=== PATIENT | female | born 1975 | race Caucasian/White ===

== ENCOUNTER 2020-06-25 14:44 | Inpatient (IN) | payer MEDICARE, OTHER, MEDICAID, SELFPAY ==
[2020-06-25] VITALS (11 sets, daily range): BP systolic 99–143; BP diastolic 69–106; PULSE 120–124; RESP 18–27; TEMP 36.1–36.6; O2SAT 92–100; BMI 49.5
--- NOTE | ~2020-06-25 | US_ITS ---
EXAMINATION: US venous doppler [facility] DATE: 06/26/2020 09:16 INDICATION: Shortness of breath TECHNIQUE: [place]ova scale images without and with compression and Doppler images of the bilateral lower e xtremity veins were obtained. COMPARISON: 05/26/2017 FINDINGS: The right common femoral vein, profunda femoral vein, femoral vein, popliteal vein, peroneal trunk, p osterior tibial veins, and greater saphenous vein are patent. The left common femoral vein, profunda femoral vein, femoral vein, popliteal vein, peroneal trunk, po sterior tibial veins, and greater saphenous vein are patent. IMPRESSION: 1. Patent bilateral lower extremity veins. No evidence of deep venous thrombosis. Reviewed, dictated and finalized at location A. IMPRESSION: 1. Patent bilateral lower extremity veins. No evidence of deep venous thrombosi s.
--- NOTE | ~2020-06-25 | CT_ITS ---
EXAMINATION: CT brain wo con DATE: 06/27/2020 12:04 INDICATION: Cardiac arrest. Dilated pupils. TECHNIQUE: Computed tomography (CT) of the head was performed without intravenous contrast. The mA wa s adjusted according to patient size. Iterative reconstruction technique was employed. The dose-lengt h product was 605.33 mGy-cm. COMPARISON: Head CT 06/01/2013 FINDINGS: There is no intracranial hemorrhage, acute infarction, or abnormal intracranial mass lesion . The ventricles are normal in size. The paranasal sinuses are clear. The orbits are normal. The mast oid air cells are normal. IMPRESSION: 1. Normal brain. Reviewed, dictated and finalized at location A. IMPRESSION: 1. Normal brain.
--- NOTE | ~2020-06-25 | XR_ITS ---
EXAMINATION: XR abdomen NG/feed tube insert INDICATION: Nasogastric tube placement TECHNIQUE: Portable AP KUB-NG at 1035 hours COMPARISON: None available FINDINGS: The nasogastric tube is in the stomach. Cardiomegaly is noted. There are interstitial and a irspace opacities of the visualized lung bases. Small pleural effusions are present. IMPRESSION: 1. Nasogastric tube in the stomach. Reviewed, dictated and finalized at location A.
--- NOTE | ~2020-06-25 | CT_ITS ---
EXAMINATION: CTA chest PE protocol EXAM DATE: 06/25/2020 18:07 INDICATION: Dyspnea, elevated d-dimer. Dizziness. TECHNIQUE: Spiral CTA of the chest (pulmonary arteries) was performed with 100 cc Omnipaque 350 intr avenous contrast injection. Images were acquired during the pulmonary arterial phase. Coronal maxi mum intensity projection 3D-reconstructions were created by the technologist on dedicated workstation . Axial, coronal and sagittal reformatted images were reviewed. The dose-length product (DLP) for t his examination was 951.61 mGy-cm. The exposure was tailored according to patient size (auto mA exp osure control), and iterative reconstruction (ASIR) was used as additional dose reduction technique. Comparison is made to prior examination from 12/03/2014. FINDINGS: There are no pulmonary emboli in the 1st through 3rd order (central and interlobar) pulmon [place] arteries. There is loss of attenuation in the segmental pulmonary arteries due to respiratory mot ion. No thoracic aortic dissection. There is scattered mosaic attenuation with differential diagnosis including air trapping (asthma, bro nchiolitis obliterans), vasculitis, or groundglass opacity. Groundglass opacity can be caused acutel y by edema, infection (including COVID-19) or hemorrhage. The trachea and mainstem bronchi do appear relatively collapsed. There is left lower lobe segmental atelectasis. No confluent consolidation. Small right pleural effus ion. No pericardial effusion. Tracheobronchial tree is patent. There is no mediastinal, hilar or a xillary lymphadenopathy. There is no pneumothorax. Severe cardiomegaly. The main, central pulmona ry arteries are dilated which can indicate elevated pulmonary arterial pressure, pulmonary arterial h ypertension. No evidence of coronary arterial calcification. There are some liver surface undulatio ns. There is thoracic spondylosis without osteoblastic or osteolytic lesions identified. IMPRESSION: 1. No central pulmonary emboli. Basilar segmental vessels poorly evaluated. 2. Mosaic attenuation, could be air trapping given the collapsed appearing airway. Groundglass opaci ties from edema or infection not excludable. 3. Left lower lobe segmental atelectasis. 4. Small right pleural effusion. 5. Severe cardiomegaly. 6. Pulmonary arterial hypertension. 7. Possible cirrhosis. Reviewed, dictated and finalized at location A. IMPRESSION: 1. No central pulmonary emboli. Basilar segmental vessels poorly evaluated. 2. Mosaic attenuation, could be air trapping given the collapsed appearing air way. Groundglass opacities from edema or infection not excludable. 3. Left lower lobe segmental atelectasis. 4. Small right pleural effusion. 5. Severe cardiomegaly. 6. Pulmonary arterial hypertension. 7. Possible cirrhosis.
--- NOTE | ~2020-06-25 | XR_ITS ---
EXAMINATION: XR chest ET placement INDICATION: Endotracheal tube insertion TECHNIQUE: Portable AP chest at 1032 hours COMPARISON: 0914 hours FINDINGS: The endotracheal tube ends approximately 5.8 cm of above the sherry. A right internal jugul ar catheter ends at this tip in the proximal superior vena cava. A right internal jugular Port-A-Cath ends with its tip in the distal superior vena cava. The nasogastric tube is followed as far as the s tomach. Its tip is beyond the inferior margin of the radiograph. There is stable cardiomegaly. Small pleural effusions are unchanged. Diffuse interstitial and airspace opacities persist without signific ant change. IMPRESSION: 1. Endotracheal tube approximately 5.8 cm above the sherry. 2. Right internal jugular catheter insertion, no pneumothorax. 3. Stable cardiomegaly. 4. Stable diffuse lung disease, likely pulmonary edema. 5. Small pleural effusions. Reviewed, dictated and finalized at location A.
--- NOTE | ~2020-06-25 | XR_ITS ---
EXAMINATION: XR chest ET placement DATE: 06/27/2020 09:18 INDICATION: Intubation. TECHNIQUE: A single frontal view of the chest was obtained. COMPARISON: Chest 2 views 06/25/2020, chest CT 06/25/2020 FINDINGS: There are airspace opacities in the perihilar regions and at left lung base. Briseida B lines are noted. There are small pleural effusions. No pneumothorax. Cardiomegaly is noted. The endotrache al tube tip is 5.6 cm above the sherry. There is a right internal jugular port with tip at superior c avoatrial junction. IMPRESSION: 1. Diffuse lung disease, likely moderate pulmonary edema. 2. Small pleural effusions. 3. Cardiomegaly. Reviewed, dictated and finalized at location A.
--- NOTE | ~2020-06-25 | XR_ITS ---
EXAMINATION: XR chest 2V DATE: 06/25/2020 16:16 INDICATION: Shortness of breath, cough, hypoxia and dizziness TECHNIQUE: frontal and lateral views of the chest were obtained. COMPARISON: Chest radiograph dated 04/05/2018 FINDINGS: Right internal jugular central venous port catheter with distal tip at the caudal superior vena cava. Sensitivity decreased by patient body habitus. Small right pleural effusion resulting in mild increa sed opacification the right lower lung zone with blunting at the right costophrenic angle. No pneumot horax or definitive left pleural effusion. The cardiomediastinal silhouette is within normal limits f or AP technique. Moderate thoracic spondylosis. IMPRESSION: 1. Small right pleural effusion. Reviewed, dictated and finalized at location B.
--- NOTE | 2020-06-25 14:49 | ECG_ITS ---
Measurements Intervals [place] Rate: 122 P: [place]: 0 QRS: 198 QRSD: 111 T: 57 QT: 334 QTc: 476 Interpretive Statements ATRIAL FLUTTER/TACHYCARDIA WITH RAPID VENTRICULAR RESPONSE RIGHT AXIS DEVIATION INCOMPLETE RIGHT BUNDLE BRANCH BLOCK LOW QRS VOLTAGE IN PRECORDIAL LEADS BORDERLINE T WAVE ABNORMALITY- ANTEROLATERAL LEADS BASELINE ARTIFACT- I, II, III, AVR, AVL, AVF, V1-V2 ABNORMAL ECG Electronically Signed On 06-25-2020 15:02:46 CDT by Juan Luis Cervantes D.O.
[2020-06-25 15:35] LABS: Basophils Absolute Auto 0.1 K/mm3 (0.0-0.1); Basophils Percent Auto 0.6 % (0.2-1.2); Eosinophils Absolute Auto 0.1 K/mm3 (0-0.3); Eosinophils Percent Auto 1.2 % (0-4.4); Hematocrit 39.6 % (37.0-47.0); Hemoglobin 11.7 g/dL (12.0-15.0); Immature Granulocyte Absolute 0.04 K/mm3 (0.00-0.031); Immature Granulocyte Percent A 0.4 % (0-0.5); Lymphocytes Percent Auto 16.7 % (18.3-44.2); Mean Corpuscular HGB Conc 29.5 g/dl (32-36); Mean Corpuscular Hemoglobin 27.1 pg (26-34); Mean Corpuscular Volume 91.9 fl (80-100); Mean Platelet Volume 9.8 fl (7.4-10.4); Monocytes Absolute Auto 0.6 K/mm3 (0.1-0.6); Monocytes Percent Auto 6.7 % (2.6-8.5); Neutrophils Absolute Auto 7.1 K/mm3 (1.3-6.7); Neutrophils Percent Auto 74.4 % (45.5-73.1); Platelet Count Result 369 k/mm3 (150-375); Red Blood Count 4.31 M/mm3 (4.2-5.4); Red Cell Distribution Width 16.6 % (11.5-14.5); White Blood Count 9.6 K/mm3 (4.5-10.0)
[2020-06-25 15:46] LABS: Anion Gap 8 mmol/L (8-16); Blood Urea Nitrogen 18 mg/dL (7-17); Calcium 9.4 mg/dL (8.4-10.2); Carbon Dioxide 32 mmol/L (22-30); Chloride 98 mmol/L (98-107); Estimated Glomerular Filt Rate > 60; Glucose 107 mg/dL (65-105); Potassium 4.7 mmol/L (3.4-5.0); Sodium 138 mmol/L (137-145)
[2020-06-25 16:05] LABS: Platelet Estimate Adequate (Adequate)
[2020-06-25 16:06] LABS: Anisocytosis 2+ (NORMAL); Hypochromasia 1+ (NORMAL)
--- NOTE | 2020-06-25 16:09 | ED.SOB ---
HPI - SOB/Dyspnea General Chief Complaint: Shortness of Breath/Dyspnea Stated Complaint: sob Time Seen by Provider: 06/25/20 16:02 Source: patient Mode of arrival: ambulatory Limitations: no limitations History of Present Illness HPI Narrative: Patient is a 45-year-old female with a history of rheumatoid arthritis that presents for evaluation of shortness of breath. Patient reports shortness of breath at rest and with exertion. She reports worsening shortness of breath over the past week as well as productive cough. She denies any hemoptysis, no fever, rhinorrhea or congestion. No sore throat. No recent sick contacts. She is denying any chest pain. Patient states she becomes short of breath whenever she is walking around. She cannot PE her activities of daily living due to the extreme shortness of breath. Patient denies any smoking history. No history of COPD. She denies any leg swelling or calf pain. Related Data Home Medications Medication Instructions Recorded Confirmed abatacept 125 mg/mL subcutaneous 1,000 mg SUBCUT .COMPLEX ml 08/30/19 09/04/19 syringe albuterol sulfate 90 mcg/actuation 2 inhalation INHALATION Q4-6H PRN 08/30/19 09/04/19 breath activated powder inhaler amitriptyline 150 mg tablet 150 mg PO ONCE 08/30/19 09/04/19 folic acid 1 mg tablet 1 mg PO DAILY 08/30/19 09/04/19 leflunomide 10 mg tablet 10 mg PO DAILY 08/30/19 09/04/19 medroxyprogesterone 10 mg tablet 10 mg PO DAILY 08/30/19 09/04/19 mometasone-formoterol HFA 100 2 puff INHALATION Q12H 08/30/19 09/04/19 mcg-5 mcg/actuation aerosol inhaler multivitamin 1 tablet PO DAILY 08/30/19 09/04/19 meloxicam 15 mg tablet 15 mg PO DAILY 09/04/19 09/04/19 allopurinol 100 mg tablet 200 mg PO DAILY tablet 03/18/20 Allergies Allergy/AdvReac Type Severity Reaction Status Date / Time No Known Allergies Allergy Verified 06/25/20 14:49 Review of Systems Review of Systems: Narrative: CONSTITUTIONAL: Denies fever, chills, or sweats. ENT: Denies rhinorrhea, congestion, sore throat, or otalgia. CARDIOVASCULAR: Denies chest pain, palpitations, or edema. RESPIRATORY: Reports cough, reports shortness of breath GASTROINTESTINAL: Denies abdominal pain, nausea, vomiting, or diarrhea. GENITOURINARY: Denies dysuria or hematuria. SKIN: Denies rash or itching. MUSCULOSKELETAL: Denies back pain, joint pain, or myalgia. NEUROLOGIC: Denies headache, numbness, or weakness. [facility] Past Medical History Medical History Candidal skin infection Hyperglycemia Hypothyroidism Obesity hypoventilation syndrome Rheumatoid arthritis Surgical History Surgical History (Updated 05/02/20 @ 12:52 by Lissa Serra MA) History of carpal tunnel repair History of dilation and curettage Family History Family History Mother Patient's mother is in good health Hypertension Father Patient's father is in good health Sibling Patient's sister is in good health Grandparent Diabetes mellitus Family history of hypercholesterolemia Social History Social History Smoking status: Never smoker Second hand tobacco smoke exposure: No Alcohol intake: never Substance use: never Exam Narrative: Exam Narrative: GENERAL: Awake, alert, conversant, obese HEAD: Normocephalic, atraumatic. EYES: PERRLA and EOMI. ENT: Nares clear, no rhinorrhea or epistaxis. Mucous membranes moist. NECK: Supple. CHEST: Coarse breath sounds bilaterally, crackles bilaterally, oxygen saturations 90% when speaking HEART: Tachycardic rate, atrial flutter ABDOMEN:Non distended, non tender EXTREMITIES: Normal range of motion. No edema of the lower extremities SKIN: Cyanosis present, pale dry, no rash. NEURO:No focal deficits. Alert and oriented x3 Course Vital Signs Vital signs: Vital Signs Temperature 36.1 C L
[2020-06-25] MEDS: SODIUM CHLORIDE 0.9% IV 1,000 ML 999 ML IV CONT (16:27)
[2020-06-25 16:31] LABS: INR 1.3; Partial Thromboplastin Time 28.7 SECONDS (22.3-36.8); Prothrombin Time 15.5 Seconds (11.1-14.7)
[2020-06-25 16:40] LABS: NT Pro B Type Natriuretic Pept 12700 PG/ML (5-100); Troponin I < 0.012 ng/mL (0.000-0.034)
[2020-06-25 16:59] LABS: Alveolar/Arterial O2 Gradient 33.2 mmHg; Base Excess ABG -0.4 mEq/l (+/-2.0); Carboxyhemoglobin 0.5 % THb (0-2.0); Fractional Inspired Oxygen 21 %; HCO3 ABG 24.7 mEq/l (22.0-26.0); Methemoglobin ABG 0.1 %THb (0-1.5); Oxygen Content ABG 15.2 %vol (16.0-22.0); Oxygen Saturation ABG 92.8 % (95.0-100.0); Oxyhemoglobin 89.2 % THb (90.0-100.0); PCO2 ABG 42.2 mmHg (35.0-45.0); PO2 FiO2 Ratio Arterial Blood 3.14 %; Reduced Hemoglobin 10.2 %THb (0-5.0); Total Hemoglobin 12.1 g/dL (12.0-18.0); pH ABG 7.385 (7.350-7.450)
[2020-06-25 17:00] LABS: Device ROOM AIR; Site Drawn RIGHT BRACHIAL
[2020-06-25 17:32] LABS: D Dimer > 20.00 ug/mL (<0.48)
[2020-06-25] MEDS: DEXAMETHASONE SOD PHOS INJ 4 MG/ML VIAL 10 MG IV PUSH (18:41)
[2020-06-25] MEDS: NITROGLYCERIN OINTMENT 1 INCH DOSE TRANSDERM (18:42)
[2020-06-25] MEDS: FUROSEMIDE INJ 40 MG/4 ML VIAL 20 MG IV PUSH (19:37)
--- NOTE | 2020-06-25 19:52 | ECG_ITS ---
Measurements Intervals [place] Rate: 122 P: CT: 0 QRS: 186 QRSD: 110 T: 42 QT: 337 QTc: 482 Interpretive Statements ATRIAL FLUTTER/TACHYCARDIA WITH RAPID VENTRICULAR RESPONSE RIGHT AXIS DEVIATION INCOMPLETE RIGHT BUNDLE BRANCH BLOCK BORDERLINE T WAVE ABNORMALITY- ANTEROLATERAL LEADS ABNORMAL ECG Electronically Signed On 06-26-2020 6:13:19 CDT by Juan Luis Cervantes D.O.
[2020-06-25] MEDS: dilTIAZem HCl INJ 25 MG/5 ML VIAL 10 MG IV PUSH (20:22)
[2020-06-25 20:25] LABS: Lactic Acid Reflex 2.3 mmol/L (0.7-2.1)
--- NOTE | 2020-06-25 20:45 | PC.NURSE ---
Pt sister phone number is [phone].
--- NOTE | 2020-06-25 21:00 | ADMGEN ---
This patient, Najma Ford, was admitted to Intensive Care Unit-2. Patient/family oriented to hospital policies and general routines including ID bracelet, bed and alarms, visiting hours, pain management, procedures, bathroom and other care routines, personal items, smoking policy, room service/diet, and visiting hours. Valuables list has been completed. Information on how to activate the Rapid Response Team has been discussed. Patient/Family are encouraged to report perceived risks to care and to ask questions if they do not understand what they are told or what they should do.
--- NOTE | 2020-06-25 21:54 | PM.IMHP ---
H&P: HPI History of Present Illness Date/Time: 06/25/20 21:54 Chief complaint: CHF exacerbation, Dyspnea Narrative: Najma Ford is a 45 year old female who has a history of rheumatoid arthritis. The patient has been coughing for about 1 week. She has been short of breath with rest and exertion. She has a productive cough. The patient denies being tested for COVID-19. She said she is not have any fever or chills. She stated that the other people in the house that she lives with this not COVID has not been checked for and does not have a fever or cough. She said that nobody else in the house is sick. Patient is short of breath with walking around. She has no history of COPD but was diagnosed with asthma in the past. She had an inhaler but has not been able to use because she has been out. She does see Ankur Whitt. Patient was found to be in atrial flutter in the emergency room with rapid ventricular response. Her heart rates in the 120s. At this time and just appears to be sinus tach. Patient was placed on a Cardizem drip. Which is not working for the patient so I ordered her some Lopressor. Her D-dimer was elevated to greater than 20. A CT scan of the the chest was obtained. The patient does have some expiratory wheezes. She has severe cardiomegaly. Pulmonary arterial hypertension. Possible cirrhosis. The patient was given IV fluids, Lasix, nitro, Decadron, and the Cardizem. Her pulse has been in the 120s and has remained in the 120s regardless of the Cardizem drip. Upon my review the patient looks like she is in sinus tach. Arterial blood gases pH 7.38. She was placed on O2 at 2 L per nasal cannula. Date of service 06/25/2020 Review of Systems Review of Systems: All systems reviewed & are unremarkable except as noted in HPI and below Constitutional: Constitutional: Reports as per HPI and Reports no additional constitutional complaints Eyes: Eyes: Reports as per HPI and Reports no additional eye complaints ENT: Reports system reviewed and no additional complaints, except as documented and Reports Normal hearing present Cardiovascular: Cardiovascular: Reports no additional cardiovascular complaints Respiratory: Respiratory: Reports no additional respiratory complaints and Reports no additional respiratory complaints Gastrointestinal: Gastrointestinal: Reports as per HPI and Reports no additional gastrointestinal complaints Musculoskeletal: Musculoskeletal: Reports no additional musculoskeletal complaints Integumentary/Breasts: Skin/Breast: Reports system reviewed and no additional complaints, except as docu and Reports as per HPI Neurologic: Reports system reviewed and no additional complaints, except as documented, Reports as per HPI and Reports Normal hearing present Psychiatric: Psychiatric: Reports no additional psychiatric complaints and Reports as per HPI Endocrine: Endocrine: Reports no additional endocrine complaints Hematologic/Lymphatic: Hematologic/Lymphatic: Reports no additional hematologic/lymphatic complaints Allergic/Immunologic: Allergic/Immunologic: Reports no additional allergic/immunologic complaints [facility] Past Medical History Medical History (Updated 06/25/20 @ 22:19 by Jillian Friedman NP) Candidal skin infection Hyperglycemia Hypothyroidism Obesity hypoventilation syndrome Rheumatoid aortitis Rheumatoid arthritis S/P ORIF (open reduction internal fixation) fracture right ankle and left wrist. Surgical History Surgical History (Updated 06/25/20 @ 22:18 by Jillian Friedmna NP) History of carpal tunnel repair History of dilation and curettage bilateral arms History of surgical removal of ganglion cyst S/P cubital tunnel release Family History Family History Mother Patient's mother is in good health Hypertension Father Patient's father is in good health Sibling Patient's sister is in good health Grandparent
[2020-06-25] MEDS: METOPROLOL TARTRATE INJ 5 MG/5 ML VIAL IV PUSH (22:11)
[2020-06-25 23:12] LABS: Reflex Lactic Acid Yes or No Add Lactic
[2020-06-26] VITALS (22 sets, daily range): BP systolic 108–141; BP diastolic 78–110; PULSE 112–126; RESP 16–28; TEMP 36.4–37; O2SAT 92–100
--- NOTE | 2020-06-26 | ECHO_ITS ---
Patient Info Name: Najma Ford Age: 45 years : 1975 Gender: Female Ht: 68 in Wt: 326 lbs BSA: 2.75 m2 HR: 125 bpm BP: 133 / 94 mmHg Heart Rhythm: Atrial Flutter Technical Quality: Fair Exam Date: 06/26/2020 3:26 PM Exam Location: [facility] Patient Status: Inpatient Admit Date: 06/26/2020 Staff Ordering Physician: Mukesh Gerardo MD Senior Housekeeper: Jose Shrestha RDCS Attending Provider: Gregorio Akers MD Referring Physician: Akin TORIBIO; Exam Type: CA echo dop color flow w con Study Info Indications 427.32 - Atrial flutter R06.00 - Dyspnea, unspecified Complete two-dimensional, color flow and Doppler transthoracic echocardiogram is performed with contrast to opacify the left ventricle and to improve the deliniation of the left ventricle endocardial borders. Contrast/Agitated Saline Contrast/Ag. Saline: Definity Amount: 2.00 ml Administered By: Rimma Sue RN Existing IV Access: Yes History/Risk Factors Aflutter; CHF exacerbation, dyspnea, SOB, HTN, tachycardia. Summary 1. Left ventricular chamber dimension is severely enlarged. 2. Left ventricular systolic function is severely reduced, estimated at <15%. 3. There is mildly increased left ventricular wall thickness. 4. The left ventricular diastolic function is abnormal. 5. Right ventricular systolic function is reduced. 6. Right ventricular chamber dimension is moderately enlarged. 7. Left atrial chamber dimension is mildly enlarged. 8. Right atrial chamber dimension is mildly enlarged. 9. There is mild to moderate mitral valve regurgitation. 10. Small mitral valve vegetation visualized. 11. There is mild tricuspid valve regurgitation. 12. Moderate pulmonary hypertension, estimated pulmonary arterial systolic pressure is 54 mmHg. 13. There is moderate pulmonic regurgitation. Left Ventricle Left ventricular chamber dimension is severely enlarged. Left ventricular systolic function is severely reduced, estimated at <15%. There is mildly increased left ventricular wall thickness. The left ventricular diastolic function is abnormal. Right Ventricle Right ventricular chamber dimension is moderately enlarged. Right ventricular systolic function is reduced. Left Atria Left atrial chamber dimension is mildly enlarged. Right Atria Right atrial chamber dimension is mildly enlarged. Atrial Septum Intact interatrial septum visualized by color flow imaging. Aortic Valve The aortic valve is trileaflet. There is mild aortic valve sclerosis. There is no aortic valve stenosis. There is trace aortic valve regurgitation. Pulmonic Valve The pulmonic valve is normal. There is no pulmonic valve stenosis. There is moderate pulmonic regurgitation. Mitral Valve The mitral valve has thickened leaflets. There is no mitral valve stenosis. There is mild to moderate mitral valve regurgitation. Small mitral valve vegetation visualized. Tricuspid Valve The tricuspid valve leaflets are normal. There is no significant tricuspid valve stenosis. There is mild tricuspid valve regurgitation. Moderate pulmonary hypertension, estimated pulmonary arterial systolic pressure is 54 mmHg. Pericardium/Pleural The pericardium appears normal. There is no pericardial effusion. Inferior Vena Cava Dilated inferior vena cava with <50% collapse upon inspiration consistent with elevated right atrial pressur
[2020-06-26 01:06] LABS: Lactic Acid 1.5 mmol/L (0.7-2.1)
[2020-06-26] MEDS: LEVALBUTEROL HFA (*SP) 15 GM INHALER 2 PUFF INHALATION (01:10)
[2020-06-26 05:10] LABS: Basophils Absolute Auto 0.1 K/mm3 (0.0-0.1); Basophils Percent Auto 0.4 % (0.2-1.2); Hematocrit 40.7 % (37.0-47.0); Hemoglobin 12.1 g/dL (12.0-15.0); Immature Granulocyte Absolute 0.05 K/mm3 (0.00-0.031); Immature Granulocyte Percent A 0.4 % (0-0.5); Lymphocytes Absolute Auto 1.29 K/mm3 (0.9-3.2); Lymphocytes Percent Auto 10.8 % (18.3-44.2); Mean Corpuscular HGB Conc 29.7 g/dl (32-36); Mean Corpuscular Hemoglobin 27.1 pg (26-34); Mean Corpuscular Volume 91.3 fl (80-100); Mean Platelet Volume 9.9 fl (7.4-10.4); Monocytes Absolute Auto 0.7 K/mm3 (0.1-0.6); Monocytes Percent Auto 5.5 % (2.6-8.5); Neutrophils Absolute Auto 9.9 K/mm3 (1.3-6.7); Neutrophils Percent Auto 82.9 % (45.5-73.1); Platelet Count Result 370 k/mm3 (150-375); Red Blood Count 4.46 M/mm3 (4.2-5.4); Red Cell Distribution Width 16.7 % (11.5-14.5); White Blood Count 11.9 K/mm3 (4.5-10.0)
[2020-06-26 05:18] LABS: Hemoglobin A1C 5.5 % (<5.7)
[2020-06-26 05:23] LABS: Lactic Acid Reflex 1.8 mmol/L (0.7-2.1)
[2020-06-26 05:23] LABS: Alanine Aminotransferase 26 U/L (4-35); Albumin Level 3.6 g/dL (3.5-5.1); Alkaline Phosphatase 168 U/L (38-126); Anion Gap 9 mmol/L (8-16); Aspartate Amino Transferase 29 U/L (14-36); Bilirubin,Total 0.8 mg/dL (0.2-1.3); Blood Urea Nitrogen 18 mg/dL (7-17); Calcium 9.1 mg/dL (8.4-10.2); Carbon Dioxide 30 mmol/L (22-30); Chloride 98 mmol/L (98-107); Estimated CRCL calculation 107 ml/min; Estimated Glomerular Filt Rate > 60; Glucose 127 mg/dL (65-105); Lactate Dehydrogenase 520 U/L (313-618); Sodium 137 mmol/L (137-145)
[2020-06-26] MEDS: guaiFENesin/DEXTROMETHORPHAN 10 ML UDC PO ×3 (06:09→22:56)
[2020-06-26] MEDS: ENOXAPARIN 40 MG/0.4 ML SYRINGE SUB-Q (08:18)
[2020-06-26] MEDS: FUROSEMIDE INJ 40 MG/4 ML VIAL 20 MG IV PUSH (08:19)
[2020-06-26] MEDS: DEXAMETHASONE SOD PHOS INJ 4 MG/ML VIAL 6 MG IV PUSH (08:19)
--- NOTE | 2020-06-26 11:09 | PM.IMPN ---
Progress Note: A&P Assessment and Plan (1) Morbid obesity: Code(s): E66.01 - Morbid (severe) obesity due to excess calories Status: Acute Assessment and Plan: 1800 calorie restricted diet Life style and diet modifications (2) Essential hypertension: Code(s): I10 - Essential (primary) hypertension Status: Acute Assessment and Plan: Continue home meds Continue to monitor (3) Suspected COVID-19 virus infection: Code(s): Z20.828 - Contact with and (suspected) exposure to other viral communicable diseases Status: Acute Assessment and Plan: Ruled out with negative PCR. (4) Congestive heart failure: Qualifiers: Heart failure chronicity: acute Heart failure type: unspecified Qualified Code(s): I50.9 - Heart failure, unspecified Code(s): I50.9 - Heart failure, unspecified Status: Acute Assessment and Plan: Stable Continue to monitor Strict I/O's (5) Ground glass opacity present on imaging of lung: Code(s): R91.8 - Other nonspecific abnormal finding of lung field Status: Acute Assessment and Plan: Clinically does not appear to be infection However will consider empirical antibiotics (6) Obesity hypoventilation syndrome: Code(s): E66.2 - Morbid (severe) obesity with alveolar hypoventilation Status: Acute Assessment and Plan: Continue supplemental oxygen as needed. Subjective Date/time seen: 06/26/20 11:09 Patient states that she has been having a cough now for over 2 weeks, had one episode in which she her lips and fingers turned blue after a cough spell. Had chills as well. Review of Systems Constitutional: Comments: chills. Eyes: Comments: no visual changes. ENT: Comments: no ear ache, no throat pain, neck pain when coughing. Cardiovascular: Comments: no chest pain, no leg swelling. Respiratory: Comments: Hacking dry cough which has worsened, non productive of sputm. Gastrointestinal: Comments: no n/v/abdominal pain. Musculoskeletal: Comments: Morbid obese Integumentary/Breasts: Comments: varicoce veins. Neurologic: Comments: no sensorymotor deficit Hematologic/Lymphatic: Comments: No LAP Exam Narrative: Exam Narrative: Morbidly obese, chronically ill looking, generalized pallor. Const: General: other (Mild respiratory distress.) Nutritional Appearance: obese Orientation/consciousness: patient oriented x3 HENMT: Head: normocephalic Ears: hearing grossly normal bilaterally General nose exam: Normal external nose present Face and sinus: normal facial exam Mouth: Yes Normal oral and palatal mucosa present Eyes: General: appearance normal, both eyes and all related structures Pupils: Equal, round and reactive pupils present EOM: EOMs intact bilaterally Neck: Neck: full ROM, no lymphadenopathy and no JVD Lymphatic: no lymphadenopathy noted Resp: Effort & Inspection: Actively coughing and respiratory distress (mild, able to speak 3 to 4 words sentences.) Auscultation: wheezes Cardio: Jugular venous distension: no JVD Rate: regular rate Rhythm: regular rhythm Heart sounds: S1 normal heart sound present and S2 normal heart sound present GI: Inspection: Pannus present GI Palp: Yes No hepatosplenomegaly present Auscultation: normal bowel sounds Skin: General skin exam: no rashes or lesions noted Rashes: no rashes Trauma: no lacerations or abrasions Wounds: no wounds Neuro: General: patient oriented x3 and CN's II-XI intact bilaterally Cranial nerves: Yes Equal, round and reactive pupils present Motor exam (neuro): 5/5 motor strength present throughout Extrem: General: other (Morbid obesity) Objective Data Vital Signs Vital Signs: Vital Signs - 24 hr 06/25/20 14:45 06/25/20 16:28 06/25/20 18:14 Temperature 97.0 F L Pulse Rate 121 H 122 H Respiratory Rate 22 H 27 H Blood Pressure 129/103 H 143/69 H Pulse Oximetry 94 98 98 06/25/20 18:49 06/25/20 18
[2020-06-26 13:02] LABS: SARS-CoV-2 RNA PCR Negative
--- NOTE | 2020-06-26 14:49 | PM.CNCAR ---
Assessment and Plan Assessment and plan (1) Atrial flutter with rapid ventricular response: Code(s): I48.92 - Unspecified atrial flutter Status: Acute Assessment and Plan: She remains on a diltiazem drip which is unlikely to benefit her significantly. Will keep her NPO after midnight for a TESSA guided cardioversion. It is uncertain how long she has been in atrial flutter and so TESSA is needed. Will start her on Xarelto 20 mg daily. Discontinue DVT dose enoxaparin at this point. 2D echocardiogram Doppler is ordered now. she has a chads Vasc score of 3 given her high blood pressure, diabetes and gender. 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 . Will check a TSH as well as a T4 level (2) Congestive heart failure: Qualifiers: Heart failure chronicity: acute Heart failure type: unspecified Qualified Code(s): I50.9 - Heart failure, unspecified Code(s): I50.9 - Heart failure, unspecified Status: Acute Assessment and Plan: likely systolic in tachycardic induced. Echo is ordered. Will start her on furosemide 40 mg IV q.12 hours. Check a basic metabolic panel and magnesium level in a.m. (3) Obesity hypoventilation syndrome: Code(s): E66.2 - Morbid (severe) obesity with alveolar hypoventilation Status: Acute Assessment and Plan: CPAP at night (4) Essential hypertension: Code(s): I10 - Essential (primary) hypertension Status: Acute Assessment and Plan: above goal (5) Morbid obesity: Code(s): E66.01 - Morbid (severe) obesity due to excess calories Status: Acute (6) Borderline diabetes: Code(s): R73.03 - Prediabetes Status: Acute History of Present Illness History of Present Illness Consult date/time: 06/26/20 14:49 Requesting physician: Daily Curtis MD Consult reason: congestive heart failure Reason For Visit: CHF exacerbation, Dyspnea Narrative: date of service 06/26/2020 Reason for consultation congestive heart failure History: Patient is a 45-year-old female who came to the hospital because of tachycardia worsening shortness of breath. Patient states that she had had worsening shortness of breath x1 week as well as a significant cough. The cough was productive of a tannish sputum. Her shortness of breath was to the point that she really could not do much of anything without becoming dyspneic. When climbing up steps she usually had to stop at least once of not more times were to go to the top of the steps. Patient does describe some paroxysmal nocturnal dyspnea as well as orthopnea. She also has had some significant dizziness as of late. No fevers. No chest pain. No syncope, edema or palpitations. She has ruled out for COVID at this point at least. She does carry a diagnosis of morbid obesity, obesity hypoventilation syndrome, hypertension, diabetes, sleep apnea. She did see Dr. Frausto remotely in 2012. She has received a little bit of diuresis but is feeling a little bit better but not significantly improved at this point. She was started on a Cardizem drip but her atrial flutter still remains at a rate of 125 beats per minute. Review of Systems Review of Systems: Narrative: In mild distress All systems reviewed & are unremarkable except as noted in HPI and below Constitutional: Constitutional: Reports fatigue Eyes: Eyes: Denies blurry vision ENT: Reports Normal hearing present Cardiovascular: Cardiovascular: Denies chest pain and Denies palpitations Respiratory: Respiratory: Reports cough and Reports dyspnea Gastrointestinal: Gastrointestinal: Denies abdominal pain Genitourinary: Genitourinary: Denies hematuria and Denies flank pain Musculoskeletal: Musculoskeletal: Denies back pain and Denies neck pain Integumentary/Breasts: Skin/Breast: Denies dry skin and Denies unusual bruising Neurologic: Denies headache(s) Psychiatric: Psychiatric: Denies anxiety and Denies con
[2020-06-26] MEDS: FUROSEMIDE INJ 40 MG/4 ML VIAL IV PUSH (16:19)
[2020-06-26] MEDS: RIVAROXABAN 20 MG TABLET PO (16:30)
[2020-06-26] MEDS: AMIODARONE 360 MG/D5W 200 ML 360 MG/200 ML BAG 33.3 MG IV CONT (17:24)
[2020-06-26] MEDS: TOLNAFTATE 1% POWDER 45 GM BTL 1 APPLIC TOPICAL (20:13)
[2020-06-26] MEDS: AMIODARONE 360 MG/D5W 200 ML 360 MG/200 ML BAG 16.7 MG IV CONT (22:58)
[2020-06-27] VITALS (29 sets, daily range): BP systolic 90–139; BP diastolic 54–116; PULSE 108–127; RESP 18–100; TEMP 36.4–36.9; O2SAT 20–100; BMI 49.1
[2020-06-27 04:50] LABS: Alanine Aminotransferase 25 U/L (4-35); Anion Gap 9 mmol/L (8-16); Blood Urea Nitrogen 28 mg/dL (7-17); Calcium 8.6 mg/dL (8.4-10.2); Carbon Dioxide 29 mmol/L (22-30); Chloride 97 mmol/L (98-107); Estimated CRCL calculation 96 ml/min; Estimated Glomerular Filt Rate 60; Glucose 124 mg/dL (65-105); Magnesium 2.1 mg/dL (1.6-2.3); Potassium 4.4 mmol/L (3.4-5.0); Sodium 135 mmol/L (137-145)
[2020-06-27] MEDS: LEVALBUTEROL HFA (*SP) 15 GM INHALER 2 PUFF INHALATION (07:25)
--- NOTE | 2020-06-27 08:19 | PC.NURSE ---
Patient to PACU via bed for TESSA/cardioversion. Report given to SURESH Morton.
--- NOTE | 2020-06-27 08:32 | WPDANESEPPF ---
Anes - Initial Pre Proc Eval Procedure: Operation Date: 06/27/20 08:30 Proposed Procedures p Trans Esophageal Echo - Mukesh Gerardo MD s Electrical Cardioversion - Mukesh Gerardo MD Date/Time: 06/27/20 08:32 Surgeon: Gregorio Akers MD Pre Op Diagnosis: CHF exacerbation, Dyspnea Patient Data Age: 45 Gender: F Height: 5 ft 8 in Weight: 146.7 kg Last Vital Signs Temp 36.8 C 06/27/20 07:45 Pulse 119 H 06/27/20 07:45 Resp 18 06/27/20 07:45 BP 112/89 06/27/20 08:05 Pulse Ox 98 06/27/20 07:45 Allergies Allergy/AdvReac Type Severity Reaction Status Date / Time No Known Allergies Allergy Verified 06/25/20 14:49 Home Medications Medication Instructions Recorded Confirmed Type abatacept 125 mg/mL subcutaneous 1,000 mg SUBCUT WEEKLY ml 08/30/19 06/26/20 History syringe albuterol sulfate 90 mcg/actuation 2 inhalation INHALATION Q4-6H PRN 08/30/19 06/26/20 History breath activated powder inhaler amitriptyline 150 mg tablet 150 mg PO ONCE 08/30/19 06/26/20 History folic acid 1 mg tablet 1 mg PO DAILY 08/30/19 06/26/20 History leflunomide 10 mg tablet 20 mg PO DAILY 08/30/19 06/26/20 History mometasone-formoterol HFA 100 2 puff INHALATION Q12H 08/30/19 06/26/20 History mcg-5 mcg/actuation aerosol inhaler multivitamin 1 tablet PO DAILY 08/30/19 06/26/20 History meloxicam 15 mg tablet 15 mg PO DAILY 09/04/19 06/26/20 History nystatin 100,000 unit/gram topical 1 applic TOPICAL BID #30 gm 11/28/19 06/26/20 Rx powder allopurinol 100 mg tablet 200 mg PO DAILY tablet 03/18/20 06/26/20 History levothyroxine 200 mcg tablet 200 mcg PO DAILY #90 tablet 03/18/20 06/26/20 Rx levothyroxine 75 mcg tablet 75 mcg PO DAILY #90 tablet 03/18/20 06/26/20 Rx progesterone micronized 200 mg 200 mg PO ONCE #36 cap 05/02/20 06/26/20 Rx capsule furosemide 20 mg tablet 20 mg PO QAM #30 tablet 06/03/20 06/26/20 Rx lisinopril 10 mg tablet 10 mg PO DAILY #90 tablet 06/22/20 06/26/20 Rx hydroxychloroquine 200 mg PO BID 06/26/20 06/26/20 History meclizine 25 mg PO TID PRN 06/26/20 06/26/20 History sulfasalazine 1,000 mg PO BID 06/26/20 06/26/20 History Laboratory Tests 06/25/20 06/26/20 06/27/20 18:51 15:40 04:23 Sodium 135 mmol/L L mmol/L (137-145) Potassium 4.4 mmol/L mmol/L (3.4-5.0) Chloride 97 mmol/L L mmol/L (98-107) Carbon Dioxide 29 mmol/L mmol/L (22-30) Anion Gap 9 mmol/L mmol/L (8-16) BUN 28 mg/dL H D mg/dL (7-17) Creatinine 1.00 mg/dL mg/dL (0.7-1.0) Estim Creat Clear Calc 96 ml/min ml/min Estimated GFR 60 (59 - ) Glucose 124 mg/dL H mg/dL (65-105) Calcium 8.6 mg/dL mg/dL (8.4-10.2) Magnesium 2.1 mg/dL mg/dL (1.6-2.3) ALT 25 U/L U/L (4-35) TSH 1.430 uIU/mL uIU/mL (0.465-4.680) Thyroxine (T4) 10.70 ug/dL ug/dL (5.53-11.0) SARS-CoV-2 RNA (RT-PCR) Negative Patient hx anesthesia problems: none Family hx anesthesia problems: none PMFSH Past Medical History Medical History Borderline diabetes Candidal skin infection Hyperglycemia Hypothyroidism Morbid obesity Obesity hypoventilation syndrome Rheumatoid aortitis Rheumatoid arthritis S/P ORIF (open reduction internal fixation) fracture right ankle and left wrist. Surgical History Surgical History History of carpal tunnel repair History of dilation and curettage bilateral arms History of surgical removal of ganglion cyst S/P cubital tunnel release Family History Family History Mother Patient's mother is in good health Hypertension Kidney failure Dementia Alzheimer disease Father Patient's father is in good health Chronic obstructive pulmonary disease Emphysema of lung S
--- NOTE | 2020-06-27 08:39 | WPDMODSED ---
Moderate Sedation Note-Pt Data Patient Data Diagnosis: Atrial flutter, heart failure, mitral valve mass Present Complaint: Atrial flutter, heart failure Procedure to be performed/Plan: Multiplanar transesophageal echocardiography with color flow and pulse wave Doppler Agitated saline study Electrical cardioversion Allergies Allergy/AdvReac Type Severity Reaction Status Date / Time No Known Allergies Allergy Verified 06/25/20 14:49 Home Medications Medication Instructions Recorded Confirmed Type abatacept 125 mg/mL subcutaneous 1,000 mg SUBCUT WEEKLY ml 08/30/19 06/26/20 History syringe albuterol sulfate 90 mcg/actuation 2 inhalation INHALATION Q4-6H PRN 08/30/19 06/26/20 History breath activated powder inhaler amitriptyline 150 mg tablet 150 mg PO ONCE 08/30/19 06/26/20 History folic acid 1 mg tablet 1 mg PO DAILY 08/30/19 06/26/20 History leflunomide 10 mg tablet 20 mg PO DAILY 08/30/19 06/26/20 History mometasone-formoterol HFA 100 2 puff INHALATION Q12H 08/30/19 06/26/20 History mcg-5 mcg/actuation aerosol inhaler multivitamin 1 tablet PO DAILY 08/30/19 06/26/20 History meloxicam 15 mg tablet 15 mg PO DAILY 09/04/19 06/26/20 History nystatin 100,000 unit/gram topical 1 applic TOPICAL BID #30 gm 11/28/19 06/26/20 Rx powder allopurinol 100 mg tablet 200 mg PO DAILY tablet 03/18/20 06/26/20 History levothyroxine 200 mcg tablet 200 mcg PO DAILY #90 tablet 03/18/20 06/26/20 Rx levothyroxine 75 mcg tablet 75 mcg PO DAILY #90 tablet 03/18/20 06/26/20 Rx progesterone micronized 200 mg 200 mg PO ONCE #36 cap 05/02/20 06/26/20 Rx capsule furosemide 20 mg tablet 20 mg PO QAM #30 tablet 06/03/20 06/26/20 Rx lisinopril 10 mg tablet 10 mg PO DAILY #90 tablet 06/22/20 06/26/20 Rx hydroxychloroquine 200 mg PO BID 06/26/20 06/26/20 History meclizine 25 mg PO TID PRN 06/26/20 06/26/20 History sulfasalazine 1,000 mg PO BID 06/26/20 06/26/20 History Current Medications: Active Medications Acetaminophen (Acetaminophen 325 Mg Tablet) 650 mg PO Q4H PRN PRN Reason: Mild Pain (1-3) or Fever Dexamethasone Sodium Phosphate (Dexamethasone Sod Phos Inj 4 Mg/Ml Vial) 6 mg IV PUSH DAILY [facility] Stop: 07/05/20 09:01 Last Admin: 06/26/20 08:19 Dose: 6 mg Documented by: Furosemide (Furosemide Inj 40 Mg/4 Ml Vial) 40 mg IV PUSH BID [facility] Last Admin: 06/26/20 16:19 Dose: 40 mg Documented by: Guaifenesin/Dextromethorphan (Guaifenesin/Dextromethorphan 10 Ml Udc) 10 ml PO Q4H PRN PRN Reason: Cough Last Admin: 06/26/20 22:56 Dose: 10 ml Documented by: Amiodarone HCl/Dextrose (Nexterone 360 Mg/D5w 200 Ml) 360 mg in 200 mls @ 16.667 mls/hr IV CONT .Q12H [facility] Last Infusion: 06/27/20 05:05 Dose: 0.5 mg/min, 16.7 mls/hr Documented by: Levalbuterol HCl (Levalbuterol Hfa (*Sp) 15 Gm Inhaler) 2 puff INHALATION Q6HRT PRN PRN Reason: Shortness Of Breath Last Admin: 06/27/20 07:25 Dose: 2 puff Documented by: Rivaroxaban (Rivaroxaban 20 Mg Tablet) 20 mg PO DAILY@1700 [facility] Last Admin: 06/26/20 16:30 Dose: 20 mg Documented by: Tolnaftate (Tolnaftate 1% Powder 45 Gm Btl) 1 applic TOPICAL Q12HR [facility] Last Admin: 06/26/20 20:13 Dose: 1 applic Documented by: Sedation/Anesthesia: No previous sedation/anesthesia problems (including family history). [facility] Past Medical History Medical History Borderline diabetes Candidal skin infection Hyperglycemia Hypothyroidism Morbid obesity Obesity hypoventilation syndrome Rheumatoid aortitis Rheumatoid arthritis S/P ORIF (open reduction internal fixation) fracture right ankle and left wrist. Surgical History Surgical History History of carpal tunnel repair History of dilation and curettage bilateral arms History of surgical removal of ganglion cyst S/P cubital tunnel release Family History Family History Mother
--- NOTE | 2020-06-27 09:00 | ECG_ITS ---
Measurements Intervals [place] Rate: 116 P: NV: 0 QRS: 181 QRSD: 125 T: 17 QT: 387 QTc: 538 Interpretive Statements ATRIAL FLUTTER/TACHYCARDIA WITH RAPID VENTRICULAR RESPONSE RIGHT BUNDLE BRANCH BLOCK LEFT POSTERIOR FASCICULAR BLOCK BASELINE ARTIFACT- V2 ABNORMAL ECG Electronically Signed On 06-27-2020 10:59:47 CDT by Juan Luis Cervantes D.O.
--- NOTE | 2020-06-27 09:20 | PC.NURSE ---
Patient returned to room from PACU post cardiac arrest. Patient intubated upon arrival to room. Dr. Alicia and Dr. Gerardo at bedside.
[2020-06-27] MEDS: MIDAZOLAM HCL (*CRX) 2 MG/2 ML VIAL IV PUSH ×2 (09:40→11:00)
[2020-06-27] MEDS: fentaNYL CITRATE INJ (*CRX) 100 MCG/2 ML VIAL IV PUSH (09:42)
--- NOTE | 2020-06-27 10:03 | P.PNAN_ITS ---
Anes - Prog Note Post-Op Date/Time: 06/27/20 0848 Pt coughing and clearing her throat prior to start of preoxygenation. O2 NC 4L. Coughing resolved and pt verbalized she was OK to proceed. Amiodarone gtt on hold per Dr Gerardo. 0849 HOB elevated 40 degrees. Pt preoxygenated per AMBU bag 100% O2. SpO2 100%. 60 mg Lidocaine IVP , 100mg Propofol IVP per LAC 22 ga IV. TESSA procedure started. Pt coughing, Dr Gerardo requests deeper sedation. Additional 50mg Propofol IV, coughing resolved and adequate respirations at 28 with O2 NC at 4L and blow by O2 100% per Ambu bag. Jaw thrust and mouth guard in place. SpO2 97% at 0854. 0855 TESSA in progress and pt noted to change from A flutter Rate 120 to SB 60 and dropping within seconds 40s.Witnessed by Dr Gerardo, Dr Rios and Chirag Reyez CRNA. Spontaneous respirations with jaw thrust and O2 NC plus blow by O2 100% per Ambu Bag, pulse oximeter reading lost, Atropine 0.4mg IVP given. EKG per monitor with HR 30's with no palpable pulse present. TESSA aborted. BMV immediately initiated with easy mask ventilation and adequate oxygenation. Additional 1mg Atropine given at 0856, CPR initiated. Code team called. [address] Rios under Direct vision x1 attempt, Grade 1 view, atraumatic, 7.0 ETT placed at 21 cm @ right lip, BBS equal, negative gastric sounds, + ETCO2. Ventilation continued with Ambu Bag 100%. No pulse palpable. CPR resumed, Atropine 1mg IVP at 0859. Epinephrine 1mg IVP at 0859. Code team present. Dr. Alicia present. See code sheet for additional documentation of drugs. 0900 Return of spontaneous circulation. ETT secured and connected to ventilator per RT. Chest Xray done to confirm ETT placement. 0905 HR 107, BP 134/70, ETCO 49. SpO2 reading between 89-95 %. Care turned over to ICU/Code team. Plan to transfer to ICU for further manag ement. Cardiovascular status: other Respiratory status: other (intubated) Airway patency: other (Ventilator) Mental status: other (sedated) Post-Op hydration status: normal Vital Signs: Last Vital Signs Temp 36.8 C 06/27/20 07:45 Pulse 120 H 06/27/20 09:26 Resp 18 06/27/20 07:45 BP 112/89 06/27/20 08:05 Pulse Ox 100 06/27/20 09:26 Pain Score (VAS): 0 I/O: Intake & Output 06/26/20 06/27/20 06/27/20 23:59 07:59 15:59 Intake Total 310 481 Output Total 1600 200 Balance -1290 281 Laboratory Tests 06/26/20 05:00 06/27/20 04:23 06/25/20 06/26/20 06/27/20 18:51 15:40 04:23 Sodium 135 L Potassium 4.4 Chloride 97 L Carbon Dioxide 29 Anion Gap 9 BUN 28 H D Creatinine 1.00 Estim Creat Clear Calc 96 Estimated GFR 60 Glucose 124 H Calcium 8.6 Magnesium 2.1 ALT 25 TSH 1.430 Thyroxine (T4) 10.70 SARS-CoV-2 RNA (RT-PCR) Negative Microbiology 06/25/20 19:57 Blood Blood Culture - Preliminary 06/25/20 19:40 Blood Blood Culture - Preliminary Patient Feedback: Transferred to ICU Other Findings: Post op Management per ICU team
--- NOTE | 2020-06-27 10:06 | P.PCNTEECA_ITS ---
TESSA with Cardioversion Date of procedure: 06/27/20 Procedure Type: Multiplanar transesophageal echocardiography with color flow Doppler Diagnosis: Atrial flutter, mitral valve mass, CHF Indications: Atrial flutter, mitral valve mass, CHF Description of Procedure: Discussion was had with patient regarding risks, benefits and alternatives of the procedure. Risks included esophageal rupture perforation, skin irritation or burn from the shock, stroke, adverse reaction to anesthesia, . Because of the patient's learning disability, verbal consent was also obtained by talking to the patient's sister over the phone. Because the patient has history of sleep apnea, it was decided to proceed with TESSA guided cardioversion in the PACU with the assistance of anesthesia. The defibrillator pads were placed in anterior and posterior positions. After establishing continuous environmental monitoring technician, pulse oxygenation and serial blood pressure assessments, time-out was taken and the procedure was initiated. See anesthesia report for medications given for sedation. After patient was adequately sedated, the echo scope was advanced into place without difficulty. Multiplanar imaging was initiated. During the procedure however it was noted that there was a rhythm change and her cardiac output appeared to diminish. Spontaneous contrast was noted and she became significantly bradycardic. At this point, further echocardiographic evaluation was aborted. The echo scope was removed and the patient started to be bagged by Anesthesia. The patient became hypotensive also. Atropine and epinephrine were given. (see code sheet for details). Because of her marked bradycardia and hypotension, a code was called and CPR was initiated. Vasopressin and dopamine was started temporarily. Heart rate did increase and blood pressure stabilized. She was intubated prior to this without difficulty. The rhythm was atrial flutter with rapid ventricular response at the end of the event. She was transferred to the ICU for further management. Sedation: See anesthesia report for details Findings: Severe LV enlargement and LV dysfunction with ejection fraction of 10- 15%. The mitral valve did not show any evidence of mitral mass or endocarditis. There was mild to moderate mitral regurgitation. There is mild aortic insufficiency noted in aortic root was normal. Left atrial enlargement was in the [id number] category. Right ventricle is also hypokinetic and enla rged. There is mild tricuspid regurgitation. At this point the patient became unstable and thorough evaluation of the left atrial appendage could not be performed. Obviously cardioversion was not performed Conclusion: Severe LV enlargement and dysfunction Normal appearing mitral valve with out obvious mass. Mild to moderate mitral regurgitation Mild aortic and tricuspid insufficiency
--- NOTE | 2020-06-27 11:01 | WPDCNINT ---
Assessment and Plan Assessment and plan (1) Acute respiratory failure: Qualifiers: Respiratory failure complication: unspecified whether with hypoxia or hypercapnia Qualified Code(s): J96.00 - Acute respiratory failure, unspecified whether with hypoxia or hypercapnia Code(s): J96.00 - Acute respiratory failure, unspecified whether with hypoxia or hypercapnia Status: Acute Assessment and Plan: acute respiratory failure secondary to cardiac arrest - currently on CMV mode of ventilation, peep of 10, FiO2 was decreased to 60% of obtaining ABGs. - Chest x-ray reviewed - will place patient on bronchodilators (2) Cardiac arrest: Code(s): I46.9 - Cardiac arrest, cause unspecified Status: Acute Assessment and Plan: cardiac arrest during TESSA under anesthesia care. Likely respiratory event hypoxia leading to bradycardia following a cardiac arrest. ROSC within 5 to 6 minutes - post arrest patient has been moving all extremities spontaneously but difficult to discern if she was following commands (3) Cardiomyopathy: Code(s): I42.9 - Cardiomyopathy, unspecified Status: Acute Assessment and Plan: cardiomyopathy with congestive heart failure - EF of 10-15% on echocardiogram, left ventricle diastolic function is abnormal, right ventricle systolic function is reduced mild to moderate mitral valve regurg, small mitral valve vegetation visualized, moderate pulmonary hypertension with RVSP of 54 mmHg, moderate pulmonic regurg. - Patient being followed by Cardiology - patient had nuclear medicine scan in 2018 which showed a normal EF - according to discussions with Cardiology her cardiomyopathy is likely related to tachycardia (4) Atrial flutter with rapid ventricular response: Code(s): I48.92 - Unspecified atrial flutter Status: Acute Assessment and Plan: patient with atrial flutter, RVR on admission. - Evaluated by Cardiology, TESSA was being performed today to evaluate for mitral valve vegetation after which patient would have pain cardioverted but unfortunately had a cardiac arrest. And cardioversion was not performed - patient on full-dose Xarelto (5) Congestive heart failure: Qualifiers: Heart failure chronicity: acute Heart failure type: unspecified Qualified Code(s): I50.9 - Heart failure, unspecified Code(s): I50.9 - Heart failure, unspecified Status: Acute Assessment and Plan: congestive heart failure secondary to severe cardiomyopathy secondary tachycardia - systolic and diastolic dysfunction - will diurese patient (6) DVT prophylaxis: Code(s): Z29.9 - Encounter for prophylactic measures, unspecified Status: Acute Assessment and Plan: DVT prophylaxis: Xarelto stress ulcer prophylaxis: Protonix Additional Plan discussed with patient's sister Cristina and updated her with patient's condition and plan of care. Both Dr. Gerardo and myself have discussed at length and think that patient would be better off transferred to a tertiary care center for advanced cardiac support code status: Full code critical care time spent: 54 minutes Due to a high probability of clinically significant, life threatening deterioration, the patient required my highest level of preparedness to intervene emergently and I personally spent this critical care time directly and personally managing the patient. This critical care time included obtaining a history; examining the patient; pulse oximetry; ordering and review of studies; arranging urgent treatment with development of a management plan; evaluation of patient's response to treatment; frequent reassessment; and discussions with other providers. It was exclusive of separately billable procedures and treating other patients and teaching time. Please see Assessment and Plan section and the rest of the note for further information on patient assessment and tr
[2020-06-27 11:10] LABS: Basophils Absolute Auto 0.1 K/mm3 (0.0-0.1); Basophils Percent Auto 0.5 % (0.2-1.2); Eosinophils Percent Auto 0.1 % (0-4.4); Hematocrit 39.3 % (37.0-47.0); Hemoglobin 11.7 g/dL (12.0-15.0); Immature Granulocyte Percent A 1.3 % (0-0.5); Lymphocytes Absolute Auto 3.74 K/mm3 (0.9-3.2); Lymphocytes Percent Auto 16.7 % (18.3-44.2); Mean Corpuscular HGB Conc 29.8 g/dl (32-36); Mean Corpuscular Hemoglobin 27.5 pg (26-34); Mean Corpuscular Volume 92.3 fl (80-100); Mean Platelet Volume 9.8 fl (7.4-10.4); Monocytes Absolute Auto 1.7 K/mm3 (0.1-0.6); Monocytes Percent Auto 7.3 % (2.6-8.5); Neutrophils Absolute Auto 16.6 K/mm3 (1.3-6.7); Neutrophils Percent Auto 74.1 % (45.5-73.1); Platelet Count Result 381 k/mm3 (150-375); Red Blood Count 4.26 M/mm3 (4.2-5.4); Red Cell Distribution Width 17.1 % (11.5-14.5); White Blood Count 22.5 K/mm3 (4.5-10.0)
--- NOTE | 2020-06-27 11:15 | PM.IMPN ---
Subjective Date/time seen: 06/27/20 11:15 Objective Data Vital Signs Vital Signs: Vital Signs - 24 hr 06/26/20 12:00 06/26/20 13:53 06/26/20 16:00 Temperature 98.3 F 98.4 F Pulse Rate 126 H 126 H 125 H Respiratory Rate 28 H 26 H Blood Pressure 131/105 H 130/98 H Pulse Oximetry 95 95 06/26/20 16:23 06/26/20 17:24 06/26/20 17:58 Temperature Pulse Rate 125 H 126 H 124 H Respiratory Rate Blood Pressure 130/98 H Pulse Oximetry 06/26/20 19:33 06/26/20 20:00 06/26/20 21:03 Temperature 97.5 F L Pulse Rate 123 H 122 H 112 H Respiratory Rate 25 H 23 H Blood Pressure 108/78 108/78 Pulse Oximetry 92 96 06/26/20 22:00 06/26/20 22:58 06/26/20 23:54 Temperature Pulse Rate 117 H 118 H Respiratory Rate 20 Blood Pressure Pulse Oximetry 97 06/27/20 00:00 06/27/20 02:00 06/27/20 02:46 Temperature 97.6 F Pulse Rate 121 H 119 H 118 H Respiratory Rate 22 H 20 Blood Pressure 139/96 H Pulse Oximetry 96 97 06/27/20 04:00 06/27/20 05:05 06/27/20 06:00 Temperature 97.5 F L Pulse Rate 119 H 119 H 119 H Respiratory Rate 19 Blood Pressure 120/54 L Pulse Oximetry 100 06/27/20 07:26 06/27/20 07:29 06/27/20 07:45 Temperature 98.3 F Pulse Rate 118 H 118 H 119 H Respiratory Rate 19 19 18 Blood Pressure 127/104 H Pulse Oximetry 97 97 98 06/27/20 08:00 06/27/20 08:05 06/27/20 09:26 Temperature Pulse Rate 116 H 120 H Respiratory Rate Blood Pressure 112/89 Pulse Oximetry 100 Intake/Output Intake/Output: Intake & Output 06/24/20 06/25/20 06/26/20 06/27/20 23:59 23:59 23:59 23:59 Intake Total 1850 1178 481 Output Total 670 2700 200 Balance 1180 -1522 281 Meds/Results Medications: Active Medications Generic Name Dose Route Start Last Admin Trade Name Freq PRN Reason Stop Dose Admin Acetaminophen 650 mg 06/25/20 18:34 Acetaminophen 325 Mg Tablet PO Q4H PRN Mild Pain (1-3) or Fever Dexamethasone Sodium Phosphate 6 mg 06/26/20 09:00 06/26/20 08:19 Dexamethasone Sod Phos Inj 4 Mg/Ml Vial IV PUSH 07/05/20 09:01 6 mg DAILY MENA Administration Furosemide 40 mg 06/26/20 17:00 06/26/20 16:19 Furosemide Inj 40 Mg/4 Ml Vial IV PUSH 40 mg BID MENA Administration Guaifenesin/Dextromethorphan 10 ml 06/26/20 05:34 06/26/20 22:56 Guaifenesin/Dextromethorphan 10 Ml Udc PO 10 ml Q4H PRN Administration Cough Amiodarone HCl/Dextrose 360 mg in 200 mls @ 16.667 mls/hr 06/26/20 23:45 06/27/20 05:05 Nexterone 360 Mg/D5w 200 Ml IV CONT 0.5 mg/min .Q12H MENA 16.7 mls/hr Infusion 0.5 MG/MIN Midazolam HCl 50 mg in 100 mls @ 2 mls/hr 06/27/20 09:55 Versed 50 Mg/D5w 100 Ml IV CONT .Q50H MENA Protocol 1 MG/HR Fentanyl Citrate 2,500 mcg in 250 mls @ 2.5 mls/hr 06/27/20 09:55 Fentanyl 2,500 Mcg/Ns 250 Ml IV CONT .Q72H MENA Protocol 25 MCG/HR Levalbuterol HCl 2 puff 06/25/20 21:55 06/27/20 07:25 Levalbuterol Hfa (*Sp) 15 Gm Inhaler INHALATION 2 puff Q6HRT PRN Administration Shortness Of Breath Multi-Ingred Cream/Lotion/Oil/Oint 1 applic 06/27/20 21:00 Mineral Oil/Petrolatum,White 1 Applic EACH EYE Q12HR MENA Rivaroxaban 20 mg 06/26/20 17:00 06/26/20 16:30 Rivaroxaban 20 Mg Tablet PO 20 mg DAILY@1700 MENA Administration Tolnaftate 1 applic 06/26/20 21:00 06/26/20 20:13 Tolnaftate 1% Powder 45 Gm Btl TOPICAL 1 applic Q12HR MENA Administration Radiology Results: ITS Impressions Chest CTA 06/25/20 18:15 IMPRESSION: 1. No central pulmonary emboli. Basilar segmental vessels poorly evaluated. 2. Mosaic attenuation, could be air trapping given the collapsed appearing airway. Groundglass opacities from edema or infection not excludable. 3. Left lower lobe segmental atelectasis. 4. Small right pleural effusion. 5. Severe cardiomegaly. 6. Pulmonary arterial hypertension. 7. Possible cirrhosis.
[2020-06-27 11:22] LABS: Magnesium 2.1 mg/dL (1.6-2.3); Phosphorus 4.3 mg/dL (2.5-4.5); Platelet Estimate Adequate (Adequate)
[2020-06-27 11:23] LABS: Alveolar/Arterial O2 Gradient 368.8 mmHg; Base Excess ABG -0.4 mEq/l (+/-2.0); Carboxyhemoglobin 0.3 % THb (0-2.0); Fractional Inspired Oxygen 100 %; HCO3 ABG 23.3 mEq/l (22.0-26.0); Methemoglobin ABG 0.2 %THb (0-1.5); Oxygen Content ABG 17.8 %vol (16.0-22.0); Oxygen Saturation ABG 99.7 % (95.0-100.0); Oxyhemoglobin 98.5 % THb (90.0-100.0); PCO2 ABG 34.9 mmHg (35.0-45.0); PO2 ABG 309.3 mmHg (80.0-100.0); PO2 FiO2 Ratio Arterial Blood 3.09 %; Total Hemoglobin 12.3 g/dL (12.0-18.0); pH ABG 7.442 (7.350-7.450)
[2020-06-27 11:23] LABS: Hypochromasia 1+ (NORMAL); Ovalocytes 1+ (NORMAL); Poikilocytosis 1+ (NORMAL); Polychromasia 1+ (NORMAL)
[2020-06-27 11:24] LABS: Alanine Aminotransferase 31 U/L (4-35); Albumin Level 3.4 g/dL (3.5-5.1); Alkaline Phosphatase 154 U/L (38-126); Anion Gap 12 mmol/L (8-16); Aspartate Amino Transferase 42 U/L (14-36); Bilirubin,Total 0.7 mg/dL (0.2-1.3); Blood Urea Nitrogen 28 mg/dL (7-17); CRP 3.9 mg/dL (<1.0); Calcium 8.7 mg/dL (8.4-10.2); Carbon Dioxide 30 mmol/L (22-30); Chloride 94 mmol/L (98-107); Estimated CRCL calculation 81 ml/min; Estimated Glomerular Filt Rate 49; Glucose 131 mg/dL (65-105); INR 2.8; Partial Thromboplastin Time 30.3 SECONDS (22.3-36.8); Potassium 4.7 mmol/L (3.4-5.0); Sodium 136 mmol/L (137-145)
[2020-06-27 11:24] LABS: Device VENTILATOR; Site Drawn RIGHT BRACHIAL
[2020-06-27 11:25] LABS: Arterial Blood Gas PEEP 10 cmH2O; Arterial Blood Gas Tidal Volume 450 ml; Arterial Blood Gas Vent Mode CMV; Arterial Blood Gas Ventilator rate 20 /MIN
[2020-06-27 11:27] LABS: Lactic Acid Reflex 5.4 mmol/L (0.7-2.1)
[2020-06-27] MEDS: FENTANYL 2,500MCG/NS250ML(*CRX 2,500 MCG/250 ML BAG IV CONT (11:34)
[2020-06-27 11:35] LABS: Troponin I 0.065 ng/mL (0.000-0.034)
[2020-06-27 11:41] LABS: D Dimer 0.27 ug/mL (<0.48)
--- NOTE | 2020-06-27 12:13 | P.PCNBED_ITS ---
Procedures Central Line Placement Right IJ: Central Line Date: 06/27/20 Central Line Time: 09:37 Discussed w/ the patient/family/POA,the placement of a central venous catheter, including its clinical necessity/indication & associated potential risks, benifits and alternatives.: Yes The patient/family/POA understand(s) and acknowledge(s) the need to proceed with central venous catheter insertion as an important element of the patient's clinical management.: Yes Time Out Performed: Yes Patient Position: supine Patient placed on monitor/pulse ox: Yes Provider Prep: mask, sterile gown, sterile gloves, Max. sterile barrier precautions, cap and hand hygiene with conventional soap/water or alcohol based hand rub Central line prep: 2% Chlorhexidine scrub and sterile full body sheet applied Local anesthesia used: lidocaine 1% Amount of anesthesia used (ml): 3 Sterile US Technique with sterile gel/sterile probe covers: Yes Central line lumen inserted: triple Hungarian: 16 Length (cm): 16 Depth of Insertion (cm): 16 Post procedure: sutured in place, good blood return, all ports aspirated, flushed, capped, tegaderm, hemostatic disc, antimicrobial disc and aseptic technique maintained throughout procedure Post procedure x-ray: tip of catheter in good position and no pneumothorax seen Patient tolerated procedure: well Complications: none
[2020-06-27] MEDS: SODIUM CHLORIDE 0.9% IV 500 ML IV CONT (12:26)
[2020-06-27] MEDS: TOLNAFTATE 1% POWDER 45 GM BTL 1 APPLIC TOPICAL (12:28)
--- NOTE | 2020-06-27 13:46 | PM.DS ---
DS: Admitting Diagnosis Admitting Diagnosis Admitting Diagnosis: CHF exacerbation Dyspnea Morbid obesity DS: Discharge Diagnosis Discharge Diagnosis (1) Morbid obesity: Code(s): E66.01 - Morbid (severe) obesity due to excess calories Status: Acute Assessment and Plan: Lifestyle and diet modifications. (2) Essential hypertension: Code(s): I10 - Essential (primary) hypertension Status: Acute Assessment and Plan: Continue home meds Continue to monitor (3) Suspected COVID-19 virus infection: Code(s): Z20.828 - Contact with and (suspected) exposure to other viral communicable diseases Status: Acute Assessment and Plan: Ruled out with negative PCR. 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 (7) Atrial flutter with rapid ventricular response: Code(s): I48.92 - Unspecified atrial flutter Status: Acute Assessment and Plan: Patient coded while undergoing TESSA ROSC achieved Patient now on ventilator support. (8) Obesity hypoventilation syndrome: Code(s): E66.2 - Morbid (severe) obesity with alveolar hypoventilation Status: Acute Assessment and Plan: On ventilator support at the present time. (9) Hypothyroidism: Code(s): E03.9 - Hypothyroidism, unspecified Status: Acute Assessment and Plan: Stable. (10) Systolic heart failure, ACC/AHA stage D: Code(s): I50.20 - Unspecified systolic (congestive) heart failure Status: Acute Assessment and Plan: Currently on ventilator support. Transferred to Tertiary center DS: Summary Time Spent with Patient Time attestation: Total time spent providing and/or coordinating discharge services: Patient was initially admitted due to worsening sob over the last 2 to 3 weeks or so as well as dry cough non productive. Patient was placed on isolation for airborne, droplet and contact precautions, for a Covid rule out. Patient's Covid test results came back negative. Preliminary studies had shown cardiomegaly. 2DECHO was obtained and it revealed a low EF at 10-15% as well as valvulopathy A consultation with Cardiology was obtained as patient was on A. flutter and the need for TESSA guided cardioversion. During the procedure the patient became bradycardic and hypotensive requiring ACLS was given Epinephrine, Vasopressin and Dopamine and placed on ventilator support. Patient was sent to ICU and it was felt that due to her significant Heart failure it was in her best interest standard to refer to tertiary center Patient was transferred out later in the [facility]. Exam Narrative: Exam Narrative: On ventilator support. Const: General: other (Sedated.CGS 3) Nutritional Appearance: overweight Other: Under sedation. HENMT: Head: normocephalic Face and sinus: normal facial exam Other: ETT in place. Eyes: General: appearance normal, both eyes and all related structures Pupils: Equal, round and reactive pupils present EOM: EOMs intact bilaterally Neck: Neck: no lymphadenopathy and no JVD Lymphatic: no lymphadenopathy noted Resp: Auscultation: clear to auscultation bilaterally Cardio: Jugular venous distension: no JVD Rate: regular rate GI: Inspection: Pannus present and obesity GI Palp: Yes No hepatosplenomegaly present Auscultation: normal bowel sounds Skin
[2020-06-27 14:06] LABS: Reflex Lactic Acid Yes or No Add Lactic
[2020-06-27] MEDS: IPRATROPIUM BR 0.02% INH SOLN 0.5 MG/2.5 ML VIAL INHALATION (14:08)
[2020-06-27] MEDS: LEVALBUTEROL NEB 1.25 MG/3 ML 0.63 MG INHALATION (14:08)
[2020-06-27] MEDS: CENTRAL LINE FLUSH 10 ML IV PUSH (14:28)
[2020-06-27 14:57] LABS: Lactic Acid 1.6 mmol/L (0.7-2.1)
--- NOTE | 2020-06-27 17:15 | PC.NURSE ---
Patient desaturating to 80%. Respiratory therapy called. Patient's FiO2 increased to 100%. Patient rescue cathed per respiratory. Saturations increased to 94%.
--- NOTE | 2020-06-27 17:37 | PC.NURSE ---
Patient being transferred to [facility]. [facility] at bedside and transferred patient to their equipment and stretcher. Report given to SURESH Sotomayor at [facility] at [phone]. Update given to Eddie at [facility] at [phone]. Patient's sister at bedside and aware of transfer and took patient's belongings.
--- NOTE | 2020-07-31 12:00 | PM.TDS ---
Transfer Discharge Sum: Prov Provider Date of admission: 06/26/20 10:37 Primary care physician: Antony Dowd DO Admitting clinician: Gregorio Akers MD Consults: 06/25/20 18:36 Consult to Physician Routine Comment: Consulting Provider: Ivone Khan Reason for consultation: CHF exacerbation Has provider been notified: Yes DS: Admitting Diagnosis Admitting Diagnosis Admitting Diagnosis: CHF exacerbation, Dyspnea Transfer Discharge Sum: Med Medications Active and Home Medications: Home Medications abatacept 125 mg/mL subcutaneous syringe 1,000 mg SUBCUT WEEKLY ml 08/30/19 [History Confirmed 07/26/20] albuterol sulfate 90 mcg/actuation breath activated powder inhaler 2 inhalation INHALATION Q4-6H PRN 08/30/19 [History Confirmed 07/26/20] amitriptyline 150 mg tablet 150 mg PO ONCE 08/30/19 [History Confirmed 07/26/20] folic acid 1 mg tablet 1 mg PO DAILY 08/30/19 [History Confirmed 07/26/20] leflunomide 10 mg tablet 20 mg PO DAILY 08/30/19 [History Confirmed 07/26/20] mometasone-formoterol HFA 100 mcg-5 mcg/actuation aerosol inhaler 2 puff INHALATION Q12H 08/30/19 [History Confirmed 07/26/20] multivitamin 1 tablet PO DAILY 08/30/19 [History Confirmed 07/26/20] meloxicam 15 mg tablet 15 mg PO DAILY 09/04/19 [History Confirmed 06/26/20] allopurinol 100 mg tablet 200 mg PO DAILY tablet 03/18/20 [History Confirmed 06/26/20] levothyroxine 200 mcg tablet 200 mcg PO DAILY #90 tablet 03/18/20 [Rx Confirmed 07/26/20] levothyroxine 75 mcg tablet 75 mcg PO DAILY #90 tablet 03/18/20 [Rx Confirmed 07/26/20] progesterone micronized 200 mg capsule 200 mg PO ONCE #36 cap 05/02/20 [Rx Confirmed 07/26/20] hydroxychloroquine 200 mg PO BID 06/26/20 [History Confirmed 07/26/20] meclizine 25 mg PO TID PRN 06/26/20 [History Confirmed 07/26/20] sulfasalazine 1,000 mg PO BID 06/26/20 [History Confirmed 07/26/20] lisinopril 10 mg tablet 5 mg PO DAILY #90 tablet 07/23/20 [Rx] metoprolol succinate 50 mg tablet,extended release 24 hr 50 mg PO DAILY #60 tablet 07/23/20 [Rx] nystatin 100,000 unit/gram topical powder 1 applic TOPICAL BID #60 g 07/23/20 [Rx] rivaroxaban 20 mg tablet 20 mg PO DAILY #30 tablet 07/23/20 [Rx] furosemide 40 mg tablet 40 mg PO QAM #30 tablet 07/26/20 [Rx Confirmed 07/26/20] Transfer Discharge Sum: Hosp Hospital Course Hospital course: Najma Wright Logan is a 45 year old female Time Spent with Patient Time attestation: Total time spent providing and/or coordinating transfer services:
--- NOTE | 2020-07-31 12:01 | TS_ITS ---
This report was recreated on August 01, 2020. Original report was signed by Dr. Mala Suero on July 31, 2020 at 1201. DS: Admitting Diagnosis Admitting Diagnosis Admitting Diagnosis: CHF exacerbation Dyspnea Morbid obesity DS: Discharge Diagnosis Discharge Diagnosis (1) Morbid obesity: Code(s): E66.01 - Morbid (severe) obesity due to excess calories Status: Acute Assessment and Plan: Lifestyle and diet modifications. (2) Essential hypertension: Code(s): I10 - Essential (primary) hypertension Status: Acute Assessment and Plan: Continue home meds Continue to monitor (3) Suspected COVID-19 virus infection: Code(s): Z20.828 - Contact with and (suspected) exposure to other viral communicable diseases Status: Acute Assessment and Plan: Ruled out with negative PCR. 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 (7) Atrial flutter with rapid ventricular response: Code(s): I48.92 - Unspecified atrial flutter Status: Acute Assessment and Plan: Patient coded while undergoing TESSA ROSC achieved Patient now on ventilator support. (8) Obesity hypoventilation syndrome: Code(s): E66.2 - Morbid (severe) obesity with alveolar hypoventilation Status: Acute Assessment and Plan: On ventilator support at the present time. (9) Hypothyroidism: Code(s): E03.9 - Hypothyroidism, unspecified Status: Acute Assessment and Plan: Stable. (10) Systolic heart failure, ACC/AHA stage D: Code(s): I50.20 - Unspecified systolic (congestive) heart failure Status: Acute Assessment and Plan: Currently on ventilator support. Transferred to Tertiary center DS: Summary Time Spent with Patient Time attestation: Total time spent providing and/or coordinating discharge services: Patient was initially admitted due to worsening sob over the last 2 to 3 weeks or so as well as dry cough non productive. Patient was placed on isolation for airborne, droplet and contact precautions, for a Covid rule out. Patient's Covid test results came back negative. Preliminary studies had shown cardiomegaly. 2DECHO was obtained and it revealed a low EF at 10-15% as well as valvulopathy A consultation with Cardiology was obtained as patient was on A. flutter and the need for TESSA guided cardioversion. During the procedure the patient became bradycardic and hypotensive requiring ACLS was given Epinephrine, Vasopressin and Dopamine and placed on ventilator support. Patient was sent to ICU and it was felt that due to her significant Heart failure it was in her best interest standard to refer to tertiary center Patient was transferred out later in the [facility]. Exam Narrative: Exam Narrative: On ventilator support. Const: General: other (Sedated.CGS 3) Nutritional Appearance: overweight Other: Under sedation. HENMT: Head: normocephalic Face and sinus: normal facial exam Other: ETT in place. Eyes: General: appearance normal, both eyes and all related structures Pupils: Equal, round and reactive pupils pre
== END 2020-06-27 17:37 | disposition short-term general hospital (02) | DRG 291 ==
LOC: ANHED 18:53 → ANHICU 19:37
PROVIDERS: Emergency Medicine; Internal Medicine; Internal Medicine Cardiovascular Disease; Nurse Practitioner; Admitting Provider Family Medicine; Emergency Provider Emergency Medicine; PCP Internal Medicine; Visit Provider Internal Medicine
PROC: 5A2204Z Restoration of Cardiac Rhythm, Single (ICD-10-PCS; CPT 93312; principal; 2020-06-27 08:30)
DX: I11.0 Hypertensive heart disease with heart failure (principal); I50.21 Acute systolic (congestive) heart failure; J95.821 Acute postprocedural respiratory failure; I97.710 Intraoperative cardiac arrest during cardiac surgery; I97.190 Other postprocedural cardiac functional disturbances following cardiac surgery; I48.92 Unspecified atrial flutter; Z68.42 Body mass index [BMI] 45.0-49.9, adult; E66.2 Morbid (severe) obesity with alveolar hypoventilation; R00.1 Bradycardia, unspecified; I95.81 Postprocedural hypotension; Z20.828 Contact with and (suspected) exposure to other viral communicable diseases; R91.8 Other nonspecific abnormal finding of lung field; E66.01 Morbid (severe) obesity due to excess calories; E03.9 Hypothyroidism, unspecified; M06.9 Rheumatoid arthritis, unspecified; R73.9 Hyperglycemia, unspecified; I42.9 Cardiomyopathy, unspecified
CPT/HCPCS: 36415; 36600; 70450; 71046; 71275; 80048; 80053; 82375; 82728; 82805; 83036; 83050; 83605; 83615; 83735; 83880; 84100; 84436; 84443; 84460; 84484; 85025; 85380; 85610; 85730; 86140; 87040; 87086; 87635; 92950; 93005; 93312; 93320; 93325; 93970; 94002; 94640; 94660; 96361; 96365; 96366; 96372; 96375; 96376; 99285; A9270; C1751; C8929; C9803; G0378; J0282; J1100; J1265; J1650; J1940; J2250; J3010; J7030; J7040; Q9957; Q9967; U0003

== ENCOUNTER 2020-12-26 09:08 | Outpatient (CLI) | payer MEDICARE, OTHER, MEDICAID, SELFPAY | END 2020-12-26 09:09 | disposition home or self-care (01) | LOC: ANHCOVIDVC 09:08 | PROVIDERS: PCP Internal Medicine | DX: Z23 Encounter for immunization (principal) | CPT/HCPCS: 0001A; 91300 ==

== ENCOUNTER 2021-01-16 09:01 | Outpatient (CLI) | payer MEDICARE, OTHER, MEDICAID, SELFPAY | END 2021-01-16 09:02 | disposition home or self-care (01) | LOC: ANHCOVIDVC 09:01 | PROVIDERS: PCP Internal Medicine | DX: Z23 Encounter for immunization (principal) | CPT/HCPCS: 0002A; 91300 ==

== ENCOUNTER 2021-02-28 09:06 | Outpatient (CLI) | payer MEDICARE, OTHER, MEDICAID, SELFPAY ==
--- NOTE | ~2021-02-28 | MM_ITS ---
EXAMINATION: MM screening [facility] BI w caleb HISTORY: Screening mammogram TECHNIQUE: Craniocaudal and mediolateral oblique 3-D tomosynthesis images were obtained and synthetic 2-D images were generated. CAD analysis was submitted and interpreted. COMPARISON: 08/03/2017, 07/30/2016 BREAST PARENCHYMAL COMPOSITION: There are scattered areas of fibroglandular density. FINDINGS: There is no evidence of suspicious mass, calcification, or architectural distortion to sugg est malignancy in either breast. There has been no suspicious interval change. IMPRESSION: 1. No mammographic evidence of malignancy. 2. Recommend routine screening mammography in one year. BI-RADS Category 1: Negative Reviewed, dictated and finalized at location A.
== END 2021-02-28 09:07 | disposition home or self-care (01) ==
LOC: ANHIMG 09:09
PROVIDERS: PCP Internal Medicine; Visit Provider Student in an Organized Health Care Education/Training Program
DX: Z12.31 Encounter for screening mammogram for malignant neoplasm of breast (principal)
CPT/HCPCS: 77063; 77067

== ENCOUNTER 2022-02-11 08:07 | Outpatient (CLI) | payer MEDICARE, OTHER, MEDICAID, SELFPAY ==
--- NOTE | 2022-02-02 15:33 | PC.NURSE ---
Pre Radiology instructions Report to the Outpatient Waiting Room, entrance under the green pavilion located off [facility], at time _0800 on date _02/06/22 . Procedure Time: __1000 . One visitor will be allowed to accompany the patient into the hospital. The visitor will be instructed to remain with patient at all times or leave the building. We will allow the visitor to come back to the postoperative area when patient is ready. You and your visitor will be asked a series of questions to screen for COVID 19 for your protection. A mask is required within the hospital. Patients are to have no food or drink 6 hours prior to procedure time Driving will be restricted after the procedure, you must have a person to drive you home. Labs will be drawn in preop area and once reviewed, you will be taken to radiology area for procedure. When the procedure is completed, you will be taken to outpatient where you will be monitored for several hours. You may have one visitor in this area. Other than holding anti-coagulants, patient may take other medication(s) as scheduled. Prior to your appointment date patients are instructed to hold anti-coagulants after discussing with ordering provider to stop. If unable to discontinue anti-coagulants please notify radiologist. No aspirin or warfarin (Coumadin) for 7 days prior to the procedure. No clopidogrel (Plavix), ticagrelor (Brilinta), prasugrel (Effient) or dabigatran (Pradaxa) for 5 days prior to the procedure. No rivaroxaban (Xarelto), apixaban (Eliquis), dipyridamole (Aggrenox or Persantine) or cilostazol (Pletal) for 2 days prior to the procedure. Medications to discontinue per physician: __XARELTO Date to take last dose: __02/03/22 Please leave all valuables, including medications, at home the day of procedure. The hospital will not accept responsibility for valuables. Wear comfortable, loose fitting clothing. Follow any additional instructions given to you from ordering provider. Telephone instructions given to ___PATIENT and asked if any additional questions and then verbalized understanding. Patient advised to call scheduling provider office or registration scheduling [phone] if any additional questions.
[2022-02-02 15:37] VITALS: BMI 45.6
--- NOTE | 2022-02-05 08:17 | PC.NURSE ---
Pre Radiology instructions Report to the Outpatient Waiting Room, entrance under the green pavilion located off [facility], at time _0800 on date __02/11/22 . Procedure Time: ___1000 . One visitor will be allowed to accompany the patient into the hospital. The visitor will be instructed to remain with patient at all times or leave the building. We will allow the visitor to come back to the postoperative area when patient is ready. You and your visitor will be asked a series of questions to screen for COVID 19 for your protection. A mask is required within the hospital. Patients are to have no food or drink 6 hours prior to procedure time Driving will be restricted after the procedure, you must have a person to drive you home. Labs will be drawn in preop area and once reviewed, you will be taken to radiology area for procedure. When the procedure is completed, you will be taken to outpatient where you will be monitored for several hours. You may have one visitor in this area. Other than holding anti-coagulants, patient may take other medication(s) as scheduled. Prior to your appointment date patients are instructed to hold anti-coagulants after discussing with ordering provider to stop. If unable to discontinue anti-coagulants please notify radiologist. No aspirin or warfarin (Coumadin) for 7 days prior to the procedure. No clopidogrel (Plavix), ticagrelor (Brilinta), prasugrel (Effient) or dabigatran (Pradaxa) for 5 days prior to the procedure. No rivaroxaban (Xarelto), apixaban (Eliquis), dipyridamole (Aggrenox or Persantine) or cilostazol (Pletal) for 2 days prior to the procedure. Medications to discontinue per physician: XARELTO Date to take last dose: ___02/08/22 Please leave all valuables, including medications, at home the day of procedure. The hospital will not accept responsibility for valuables. Wear comfortable, loose fitting clothing. Follow any additional instructions given to you from ordering provider. Telephone instructions given to ___PATIENT and asked if any additional questions and then verbalized understanding. Patient advised to call scheduling provider office or registration scheduling [phone] if any additional questions.
--- NOTE | ~2022-02-11 | XR_ITS ---
EXAMINATION: XR lumbar puncture diagnostic DATE: 02/11/2022 10:28 INDICATION: Migraine, unspecified, not intractable, without status migrainosus. TECHNIQUE: The procedure including the risks, benefits, and alternatives was discussed with the patie nt. Risks discussed included spinal headache, bleeding, and infection. The patient understood the ris ks and agreed to proceed. A timeout was performed to verify the patient's name, date of , and procedure to be performed. The skin overlying the L2-L3 and L3-L4 level was prepped and draped in u sual sterile fashion. Subcutaneous 1% lidocaine was used for local anesthesia. A 20 gauge spinal ne edle was advanced under fluoroscopic guidance. The needle was removed and the entry site was cleaned and dressed. There were no immediate complications. Fluoroscopy exposure time was 0.1 minutes. The t otal number of images was 1. FINDINGS: Real-time fluoroscopy demonstrates the needle at the L2-L3 level. The opening pressure was 17 cm water (Normal range is variably defined as 6-20 cm water and up to 25 cm water in obese patient s. Pressure >25 cm water is one of the modified Dandy criteria for idiopathic intracranial hypertensi on). 12 mL of pink fluid was collected in 4 tubes. IMPRESSION: 1. Successful fluoro-guided lumbar puncture. Note that this was a traumatic tap. Reviewed, dictated and finalized at location A. IMPRESSION: 1. Successful fluoro-guided lumbar puncture. Note that this was a traumatic tap .
[2022-02-11 08:26] VITALS: BP 131/50; PULSE 69; RESP 16; TEMP 35.7; O2SAT 100
[2022-02-11 08:59] LABS: Mean Platelet Volume 10.3 fl (7.4-10.4); Platelet Count Result 213 k/mm3 (150-375)
[2022-02-11 09:12] LABS: INR 1.1; Prothrombin Time 13.9 Seconds (11.1-14.7)
[2022-02-11 10:20] VITALS: BP 148/68; PULSE 66; RESP 20; O2SAT 97
[2022-02-11 10:35] VITALS: BP 134/76; PULSE 65; RESP 20; O2SAT 100
--- NOTE | 2022-02-11 10:55 | SUR.PHASEII ---
1045 - Pt lying flat on stretcher. Family member in room.
[2022-02-11 11:00] VITALS: BP 132/74; PULSE 62; RESP 18
[2022-02-11 11:05] LABS: Glucose CSF 59 mg/dL (40-70); Total Protein CSF 47 mg/dL (12-60)
[2022-02-11 11:30] VITALS: BP 129/64; PULSE 64; RESP 18
[2022-02-11 12:04] VITALS: BP 131/75; PULSE 64; RESP 18
[2022-02-11 12:29] LABS: Appearance CSF Clear (Clear); CSF source CSF; Color CSF Colorless (Colorless)
[2022-02-11 12:31] LABS: Lymphocytes CSF 38 % (40-80); Monocytes CSF 6 % (15-45); Neutrophils CSF 53 % (0-6); Nucleated Cell CSF 0 /uL (0-5); Red Blood Cell CSF 2374 (0-2)
== END 2022-02-11 12:31 | disposition home or self-care (01) ==
PROVIDERS: PCP Internal Medicine; Referring Provider Psychiatry & Neurology Neurology; Visit Provider Radiology Diagnostic Radiology
PROC: 009U3ZZ Drainage of Spinal Canal, Percutaneous Approach (ICD-10-PCS; CPT 62328; principal; 2022-02-11 10:00)
DX: G43.909 Migraine, unspecified, not intractable, without status migrainosus (principal)
CPT/HCPCS: 36415; 62328; 82945; 84157; 85049; 85610; 87205; 89051

== ENCOUNTER 2022-04-21 08:56 | Outpatient (CLI) | payer MEDICARE, OTHER, MEDICAID, SELFPAY ==
--- NOTE | ~2022-04-21 | US_ITS ---
US abdomen limited INDICATION: Elevated liver enzymes PROCEDURE: Realtime right upper abdominal ultrasound. COMPARISON: No prior studies for comparison. FINDINGS: The pancreas is normal without focal mass or pancreatic ductal dilation. Liver echotexture is increased, consistent with fatty infiltration. There is normal directional flow in the portal ve in. The gallbladder is normal without stones, gallbladder wall thickening or pericholecystic fluid. Comm on bile duct measures 3 mm. No sonographic Ryan's sign. IMPRESSION: 1: Hepatic steatosis. Reviewed, dictated and finalized at location A. IMPRESSION: 1: Hepatic steatosis.
[2022-04-21 09:29] LABS: Basophils Absolute Auto 0.1 K/mm3 (0.0-0.1); Basophils Percent Auto 0.6 % (0.2-1.2); Eosinophils Absolute Auto 0.7 K/mm3 (0-0.3); Eosinophils Percent Auto 9.3 % (0-4.4); Hematocrit 37.1 % (37.0-47.0); Immature Granulocyte Absolute 0.03 K/mm3 (0.00-0.031); Immature Granulocyte Percent A 0.4 % (0-0.5); Lymphocytes Absolute Auto 1.54 K/mm3 (0.9-3.2); Lymphocytes Percent Auto 19.9 % (18.3-44.2); Mean Corpuscular HGB Conc 29.6 g/dl (32-36); Mean Corpuscular Hemoglobin 29.4 pg (26-34); Mean Corpuscular Volume 99.2 fl (80-100); Mean Platelet Volume 10.2 fl (7.4-10.4); Monocytes Absolute Auto 0.4 K/mm3 (0.1-0.6); Neutrophils Percent Auto 64.8 % (45.5-73.1); Platelet Count Result 255 k/mm3 (150-375); Red Blood Count 3.74 M/mm3 (4.2-5.4); Red Cell Distribution Width 15.8 % (11.5-14.5); White Blood Count 7.8 K/mm3 (4.5-10.0)
[2022-04-21 09:54] LABS: Alanine Aminotransferase 71 U/L (6-35); Albumin Level 4.3 g/dL (3.5-5.1); Alkaline Phosphatase 167 U/L (38-126); Anion Gap 8 mmol/L (8-16); Aspartate Amino Transferase 56 U/L (14-36); Bilirubin,Total 0.4 mg/dL (0.2-1.3); Blood Urea Nitrogen 68 mg/dL (7-17); Calcium 9.1 mg/dL (8.4-10.2); Carbon Dioxide 24 mmol/L (22-30); Chloride 106 mmol/L (98-107); Cholesterol 152 mg/dL (0-200); Estimated Glomerular Filt Rate 44; Glucose 101 mg/dL (65-110); HDL Direct 38 mg/dL; Potassium 6.3 mmol/L (3.4-5.0); Sodium 138 mmol/L (137-145); Triglycerides 112 mg/dL (<150)
[2022-04-21 09:55] LABS: LDL Cholesterol Direct 64 mg/dL
[2022-04-21 10:26] LABS: Free T4 Free Thyroxine 1.45 ng/mL (0.78-2.19)
[2022-04-21 10:55] LABS: Folic Acid > 20.0 ng/mL (2.76->20)
== END 2022-04-21 08:57 | disposition home or self-care (01) ==
PROVIDERS: PCP Internal Medicine; Referring Provider Internal Medicine
DX: R74.01 Elevation of levels of liver transaminase levels (principal); R53.83 Other fatigue; E03.9 Hypothyroidism, unspecified; E78.49 Other hyperlipidemia; R74.8 Abnormal levels of other serum enzymes; I11.0 Hypertensive heart disease with heart failure; K76.0 Fatty (change of) liver, not elsewhere classified
CPT/HCPCS: 36415; 76705; 80053; 80061; 82607; 82746; 84439; 85025

== ENCOUNTER 2022-05-05 08:50 | Outpatient (CLI) | payer MEDICARE, OTHER, MEDICAID, SELFPAY ==
--- NOTE | ~2022-05-05 | XR_ITS ---
EXAMINATION: XR foot RT min 3V DATE: 05/05/2022 15:22 INDICATION: Seropositive rheumatoid arthritis of multiple sites. TECHNIQUE: 3 views of the right foot weightbearing were obtained. COMPARISON: None. FINDINGS: Bone alignment is normal. There is an old healed fracture of neck of fifth metatarsal. Ther e is a comminuted fracture of base of fourth proximal phalanx with callus formation. The main distal fracture fragment demonstrates impaction. There is a comminuted fractures of base of fifth proximal p halanx with callus formation. The main distal fracture fragment demonstrates impaction. There is patel osteal reaction of diaphysis of third proximal phalanx that may be a healing occult fracture. There i s mild osteoarthritis of first metatarsophalangeal joint and some of the interphalangeal joints and m idfoot joints. There is moderate osteoarthritis of medial naviculocuneiform joint. There are enthesop hytes at the posterior and plantar aspects of calcaneal tuberosity. IMPRESSION: 1. Polyarticular osteoarthritis. No specific evidence of inflammatory arthropathy. 2. Healing fractures of third-fifth proximal phalanges. Reviewed, dictated and finalized at location A. IMPRESSION: 1. Polyarticular osteoarthritis. No specific evidence of inflammatory arthropat hy. 2. Healing fractures of third-fifth proximal phalanges.
--- NOTE | ~2022-05-05 | XR_ITS ---
EXAMINATION: XR foot LT min 3V DATE: 05/05/2022 15:22 INDICATION: Seropositive rheumatoid arthritis of multiple sites. TECHNIQUE: 3 views of left foot with weightbearing were obtained. COMPARISON: None. FINDINGS: Bone alignment is normal. There is a transverse fracture of diaphysis of fifth proximal pha lanx in near-anatomic alignment with callus formation. There is mild osteoarthritis of first metatars ophalangeal joint and some of the interphalangeal joints and midfoot joints. There is moderate osteoa rthritis of medial and intermediate the naviculocuneiform joints. There are enthesophytes at the post erior and plantar aspects of calcaneal tuberosity. IMPRESSION: 1. Polyarticular osteoarthritis. No specific evidence of inflammatory arthropathy. 2. Healing transverse fracture of diaphysis of fifth proximal phalanx. Reviewed, dictated and finalized at location A. IMPRESSION: 1. Polyarticular osteoarthritis. No specific evidence of inflammatory arthropat hy. 2. Healing transverse fracture of diaphysis of fifth proximal phalanx.
--- NOTE | ~2022-05-05 | MM_ITS ---
EXAMINATION: MM screening davy BI w caleb HISTORY: Screening TECHNIQUE: Craniocaudal and mediolateral oblique 3-D tomosynthesis images were obtained and synthetic 2-D images were generated. CAD analysis was submitted and interpreted. COMPARISON: Comparison to multiple prior studies sequentially, with oldest reviewed study dated 07/14. BREAST PARENCHYMAL COMPOSITION: Breast composed of scattered areas of fibroglandular density FINDINGS: There is a developing mass in the upper outer quadrant of the right breast anteriorly. The left breast is stable without evidence for malignancy. IMPRESSION: 1. Developing right breast mass, upper outer quadrant anteriorly. 2. Additional mammographic views and possible breast ultrasound are recommended. BI-RADS Category 0: Incomplete: Needs additional imaging evaluation. Reviewed, dictated and finalized at location A. IMPRESSION: 1. Developing right breast mass, upper outer quadrant anteriorly. 2. Additional mammographic views and possible breast ultrasound are recommended . BI-RADS Category 0: Incomplete: Needs additional imaging evaluation.
--- NOTE | ~2022-05-05 | XR_ITS ---
EXAMINATION: XR hand BI arthritis min 3V DATE: 05/05/2022 15:22 INDICATION: Seropositive rheumatoid arthritis of multiple sites. TECHNIQUE: 4 views of right hand and 4 views of left hand on a total of 7 radiographs were obtained. COMPARISON: Right hand radiograph 02/28/2014 FINDINGS: RIGHT HAND: There is hyperextension of third and fifth proximal interphalangeal joints. No fracture. There is mild osteoarthritis of first carpometacarpal joint, first-third metacarpophalangeal joints, and most of the interphalangeal joints. There are marginal erosions at first interphalangeal joint, s econd proximal interphalangeal joint, and third distal interphalangeal joint. There are cortical eros ions of the distal diaphyses of second-fifth proximal phalanges. There is soft tissue swelling at thi rd distal interphalangeal joint and distal fourth digit. LEFT HAND: There is hyperextension of fourth proximal interphalangeal joint. There is a nondisplaced fracture of tuft of first distal phalanx. There is osteopenia of distal radius. There is mild osteoar thritis of first carpometacarpal joint, first-third metacarpophalangeal joints, and some of the inter phalangeal joints. There is acro osteolysis involving fifth distal phalanx. There are marginal erosio ns at fourth and fifth metacarpophalangeal joints and proximal interphalangeal joints and second prox imal interphalangeal joint. There are cortical erosions of the distal diaphyses of second-fifth proxi mal phalanges. There is soft tissue swelling of the distal second digit. IMPRESSION: 1. Polyarticular marginal erosions with preserved joint spaces and cortical erosions of the diaphyses of the proximal phalanges. These findings are most characteristic of hyperparathyroidism. Gout may h ave similar findings. 2. Age-indeterminate nondisplaced fracture of tuft of left first distal phalanx. Reviewed, dictated and finalized at location A. IMPRESSION: 1. Polyarticular marginal erosions with preserved joint spaces and cortical ero sions of the diaphyses of the proximal phalanges. These findings are most oliva cteristic of hyperparathyroidism. Gout may have similar findings. 2. Age-indeterminate nondisplaced fracture of tuft of left first distal phalanx .
== END 2022-05-05 08:51 | disposition home or self-care (01) ==
PROVIDERS: PCP Internal Medicine; Visit Provider Student in an Organized Health Care Education/Training Program
DX: Z12.31 Encounter for screening mammogram for malignant neoplasm of breast (principal); M05.9 Rheumatoid arthritis with rheumatoid factor, unspecified; R92.8 Other abnormal and inconclusive findings on diagnostic imaging of breast; S62.525A Nondisplaced fracture of distal phalanx of left thumb, initial encounter for closed fracture; X58.XXXA Exposure to other specified factors, initial encounter; M19.041 Primary osteoarthritis, right hand; M19.071 Primary osteoarthritis, right ankle and foot; S92.511A Displaced fracture of proximal phalanx of right lesser toe(s), initial encounter for closed fracture; M19.072 Primary osteoarthritis, left ankle and foot
CPT/HCPCS: 73130; 73630; 77063; 77067

== ENCOUNTER 2022-05-26 11:57 | Outpatient (CLI) | payer MEDICARE, OTHER, MEDICAID, SELFPAY ==
--- NOTE | ~2022-05-26 | MM_ITS ---
EXAMINATION: MM diagnostic davy RT w caleb HISTORY: Developing right upper outer quadrant anterior breast mass suggested on 05/05/2022 screening mammogram TECHNIQUE: Additional full field ML and spot ML, MLO and CC 3-D tomosynthesis images of the right marky ast were performed and synthetic 2-D images were generated. CAD analysis was submitted and interprete d. COMPARISON: 05/05/2022ilateral screening mammogram FINDINGS: No reproducible mass is detected at the area in question in the anterior upper outer right breast on these supplemental views. IMPRESSION: 1. No mammographic evidence of malignancy 2. Routine mammographic screening is recommended BI-RADS Category 1: Negative Reviewed, dictated and finalized at location A.
== END 2022-05-26 11:58 | disposition home or self-care (01) ==
PROVIDERS: PCP Internal Medicine; Visit Provider Student in an Organized Health Care Education/Training Program
DX: R92.8 Other abnormal and inconclusive findings on diagnostic imaging of breast (principal)
CPT/HCPCS: 77061; 77065; G0279

== ENCOUNTER 2022-06-15 01:35 | Day surgery (SDC) | payer MEDICARE, OTHER, MEDICAID, SELFPAY ==
[2022-05-27 12:28] VITALS: BMI 45.7
[2022-06-15 07:33] VITALS: BP 153/85; PULSE 73; RESP 16; TEMP 36.1; O2SAT 100; BMI 48.3
[2022-06-15] MEDS: LACTATED RINGERS 1,000 ML 150 ML IV CONT (07:46)
--- NOTE | 2022-06-15 08:15 | WPDANESEPPF ---
Anes - Initial Pre Proc Eval Procedure: Operation Date: 06/15/22 08:45 Proposed Procedures p Screening Colonoscopy - Raz Singleton MD Date/Time: 06/15/22 08:15 Surgeon: Raz Singleton MD Pre Op Diagnosis: neoplasm screening Patient Data Age: 47 Gender: F Height: 1.73 m Weight: 144.1 kg Last Vital Signs Temp 97 F L 06/15/22 07:33 Pulse 73 06/15/22 07:33 Resp 16 06/15/22 07:33 BP 153/85 H 06/15/22 07:33 Pulse Ox 100 06/15/22 07:33 O2 Del Method Room Air 06/15/22 07:33 Allergies Allergy/AdvReac Type Severity Reaction Status Date / Time No Known Allergies Allergy Verified 06/15/22 07:32 Home Medications Medication Instructions Recorded Confirmed Type folic acid 1 mg tablet 1 mg PO DAILY 08/30/19 05/27/22 History multivitamin (Multiple Vitamins 1 tablet PO DAILY 08/30/19 05/27/22 History tablet) allopurinol 100 mg tablet 200 mg PO DAILY 03/18/20 05/27/22 History furosemide 40 mg tablet 40 mg PO QAM #30 tabs 07/26/20 05/27/22 Rx hydroxychloroquine 200 mg tablet 600 mg PO BID 10/08/20 05/27/22 History meclizine 25 mg tablet 25 mg PO TID PRN dizziness #30 tabs 10/14/21 05/27/22 Rx nystatin 100,000 unit/gram topical See Rx Instructions .Route 12/23/21 05/27/22 Rx powder (Nystop) .COMPLEX #60 grams melatonin 3 mg tablet 10 mg PO HS 02/02/22 05/27/22 History methotrexate sodium 2.5 mg tablet 10 mg PO WEEKLY 02/02/22 05/27/22 History rivaroxaban 20 mg tablet (Xarelto) 20 mg PO DAILY 02/02/22 05/27/22 History sertraline 100 mg tablet 100 mg PO DAILY 02/02/22 05/27/22 History acetaminophen 500 mg tablet 500 mg PO BID PRN ache 04/29/22 05/27/22 History (Tylenol Extra Strength) bismuth subsalicylate 525 mg/15 mL 525 mg PO QID 05/05/22 05/27/22 History oral suspension (Pepto-Bismol Max St) venlafaxine 75 mg capsule,extended 75 mg PO DAILY #90 caps 05/05/22 05/27/22 Rx release 24 hr levothyroxine 200 mcg tablet See Rx Instructions .Route 05/15/22 05/27/22 Rx .COMPLEX #90 tabs Patient hx anesthesia problems: none Family hx anesthesia problems: none Results Review: All pre-operative results and documents have been reviewed as part of the pre-operative evaluation. [facility] Past Medical History Medical History Borderline diabetes Candidal skin infection Hyperglycemia Hypothyroidism Morbid obesity Obesity hypoventilation syndrome Rheumatoid aortitis Rheumatoid arthritis Surgical History Surgical History History of carpal tunnel repair History of dilation and curettage bilateral arms History of surgical removal of ganglion cyst S/P cubital tunnel release S/P ORIF (open reduction internal fixation) fracture right ankle and left wrist. Family History Family History Mother Patient's mother is in good health Hypertension Kidney failure Dementia Alzheimer disease Father Patient's father is in good health Chronic obstructive pulmonary disease Emphysema of lung Sibling Patient's sister is in good health Grandparent Diabetes mellitus Family history of hypercholesterolemia Social History Social History Social History: the patient lives with her parents and her sister and [id number] and there are 2 little children. The patient stated that her dad is a durable power perinatal coordinator for healthcare. The patient is a full code. She is single never been . Never had any children. 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 She isn't use any marijuana or illicit drugs no alcohol. Smoking status: Never smoker Second hand tobacco smoke exposure: No Alcohol intake: never Substance use: never Substance use type:
--- NOTE | 2022-06-15 08:23 | PM.HPGS ---
History of Present Illness History of Present Illness Consent: Risks, benefits, and alternatives have been discussed and questions answered. Patient agrees to proceed with procedure. Chief complaint: neoplasm screening Narrative: Najma Ford is a 47 year old female here for first screening colonoscopy Review of Systems Constitutional: Constitutional: Denies headache(s) and Denies weakness Eyes: Eyes: Denies blurry vision ENT: Reports Normal hearing present, Denies headache(s) and Denies neck pain Cardiovascular: Cardiovascular: Denies chest pain and Denies dyspnea Respiratory: Respiratory: Denies dyspnea Gastrointestinal: Gastrointestinal: Reports no additional gastrointestinal complaints Genitourinary: Genitourinary: Denies dysuria Musculoskeletal: Musculoskeletal: Denies neck pain Integumentary/Breasts: Skin/Breast: Denies dry skin Neurologic: Reports Normal hearing present, Denies headache(s) and Denies weakness Psychiatric: Psychiatric: Denies anxiety Endocrine: Endocrine: Denies change in body appearance Hematologic/Lymphatic: Hematologic/Lymphatic: Denies easy bleeding Allergic/Immunologic: Allergic/Immunologic: Denies urticaria [facility] Past Medical History Medical History (Updated 06/15/22 @ 08:24 by Raz Singleton MD) Borderline diabetes Candidal skin infection Colon cancer screening Hyperglycemia Hypothyroidism Morbid obesity Obesity hypoventilation syndrome Rheumatoid aortitis Rheumatoid arthritis Surgical History Surgical History History of carpal tunnel repair History of dilation and curettage bilateral arms History of surgical removal of ganglion cyst S/P cubital tunnel release S/P ORIF (open reduction internal fixation) fracture right ankle and left wrist. Family History Family History Mother Patient's mother is in good health Hypertension Kidney failure Dementia Alzheimer disease Father Patient's father is in good health Chronic obstructive pulmonary disease Emphysema of lung Sibling Patient's sister is in good health Grandparent Diabetes mellitus Family history of hypercholesterolemia Social History Social History Social History: the patient lives with her parents and her sister and [id number] and there are 2 little children. The patient stated that her dad is a durable power attorney recruiter for healthcare. The patient is a full code. She is single never been . Never had any children. 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 She isn't use any marijuana or illicit drugs no alcohol. Smoking status: Never smoker Second hand tobacco smoke exposure: No Alcohol intake: never Substance use: never Substance use type: does not use Living arrangements: with family Gender identity (if verbalized by the patient): Female Spiritual care concerns: No Meds Home Medications and Allergies Home Medications Medication Instructions Recorded Confirmed Type folic acid 1 mg tablet 1 mg PO DAILY 08/30/19 05/27/22 History multivitamin (Multiple Vitamins 1 tablet PO DAILY 08/30/19 05/27/22 History tablet) allopurinol 100 mg tablet 200 mg PO DAILY 03/18/20 05/27/22 History furosemide 40 mg tablet 40 mg PO QAM #30 tabs 07/26/20 05/27/22 Rx hydroxychloroquine 200 mg tablet 600 mg PO BID 10/08/20 05/27/22 History meclizine 25 mg tablet 25 mg PO TID PRN dizziness #30 tabs 10/14/21 05/27/22 Rx nystatin 100,000 unit/gram topical See Rx Instructions .Route 12/23/21 05/27/22 Rx powder (Nystop) .COMPLEX #60 grams melatonin 3 mg tablet 10 mg PO HS 02/02/22 05/27/22 History methotrexate sodium 2.5 mg tablet 10 mg PO WEEKLY 02/02/22 05/27/22 History rivaroxaban 20 mg tablet (Xarelto) 20 m
[2022-06-15 08:45] VITALS: BP 128/71; PULSE 58; RESP 23; O2SAT 100
[2022-06-15 08:56] VITALS: BP 106/60; PULSE 59; RESP 16; O2SAT 100
[2022-06-15 09:06] VITALS: BP 118/63; PULSE 60; RESP 18; O2SAT 100
== END 2022-06-15 09:19 | disposition home or self-care (01) ==
PROVIDERS: PCP Internal Medicine; Visit Provider Internal Medicine Gastroenterology
PROC: 0DJD8ZZ Inspection of Lower Intestinal Tract, Via Natural or Artificial Opening Endoscopic (ICD-10-PCS; CPT 45378; principal; 2022-06-15 08:45)
DX: Z12.11 Encounter for screening for malignant neoplasm of colon (principal); K64.8 Other hemorrhoids; E11.65 Type 2 diabetes mellitus with hyperglycemia; E03.9 Hypothyroidism, unspecified; R06.89 Other abnormalities of breathing; M06.9 Rheumatoid arthritis, unspecified; Z79.01 Long term (current) use of anticoagulants; E66.01 Morbid (severe) obesity due to excess calories; Z68.42 Body mass index [BMI] 45.0-49.9, adult
CPT/HCPCS: G0121; J2704; J7120

== ENCOUNTER 2023-03-29 11:31 | Observation (INO) | payer MEDICARE, OTHER, MEDICAID, SELFPAY ==
[2023-03-29] VITALS (39 sets, daily range): BP systolic 97–143; BP diastolic 51–98; PULSE 60–71; RESP 16–20; TEMP 36.6–36.7; O2SAT 90–100; BMI 53.4; BMI 53.1
--- NOTE | ~2023-03-29 | XR_ITS ---
EXAM: XR knee LT 3V DATE: 03/29/2023 16:11 HISTORY: glf, pain . COMPARISON: 12/02/2022. FINDINGS: Decreased mineralization. No fracture or dislocation. No lytic or blastic lesion. Moderate tricompartmental osteoarthritis. No erosion or periosteal change. Anterior soft tissue swelling. IMPRESSION: No acute osseous finding in the left knee. Reviewed, dictated and finalized at location K.
--- NOTE | ~2023-03-29 | XR_ITS ---
EXAM: XR ankle RT min 3V DATE: 03/29/2023 16:11 HISTORY: glf, pain . COMPARISON: X-ray tib-fib 06/17/2009. FINDINGS: Normal mineralization. Nondisplaced oblique fracture of the medial malleolus. No lytic or blastic lesion. Moderate degenerative changes at the tibiotalar joint and multiple midfoot joints. Mo derate Achilles and plantar enthesopathy. No erosion or periosteal change. Vascular calcifications. A nkle soft tissue swelling. IMPRESSION: Nondisplaced oblique fracture of the medial malleolus. Reviewed, dictated and finalized at location K.
--- NOTE | ~2023-03-29 | XR_ITS ---
EXAM: XR foot LT min 3V DATE: 03/29/2023 19:32 HISTORY: glf, pain to arch/mid foot . COMPARISON: 05/05/2022. FINDINGS: Normal mineralization. Oblique corner fracture at the medial and proximal aspect of the le ft first phalanx, with mild distraction. No lytic or blastic lesion. Scattered degenerative change, m ild at the tibiotalar joint, moderate in multiple midfoot joints. Prominent os trigonum. Very large o s navicularis which can be a source of chronic medial ankle pain in some patients. No erosion or patel osteal change. Soft tissues within normal limits. IMPRESSION: Avulsion fracture of the medial and proximal aspect of the left first phalanx. Reviewed, dictated and finalized at location K. IMPRESSION: Avulsion fracture of the medial and proximal aspect of the left fir st phalanx.
--- NOTE | ~2023-03-29 | XR_ITS ---
EXAM: XR hip LT 2V w AP pelvis DATE: 03/29/2023 19:32 HISTORY: glf, diff bearing weight to LLE . COMPARISON: None available. FINDINGS: Exam severely limited by body habitus and portable technique. Normal mineralization. No fra cture or dislocation. No lytic or blastic lesion. Lumbar degenerative disc disease. Degenerative morton ge in the bilateral SI joints and hips. No erosion or periosteal change. Soft tissues within normal l imits. IMPRESSION: No obvious fracture or malalignment, noting that subtle/nondisplaced injuries could be mi ssed due to limitations of the study. Reviewed, dictated and finalized at location K. IMPRESSION: No obvious fracture or malalignment, noting that subtle/nondisplace d injuries could be missed due to limitations of the study.
--- NOTE | ~2023-03-29 | XR_ITS ---
EXAM: XR hand LT min 3V DATE: 03/29/2023 16:47 HISTORY: pain to palm, glf . COMPARISON: 03/05/2022. FINDINGS: Normal mineralization. No fracture or dislocation. No lytic or blastic lesion. Scattered a rthritic and possible metabolic changes. No erosion or periosteal change. Soft tissues within normal limits. IMPRESSION: No acute osseous finding in the left hand. Reviewed, dictated and finalized at location K.
--- NOTE | 2023-03-29 16:41 | ED.FALL ---
HPI - Fall General Chief Complaint: Fall <DRE Ivan Last Filed: 03/30/23 09:00> Stated Complaint: fall <DRE Ivan Last Filed: 03/30/23 09:00> Time Seen by Provider: 03/29/23 15:01 <DRE Ivan Last Filed: 03/30/23 09:00> Source: patient and EMS <DRE Ivan Last Filed: 03/30/23 09:00> Mode of arrival: EMS <DRE Ivan Last Filed: 03/30/23 09:00> Limitations: no limitations <DRE Ivan Last Filed: 03/30/23 09:00> History of Present Illness HPI Narrative: Patient is a 48 y/o female who presents to the ED via EMS with c/o a fall. Patient reports she was walking out from the [facility] after obtaining outpatient blood work today and did not realize the sidewalk had a drop off. She lost her balance and fell. She states her left knee took the majority of the fall, however she twisted her right ankle in the process. She complains of severe pain to her left knee and right ankle. She was unable to get up off the ground by herself or bear weight on either leg, so EMS was called. EMS did administer morphine 4 mg IV in route. Patient denies any numbness or tingling. Denied any head injury or LOC. She is not on any blood thinners. <DRE Ivan Last Filed: 03/30/23 09:00> Related Data Home Medications: Home Medications Medication Instructions Recorded Confirmed multivitamin (Multiple Vitamins 1 tablet PO DAILY 08/30/19 03/29/23 tablet) hydroxychloroquine 200 mg tablet 200 mg PO BID 10/08/20 03/29/23 melatonin 3 mg tablet 20 mg PO HS 02/02/22 03/29/23 sertraline 100 mg tablet 100 mg PO DAILY 02/02/22 03/29/23 acetaminophen 500 mg tablet 500 mg PO BID PRN Pain (Scale 04/29/22 03/29/23 (Tylenol Extra Strength) Score 1-3) bismuth subsalicylate 525 mg/15 mL 525 mg PO QID PRN Gastric Reflux 05/05/22 03/29/23 oral suspension (Pepto-Bismol Max St) buspirone 5 mg tablet 5 mg PO BID 12/02/22 03/29/23 divalproex 250 mg tablet,delayed 250 mg PO Q12H 12/02/22 03/29/23 release fgpnpppa-[id number]-[id number] 3.5 1 applic EACH EYE TID 12/02/22 03/29/23 mg-400 unit-10,000 unit/gram eye oint valacyclovir 1 gram tablet 1,000 mg PO DAILY 12/02/22 03/29/23 duloxetine 30 mg capsule,delayed 30 mg PO DAILY 03/29/23 03/29/23 release levothyroxine 200 mcg tablet 200 mcg PO DAILY 03/29/23 03/29/23 rivaroxaban 20 mg tablet (Xarelto) 20 mg PO DAILY 03/29/23 03/29/23 vibegron 75 mg tablet (Gemtesa) 75 mg PO DAILY 03/29/23 03/29/23 <Ирина Martines PA-C - Last Filed: 03/30/23 09:00> Allergies/Adverse Reactions: Allergies Allergy/AdvReac Type Severity Reaction Status Date / Time No Known Allergies Allergy Verified 02/12/23 14:49 <Ирина Martines PA-C - Last Filed: 03/30/23 09:00> Review of Systems Review of Systems: CONSTITUTIONAL: Denies fever, chills, or sweats. CARDIOVASCULAR: Denies chest pain. RESPIRATORY: Denies dyspnea. GASTROINTESTINAL: Denies abdominal pain, nausea, vomiting. MUSCULOSKELETAL: See HPI. NEUROLOGIC: See HPI. <DRE Ivan Last Filed: 03/30/23 09:00> All systems reviewed & are unremarkable except as noted in HPI and below <DRE Ivan Last Filed: 03/30/23 09:00> PMFSH Past Medical History Medical History: Medical History Borderline diabetes Candidal skin infection Colon cancer screening Cubital tunnel syndrome on left Cubital tunnel syndrome on right Hyperglycemia Hypothyroidism Morbid obesity Obesity hypoventilation syndrome Primary osteoarthritis of knees, bilateral Rheumatoid aortitis Rheumatoid arthritis SOB (shortness of breath) on exertion Synovial cyst <Ирина Martines PA-C - Last Filed: 03/30/23 09:00> Surgical History Surgical History: Surgical History (Reviewed 03/30/23 @ 12:10 by
[2023-03-29] MEDS: MORPHINE SULFATE (*CRX) 4 MG/ML INJ IV PUSH (16:47)
--- NOTE | 2023-03-29 19:19 | PC.NURSE ---
Assumed care of pt at this time. Report from Liat PRINCE
--- NOTE | 2023-03-29 19:46 | PM.IMHP ---
H&P: HPI History of Present Illness Date/Time: 03/29/23 19:46 Chief Complaint: Fall Malleolar fracture Narrative: Najma Ford is a 48 year old lady with a past medical history including but not limited to hypothyroidism, morbid obesity, atrial flutter, CHF, chronic headache , rheumatoid arthritis who presents after a fall.? ?The patient was walking out from the [facility] after obtaining outpatient blood work today and did not realize the sidewalk had a drop off.? She lost her balance and fell.? She states her left knee took the majority of the fall, however she twisted her right ankle in the process.? She complains of severe pain to her left knee and right ankle and was medicated with morphine.? She was unable to get up off the ground by herself or bear weight on either leg, so EMS was called.? EMS did administer morphine 4 mg IV en route.? Patient denies any numbness or tingling.? Denied any head injury or LOC.? She is not on any blood thinners. The patient is single, lives at home with her parents, and her sister and [id number]. The right ankle Xray reveals a nondisplaced oblique fracture of the medial malleolus. The patient will be admitted for observation and hospital medicine service. Ortho was in consulted in the will see the patient in the morning. Patient has previously seen Dr. Joyce and his PA for steroid injections in her knees.? Discussed case with Dr. Morocho, on-call for [facility], advised Dr. Joyce [place] of the [place] 3 [place]. Recommend to speak to on-call Orthopedics. Discussed case with Dr. Collier, orthopedics, will consult. Recommend stirrup splint. Advised to obtain L hip XR. Review of Systems Review of Systems: CONSTITUTIONAL: Negative for any fevers, chills, night sweats, tiredness, fatigue, malaise, anorexia or weight loss. CARDIOVASCULAR: Negative for chest pain, palpitations, dizziness, orthopnea or lower extremity edema. RESPIRATORY: Negative for shortness of breath, cough, wheezing, sputum. GASTROINTESTINAL: Negative for nausea, vomiting, diarrhea or abdominal pain. GENITOURINARY: Negative for frequency, nocturia, dysuria, hematuria. GYNECOLOGIC: Negative for abnormal bleeding. HEMATOLOGIC: Negative for any abnormal bleeding or bruising. MUSCULOSKELETAL: Positive for right ankle pain. negative for joint swelling, stiffness or pain. SKIN: Negative for rashes, eruptions, lesions or dryness. NEUROLOGIC: Negative for any focal neurologic complaints. PSYCHIATRIC: Negative for anxiety, panic, depression. [facility] Past Medical History Medical History Borderline diabetes Candidal skin infection Colon cancer screening Cubital tunnel syndrome on left Cubital tunnel syndrome on right Hyperglycemia Hypothyroidism Morbid obesity Obesity hypoventilation syndrome Primary osteoarthritis of knees, bilateral Rheumatoid aortitis Rheumatoid arthritis SOB (shortness of breath) on exertion Synovial cyst Surgical History Surgical History History of carpal tunnel repair History of dilation and curettage bilateral arms History of surgical removal of ganglion cyst S/P cubital tunnel release S/P ORIF (open reduction internal fixation) fracture right ankle and left wrist. Family History Family History Mother Patient's mother is in good health Hypertension Kidney failure Dementia Alzheimer disease Father Patient's father is in good health Chronic obstructive pulmonary disease Emphysema of lung Sibling Patient's sister is in good health Grandparent Diabetes mellitus Family history of hypercholesterolemia Social History Social History Social History: the patient lives with her parents and her sister and [id number] and there are 2 little children. Th
[2023-03-29 19:52] LABS: Basophils Absolute Auto 0.1 K/mm3 (0.0-0.1); Basophils Percent Auto 0.5 % (0.2-1.2); Eosinophils Absolute Auto 0.3 K/mm3 (0-0.3); Eosinophils Percent Auto 2.9 % (0-4.4); Hematocrit 36.5 % (37.0-47.0); Immature Granulocyte Absolute 0.05 K/mm3 (0.00-0.031); Immature Granulocyte Percent A 0.5 % (0-0.5); Lymphocytes Absolute Auto 1.75 K/mm3 (0.9-3.2); Lymphocytes Percent Auto 17.9 % (18.3-44.2); Mean Corpuscular HGB Conc 30.1 g/dl (32-36); Mean Corpuscular Hemoglobin 28.9 pg (26-34); Mean Corpuscular Volume 95.8 fl (80-100); Mean Platelet Volume 9.7 fl (7.4-10.4); Monocytes Absolute Auto 0.7 K/mm3 (0.1-0.6); Monocytes Percent Auto 6.6 % (2.6-8.5); Neutrophils Percent Auto 71.6 % (45.5-73.1); Platelet Count Result 197 k/mm3 (150-375); Red Blood Count 3.81 M/mm3 (4.2-5.4); Red Cell Distribution Width 13.3 % (11.5-14.5); White Blood Count 9.8 K/mm3 (4.5-10.0)
[2023-03-29 20:03] LABS: Alanine Aminotransferase 31 U/L (6-35); Albumin Level 3.6 g/dL (3.5-5.1); Alkaline Phosphatase 109 U/L (38-126); Anion Gap 3 mmol/L (8-16); Aspartate Amino Transferase 31 U/L (14-36); Bilirubin,Total 0.6 mg/dL (0.2-1.3); Blood Urea Nitrogen 18 mg/dL (7-17); Calcium 8.3 mg/dL (8.4-10.2); Carbon Dioxide 33 mmol/L (22-30); Chloride 102 mmol/L (98-107); Estimated CRCL calculation 170 ml/min; Estimated Glomerular Filt Rate > 60; Glucose 93 mg/dL (65-110); Potassium 4.3 mmol/L (3.4-5.0); Sodium 138 mmol/L (137-145)
--- NOTE | 2023-03-29 21:39 | PC.NURSE ---
Dr. Handley informed of pt report of increased pain. New orders placed.
--- NOTE | 2023-03-29 22:18 | ADMGEN ---
This patient, Najma Ford, was admitted to Medical Room 345-. Patient/family oriented to hospital policies and general routines including ID bracelet, bed and alarms, visiting hours, pain management, procedures, bathroom and other care routines, personal items, smoking policy, room service/diet, and visiting hours. Information on how to activate the Rapid Response Team has been discussed. Patient/Family are encouraged to report perceived risks to care and to ask questions if they do not understand what they are told or what they should do.
[2023-03-30] MEDS: DIVALPROEX SODIUM DR 250 MG TABEC PO ×3 (00:09→21:08)
[2023-03-30] MEDS: HYDROcodone/acetaminophen (*CRX) 7.5-325 MG TABLET 1 TAB PO ×3 (00:09→15:58)
[2023-03-30] MEDS: MELATONIN 5 MG TABLET 20 MG PO ×2 (00:09→21:08)
[2023-03-30] MEDS: busPIRone HCL 5 MG TABLET PO ×3 (00:09→17:45)
[2023-03-30] MEDS: HYDROXYCHLOROQUINE SULFATE 200 MG TABLET PO ×3 (00:09→17:45)
[2023-03-30] MEDS: RIVAROXABAN 20 MG TABLET PO ×2 (00:09→17:45)
[2023-03-30] MEDS: LEVOTHYROXINE SODIUM 75 MCG TABLET PO (05:35)
[2023-03-30] MEDS: LEVOTHYROXINE SODIUM 100 MCG TABLET 200 MCG PO (05:35)
[2023-03-30 06:00] VITALS: BP 108/70; PULSE 55; RESP 16; TEMP 36.7; O2SAT 97
--- NOTE | 2023-03-30 08:08 | PCPTNOTE ---
Ortho consult pending. Will see pt after ortho recommendations are made. Will follow.
[2023-03-30 09:32] LABS: Vitamin D 25 Hydroxy 26.4 ng/mL
[2023-03-30 10:15] VITALS: BP 114/56; PULSE 61
[2023-03-30 10:16] VITALS: PULSE 61
[2023-03-30] MEDS: MULTIVITAMINS THERAPEUTIC TAB (*BKC) 1 TABLET PO (10:16)
[2023-03-30] MEDS: METOPROLOL SUCCINATE EXT REL 50 MG TABCR PO (10:16)
[2023-03-30] MEDS: SERTRALINE HCL 50 MG TABLET 100 MG PO (10:16)
[2023-03-30] MEDS: DULoxetine HCL 30 MG CAPSULE.DR PO (10:16)
[2023-03-30] MEDS: valACYclovir HCL 500 MG TABLET 1000 MG PO (10:16)
[2023-03-30] MEDS: MICONAZOLE NITRATE 2% CREAM 30 GM TUBE 1 APPLIC TOPICAL ×2 (10:19→17:45)
--- NOTE | 2023-03-30 10:25 | PM.IMPN ---
Progress Note: A&P Assessment and Plan (1) Fracture of medial malleolus of right tibia: Qualifiers: Encounter type: initial encounter Fracture alignment: nondisplaced Fracture type: closed Qualified Code(s): S82.54XA - Nondisplaced fracture of medial malleolus of right tibia, initial encounter for closed fracture Code(s): S82.51XA - Displaced fracture of medial malleolus of right tibia, initial encounter for closed fracture Status: Acute Assessment and Plan: Ortho was consulted. Continue pain management Right ankle splint Fall precautions. (2) Contusion of left knee: Qualifiers: Encounter type: initial encounter Qualified Code(s): S80.02XA - Contusion of left knee, initial encounter Code(s): S80.02XA - Contusion of left knee, initial encounter Status: Acute Assessment and Plan: Continue pain management Morphine Tylenol (3) Morbid obesity: Code(s): E66.01 - Morbid (severe) obesity due to excess calories Status: Acute (4) Primary osteoarthritis of knees, bilateral: Code(s): M17.0 - Bilateral primary osteoarthritis of knee Status: Acute Assessment and Plan: Weight loss (5) Cardiomyopathy: Code(s): I42.9 - Cardiomyopathy, unspecified Status: Acute Assessment and Plan: No acute exacerbation Continue home meds (6) Borderline diabetes: Code(s): R73.03 - Prediabetes Status: Acute Assessment and Plan: Monitor daily blood sugar Diabetic diet. (7) Essential hypertension: Code(s): I10 - Essential (primary) hypertension Status: Acute Assessment and Plan: Lisinopril 40 mg PO daily Toprol 50 mg PO daily (8) Atrial flutter with rapid ventricular response: Code(s): I48.92 - Unspecified atrial flutter Status: Acute (9) Hypothyroidism: Code(s): E03.9 - Hypothyroidism, unspecified Status: Acute Assessment and Plan: Continue levothyroxine Subjective Date/time seen: 03/30/23 10:25 Interval history: Still has pain in her right ankle Review of Systems Review of Systems: CONSTITUTIONAL: Negative for any fevers, chills, night sweats, tiredness, fatigue, malaise, anorexia or weight loss. CARDIOVASCULAR: Negative for chest pain, palpitations, dizziness, orthopnea or lower extremity edema. RESPIRATORY: Negative for shortness of breath, cough, wheezing, sputum. GASTROINTESTINAL: Negative for nausea, vomiting, diarrhea or abdominal pain. GENITOURINARY: Negative for frequency, nocturia, dysuria, hematuria. GYNECOLOGIC: Negative for abnormal bleeding. HEMATOLOGIC: Negative for any abnormal bleeding or bruising. MUSCULOSKELETAL: Positive for right ankle pain. negative for joint swelling, stiffness or pain. SKIN: Negative for rashes, eruptions, lesions or dryness. NEUROLOGIC: Negative for any focal neurologic complaints. PSYCHIATRIC: Negative for anxiety, panic, depression. Exam Narrative: GENERAL: The patient is obese, alert and oriented, in no apparent distress. She is pleasant and conversant in full sentences. HEENT: Pupils are equally round and reactive to light. Extra occular muscles are intact. Oral mucous membranes are moist without lesions. NECK: The patient has no noted JVD. No cervical palpable lymphadenopathy. CHEST/LUNGS: Lungs are clear bilaterally without rhonchi, rales, or wheezes. HEART: The patient has a regular rate and rhythm. No murmurs, rubs, or gallops are appreciated. ABDOMEN: The patient?s abdomen is obese, soft, nontender, and nondistended. Bowel sounds are positive. EXTREMITIES: The patient has no peripheral edema. There is no focal long bone tenderness or deformity. SKIN: The patient?s skin is warm and dry, without rashes or lesions. PSYCHIATRIC: The patient has normal mental status and has an appropriate affect. NEUROLOGIC: Sensation is intact throughout. Gait was not tested. EXTREMITIES: Limited range of mot
--- NOTE | 2023-03-30 12:09 | PM.CNOR ---
Assessment and Plan Assessment and plan (1) Fracture of medial malleolus of right tibia: Qualifiers: Encounter type: initial encounter Fracture alignment: nondisplaced Fracture type: closed Qualified Code(s): S82.54XA - Nondisplaced fracture of medial malleolus of right tibia, initial encounter for closed fracture Code(s): S82.51XA - Displaced fracture of medial malleolus of right tibia, initial encounter for closed fracture Status: Acute Assessment and Plan: Change to Aircast stirrup splint which will be more comfortable. Can be protected weight-bearing for balance right lower extremity. (2) Contusion of left knee: Qualifiers: Encounter type: initial encounter Qualified Code(s): S80.02XA - Contusion of left knee, initial encounter Code(s): S80.02XA - Contusion of left knee, initial encounter Status: Acute Assessment and Plan: Ice. Therapy to work on range of motion. (3) Fracture of toe of left foot: Qualifiers: Encounter type: initial encounter Fracture alignment: nondisplaced Fracture type: closed Phalanx: proximal Toe: great toe Qualified Code(s): S92.415A - Nondisplaced fracture of proximal phalanx of left great toe, initial encounter for closed fracture Code(s): S92.912A - Unspecified fracture of left toe(s), initial encounter for closed fracture Status: Acute Assessment and Plan: Postop shoe. Weightbearing as tolerated. Plan See above. Patient is going to likely need rehab before returning home. Will follow while she is in the hospital. Follow-up with me as an outpatient will be arranged. History of Present Illness HPI Consult date: 03/30/23 Chief complaint: R ankle fracture, L toe fracture, unable to ambula Review of Systems Review of Systems: CONSTITUTIONAL: Negative for any fevers, chills, night sweats, tiredness, fatigue, malaise, anorexia or weight loss. CARDIOVASCULAR: Negative for chest pain, palpitations, dizziness, orthopnea or lower extremity edema. RESPIRATORY: Negative for shortness of breath, cough, wheezing, sputum. GASTROINTESTINAL: Negative for nausea, vomiting, diarrhea or abdominal pain. GENITOURINARY: Negative for frequency, nocturia, dysuria, hematuria. GYNECOLOGIC: Negative for abnormal bleeding. HEMATOLOGIC: Negative for any abnormal bleeding or bruising. MUSCULOSKELETAL: Positive for right ankle pain. negative for joint swelling, stiffness or pain. SKIN: Negative for rashes, eruptions, lesions or dryness. NEUROLOGIC: Negative for any focal neurologic complaints. PSYCHIATRIC: Negative for anxiety, panic, depression. Constitutional: Constitutional: Denies chills, Denies fever(s) and Denies night sweats Eyes: Eyes: Denies change in vision ENT: Reports Normal hearing present Cardiovascular: Cardiovascular: Denies chest pain and Denies dyspnea on exertion Respiratory: Respiratory: Denies dyspnea on exertion Gastrointestinal: Gastrointestinal: Denies abdominal pain Genitourinary: Genitourinary: Denies dysuria Musculoskeletal: Musculoskeletal: Reports as per HPI Integumentary/Breasts: Skin/Breast: Denies new lesions Neurologic: Reports Normal hearing present and Denies confusion Psychiatric: Psychiatric: Denies confusion Hematologic/Lymphatic: Hematologic/Lymphatic: Denies easy bleeding PMFSH Past Medical History Medical History Borderline diabetes Candidal skin infection Colon cancer screening Cubital tunnel syndrome on left Cubital tunnel syndrome on right Hyperglycemia Hypothyroidism Morbid obesity Obesity hypoventilation syndrome Primary osteoarthritis of knees, bilateral Rheumatoid aortitis Rheumatoid arthritis SOB (shortness of breath) on exertion Synovial cyst Surgical History Surgical History History of carpal tunnel repair History of dil
--- NOTE | 2023-03-30 12:17 | PC.NURSE ---
Neomycin put on hold. Patient does not use this scheduled, she uses it PRN. Pharmacist said this medication is not used PRN and to put the medication on hold for now.
--- NOTE | 2023-03-30 13:56 | PC.NURSE ---
[employer] faxed orders for aircast to [facility], but report back said no response. Toy Packer called [facility] explaining the fax did not go through and left voicemail to call back.
[2023-03-30 14:00] VITALS: BP 122/53; PULSE 57; RESP 16; TEMP 36.2; O2SAT 96
--- NOTE | 2023-03-30 14:49 | PCOTNOTE ---
Ortho consult now in and pt should be in an air cast for RLE and TTWB, surgical shoe LLE. Currently waiting for air cast to arrive prior to seeing pt for therapy.
--- NOTE | 2023-03-30 15:07 | PCPTNOTE ---
waiting for air cast to arrive prior to seeing pt for therapy.
--- NOTE | 2023-03-30 15:20 | PC.NURSE ---
Gis Programmer called [facility] again and medical receptionist assistant answered. Took patients information, but stated they could not bring over aircast until tomorrow. Gis Programmer is going to refax orders to [facility].
[2023-03-30 20:29] VITALS: BP 123/72; PULSE 63; RESP 18; TEMP 36.2; O2SAT 98
[2023-03-31] MEDS: LEVOTHYROXINE SODIUM 75 MCG TABLET PO (05:30)
[2023-03-31] MEDS: LEVOTHYROXINE SODIUM 100 MCG TABLET 200 MCG PO (05:30)
[2023-03-31 05:31] VITALS: BP 131/53; PULSE 66; RESP 16; TEMP 36.3; O2SAT 94
[2023-03-31] MEDS: HYDROcodone/acetaminophen (*CRX) 7.5-325 MG TABLET 1 TAB PO ×3 (06:23→21:21)
[2023-03-31] MEDS: DULoxetine HCL 30 MG CAPSULE.DR PO (09:34)
[2023-03-31] MEDS: DIVALPROEX SODIUM DR 250 MG TABEC PO ×2 (09:34→21:20)
[2023-03-31] MEDS: MULTIVITAMINS THERAPEUTIC TAB (*BKC) 1 TABLET PO (09:34)
[2023-03-31] MEDS: valACYclovir HCL 500 MG TABLET 1000 MG PO (09:34)
[2023-03-31 09:35] VITALS: PULSE 68
[2023-03-31] MEDS: METOPROLOL SUCCINATE EXT REL 50 MG TABCR PO (09:35)
[2023-03-31] MEDS: HYDROXYCHLOROQUINE SULFATE 200 MG TABLET PO ×2 (09:36→18:03)
[2023-03-31] MEDS: SERTRALINE HCL 50 MG TABLET 100 MG PO (09:36)
[2023-03-31] MEDS: busPIRone HCL 5 MG TABLET PO ×2 (09:36→18:02)
[2023-03-31] MEDS: MICONAZOLE NITRATE 2% CREAM 30 GM TUBE 1 APPLIC TOPICAL ×2 (09:37→18:03)
[2023-03-31 09:40] VITALS: PULSE 68; RESP 16; O2SAT 94
--- NOTE | 2023-03-31 10:36 | PM.IMPN ---
Progress Note: A&P Assessment and Plan (1) Fracture of medial malleolus of right tibia: Qualifiers: Encounter type: initial encounter Fracture alignment: nondisplaced Fracture type: closed Qualified Code(s): S82.54XA - Nondisplaced fracture of medial malleolus of right tibia, initial encounter for closed fracture Code(s): S82.51XA - Displaced fracture of medial malleolus of right tibia, initial encounter for closed fracture Status: Acute Assessment and Plan: Ortho consulted. Continue pain management Right ankle splint PT and OT (2) Contusion of left knee: Qualifiers: Encounter type: initial encounter Qualified Code(s): S80.02XA - Contusion of left knee, initial encounter Code(s): S80.02XA - Contusion of left knee, initial encounter Status: Acute Assessment and Plan: Continue pain management- Morphine, Tylenol Ice (3) Morbid obesity: Code(s): E66.01 - Morbid (severe) obesity due to excess calories Status: Acute (4) Primary osteoarthritis of knees, bilateral: Code(s): M17.0 - Bilateral primary osteoarthritis of knee Status: Acute Assessment and Plan: Weight loss (5) Cardiomyopathy: Code(s): I42.9 - Cardiomyopathy, unspecified Status: Acute Assessment and Plan: No acute exacerbation Continue home meds (6) Borderline diabetes: Code(s): R73.03 - Prediabetes Status: Acute Assessment and Plan: Monitor daily blood sugar Diabetic diet. (7) Essential hypertension: Code(s): I10 - Essential (primary) hypertension Status: Acute Assessment and Plan: Lisinopril 40 mg PO daily Toprol 50 mg PO daily (8) Atrial flutter with rapid ventricular response: Code(s): I48.92 - Unspecified atrial flutter Status: Acute (9) Hypothyroidism: Code(s): E03.9 - Hypothyroidism, unspecified Status: Acute Assessment and Plan: Continue levothyroxine Subjective Date/time seen: 03/31/23 10:36 Interval history: Pain in left leg Review of Systems Review of Systems: CONSTITUTIONAL: Negative for any fevers, chills, night sweats, tiredness, fatigue, malaise, anorexia or weight loss. CARDIOVASCULAR: Negative for chest pain, palpitations, dizziness, orthopnea or lower extremity edema. RESPIRATORY: Negative for shortness of breath, cough, wheezing, sputum. GASTROINTESTINAL: Negative for nausea, vomiting, diarrhea or abdominal pain. GENITOURINARY: Negative for frequency, nocturia, dysuria, hematuria. GYNECOLOGIC: Negative for abnormal bleeding. HEMATOLOGIC: Negative for any abnormal bleeding or bruising. MUSCULOSKELETAL: Positive for right ankle pain. negative for joint swelling, stiffness or pain. SKIN: Negative for rashes, eruptions, lesions or dryness. NEUROLOGIC: Negative for any focal neurologic complaints. PSYCHIATRIC: Negative for anxiety, panic, depression. Exam Narrative: GENERAL: The patient is obese, alert and oriented, in no apparent distress. She is pleasant and conversant in full sentences. HEENT: Pupils are equally round and reactive to light. Extra occular muscles are intact. Oral mucous membranes are moist without lesions. NECK: The patient has no noted JVD. No cervical palpable lymphadenopathy. CHEST/LUNGS: Lungs are clear bilaterally without rhonchi, rales, or wheezes. HEART: The patient has a regular rate and rhythm. No murmurs, rubs, or gallops are appreciated. ABDOMEN: The patient?s abdomen is obese, soft, nontender, and nondistended. Bowel sounds are positive. EXTREMITIES: The patient has no peripheral edema. There is no focal long bone tenderness or deformity. SKIN: The patient?s skin is warm and dry, without rashes or lesions. PSYCHIATRIC: The patient has normal mental status and has an appropriate affect. NEUROLOGIC: Sensation is intact throughout. Gait was not tested. EXTREMITIES: Limited range of motion of lower extremities
[2023-03-31 14:00] VITALS: BP 114/59; PULSE 66; RESP 16; TEMP 36.6; O2SAT 94
[2023-03-31] MEDS: RIVAROXABAN 20 MG TABLET PO (18:02)
[2023-03-31] MEDS: BISMUTH SUBSALICYLATE 262 MG CHEWABLE TABLET 524 MG PO (21:19)
[2023-03-31] MEDS: MELATONIN 5 MG TABLET 20 MG PO (21:20)
[2023-03-31 21:27] VITALS: BP 126/54; PULSE 92; RESP 18; TEMP 36.6; O2SAT 94
[2023-04-01] MEDS: LEVOTHYROXINE SODIUM 75 MCG TABLET PO (05:26)
[2023-04-01] MEDS: LEVOTHYROXINE SODIUM 100 MCG TABLET 200 MCG PO (05:26)
[2023-04-01 06:00] VITALS: BP 121/62; PULSE 66; RESP 16; TEMP 36.6; O2SAT 93
--- NOTE | 2023-04-01 08:42 | PCOTNOTE ---
The patient treatment was not able to be completed on 04/01 @8:40 due to Patient was asleep with blanket over her head. will attempt at a later time. Will plan to continue treatment per plan of care.
[2023-04-01] MEDS: valACYclovir HCL 500 MG TABLET 1000 MG PO (08:49)
[2023-04-01] MEDS: DULoxetine HCL 30 MG CAPSULE.DR PO (08:49)
[2023-04-01] MEDS: DIVALPROEX SODIUM DR 250 MG TABEC PO (08:49)
[2023-04-01] MEDS: SERTRALINE HCL 50 MG TABLET 100 MG PO (08:50)
[2023-04-01] MEDS: MULTIVITAMINS THERAPEUTIC TAB (*BKC) 1 TABLET PO (08:50)
[2023-04-01] MEDS: busPIRone HCL 5 MG TABLET PO ×2 (08:50→16:54)
[2023-04-01] MEDS: HYDROXYCHLOROQUINE SULFATE 200 MG TABLET PO ×2 (08:50→16:54)
[2023-04-01] MEDS: MICONAZOLE NITRATE 2% CREAM 30 GM TUBE 1 APPLIC TOPICAL ×2 (08:50→16:54)
[2023-04-01 08:52] VITALS: PULSE 67
[2023-04-01] MEDS: METOPROLOL SUCCINATE EXT REL 50 MG TABCR PO (08:52)
--- NOTE | 2023-04-01 11:20 | PM.IMPN ---
Progress Note: A&P Assessment and Plan (1) Fracture of medial malleolus of right tibia: Qualifiers: Encounter type: initial encounter Fracture alignment: nondisplaced Fracture type: closed Qualified Code(s): S82.54XA - Nondisplaced fracture of medial malleolus of right tibia, initial encounter for closed fracture Code(s): S82.51XA - Displaced fracture of medial malleolus of right tibia, initial encounter for closed fracture Status: Acute Assessment and Plan: Ortho consulted. Continue pain management Right ankle splint PT and OT (2) Contusion of left knee: Qualifiers: Encounter type: initial encounter Qualified Code(s): S80.02XA - Contusion of left knee, initial encounter Code(s): S80.02XA - Contusion of left knee, initial encounter Status: Acute Assessment and Plan: Continue pain management- Morphine, Tylenol Ice (3) Morbid obesity: Code(s): E66.01 - Morbid (severe) obesity due to excess calories Status: Acute (4) Primary osteoarthritis of knees, bilateral: Code(s): M17.0 - Bilateral primary osteoarthritis of knee Status: Acute Assessment and Plan: Weight loss (5) Cardiomyopathy: Code(s): I42.9 - Cardiomyopathy, unspecified Status: Acute Assessment and Plan: No acute exacerbation Continue home meds (6) Borderline diabetes: Code(s): R73.03 - Prediabetes Status: Acute Assessment and Plan: Monitor daily blood sugar Diabetic diet. (7) Essential hypertension: Code(s): I10 - Essential (primary) hypertension Status: Acute Assessment and Plan: Lisinopril 40 mg PO daily Toprol 50 mg PO daily (8) Atrial flutter with rapid ventricular response: Code(s): I48.92 - Unspecified atrial flutter Status: Acute (9) Hypothyroidism: Code(s): E03.9 - Hypothyroidism, unspecified Status: Acute Assessment and Plan: Continue levothyroxine Subjective Date/time seen: 04/01/23 11:20 Interval history: Pain in left leg is tolerable at rest, patient still has difficulty more also had a vascular cause of the pain Patient denies chest pain, shortness of breath, abdomen pain, nausea vomiting diarrhea. Patient afebrile, hemodynamically stable. Exam Narrative: GENERAL: The patient is obese, alert and oriented, in no apparent distress. She is pleasant and conversant in full sentences. HEENT: Pupils are equally round and reactive to light. Extra occular muscles are intact. Oral mucous membranes are moist without lesions. NECK: The patient has no noted JVD. No cervical palpable lymphadenopathy. CHEST/LUNGS: Lungs are clear bilaterally without rhonchi, rales, or wheezes. HEART: The patient has a regular rate and rhythm. No murmurs, rubs, or gallops are appreciated. ABDOMEN: The patient?s abdomen is obese, soft, nontender, and nondistended. Bowel sounds are positive. EXTREMITIES: The patient has no peripheral edema. There is no focal long bone tenderness or deformity. SKIN: The patient?s skin is warm and dry, without rashes or lesions. PSYCHIATRIC: The patient has normal mental status and has an appropriate affect. NEUROLOGIC: Sensation is intact throughout. Gait was not tested. EXTREMITIES: Limited range of motion of lower extremities due to pain.?right ankle in splint. SKIN: Warm, dry, normal color. No rashes. Objective Data Vital Signs Vital Signs: Vital Signs - 24 hr 03/31/23 14:00 03/31/23 21:27 04/01/23 06:00 Temperature 97.8 F 97.8 F 97.9 F Pulse Rate 66 92 66 Respiratory Rate 16 18 16 Blood Pressure 114/59 L 126/54 L 121/62 Pulse Oximetry 94 94 93 Oxygen Delivery 04/01/23 08:52 04/01/23 08:00 Temperature Pulse Rate 67 Respiratory Rate Blood Pressure Pulse Oximetry Oxygen Delivery Room Air Intake/Output Intake/Output: Intake & Output 03/29/23 03/30/23 03/31/23 04/01/23 23:59 23:59 23:59 23:59 Intake T
--- NOTE | 2023-04-01 12:48 | PM.DS ---
DS: Admitting Diagnosis Discharge Date today Admitting Diagnosis (1) Fracture of medial malleolus of right tibia: ?Qualifiers: ?Encounter type:?initial encounter??Fracture alignment:?nondisplaced??Fracture type:?closed? Qualified Code(s):?S82.54XA - Nondisplaced fracture of medial malleolus of right tibia, initial encounter for closed fracture (2) Contusion of left knee: DS: Discharge Diagnosis Discharge Diagnosis (1) Fracture of medial malleolus of right tibia: Qualifiers: Encounter type: initial encounter Fracture alignment: nondisplaced Fracture type: closed Qualified Code(s): S82.54XA - Nondisplaced fracture of medial malleolus of right tibia, initial encounter for closed fracture Code(s): S82.51XA - Displaced fracture of medial malleolus of right tibia, initial encounter for closed fracture Status: Acute Assessment and Plan: Ortho consulted. Continue pain management Right ankle splint PT and OT Or DVTs recommend to discharge patient to rehab (2) Contusion of left knee: Qualifiers: Encounter type: initial encounter Qualified Code(s): S80.02XA - Contusion of left knee, initial encounter Code(s): S80.02XA - Contusion of left knee, initial encounter Status: Acute Assessment and Plan: Continue pain management with physical therapist and the necrotic medication Pain is better controlled (3) Morbid obesity: Code(s): E66.01 - Morbid (severe) obesity due to excess calories Status: Acute (4) Primary osteoarthritis of knees, bilateral: Code(s): M17.0 - Bilateral primary osteoarthritis of knee Status: Acute Assessment and Plan: Weight loss (5) Cardiomyopathy: Code(s): I42.9 - Cardiomyopathy, unspecified Status: Acute Assessment and Plan: No acute exacerbation Continue home meds (6) Borderline diabetes: Code(s): R73.03 - Prediabetes Status: Acute Assessment and Plan: Monitor daily blood sugar Diabetic diet. (7) Essential hypertension: Code(s): I10 - Essential (primary) hypertension Status: Acute Assessment and Plan: Lisinopril 40 mg PO daily Toprol 50 mg PO daily (8) Atrial flutter with rapid ventricular response: Code(s): I48.92 - Unspecified atrial flutter Status: Acute (9) Hypothyroidism: Code(s): E03.9 - Hypothyroidism, unspecified Status: Acute Assessment and Plan: Continue levothyroxine DS: Summary Hospital Course Reason for hospitalization: Fall Hospital Course: Per H&P, Najma Ford is a 48 year old lady with a past medical history including but not limited to hypothyroidism, morbid obesity, atrial flutter, CHF, chronic headache , rheumatoid arthritis who presents after a fall.? ?The patient was walking out from the [facility] after obtaining outpatient blood work today and did not realize the sidewalk had a drop off.? She lost her balance and fell.? She states her left knee took the majority of the fall, however she twisted her right ankle in the process.? She complains of severe pain to her left knee and right ankle and was medicated with morphine.? She was unable to get up off the ground by herself or bear weight on either leg, so EMS was called.? EMS did administer morphine 4 mg IV en route.? Patient denies any numbness or tingling.? Denied any head injury or LOC.? She is not on any blood thinners. The patient is single, lives at home with her parents, and her sister and [id number]. The right ankle Xray reveals a?nondisplaced oblique fracture of the medial malleolus.? The patient will be admitted for observation and hospital medicine service.? Ortho was in consulted saw the patient and orthopedic surgeon recommend to stirrup splint and pain management. Not pain is better managed, OT PT also saw the patient recommended to discharge pressure rehab. Hospital course is uneventful, patient will b
[2023-04-01] MEDS: HYDROcodone/acetaminophen (*CRX) 7.5-325 MG TABLET 1 TAB PO (13:23)
[2023-04-01 14:00] VITALS: BP 120/72; PULSE 63; RESP 16; TEMP 36.2; O2SAT 99
[2023-04-01] MEDS: RIVAROXABAN 20 MG TABLET PO (16:54)
== END 2023-04-01 17:49 ==
LOC: ANHED 19:48 → ANH3MED 03-30 07:16
PROVIDERS: Admitting Provider Internal Medicine; Emergency Provider Physician Assistant; PCP Internal Medicine; Visit Provider Hospitalist
DX: S82.54XA Nondisplaced fracture of medial malleolus of right tibia, initial encounter for closed fracture (principal); S80.02XA Contusion of left knee, initial encounter; S92.415A Nondisplaced fracture of proximal phalanx of left great toe, initial encounter for closed fracture; W10.1XXA Fall (on)(from) sidewalk curb, initial encounter; Y92.89 Other specified places as the place of occurrence of the external cause; K21.9 Gastro-esophageal reflux disease without esophagitis; R73.03 Prediabetes; R51.9 Headache, unspecified; M17.0 Bilateral primary osteoarthritis of knee; I42.9 Cardiomyopathy, unspecified; I10 Essential (primary) hypertension; E78.49 Other hyperlipidemia; I48.92 Unspecified atrial flutter; E03.9 Hypothyroidism, unspecified; M06.9 Rheumatoid arthritis, unspecified; E66.01 Morbid (severe) obesity due to excess calories; Z68.43 Body mass index [BMI] 50.0-59.9, adult; Z79.1 Long term (current) use of non-steroidal anti-inflammatories (NSAID); Z79.01 Long term (current) use of anticoagulants; Z79.899 Other long term (current) drug therapy
CPT/HCPCS: 29515; 36415; 73130; 73502; 73562; 73610; 73630; 80053; 82306; 85025; 96374; 97161; 97166; 97530; 97535; 99285; A9270; G0378; J2270

== ENCOUNTER 2023-07-31 09:49 | Outpatient (CLI) | payer MEDICARE, OTHER, MEDICAID, SELFPAY ==
[2023-07-31 10:44] LABS: Basophils Percent Auto 0.7 % (0.2-1.2); Eosinophils Absolute Auto 0.3 K/mm3 (0-0.3); Eosinophils Percent Auto 5.3 % (0-4.4); Hematocrit 41.9 % (37.0-47.0); Hemoglobin 12.4 g/dL (12.0-15.0); Immature Granulocyte Absolute 0.01 K/mm3 (0.00-0.031); Immature Granulocyte Percent A 0.2 % (0-0.5); Lymphocytes Absolute Auto 1.73 K/mm3 (0.9-3.2); Lymphocytes Percent Auto 28.8 % (18.3-44.2); Mean Corpuscular HGB Conc 29.6 g/dl (32-36); Mean Corpuscular Hemoglobin 28.2 pg (26-34); Mean Corpuscular Volume 95.2 fl (80-100); Mean Platelet Volume 10.2 fl (7.4-10.4); Monocytes Absolute Auto 0.5 K/mm3 (0.1-0.6); Neutrophils Absolute Auto 3.4 K/mm3 (1.3-6.7); Platelet Count Result 204 k/mm3 (150-375); Red Cell Distribution Width 14.5 % (11.5-14.5)
[2023-07-31 11:18] LABS: Platelet Estimate Adequate (Adequate); Schistocytes None Seen (NORMAL); Stomatocytes 1+ (NORMAL)
[2023-07-31 11:31] LABS: Iron 70 ug/dL (37-170)
[2023-07-31 11:40] LABS: Percent Iron Saturation 23 % (20-50)
== END 2023-07-31 09:50 | disposition home or self-care (01) ==
PROVIDERS: PCP Internal Medicine; Visit Provider Physician Assistant
DX: D64.9 Anemia, unspecified (principal)
CPT/HCPCS: 36415; 82728; 83540; 83550; 85025

== ENCOUNTER 2023-11-01 12:28 | Inpatient (IN) | payer MEDICARE, OTHER, MEDICAID, SELFPAY ==
[2023-11-01] VITALS (10 sets, daily range): BP systolic 155–189; BP diastolic 84–109; PULSE 68–87; RESP 17–32; TEMP 36.3–36.8; O2SAT 91–100; BMI 46.1
--- NOTE | ~2023-11-01 | CT_ITS ---
EXAMINATION: CTA chest PE protocol DATE: 11/01/2023 19:06 INDICATION: pe TECHNIQUE: Computed tomography angiography (CTA) of the chest was performed with 100 mL Omnipaque-350 intravenous contrast timed to evaluate the pulmonary arteries. Coronal maximum intensity projection 3D-reconstructions were created by the technologist. The dose-length product (DLP) was 959.70 mGy-cm. Automated exposure control and iterative reconstruction technique were employed. COMPARISON: 06/25/2020; x-ray chest 11/01/2023. FINDINGS: Lung parenchyma and airways: Mild motion artifact. Dependent scar/atelectasis. Tracheal and proximal bronchial narrowing. Pleura: Unremarkable. Thoracic inlet, axillae and chest wall: Right chest port. Thoracic aorta: Normal. Mediastinum: Dilated central pulmonary arteries as can be seen with pulmonary arterial hypertension s mall hiatal hernia. Enlarged mediastinal lymph nodes. Heart and pericardium: Cardiomegaly. Coronary artery calcifications: Absent. Upper abdomen: No significant finding. Bones: No acute osseous finding. Pulmonary arteries: Study quality: There is respiratory motion artifact, the study is overall diagnos tic. No pulmonary emboli detected. IMPRESSION: No CT evidence of acute pulmonary embolus. Tracheomalacia. Mediastinal lymphadenopathy. Cardiomegaly. Dilated central pulmonary arteries as can be seen with pulmonary arterial hypertension. Reviewed, dictated and finalized at location [facility] IMPRESSION: No CT evidence of acute pulmonary embolus. Tracheomalacia. Mediastinal lymphadenopathy. Cardiomegaly. Dilated central pulmonary arteries as can be seen with pulmonary arterial hyper tension.
--- NOTE | ~2023-11-01 | XR_ITS ---
Clinical Indication: Cough PA and lateral views of the chest: Comparison: 06/27/2020 Findings: [address] The lungs are clear, without evidence of focal consolidation or pleura l effusion. Cardiomediastinal silhouette is stable. Bones and soft tissues are unremarkable. Impression: Clear lungs. Right-sided Mediport. Reviewed, dictated and finalized at location . [facility] Impression: Clear lungs. Right-sided Mediport.
--- NOTE | 2023-11-01 12:48 | ECG_ITS ---
Measurements Intervals [place] Rate: 70 P: 51 SC: 205 QRS: 203 QRSD: 111 T: 69 QT: 405 QTc: 439 Interpretive Statements SINUS RHYTHM INDETERMINATE AXIS LOW QRS VOLTAGE IN PRECORDIAL LEADS INCOMPLETE RIGHT BUNDLE BRANCH BLOCK POSSIBLE ANTERIOR MYOCARDIAL INFARCTION , PROBABLY OLD [30 ms Q WAVE IN V3/V4, OR R < 0.2 mV IN V4] ABNORMAL ECG COMPARED TO ECG 06/27/2020 09:12:21 SINUS RHYTHM NOW PRESENT INCOMPLETE RIGHT BUNDLE-BRANCH BLOCK NOW PRESENT Electronically Signed On 11-01-2023 18:32:26 REVENUE SETTLEMENTS ADMINISTRATOR by Guille Frausto M.D.
--- NOTE | 2023-11-01 14:40 | ED.GENADULT ---
HPI - General Adult General Chief complaint: Shortness of Breath/Dyspnea <Kristin Duque January, [employer] - Last Filed: 11/01/23 19:36> Stated complaint: shortness of breath <Kristin Duque January, [employer] - Last Filed: 11/01/23 19:36> Time Seen by Provider: 11/01/23 14:40 <Kristin Duque January, [employer] - Last Filed: 11/01/23 19:36> Focused HPI: [id number] Najma Ford is 48 y/o female who presents with reports of cough for over 2 weeks and reports feeling worse, states she can't lay flat and feels SOB with ambulating. She also reports of sore throat. GENERAL: Well-appearing, well-nourished, and in no acute distress. HEAD: Normocephalic, atraumatic. CHEST: ?No respiratory distress. lung sounds course + wheezing throughout. HEART: Regular rate and rhythm.? NEURO: ?Alert and oriented x3. Patient screened in triage and initial orders placed.? ?Additional care and disposition to be based upon?diagnostic testing and treatment. <Stephanie Spain MD - Last Filed: 11/01/23 21:59> History of Present Illness HPI narrative: Focused HPI: Pascual Ford is 48 y/o female who presents with reports of cough for over 2 weeks and reports feeling worse, states she can't lay flat and feels SOB with ambulating. She also reports of sore throat. GENERAL: Well-appearing, well-nourished, and in no acute distress. HEAD: Normocephalic, atraumatic. CHEST: ?No respiratory distress. lung sounds course + wheezing throughout. HEART: Regular rate and rhythm.? NEURO: ?Alert and oriented x3. Patient screened in triage and initial orders placed.? ?Additional care and disposition to be based upon?diagnostic testing and treatment. <Kristin Duque January, [employer] - Last Filed: 11/01/23 19:36> Patient is a 48-year-old female with history of cardiac arrhythmia, arthritis for which she gets monthly infusions, nonsmoker here with shortness of breath. Patient describes a chest cold has been present for about 2 weeks. She notes a cough which is nonproductive in nature. The shortness of breath associated with some midsternal chest pain and wheezing. She does note that she previously was prescribed inhaler, no known history of COPD or asthma, has not needed to use this for quite some time. She additionally was prescribed diuretics in the past, advised to discontinue these by her physician. She denies any known history of CHF or CAD. She denies any sick contacts. Has not had any fever or chills. She does believe that the nebulizer she has been using since arrival to the emergency department has been helping her breathing. <Stephanie Spain MD - Last Filed: 11/01/23 21:59> Related Data Home medications: Home Medications Medication Instructions Recorded Confirmed multivitamin (Multiple Vitamins 1 tablet PO DAILY 08/30/19 11/01/23 tablet) hydroxychloroquine 200 mg tablet 200 mg PO BID 10/08/20 11/01/23 acetaminophen 500 mg tablet 1,000 mg PO BID PRN Pain (Scale 04/29/22 11/01/23 (Tylenol Extra Strength) Score 1-3) divalproex 250 mg tablet,delayed 500 mg PO DAILY 12/02/22 11/01/23 release rivaroxaban 20 mg tablet (Xarelto) 20 mg PO DAILY 03/29/23 11/01/23 vibegron 75 mg tablet (Gemtesa) 75 mg PO DAILY 06/01/23 11/01/23 buspirone 5 mg tablet 5 mg PO TID 06/17/23 11/01/23 melatonin 3 mg tablet 10 mg PO HS 06/17/23 11/01/23 sertraline 100 mg tablet 200 mg PO DAILY 06/17/23 11/01/23 ferrous sulfate 325 mg (65 mg 325 mg PO DAILY 07/12/23 11/01/23 iron) tablet,delayed release aripiprazole 10 mg tablet 10 mg PO HS 11/01/23 11/01/23 betamethasone, augmented 0.05 % 1 applic topical BID 11/01/23 11/01/23 topical cream duloxetine 30 mg capsule,delayed 30 mg PO DAILY 11/01/23 11/01/23 release fluticasone propionate 50 2 spray intranasal DAILY 11/01/23 11/01/23 mcg/actuation nasal spray,suspension leflunomide 20 mg tablet 20 mg PO DAILY 11/01/23 11/01/23 nystatin 100,000 unit/gram topical 1 applic topical BID PRN Rash 11/01/23 11/01/23 cream tramadol 50 mg tablet 50 mg PO Q8H PRN Pain
[2023-11-01 15:19] LABS: Basophils Absolute Auto 0.1 K/mm3 (0.0-0.1); Basophils Percent Auto 0.6 % (0.2-1.2); Eosinophils Absolute Auto 0.3 K/mm3 (0-0.3); Eosinophils Percent Auto 3.7 % (0-4.4); Hematocrit 40.9 % (37.0-47.0); Hemoglobin 11.6 g/dL (12.0-15.0); Immature Granulocyte Absolute 0.02 K/mm3 (0.00-0.031); Immature Granulocyte Percent A 0.2 % (0-0.5); Lymphocytes Absolute Auto 1.72 K/mm3 (0.9-3.2); Lymphocytes Percent Auto 19.5 % (18.3-44.2); Mean Corpuscular HGB Conc 28.4 g/dl (32-36); Mean Corpuscular Hemoglobin 27.1 pg (26-34); Mean Corpuscular Volume 95.6 fl (80-100); Mean Platelet Volume 10.7 fl (7.4-10.4); Monocytes Absolute Auto 0.6 K/mm3 (0.1-0.6); Monocytes Percent Auto 7.3 % (2.6-8.5); Neutrophils Absolute Auto 6.1 K/mm3 (1.3-6.7); Neutrophils Percent Auto 68.7 % (45.5-73.1); Platelet Count Result 234 k/mm3 (150-375); Red Blood Count 4.28 M/mm3 (4.2-5.4); Red Cell Distribution Width 13.9 % (11.5-14.5); White Blood Count 8.8 K/mm3 (4.5-10.0)
[2023-11-01 15:29] LABS: Alanine Aminotransferase 19 U/L (6-35); Alkaline Phosphatase 145 U/L (38-126); Anion Gap 2 mmol/L (8-16); Aspartate Amino Transferase 28 U/L (14-36); Bilirubin,Total 0.5 mg/dL (0.2-1.3); Blood Urea Nitrogen 11 mg/dL (7-17); Calcium 8.8 mg/dL (8.4-10.2); Carbon Dioxide 35 mmol/L (22-30); Chloride 104 mmol/L (98-107); Estimated CRCL calculation 149 ml/min; Estimated Glomerular Filt Rate > 60; Glucose 96 mg/dL (65-110); Potassium 3.2 mmol/L (3.4-5.0); Sodium 141 mmol/L (137-145)
[2023-11-01 15:41] LABS: NT Pro B Type Natriuretic Pept 3220 pg/mL (19.9-100); Troponin I < 0.012 ng/mL (0.000-0.034)
[2023-11-01 15:43] LABS: Hypochromasia 1+ (NORMAL); Platelet Estimate Adequate (Adequate); Schistocytes None Seen (NORMAL)
[2023-11-01] MEDS: IPRATROPIUM 0.5 MG/ALBUTEROL SULFATE 2.5 MG AMPUL.NEB 3 ML INHALATION (15:55)
[2023-11-01 16:03] LABS: Influenza A QL RT-PCR Negative (Negative); Influenza B QL RT-PCR Negative (Negative); RSV RNA, RT-PCR Negative (Negative); SARS-CoV-2 RNA PCR Negative (Negative)
[2023-11-01] MEDS: ALBUTEROL SULFATE NEB 2.5 MG/3 ML INH 15 MG (16:14)
[2023-11-01] MEDS: IPRATROPIUM BR 0.02% INH SOLN 0.5 MG/2.5 ML VIAL (16:15)
[2023-11-01] MEDS: methylPREDNISolone SOD SUCC 125 MG VIAL IV PUSH (17:06)
[2023-11-01] MEDS: FUROSEMIDE INJ 40 MG/4 ML VIAL IV PUSH (17:30)
[2023-11-01 19:59] LABS: Troponin I < 0.012 ng/mL (0.000-0.034)
--- NOTE | 2023-11-01 21:13 | ADMGEN ---
This patient, Najma Ford, was admitted to 2 Medical Room 240-. Patient/family oriented to hospital policies and general routines including ID bracelet, bed and alarms, visiting hours, pain management, procedures, bathroom and other care routines, personal items, smoking policy, room service/diet, and visiting hours. Information on how to activate the Rapid Response Team has been discussed. Patient/Family are encouraged to report perceived risks to care and to ask questions if they do not understand what they are told or what they should do.
--- NOTE | 2023-11-01 21:15 | PM.IMHP ---
H&P: HPI History of Present Illness Date/Time: 11/01/23 21:15 Chief Complaint: shortness of breath Narrative: this is a 48-year-old female with past medical history significant for morbid obesity, RA, obesity hypoventilation syndrome, hypothyroidism. patient presents to the emergency room due to worsening shortness of breath which was initially with minimal activity now is present at rest and at nighttime patient has had upper respiratory infection symptoms with runny nose, denies any cough ,denies sputum production, denies fevers, rigors or chills, preliminary workup was significant for patient was ruled out for PE with a negative CT angiogram. Patient tested negative for influenza type A influenza type B COVID and RSV a brain atretic peptide was above 3220. Clinical Indication: Cough ?PA and lateral views of the chest: Comparison: 06/27/2020 Findings: [address] The lungs are clear, without evidence of focal consolidation or pleural effusion.? Cardiomediastinal silhouette is stable. Bones and soft tissues are unremarkable. ? Impression: ? Clear lungs. Right-sided Mediport. EXAMINATION: CTA chest PE protocol DATE: 11/01/2023 19:06 INDICATION: pe TECHNIQUE: Computed tomography angiography (CTA) of the chest was performed with 100 mL Omnipaque-350 intravenous contrast timed to evaluate the pulmonary arteries. Coronal maximum intensity projection 3D-reconstructions were created by the technologist. The dose-length product (DLP) was 959.70 mGy-cm. Automated exposure control and iterative reconstruction technique were employed. COMPARISON: 06/25/2020; x-ray chest 11/01/2023. ? FINDINGS:? Lung parenchyma and airways: Mild motion artifact. Dependent scar/atelectasis. Tracheal and proximal bronchial narrowing. Pleura: Unremarkable. Thoracic inlet, axillae and chest wall: Right chest port. Thoracic aorta: Normal. Mediastinum: Dilated central pulmonary arteries as can be seen with pulmonary arterial hypertension small hiatal hernia. Enlarged mediastinal lymph nodes. Heart and pericardium: Cardiomegaly. Coronary artery calcifications: Absent. Upper abdomen: No significant finding. Bones: No acute osseous finding. Pulmonary arteries: Study quality: There is respiratory motion artifact, the study is overall diagnostic. No pulmonary emboli detected. IMPRESSION: No CT evidence of acute pulmonary embolus. Tracheomalacia. Mediastinal lymphadenopathy. Cardiomegaly. Dilated central pulmonary arteries as can be seen with pulmonary arterial hypertension. Review of Systems Review of Systems: shortness of breath, runny nose Constitutional: Constitutional: Denies chills, Denies fatigue, Denies fever(s), Denies malaise, Denies night sweats and Denies weakness Eyes: Eyes: Denies change in vision ENT: Denies dysphagia and Denies odynophagia Cardiovascular: Cardiovascular: Denies chest pain, Denies radiating jaw, neck or arm pain and Denies palpitations Respiratory: Respiratory: Reports chest congestion, Reports cough, Denies excessive phlegm production, Reports dyspnea and Reports wheezing Gastrointestinal: Gastrointestinal: Denies abdominal pain, Denies dyspepsia, Denies heartburn, Denies nausea and Denies vomiting Genitourinary: Genitourinary: Denies dysuria Musculoskeletal: Musculoskeletal: Reports arthralgias Integumentary/Breasts: Skin/Breast: Denies rash Neurologic: Denies focal weakness and Denies Sensory deficit (Neuro) Psychiatric: Psychiatric: Reports no additional psychiatric complaints and Reports as per HPI Endocrine: Endocrine: Denies cold intolerance, Denies fatigue, Denies flushing, Denies heat intolerance, Denies polyphagia, Denies polydipsia, Denies polyuria and Denies palpitations Hematologic/Lymphatic: Hematologic/Lymphatic: Reports no additional hematologic/lymphatic complaints and Reports as per HPI Allergic/Immunologic: Allergic/Immunologic: Reports no ad
[2023-11-02] VITALS (15 sets, daily range): BP systolic 148–165; BP diastolic 81–94; PULSE 68–87; RESP 18–20; TEMP 36.7–36.8; O2SAT 90–91
--- NOTE | 2023-11-02 06:00 | ECHO_ITS ---
Patient Info Name: Najma Ford Age: 48 years : 1975 Gender: Female Ht: 67 in Wt: 330 lbs BSA: 2.75 m2 HR: 86 bpm BP: 165 / 81 mmHg Heart Rhythm: Sinus Rhythm Technical Quality: Good Exam Date: 11/02/2023 10:53 AM Exam Location: Echo Lab Patient Status: Inpatient Admit Date: 11/01/2023 Staff Ordering Physician: Stephanie Spain MD Clinical Education Assistant: Gaurang Sanchez RDCS Attending Provider: Javi Gipson MD Exam Type: CA echo dop color flow w con Study Info Indications - heart failure Complete two-dimensional, color flow and Doppler transthoracic echocardiogram is performed with contrast to opacify the left ventricle and to improve the deliniation of the left ventricle endocardial borders. Contrast/Agitated Saline Contrast/Ag. Saline: Definity Amount: 3.00 ml Summary 1. Technically suboptimal study due to poor sonographic images. 2. Definity contrast administered improved wall motion interpretation. 3. Left ventricular chamber dimension is moderately enlarged. 4. Left ventricular systolic function is normal, estimated at 60-65%. 5. The left ventricular diastolic function is abnormal. 6. E/e' 11 is mildly elevated. 7. Left atrial chamber dimension is mildly enlarged. 8. Right atrial chamber dimension is mildly enlarged. 9. No pulmonary hypertension, estimated pulmonary arterial systolic pressure is 12 mmHg. 10. There is trace pulmonic regurgitation. Left Ventricle E/e' 11 is mildly elevated. Definity contrast administered improved wall motion interpretation. Technically suboptimal study due to poor sonographic images. Left ventricular chamber dimension is moderately enlarged. Left ventricular systolic function is normal, estimated at 60-65%. The left ventricular diastolic function is abnormal. Right Ventricle Right ventricular systolic function is normal based on normal TAPSE 3.6 cm. Right ventricular chamber dimension is not well visualized. Left Atria Left atrial chamber dimension is mildly enlarged. Right Atria Right atrial chamber dimension is mildly enlarged. Aortic Valve The aortic valve is trileaflet. There is no aortic valve stenosis. There is no aortic valve regurgitation. Pulmonic Valve There is trace pulmonic regurgitation. Mitral Valve There is no mitral valve stenosis. There is no mitral valve regurgitation. Tricuspid Valve There is no tricuspid valve regurgitation. No pulmonary hypertension, estimated pulmonary arterial systolic pressure is 12 mmHg. Pericardium/Pleural There is no pericardial effusion. Inferior Vena Cava Normal inferior vena cava with >50% collapse upon inspiration consistent with normal right atrial pressure, 5 mmHg. Aorta The aortic root size at the sinus of Valsalva is normal. Left Ventricular Outflow Tract Name Value Normal LVOT 2D LVOT Diameter 2.78 cm LVOT Doppler LVOT Peak Gradient 4 mmHg LVOT Mean Gradient 2 mmHg LVOT VTI 25.46 cm LVOT VTI/AV VTI Ratio 1.00 LVOT Stroke Volume 154.36 ml LVOT CO 11.89 l/min L
[2023-11-02] MEDS: LEVOTHYROXINE SODIUM 75 MCG TABLET PO (06:46)
[2023-11-02] MEDS: LEVOTHYROXINE SODIUM 100 MCG TABLET 200 MCG PO (06:46)
[2023-11-02] MEDS: ACETAMINOPHEN 500 MG TABLET 1000 MG PO ×2 (06:49→16:09)
[2023-11-02 07:58] LABS: Glucose Point of Care 127 mg/dl (65-105)
[2023-11-02 08:00] LABS: Hemoglobin 10.6 g/dL (12.0-15.0); Mean Corpuscular HGB Conc 29.4 g/dl (32-36); Mean Corpuscular Hemoglobin 27.2 pg (26-34); Mean Corpuscular Volume 92.3 fl (80-100); Mean Platelet Volume 10.8 fl (7.4-10.4); Platelet Count Result 212 k/mm3 (150-375); Red Cell Distribution Width 13.7 % (11.5-14.5); White Blood Count 6.3 K/mm3 (4.5-10.0)
[2023-11-02 08:14] LABS: Anion Gap 3 mmol/L (8-16); Blood Urea Nitrogen 13 mg/dL (7-17); Calcium 8.5 mg/dL (8.4-10.2); Carbon Dioxide 34 mmol/L (22-30); Chloride 102 mmol/L (98-107); Estimated CRCL calculation 139 ml/min; Estimated Glomerular Filt Rate > 60; Glucose 128 mg/dL (65-110); Potassium 3.8 mmol/L (3.4-5.0); Sodium 139 mmol/L (137-145)
[2023-11-02 08:16] LABS: Hemoglobin A1C 5.2 % (<5.7)
[2023-11-02] MEDS: busPIRone HCL 5 MG TABLET PO ×3 (08:19→16:49)
[2023-11-02] MEDS: SERTRALINE HCL 50 MG TABLET 200 MG PO (08:19)
[2023-11-02] MEDS: FERROUS SULFATE 325 MG TABLET DR PO (08:19)
[2023-11-02] MEDS: MULTIVITAMINS THERAPEUTIC TAB (*BKC) 1 TABLET PO (08:19)
[2023-11-02] MEDS: DIVALPROEX SODIUM DR 250 MG TABEC 500 MG PO (08:19)
[2023-11-02] MEDS: HYDROXYCHLOROQUINE SULFATE 200 MG TABLET PO ×2 (08:19→16:49)
[2023-11-02] MEDS: FLUTICASONE PROPIONATE 0.05% NA SPR 16 GM BTL (*BKC) 2 SPRAY NASAL (08:20)
[2023-11-02] MEDS: DULoxetine HCL 30 MG CAPSULE.DR PO (08:20)
[2023-11-02] MEDS: METOPROLOL SUCCINATE EXT REL 50 MG TABCR PO (08:20)
[2023-11-02] MEDS: LEFLUNOMIDE 20 MG TABLET PO (08:24)
[2023-11-02] MEDS: TRIAMCINOLONE ACET 0.1% CREAM 15 GM TUBE 1 APPLIC TOPICAL ×2 (08:25→16:49)
[2023-11-02] MEDS: PERFLUTREN LIPID MICROSPHERES 1.5 ML VIAL DILUTED TO 10 ML TOTAL VOLUME IV PUSH (10:30)
[2023-11-02 11:51] LABS: Glucose Point of Care 103 mg/dl (65-105)
--- NOTE | 2023-11-02 12:05 | IVDEFINITY ---
Prior to administration of IV Definity the patient was educated on the risks and benefits of the imaging enhancing agent including potential adverse side effects. The patient verbalized understanding. Allergies were verified. No exclusion criteria were identified and at least one of the following inclusion criteria were met: 1) physician request, 2) patient technically difficult to image (per the [place] [employer] guidelines of two or more segments not discernable within the apical view), or 3) questionable left ventricular function. ?
--- NOTE | 2023-11-02 13:25 | PM.IMPN ---
Progress Note: A&P Assessment and Plan (1) Shortness of breath: Code(s): R06.02 - Shortness of breath Status: Acute Assessment and Plan: Patient recently supposed to a sick child and family PE and has been experiencing shortness of breath and cough for approximately 2 weeks. She has a known cardiac history. Has life time exposure to secondhand smoke. Ruled out for PE with CTA of the chest Tracheomalacia found on CT of the chest Nebulizer treatments scheduled. Requiring increased oxygen demands. Echocardiogram is unremarkable (2) Acute exacerbation of CHF (congestive heart failure): Qualifiers: Heart failure type: unspecified Qualified Code(s): I50.9 - Heart failure, unspecified Code(s): I50.9 - Heart failure, unspecified Status: Acute Assessment and Plan: Elevated brain natriuretic peptide however patient appears euvolemic on physical exam difficult to tell due to patient's body habitus Echocardiogram unremarkable. Daily weights, intake and output, BMP monitoring Heart healthy diet (3) Acute bronchiolitis with bronchospasm: Code(s): J21.9 - Acute bronchiolitis, unspecified Status: Acute Assessment and Plan: Patient with recent respiratory infection. IV Solu-Medrol 60 mg q.8 hours Schedule nebulizer treatments. 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 She was recently exposed to a family member with a sore throat and she states that this is how her illnesses started. She states that she sits in a chair most of the day and at night when she gets up to walk around she has noticed she has had increasingly worsened short of breath. She also has associated cough. Patient does have lifetime history of secondhand smoke exposure. Will treat patient for bronchiectasis and bronchospasm with nebulizer treatments and steroids. Exam Narrative: GENERAL: Comfortable, no acute distress, morbid obesity HENMT: moist mucous membranes EYES: EOM intact b/l NECK: no lymphadenopathy RESPIRATORY: Scattered expiratory wheezes CARDIO: RRR, distant due to body habitus GI: soft, nontender, bowel sounds present SKIN: no rashes EXTREMITIES: no edema, redness or tenderness Objective Data Vital Signs Vital Signs: Vital Signs - 24 hr 11/01/23 14:59 11/01/23 15:56 11/01/23 16:07 Temperature Pulse Rate 71 79 74 Respiratory Rate 17 24 H Blood Pressure 179/101 H Pulse Oximetry 98 Oxygen Delivery 11/01/23 16:07 11/01/23 16:18 11/01/23 16:24 Temperature Pulse Rate 78 68 Respiratory Rate 24 H 32 H Blood Pressure 156/99 H Pulse Ox
[2023-11-02] MEDS: methylPREDNISolone SOD SUCC 125 MG VIAL 60 MG IV PUSH ×2 (14:17→22:02)
[2023-11-02] MEDS: guaiFENesin/DEXTROMETHORPHAN 10 ML UDC PO (14:17)
[2023-11-02] MEDS: ALBUTEROL SULFATE NEB 2.5 MG/3 ML INH INHALATION ×2 (14:25→20:57)
[2023-11-02] MEDS: IPRATROPIUM BR 0.02% INH SOLN 0.5 MG/2.5 ML VIAL INHALATION ×2 (14:25→20:57)
[2023-11-02 16:41] LABS: Glucose Point of Care 119 mg/dl (65-105)
[2023-11-02] MEDS: RIVAROXABAN 20 MG TABLET PO (16:49)
[2023-11-02] MEDS: ARIPiprazole 10 MG TABLET PO (20:22)
[2023-11-02] MEDS: MELATONIN 5 MG TABLET 10 MG PO (22:02)
[2023-11-03] VITALS (22 sets, daily range): BP systolic 154–187; BP diastolic 82–93; PULSE 64–80; RESP 13–37; TEMP 36.3–37; O2SAT 89–95
[2023-11-03] MEDS: IPRATROPIUM BR 0.02% INH SOLN 0.5 MG/2.5 ML VIAL INHALATION (02:32)
[2023-11-03] MEDS: ALBUTEROL SULFATE NEB 2.5 MG/3 ML INH INHALATION (02:32)
[2023-11-03] MEDS: methylPREDNISolone SOD SUCC 125 MG VIAL 60 MG IV PUSH ×3 (06:21→20:39)
[2023-11-03] MEDS: LEVOTHYROXINE SODIUM 75 MCG TABLET PO (06:22)
[2023-11-03] MEDS: LEVOTHYROXINE SODIUM 100 MCG TABLET 200 MCG PO (06:22)
[2023-11-03] MEDS: ACETAMINOPHEN 500 MG TABLET 1000 MG PO ×3 (06:24→20:39)
[2023-11-03] MEDS: IPRATROPIUM 0.5 MG/ALBUTEROL SULFATE 2.5 MG AMPUL.NEB 3 ML INHALATION ×3 (07:20→20:22)
[2023-11-03 07:56] LABS: Hematocrit 42.7 % (37.0-47.0); Hemoglobin 12.6 g/dL (12.0-15.0); Mean Corpuscular HGB Conc 29.5 g/dl (32-36); Mean Corpuscular Hemoglobin 27.2 pg (26-34); Mean Corpuscular Volume 92.2 fl (80-100); Mean Platelet Volume 10.7 fl (7.4-10.4); Platelet Count Result 265 k/mm3 (150-375); Red Blood Count 4.63 M/mm3 (4.2-5.4); Red Cell Distribution Width 13.7 % (11.5-14.5); White Blood Count 7.8 K/mm3 (4.5-10.0)
[2023-11-03 08:25] LABS: Alanine Aminotransferase 18 U/L (6-35); Albumin Level 3.9 g/dL (3.5-5.1); Alkaline Phosphatase 132 U/L (38-126); Anion Gap 3 mmol/L (8-16); Aspartate Amino Transferase 28 U/L (14-36); Bilirubin,Total 0.6 mg/dL (0.2-1.3); Blood Urea Nitrogen 16 mg/dL (7-17); Carbon Dioxide 33 mmol/L (22-30); Chloride 101 mmol/L (98-107); Estimated CRCL calculation 164 ml/min; Estimated Glomerular Filt Rate > 60; Glucose 119 mg/dL (65-110); Potassium 4.2 mmol/L (3.4-5.0); Sodium 137 mmol/L (137-145)
[2023-11-03] MEDS: FLUTICASONE PROPIONATE 0.05% NA SPR 16 GM BTL (*BKC) 2 SPRAY NASAL (08:29)
[2023-11-03] MEDS: DULoxetine HCL 30 MG CAPSULE.DR PO (08:30)
[2023-11-03] MEDS: busPIRone HCL 5 MG TABLET PO ×3 (08:30→16:56)
[2023-11-03] MEDS: DIVALPROEX SODIUM DR 250 MG TABEC 500 MG PO (08:30)
[2023-11-03] MEDS: MULTIVITAMINS THERAPEUTIC TAB (*BKC) 1 TABLET PO (08:30)
[2023-11-03] MEDS: FERROUS SULFATE 325 MG TABLET DR PO (08:30)
[2023-11-03] MEDS: SERTRALINE HCL 50 MG TABLET 200 MG PO (08:30)
[2023-11-03] MEDS: LEFLUNOMIDE 20 MG TABLET PO (08:30)
[2023-11-03] MEDS: HYDROXYCHLOROQUINE SULFATE 200 MG TABLET PO ×2 (08:31→16:56)
[2023-11-03] MEDS: TRIAMCINOLONE ACET 0.1% CREAM 15 GM TUBE 1 APPLIC TOPICAL ×2 (08:31→16:56)
[2023-11-03] MEDS: METOPROLOL SUCCINATE EXT REL 50 MG TABCR PO (08:31)
--- NOTE | 2023-11-03 10:36 | P.PNIM_ITS ---
Progress Note: A&P Assessment and Plan (1) Shortness of breath: Code(s): R06.02 - Shortness of breath Status: Acute Assessment and Plan: Patient recently supposed to a sick child and family PE and has been exp eriencing shortness of breath and cough for approximately 2 weeks. She has a known cardiac history. Has life time exposure to secondhand smoke. * Ruled out for PE with CTA of the chest * Tracheomalacia found on CT of the chest * Nebulizer treatments scheduled. * IV steroids * Wean Oxygen as tolerated * Guaifenesin b.i.d. * Incentive spirometer * Echocardiogram is unremarkable (2) Acute exacerbation of CHF (congestive heart failure): Qualifiers: Heart failure type: diastolic Qualified Code(s): I50.33 - Acute on chronic diastolic (congestive) heart failure Code(s): I50.9 - Heart failure, unspecified Status: Acute Assessment and Plan: Acute on chronic diastolic heart failure * Echocardiogram unremarkable. * BNP mildly elevated * CXR cardiomegaly * Daily weights, intake and output, BMP monitoring * Heart healthy diet * Does not appear in exacerbation * 2+ pitting edema encourage elevate legs * Low sodium diet * Encourage activity (3) Acute bronchiolitis with bronchospasm: Code(s): J21.9 - Acute bronchiolitis, unspecified Status: Acute Assessment and Plan: * Patient with recent respiratory infection. * IV Solu-Medrol 60 mg q.8 hours * Schedule nebulizer treatments. * Incentive spirometer while awake * Cough medicine b.i.d. * Wean supplemental oxygen to maintain oxygen saturation 92% * Supportive care (4) Obstructive sleep apnea: Code(s): G47.33 - Obstructive sleep apnea (adult) (pediatric) Status: Acute Assessment and Plan: CPAP at nighttime (5) Morbid obesity with BMI of 50.0-59.9, adult: Code(s): E66.01 - Morbid (severe) obesity due to excess calories; Z68.43 - Body mass index [BMI] 50.0-59.9, adult Status: Acute Assessment and Plan: Obesity -encourage increased on physical activity and lifestyle modifications -Stress monitoring and eating disorder evaluation. -encourage outpatient weight loss clinic -BMI . -Diet exercise counseling done. 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 Status: Ruled-out Assessment and Plan: stable on immunomodulators (7) Obesity hypoventilation syndrome: Code(s): E66.2 - Morbid (severe) obesity with alveolar hypoventilation Status: Acute Assessment and Plan: -CPAP at night -wean supplemental oxygen during the day -may need Home O2 walk studies -Encourage weight loss (8) Rheumatoid arthritis: Code(s): M06.9 - Rheumatoid arthritis, unspecified Status: Chronic Assessment and Plan: stable on immunomodulators Plan Code status: Full code per patient DVT prophylaxis: Xarelto Stress ulcer prophylaxis: Protonix 40 daily PT/OT notes: PT/OT pending Disposition: Patient continues admission to the medical-surgical unit continue to wean supplemental oxygen will continue with IV steroids and DuoNebs. PT/OT pending may also need home O2 evaluation for oxygen if unable to wean supplemental oxygen. Patient does live with her parents will likely return at disch
--- NOTE | 2023-11-03 10:36 | PM.IMPN ---
Progress Note: A&P Assessment and Plan (1) Shortness of breath: Code(s): R06.02 - Shortness of breath Status: Acute Assessment and Plan: Patient recently supposed to a sick child and family PE and has been experiencing shortness of breath and cough for approximately 2 weeks. She has a known cardiac history. Has life time exposure to secondhand smoke. Ruled out for PE with CTA of the chest Tracheomalacia found on CT of the chest Nebulizer treatments scheduled. IV steroids Wean Oxygen as tolerated Guaifenesin b.i.d. Incentive spirometer Echocardiogram is unremarkable (2) Acute exacerbation of CHF (congestive heart failure): Qualifiers: Heart failure type: diastolic Qualified Code(s): I50.33 - Acute on chronic diastolic (congestive) heart failure Code(s): I50.9 - Heart failure, unspecified Status: Acute Assessment and Plan: Acute on chronic diastolic heart failure Echocardiogram unremarkable. BNP mildly elevated CXR cardiomegaly Daily weights, intake and output, BMP monitoring Heart healthy diet Does not appear in exacerbation 2+ pitting edema encourage elevate legs Low sodium diet Encourage activity (3) Acute bronchiolitis with bronchospasm: Code(s): J21.9 - Acute bronchiolitis, unspecified Status: Acute Assessment and Plan: Patient with recent respiratory infection. IV Solu-Medrol 60 mg q.8 hours Schedule nebulizer treatments. Incentive spirometer while awake Cough medicine b.i.d. Wean supplemental oxygen to maintain oxygen saturation 92% Supportive care (4) Obstructive sleep apnea: Code(s): G47.33 - Obstructive sleep apnea (adult) (pediatric) Status: Acute Assessment and Plan: CPAP at nighttime (5) Morbid obesity with BMI of 50.0-59.9, adult: Code(s): E66.01 - Morbid (severe) obesity due to excess calories; Z68.43 - Body mass index [BMI] 50.0-59.9, adult Status: Acute Assessment and Plan: Obesity -encourage increased on physical activity and lifestyle modifications -Stress monitoring and eating disorder evaluation. -encourage outpatient weight loss clinic -BMI . -Diet exercise counseling done. 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 Status: Ruled-out Assessment and Plan: stable on immunomodulators (7) Obesity hypoventilation syndrome: Code(s): E66.2 - Morbid (severe) obesity with alveolar hypoventilation Status: Acute Assessment and Plan: -CPAP at night -wean supplemental oxygen during the day -may need Home O2 walk studies -Encourage weight loss (8) Rheumatoid arthritis: Code(s): M06.9 - Rheumatoid arthritis, unspecified Status: Chronic Assessment and Plan: stable on immunomodulators Plan Code status: Full code per patient DVT prophylaxis: Xarelto Stress ulcer prophylaxis: Protonix 40 daily PT/OT notes: PT/OT pending Disposition: Patient continues admission to the medical-surgical unit continue to wean supplemental oxygen will continue with IV steroids and DuoNebs. PT/OT pending may also need home O2 evaluation for oxygen if unable to wean supplemental oxygen. Patient does live with her parents will likely return at discharge. Time Spent With Patient Time with patient: 25 - 35 minutes Subjective Date/time seen: 11/03/23 10:36 Interval history: H&P (medical record) 48-year-old female with past medical history significant for morbid obesity, RA, obesity hypoventilation syndrome, hypothyroidism. patient presents to the emergency room due to worsening shortness of breath which was initially with minimal activity now is present at rest and at nighttime patient has had upper respiratory infection symptoms with runny nose, denies any cough ,denies sputum production
--- NOTE | 2023-11-03 10:57 | PCPTNOTE ---
Attempted PT evaluation, pt refused due to getting ready to bathe at this time. Will follow.
[2023-11-03] MEDS: PANTOPRAZOLE 40 MG TABLET PO (11:57)
[2023-11-03] MEDS: RIVAROXABAN 20 MG TABLET PO (16:56)
[2023-11-03] MEDS: ARIPiprazole 10 MG TABLET PO (20:39)
[2023-11-03] MEDS: MELATONIN 5 MG TABLET 10 MG PO (20:40)
[2023-11-04] VITALS (19 sets, daily range): BP systolic 154–169; BP diastolic 82–96; PULSE 61–78; RESP 16–20; TEMP 36.7–37.1; O2SAT 92–93
[2023-11-04] MEDS: IPRATROPIUM 0.5 MG/ALBUTEROL SULFATE 2.5 MG AMPUL.NEB 3 ML INHALATION ×4 (02:32→21:01)
[2023-11-04] MEDS: methylPREDNISolone SOD SUCC 125 MG VIAL 60 MG IV PUSH ×3 (05:41→20:20)
[2023-11-04] MEDS: LEVOTHYROXINE SODIUM 75 MCG TABLET PO (05:41)
[2023-11-04] MEDS: ACETAMINOPHEN 500 MG TABLET 1000 MG PO ×3 (05:42→20:21)
[2023-11-04] MEDS: LEVOTHYROXINE SODIUM 100 MCG TABLET 200 MCG PO (05:42)
[2023-11-04] MEDS: FLUTICASONE PROPIONATE 0.05% NA SPR 16 GM BTL (*BKC) 2 SPRAY NASAL (08:41)
[2023-11-04] MEDS: HYDROXYCHLOROQUINE SULFATE 200 MG TABLET PO ×2 (08:41→17:54)
[2023-11-04] MEDS: SERTRALINE HCL 50 MG TABLET 200 MG PO (08:41)
[2023-11-04] MEDS: TRIAMCINOLONE ACET 0.1% CREAM 15 GM TUBE 1 APPLIC TOPICAL ×2 (08:41→17:54)
[2023-11-04] MEDS: DIVALPROEX SODIUM DR 250 MG TABEC 500 MG PO (08:42)
[2023-11-04] MEDS: busPIRone HCL 5 MG TABLET PO ×3 (08:42→17:54)
[2023-11-04] MEDS: LEFLUNOMIDE 20 MG TABLET PO (08:42)
[2023-11-04] MEDS: METOPROLOL SUCCINATE EXT REL 50 MG TABCR PO (08:42)
[2023-11-04] MEDS: PANTOPRAZOLE 40 MG TABLET PO (08:42)
[2023-11-04] MEDS: MULTIVITAMINS THERAPEUTIC TAB (*BKC) 1 TABLET PO (08:42)
[2023-11-04] MEDS: DULoxetine HCL 30 MG CAPSULE.DR PO (08:42)
[2023-11-04] MEDS: FERROUS SULFATE 325 MG TABLET DR PO (08:42)
--- NOTE | 2023-11-04 08:47 | P.PNIM_ITS ---
Progress Note: A&P Assessment and Plan (1) Shortness of breath: Code(s): R06.02 - Shortness of breath Status: Acute Assessment and Plan: * Around Sick contacts at home * COVID/Influenza/RSV negative * Ruled out for PE with CTA of the chest * Tracheomalacia found on CT of the chest * Nebulizer treatments scheduled. * IV steroids * Wean Oxygen as tolerated * Guaifenesin b.i.d. * Incentive spirometer * Echocardiogram is unremarkable * Pulmonary O/P follow-up recommended (2) Acute exacerbation of CHF (congestive heart failure): Qualifiers: Heart failure type: diastolic Qualified Code(s): I50.33 - Acute on chronic diastolic (congestive) heart failure Code(s): I50.9 - Heart failure, unspecified Status: Acute Assessment and Plan: Acute on chronic diastolic heart failure * Echocardiogram unremarkable. * BNP mildly elevated * CXR cardiomegaly * Daily weights, intake and output, BMP monitoring * Heart healthy diet * Does not appear in exacerbation * 2+ pitting edema encourage elevate legs * Low sodium diet * Encourage activity (3) Acute bronchiolitis with bronchospasm: Code(s): J21.9 - Acute bronchiolitis, unspecified Status: Acute Assessment and Plan: * Patient with recent respiratory infection. * IV Solu-Medrol 60 mg q.8 hours * Schedule nebulizer treatments. * Incentive spirometer while awake * Guaifenesin b.i.d.. * Wean supplemental oxygen to maintain oxygen saturation 92% * Supportive care (4) Obstructive sleep apnea: Code(s): G47.33 - Obstructive sleep apnea (adult) (pediatric) Status: Acute Assessment and Plan: CPAP at nighttime (5) Morbid obesity with BMI of 50.0-59.9, adult: Code(s): E66.01 - Morbid (severe) obesity due to excess calories; Z68.43 - Body mass index [BMI] 50.0-59.9, adult Status: Acute Assessment and Plan: Obesity -encourage increased on physical activity and lifestyle modifications -Stress monitoring and eating disorder evaluation. -encourage outpatient weight loss clinic -BMI . -Diet exercise counseling done. 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 Status: Ruled-out Assessment and Plan: stable on immunomodulators (7) Obesity hypoventilation syndrome: Code(s): E66.2 - Morbid (severe) obesity with alveolar hypoventilation Status: Acute Assessment and Plan: -CPAP at night -wean supplemental oxygen during the day -may need Home O2 walk studies -Encourage weight loss (8) Rheumatoid arthritis: Code(s): M06.9 - Rheumatoid arthritis, unspecified Status: Chronic Assessment and Plan: stable on immunomodulators Plan Code status: Full code per patient DVT prophylaxis: Xarelto Stress ulcer prophylaxis: Protonix 40 daily PT/OT notes: PT/OT pending Disposition: Patient continues admission to the medical-surgical unit continue to wean supplemental oxygen will continue with IV steroids and DuoNebs. PT/OT pending. Patient does live with her parents will likely return at discharge when medically stable. Time Spent With Patient Time with patient: 15 - 25 minutes Subjective Date/time seen: 11/04/23 08:47 Interval history:
--- NOTE | 2023-11-04 08:47 | PM.IMPN ---
Progress Note: A&P Assessment and Plan (1) Shortness of breath: Code(s): R06.02 - Shortness of breath Status: Acute Assessment and Plan: Around Sick contacts at home COVID/Influenza/RSV negative Ruled out for PE with CTA of the chest Tracheomalacia found on CT of the chest Nebulizer treatments scheduled. IV steroids Wean Oxygen as tolerated Guaifenesin b.i.d. Incentive spirometer Echocardiogram is unremarkable Pulmonary O/P follow-up recommended (2) Acute exacerbation of CHF (congestive heart failure): Qualifiers: Heart failure type: diastolic Qualified Code(s): I50.33 - Acute on chronic diastolic (congestive) heart failure Code(s): I50.9 - Heart failure, unspecified Status: Acute Assessment and Plan: Acute on chronic diastolic heart failure Echocardiogram unremarkable. BNP mildly elevated CXR cardiomegaly Daily weights, intake and output, BMP monitoring Heart healthy diet Does not appear in exacerbation 2+ pitting edema encourage elevate legs Low sodium diet Encourage activity (3) Acute bronchiolitis with bronchospasm: Code(s): J21.9 - Acute bronchiolitis, unspecified Status: Acute Assessment and Plan: Patient with recent respiratory infection. IV Solu-Medrol 60 mg q.8 hours Schedule nebulizer treatments. Incentive spirometer while awake Guaifenesin b.i.d.. Wean supplemental oxygen to maintain oxygen saturation 92% Supportive care (4) Obstructive sleep apnea: Code(s): G47.33 - Obstructive sleep apnea (adult) (pediatric) Status: Acute Assessment and Plan: CPAP at nighttime (5) Morbid obesity with BMI of 50.0-59.9, adult: Code(s): E66.01 - Morbid (severe) obesity due to excess calories; Z68.43 - Body mass index [BMI] 50.0-59.9, adult Status: Acute Assessment and Plan: Obesity -encourage increased on physical activity and lifestyle modifications -Stress monitoring and eating disorder evaluation. -encourage outpatient weight loss clinic -BMI . -Diet exercise counseling done. 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 Status: Ruled-out Assessment and Plan: stable on immunomodulators (7) Obesity hypoventilation syndrome: Code(s): E66.2 - Morbid (severe) obesity with alveolar hypoventilation Status: Acute Assessment and Plan: -CPAP at night -wean supplemental oxygen during the day -may need Home O2 walk studies -Encourage weight loss (8) Rheumatoid arthritis: Code(s): M06.9 - Rheumatoid arthritis, unspecified Status: Chronic Assessment and Plan: stable on immunomodulators Plan Code status: Full code per patient DVT prophylaxis: Xarelto Stress ulcer prophylaxis: Protonix 40 daily PT/OT notes: PT/OT pending Disposition: Patient continues admission to the medical-surgical unit continue to wean supplemental oxygen will continue with IV steroids and DuoNebs. PT/OT pending. Patient does live with her parents will likely return at discharge when medically stable. Time Spent With Patient Time with patient: 15 - 25 minutes Subjective Date/time seen: 11/04/23 08:47 Interval history: H&P (medical record) 48-year-old female with past medical history significant for morbid obesity, RA, obesity hypoventilation syndrome, hypothyroidism. patient presents to the emergency room due to worsening shortness of breath which was initially with minimal activity now is present at rest and at nighttime patient has had upper respiratory infection symptoms with runny nose, denies any cough ,denies sputum production, denies fevers, rigors or chills, preliminary workup was significant for patient was ruled out for PE with a negative CT angiogram.? Patient tested negative for influenza type A
[2023-11-04] MEDS: hydrALAZINE HCL 25 MG TABLET PO ×2 (09:33→17:54)
[2023-11-04] MEDS: guaiFENesin 12 HR 600 MG TABCR 1200 MG PO ×2 (09:33→20:21)
[2023-11-04 09:47] LABS: Hematocrit 43.2 % (37.0-47.0); Hemoglobin 12.7 g/dL (12.0-15.0); Mean Corpuscular HGB Conc 29.4 g/dl (32-36); Mean Corpuscular Hemoglobin 27.1 pg (26-34); Mean Corpuscular Volume 92.3 fl (80-100); Mean Platelet Volume 10.8 fl (7.4-10.4); Platelet Count Result 254 k/mm3 (150-375); Red Blood Count 4.68 M/mm3 (4.2-5.4); Red Cell Distribution Width 13.9 % (11.5-14.5); White Blood Count 9.5 K/mm3 (4.5-10.0)
[2023-11-04 09:58] LABS: Alanine Aminotransferase 23 U/L (6-35); Albumin Level 3.9 g/dL (3.5-5.1); Alkaline Phosphatase 122 U/L (38-126); Anion Gap 10 mmol/L (8-16); Aspartate Amino Transferase 33 U/L (14-36); Bilirubin,Total 0.6 mg/dL (0.2-1.3); Blood Urea Nitrogen 17 mg/dL (7-17); Calcium 8.9 mg/dL (8.4-10.2); Carbon Dioxide 29 mmol/L (22-30); Chloride 103 mmol/L (98-107); Estimated CRCL calculation 161 ml/min; Estimated Glomerular Filt Rate > 60; Glucose 167 mg/dL (65-110); Potassium 3.7 mmol/L (3.4-5.0); Sodium 142 mmol/L (137-145)
[2023-11-04] MEDS: RIVAROXABAN 20 MG TABLET PO (17:54)
[2023-11-04] MEDS: ARIPiprazole 10 MG TABLET PO (20:21)
[2023-11-04] MEDS: MELATONIN 5 MG TABLET 10 MG PO (20:21)
[2023-11-05] VITALS (16 sets, daily range): BP systolic 159; BP diastolic 93; PULSE 58–91; RESP 12–20; TEMP 36.6; O2SAT 90–98
[2023-11-05] MEDS: IPRATROPIUM 0.5 MG/ALBUTEROL SULFATE 2.5 MG AMPUL.NEB 3 ML INHALATION ×3 (02:31→13:10)
[2023-11-05 05:18] LABS: Hematocrit 40.3 % (37.0-47.0); Mean Corpuscular HGB Conc 29.8 g/dl (32-36); Mean Corpuscular Hemoglobin 27.6 pg (26-34); Mean Corpuscular Volume 92.9 fl (80-100); Mean Platelet Volume 10.8 fl (7.4-10.4); Platelet Count Result 242 k/mm3 (150-375); Red Blood Count 4.34 M/mm3 (4.2-5.4); White Blood Count 9.1 K/mm3 (4.5-10.0)
[2023-11-05 05:30] LABS: Alanine Aminotransferase 31 U/L (6-35); Albumin Level 3.4 g/dL (3.5-5.1); Alkaline Phosphatase 107 U/L (38-126); Anion Gap 4 mmol/L (8-16); Aspartate Amino Transferase 34 U/L (14-36); Bilirubin,Total 0.4 mg/dL (0.2-1.3); Blood Urea Nitrogen 19 mg/dL (7-17); Calcium 8.5 mg/dL (8.4-10.2); Carbon Dioxide 34 mmol/L (22-30); Chloride 101 mmol/L (98-107); Estimated CRCL calculation 160 ml/min; Estimated Glomerular Filt Rate > 60; Glucose 121 mg/dL (65-110); Potassium 3.7 mmol/L (3.4-5.0); Sodium 139 mmol/L (137-145)
[2023-11-05] MEDS: methylPREDNISolone SOD SUCC 125 MG VIAL 60 MG IV PUSH ×2 (05:34→13:06)
[2023-11-05] MEDS: LEVOTHYROXINE SODIUM 100 MCG TABLET 200 MCG PO (05:35)
[2023-11-05] MEDS: LEVOTHYROXINE SODIUM 75 MCG TABLET PO (05:35)
[2023-11-05] MEDS: HYDROXYCHLOROQUINE SULFATE 200 MG TABLET PO (08:29)
[2023-11-05] MEDS: DIVALPROEX SODIUM DR 250 MG TABEC 500 MG PO (08:29)
[2023-11-05] MEDS: DULoxetine HCL 30 MG CAPSULE.DR PO (08:30)
[2023-11-05] MEDS: FERROUS SULFATE 325 MG TABLET DR PO (08:30)
[2023-11-05] MEDS: busPIRone HCL 5 MG TABLET PO ×2 (08:30→13:06)
[2023-11-05] MEDS: FLUTICASONE PROPIONATE 0.05% NA SPR 16 GM BTL (*BKC) 2 SPRAY NASAL (08:30)
[2023-11-05] MEDS: guaiFENesin 12 HR 600 MG TABCR 1200 MG PO (08:30)
[2023-11-05] MEDS: LEFLUNOMIDE 20 MG TABLET PO (08:31)
[2023-11-05] MEDS: METOPROLOL SUCCINATE EXT REL 50 MG TABCR PO (08:31)
[2023-11-05] MEDS: hydrALAZINE HCL 25 MG TABLET PO (08:31)
[2023-11-05] MEDS: SERTRALINE HCL 50 MG TABLET 200 MG PO (08:32)
[2023-11-05] MEDS: PANTOPRAZOLE 40 MG TABLET PO (08:32)
[2023-11-05] MEDS: MULTIVITAMINS THERAPEUTIC TAB (*BKC) 1 TABLET PO (08:32)
[2023-11-05] MEDS: ACETAMINOPHEN 500 MG TABLET 1000 MG PO (08:33)
[2023-11-05] MEDS: TRIAMCINOLONE ACET 0.1% CREAM 15 GM TUBE 1 APPLIC TOPICAL (08:34)
--- NOTE | 2023-11-05 10:48 | P.DS_ITS ---
DS: Admitting Diagnosis Discharge Date 11/05/2023 Admitting Diagnosis ACUTE BRONCHIOLITIS DS: Discharge Diagnosis Discharge Diagnosis (1) Shortness of breath: Code(s): R06.02 - Shortness of breath Status: Acute Assessment and Plan: * Around Sick contacts at home * COVID/Influenza/RSV negative * Ruled out for PE with CTA of the chest * Tracheomalacia found on CT of the chest * Nebulizer treatments scheduled. * IV steroids * Wean Oxygen as tolerated * Guaifenesin b.i.d. * Incentive spirometer * Echocardiogram is unremarkable * Pulmonary O/P follow-up recommended (2) Acute exacerbation of CHF (congestive heart failure): Qualifiers: Heart failure type: diastolic Qualified Code(s): I50.33 - Acute on chronic diastolic (congestive) heart failure Code(s): I50.9 - Heart failure, unspecified Status: Acute Assessment and Plan: Acute on chronic diastolic heart failure * Echocardiogram unremarkable. * BNP mildly elevated * CXR cardiomegaly * Daily weights, intake and output, BMP monitoring * Heart healthy diet * Does not appear in exacerbation * 2+ pitting edema encourage elevate legs * Low sodium diet * Encourage activity (3) Acute bronchiolitis with bronchospasm: Code(s): J21.9 - Acute bronchiolitis, unspecified Status: Acute Assessment and Plan: * Patient with recent respiratory infection. * IV Solu-Medrol 60 mg q.8 hours * Schedule nebulizer treatments. * Incentive spirometer while awake * Guaifenesin b.i.d.. * Wean supplemental oxygen to maintain oxygen saturation 92% * Supportive care (4) Obstructive sleep apnea: Code(s): G47.33 - Obstructive sleep apnea (adult) (pediatric) Status: Acute Assessment and Plan: CPAP at nighttime (5) Morbid obesity with BMI of 50.0-59.9, adult: Code(s): E66.01 - Morbid (severe) obesity due to excess calories; Z68.43 - Body mass index [BMI] 50.0-59.9, adult Status: Acute Assessment and Plan: Obesity -encourage increased on physical activity and lifestyle modifications -Stress monitoring and eating disorder evaluation. -encourage outpatient weight loss clinic -BMI . -Diet exercise counseling done. 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 Status: Ruled-out Assessment and Plan: stable on immunomodulators (7) Obesity hypoventilation syndrome: Code(s): E66.2 - Morbid (severe) obesity with alveolar hypoventilation Status: Acute Assessment and Plan: -CPAP at night -wean supplemental oxygen during the day -may need Home O2 walk studies -Encourage weight loss (8) Rheumatoid arthritis: Code(s): M06.9 - Rheumatoid arthritis, unspecified Status: Chronic Assessment and Plan: stable on immunomodulators Plan Disposition: Patient denies SOB at time of discharge in no acute distress was discharged back to home with family encourage weight loss and increase activity. Recommended follow-up with PCP and agronomy specialist Follow-up with primary care physician in 2-4 weeks * Recommend following outpatient with a agronomy specialist * continue with CPAP at night * Incentive spirometer while awake * Guaifenesin b.i.d. * Complete prednisone taper Dosepak
--- NOTE | 2023-11-05 10:48 | PM.DS ---
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 IV steroids Wean Oxygen as tolerated Guaifenesin b.i.d. Incentive spirometer Echocardiogram is unremarkable Pulmonary O/P follow-up recommended (2) Acute exacerbation of CHF (congestive heart failure): Qualifiers: Heart failure type: diastolic Qualified Code(s): I50.33 - Acute on chronic diastolic (congestive) heart failure Code(s): I50.9 - Heart failure, unspecified Status: Acute Assessment and Plan: Acute on chronic diastolic heart failure Echocardiogram unremarkable. BNP mildly elevated CXR cardiomegaly Daily weights, intake and output, BMP monitoring Heart healthy diet Does not appear in exacerbation 2+ pitting edema encourage elevate legs Low sodium diet Encourage activity (3) Acute bronchiolitis with bronchospasm: Code(s): J21.9 - Acute bronchiolitis, unspecified Status: Acute Assessment and Plan: Patient with recent respiratory infection. IV Solu-Medrol 60 mg q.8 hours Schedule nebulizer treatments. Incentive spirometer while awake Guaifenesin b.i.d.. Wean supplemental oxygen to maintain oxygen saturation 92% Supportive care (4) Obstructive sleep apnea: Code(s): G47.33 - Obstructive sleep apnea (adult) (pediatric) Status: Acute Assessment and Plan: CPAP at nighttime (5) Morbid obesity with BMI of 50.0-59.9, adult: Code(s): E66.01 - Morbid (severe) obesity due to excess calories; Z68.43 - Body mass index [BMI] 50.0-59.9, adult Status: Acute Assessment and Plan: Obesity -encourage increased on physical activity and lifestyle modifications -Stress monitoring and eating disorder evaluation. -encourage outpatient weight loss clinic -BMI . -Diet exercise counseling done. 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 Status: Ruled-out Assessment and Plan: stable on immunomodulators (7) Obesity hypoventilation syndrome: Code(s): E66.2 - Morbid (severe) obesity with alveolar hypoventilation Status: Acute Assessment and Plan: -CPAP at night -wean supplemental oxygen during the day -may need Home O2 walk studies -Encourage weight loss (8) Rheumatoid arthritis: Code(s): M06.9 - Rheumatoid arthritis, unspecified Status: Chronic Assessment and Plan: stable on immunomodulators Plan Disposition: Patient denies SOB at time of discharge in no acute distress was discharged back to home with family encourage weight loss and increase activity. Recommended follow-up with PCP and chemist inorganic Follow-up with primary care physician in 2-4 weeks Recommend following outpatient with a chemist inorganic continue with CPAP at night Incentive spirometer while awake Guaifenesin b.i.d. Complete prednisone taper Dosepak Educated and encouraged lifestyle modifications to include diet and exercise DS: Summary Hospital Course Reason for hospitalization: ACUTE BRONCHIOLITIS Hospital Course: H&P (medical record) 48-year-old female with past medical history significant for morbid obesity, RA, obesity hypoventilation syndrome, hypothyroidism. patient presents to the emergency room due to worsening shortness of breath which was initially with minimal activity now is present at rest and at nighttime patient has had upper respiratory infection symptoms with runny nose, denies any cough ,denies sputum
--- NOTE | 2023-11-05 10:52 | HOMEO2EVAL ---
Evaluation was performed at [facility] Home Oxygen Evaluation RC: Home Oxygen (O2) Evaluation Start: 11/05/23 10:50 Freq: Status: Active Protocol: RPE Activity Type Activity Date Activity User E-sign Co-sign Detail Recorded Client Recorded Date Recorded By Document 11/05/23 10:30 DJO [email or web address] 11/05/23 10:52 DJO Document 11/05/23 10:35 [email or web address] [email or web address] 11/05/23 10:52 DJO Document 11/05/23 10:45 [email or web address] [email or web address] 11/05/23 10:52 DJO 11/05/23 11/05/23 11/05/23 10:30 10:35 10:45 Home O2 Evaluation [Oxygen] -Test Phase Resting Exercise Resting -Oxygen Delivery Room Air Room Air Room Air [Pulse Oximetry] -Pulse Oximetry (90-100 %) 92 90 92 [Pulse Rate] -Pulse Rate (60-100 beats/min) 71 85 74 [Evaluation] -Activity Tolerance Good [Charges] -Evaluation Charges O2 Evaluation by Pulmonary
--- NOTE | 2023-11-05 10:52 | PCRTNOTE ---
HOME O2 EVAL COMPLETE, NO REQUIREMENTS
== END 2023-11-05 14:20 | disposition home or self-care (01) | DRG 202 ==
LOC: ANHED 19:42 → ANH2MED 20:36
PROVIDERS: Emergency Medicine; Internal Medicine Critical Care Medicine; Nurse Practitioner Family; Admitting Provider Internal Medicine; Emergency Provider Student in an Organized Health Care Education/Training Program; PCP Internal Medicine; Visit Provider Nurse Practitioner Family
DX: J21.9 Acute bronchiolitis, unspecified (principal); I50.33 Acute on chronic diastolic (congestive) heart failure; E66.2 Morbid (severe) obesity with alveolar hypoventilation; Z68.41 Body mass index [BMI] 40.0-44.9, adult; J39.8 Other specified diseases of upper respiratory tract; E03.9 Hypothyroidism, unspecified; M06.9 Rheumatoid arthritis, unspecified; M17.0 Bilateral primary osteoarthritis of knee; Z20.822 Contact with and (suspected) exposure to COVID-19; Z79.01 Long term (current) use of anticoagulants
CPT/HCPCS: 36415; 71046; 71275; 80048; 80053; 82948; 83036; 83880; 84484; 85025; 85027; 87040; 87637; 93005; 94618; 94640; 96374; 96375; 96376; 97161; 97165; 99285; A9270; C8929; G0378; J1940; J2930; Q9957; Q9967

== ENCOUNTER 2024-04-19 12:06 | Outpatient (CLI) | payer MEDICARE, OTHER, SELFPAY ==
[2024-04-19 12:43] LABS: Basophils Absolute Auto 0.1 K/mm3 (0.0-0.1); Basophils Percent Auto 0.9 % (0.2-1.2); Eosinophils Absolute Auto 0.5 K/mm3 (0-0.3); Eosinophils Percent Auto 6.6 % (0-4.4); Hematocrit 43.3 % (37.0-47.0); Hemoglobin 13.2 g/dL (12.0-15.0); Immature Granulocyte Absolute 0.01 K/mm3 (0.00-0.031); Immature Granulocyte Percent A 0.1 % (0-0.5); Lymphocytes Absolute Auto 2.05 K/mm3 (0.9-3.2); Lymphocytes Percent Auto 27.1 % (18.3-44.2); Mean Corpuscular HGB Conc 30.5 g/dl (32-36); Mean Corpuscular Volume 95.2 fl (80-100); Mean Platelet Volume 11.2 fl (7.4-10.4); Monocytes Absolute Auto 0.6 K/mm3 (0.1-0.6); Monocytes Percent Auto 7.8 % (2.6-8.5); Neutrophils Absolute Auto 4.4 K/mm3 (1.3-6.7); Neutrophils Percent Auto 57.5 % (45.5-73.1); Platelet Count Result 208 k/mm3 (150-375); Red Blood Count 4.55 M/mm3 (4.2-5.4); Red Cell Distribution Width 13.2 % (11.5-14.5); White Blood Count 7.6 K/mm3 (4.5-10.0)
[2024-04-19 13:27] LABS: Alanine Aminotransferase 52 U/L (6-35); Albumin Level 4.2 g/dL (3.5-5.1); Alkaline Phosphatase 170 U/L (38-126); Anion Gap 10 mmol/L (4-12); Aspartate Amino Transferase 45 U/L (14-36); Bilirubin,Total 0.6 mg/dL (0.2-1.3); Blood Urea Nitrogen 23 mg/dL (7-17); Calcium 8.9 mg/dL (8.4-10.2); Carbon Dioxide 29 mmol/L (22-30); Chloride 103 mmol/L (98-107); Cholesterol 140 mg/dL (0-200); Estimated Glomerular Filt Rate > 60; Glucose 86 mg/dL (65-110); HDL Direct 37 mg/dL; Sodium 142 mmol/L (137-145); Triglycerides 159 mg/dL (<150)
[2024-04-19 13:32] LABS: Free T4 Free Thyroxine 2.17 ng/mL (0.78-2.19); Vitamin D 25 Hydroxy 35.6 ng/mL
[2024-04-19 13:42] LABS: LDL Cholesterol Direct 66 mg/dL
[2024-04-19 16:01] LABS: Folic Acid > 20.0 ng/mL (2.76->20)
[2024-04-19 17:21] LABS: Thyroid Stimulating Hormone < 0.015 uIU/mL (0.465-4.680)
== END 2024-04-19 12:07 | disposition home or self-care (01) ==
LOC: ANHLAB 12:09
PROVIDERS: PCP Nurse Practitioner; Visit Provider Physician Assistant
DX: E03.9 Hypothyroidism, unspecified (principal); E53.8 Deficiency of other specified B group vitamins; E55.9 Vitamin D deficiency, unspecified; I50.9 Heart failure, unspecified; E78.49 Other hyperlipidemia; E87.5 Hyperkalemia; Z09 Encounter for follow-up examination after completed treatment for conditions other than malignant neoplasm
CPT/HCPCS: 36415; 80053; 80061; 82306; 82607; 82746; 84439; 84443; 85025

== ENCOUNTER 2024-04-21 14:54 | Outpatient (CLI) | payer MEDICARE, MEDICAID, OTHER, SELFPAY ==
--- NOTE | ~2024-04-21 | CT_ITS ---
EXAMINATION:CT chest high resolution wo wv DATE: 04/21/2024 15:14 INDICATION: Chronic respiratory failure on home oxygen. Rheumatoid arthritis. TECHNIQUE: Computed tomography (CT) of the chest was performed without intravenous contrast. Automate d exposure control and iterative reconstruction technique were employed. The dose-length product (DLP ) was 556.47 mGy-cm. COMPARISON: Chest CT 11/01/2023 FINDINGS: There is mild atelectasis in left lower lobe. No bronchiectasis or honeycombing. No pleural effusion. Cardiomegaly is noted. No pericardial effusion. There is a right internal jugular port wit h tip in proximal right atrium. The central pulmonary arteries are enlarged, consistent with pulmonar y arterial hypertension. There are bridging endplate osteophytes at multiple levels in the spine, con sistent with diffuse idiopathic skeletal hyperostosis (DISH). There is moderate thoracic spondylosis. IMPRESSION: 1. Mild atelectasis in left lower lobe. No evidence of chronic interstitial lung disease. 2. Cardiomegaly. Reviewed, dictated and finalized at location A. IMPRESSION: 1. Mild atelectasis in left lower lobe. No evidence of chronic interstitial pool g disease. 2. Cardiomegaly.
== END 2024-04-21 14:55 ==
PROVIDERS: PCP Internal Medicine Rheumatology; Visit Provider Internal Medicine Rheumatology
DX: M05.79 Rheumatoid arthritis with rheumatoid factor of multiple sites without organ or systems involvement (principal); J96.11 Chronic respiratory failure with hypoxia; Z99.81 Dependence on supplemental oxygen; R91.8 Other nonspecific abnormal finding of lung field; I51.7 Cardiomegaly
CPT/HCPCS: 71250

== ENCOUNTER 2024-05-08 11:02 | Outpatient (CLI) | payer MEDICARE, MEDICAID, OTHER, SELFPAY ==
[2024-05-11 03:15] LABS: FSH 32.2 mIU/mL; LH 16.8 mIU/mL
== END 2024-05-08 11:03 | disposition home or self-care (01) ==
LOC: ANHLAB 11:08
PROVIDERS: PCP Internal Medicine Rheumatology; Visit Provider Nurse Practitioner Family
DX: Z78.0 Asymptomatic menopausal state (principal)
CPT/HCPCS: 36415; 83001; 83002

== ENCOUNTER 2024-06-06 09:13 | Outpatient (CLI) | payer MEDICARE, OTHER, MEDICAID, SELFPAY ==
--- NOTE | ~2024-06-06 | MM_ITS ---
EXAMINATION: MM screening davy BI w caleb HISTORY: Screening TECHNIQUE: Craniocaudal and mediolateral oblique 3-D tomosynthesis images were obtained and synthetic 2-D images were generated. CAD analysis was submitted and interpreted. COMPARISON: Comparison to multiple prior studies sequentially, with oldest reviewed study dated 07/14. BREAST PARENCHYMAL COMPOSITION: Not dense: There are scattered areas of fibroglandular density. FINDINGS: There is no evidence of suspicious mass, calcification, or architectural distortion to sugg est malignancy in either breast. There has been no suspicious interval change. IMPRESSION: 1. No mammographic evidence of malignancy. 2. Recommend routine screening mammography in one year. BI-RADS Category 1: Negative Reviewed, dictated and finalized at location B.
== END 2024-06-06 09:14 | disposition home or self-care (01) ==
LOC: ANHIMG 09:14
PROVIDERS: PCP Internal Medicine Rheumatology; Visit Provider Nurse Practitioner Family
DX: Z12.31 Encounter for screening mammogram for malignant neoplasm of breast (principal)
CPT/HCPCS: 77063; 77067

== ENCOUNTER 2024-09-01 08:48 | Outpatient (CLI) | payer MEDICARE, OTHER, MEDICAID, SELFPAY ==
--- NOTE | ~2024-09-01 | US_ITS ---
Limited Abdominal Sonogram: Real-time sonographic imaging of the right upper quadrant was performed. Clinical History: Fatty liver Findings: The liver appears mildly heterogeneous, with no evidence of mass lesion or bile duct dilat ation. Main portal vein demonstrates normal direction of flow. The gallbladder is well distended, and appears normal with no evidence of gallstone or wall thickening. The common bile duct measures 4 mm. The visualized pancreas, aorta, and IVC are unremarkable. Impression: Possible diffuse fatty infiltration of liver versus other chronic liver disease. Reviewed, dictated and finalized at location M. ERVATION ENGINEER Impression: Possible diffuse fatty infiltration of liver versus other chronic liver disease .
[2024-09-01 11:03] LABS: Free T4 Free Thyroxine 1.67 ng/dL (0.78-2.19)
[2024-09-01 11:06] LABS: Thyroid Stimulating Hormone 0.147 uIU/mL (0.465-4.680)
== END 2024-09-01 08:49 | disposition home or self-care (01) ==
PROVIDERS: Nurse Practitioner; PCP Internal Medicine Rheumatology; Visit Provider Nurse Practitioner
DX: K76.0 Fatty (change of) liver, not elsewhere classified (principal); E03.9 Hypothyroidism, unspecified
CPT/HCPCS: 36415; 76705; 84439; 84443

== ENCOUNTER 2024-12-18 10:28 | Outpatient (CLI) | payer MEDICARE, OTHER, MEDICAID, SELFPAY ==
[2024-12-18 11:56] LABS: Basophils Absolute Auto 0.1 K/mm3 (0.0-0.1); Basophils Percent Auto 0.6 % (0.2-1.2); Eosinophils Absolute Auto 0.4 K/mm3 (0-0.3); Eosinophils Percent Auto 4.6 % (0-4.4); Hematocrit 39.6 % (37.0-47.0); Hemoglobin 11.7 g/dL (12.0-15.0); Immature Granulocyte Absolute 0.02 K/mm3 (0.00-0.031); Immature Granulocyte Percent A 0.2 % (0-0.5); Lymphocytes Absolute Auto 1.37 K/mm3 (0.9-3.2); Lymphocytes Percent Auto 17.1 % (18.3-44.2); Mean Corpuscular HGB Conc 29.5 g/dl (32-36); Mean Corpuscular Hemoglobin 28.5 pg (26-34); Mean Corpuscular Volume 96.4 fl (80-100); Mean Platelet Volume 10.9 fl (7.4-10.4); Monocytes Absolute Auto 0.5 K/mm3 (0.1-0.6); Monocytes Percent Auto 6.5 % (2.6-8.5); Neutrophils Absolute Auto 5.7 K/mm3 (1.3-6.7); Platelet Count Result 208 k/mm3 (150-375); Red Blood Count 4.11 M/mm3 (4.2-5.4); Red Cell Distribution Width 13.7 % (11.5-14.5)
[2024-12-18 12:01] LABS: Alanine Aminotransferase 20 U/L (6-35); Albumin Level 3.7 g/dL (3.5-5.1); Alkaline Phosphatase 101 U/L (38-126); Anion Gap 6 mmol/L (4-12); Aspartate Amino Transferase 26 U/L (14-36); Bilirubin,Total 0.4 mg/dL (0.2-1.3); Blood Urea Nitrogen 18 mg/dL (7-17); Calcium 8.3 mg/dL (8.4-10.2); Carbon Dioxide 31 mmol/L (22-30); Chloride 104 mmol/L (98-107); Cholesterol 135 mg/dL (0-200); Estimated Glomerular Filt Rate > 60; Glucose 89 mg/dL (65-110); HDL Direct 40 mg/dL; Sodium 141 mmol/L (137-145); Triglycerides 127 mg/dL (<150)
--- OUTSIDE RECORDS SUMMARY | 2024-12-18 12:03 | XMS_ITS | Continuity of Care Document ---
Author Organization [facility] Address [address] [place] [address] [place] [address] Phone Care Team Providers Care Gunnery/Ordnance Officer Name Role Phone Preston Laura Unavailable Unavailable Procedures Procedure Date Office/outpatient Visit, [facility] Visual Field Examination-Professional No Visual Field Examination-Technical Office/outpatient Visit, [facility] No Script Advance Directives Directive Yes / No Effective Date File Name No Information Encounters Encounter Description Practice Location Reason(s) For Visit Diagnoses Date Provider Providers Copied on Encounter Office/outpat ient Visit, [facility], [address] [place] [address] [address], [place], [place], [id number], tel:[phone] [facility] No Information 0-201 0 Krishnasamy Preston. [facility] [address], [facility], [place]. tel:[phone] [facility], [id number] [place] [address] [address], [place], [place], [id number], [place] tel:[phone] [facility] No Information 0 5-200 9 Krishnasamy Preston. [address], [facility], [place]. tel:[phone] Referring Provider: Preston jameson, [address], [facility]. tel:[phone] [facility], [address] [place] [address] [address], [place], [place], [id number], tel:[phone] [facility] No Information 3 0-200 9 Valentín Ariasl. [facility] [address], [facility], . tel:[phone] Referring Provider: Preston jameson, [address] [place] [address], [facility]. tel:[phone] Office/outpat ient Visit, [facility], [address], [place], [place], [id number], tel:[phone] [facility] No Information 0 2-200 9 Valentín Owenshil. [facility] [address], [facility], . tel:[phone] Family History Family Member Type Diagnosis Age At Onset No Information Payers Payer name Insurance type Covered constitution party ID Authoriza tion(s) Medicare [facility] [id number] Medicaid PENDING SALE TO [facility] [id number] Social History Type Description Quantity Date Captured Comments Sex Female Smoking Status No Information Chief Complaint And Reason For Visit No Information Reason For Referral Reason For Referral No Information History Of Present Illness Encounter Date Complaint History Of Prese nt Illness No Information Functional Status Date Functional Assessmen t No Information Instructions Date Instruction Additional Infor mation No Information Assessments Type Assessment Date No Information Patient Care Teams Name Effective Dates (start - stop) Status Members No Information
--- OUTSIDE RECORDS SUMMARY | 2024-12-18 12:03 | XMS_ITS | Referral Summary ---
Author Organization [facility] [address] [facility] [address] Address [address] [place] [address] Care Team Providers Care Pickling Solution Maker Name Role Phone Antony Dowd MD Primary Care Provider [phone] Allergies No known active allergies Social History Tobacco Use Types Packs/Day Years Used Date Smoking Tobacco: Never Assessed Alcohol Use Standard Drinks/Week Comments No 0 (1 standard drink = 0.6 oz pur e alcohol) Comments Unknown Sex and Gender Information Value Date Recorded Sex Assigned at Not on file Legal Sex Female 8:28 PM PRODUCE CLERK Gender Identity Not on file Sexual Orientation Not on file Last Filed Vital Signs Vital Sign Reading Time Taken Comments Blood Pressure 142/72 11/09/2012 1:13 PM PRODUCE CLERK Pulse 78 11/09/2012 1:13 PM PRODUCE CLERK Temperature - - Respiratory Rate - - Oxygen Saturation - - Inhaled Oxygen Concentration - - Weight 166.7 kg (367 lb 6.4 oz) 11/09/2012 1:13 PM PRODUCE CLERK Height 175.3 cm (5' 9 ) 11/09/2012 1:13 PM PRODUCE CLERK Body Mass Index 54.26 11/09/2012 1:13 PM PRODUCE CLERK Plan of Treatment Not on file Insurance IDPA [facility] [place] [address] MEDICARE [facility] Care Teams Pickling Solution Maker Relationship Specialty Start Date End Date Antony Dowd MD [address] [place] [address] PCP - General 11/09/12
--- OUTSIDE RECORDS SUMMARY | 2024-12-18 12:03 | XMS_ITS | Clinical Summary ---
Author Organization [facility] Address [address] [place] [address] Care Team Providers Care Police Captain Senior Name Role Phone Durga Ford DO Primary Care Provider Zeenat castro Source Comments [facility],non-owned Affiliates and Associated Physician Practices is amultiple site organization consisting of ambulatory clinics and hospital sitesin [place], [place], [place] and [place]. This disclosure is being madepursuant to the Care Everywhere program and may not contain all information available regarding this patient. Last updated 18.[facility] Allergies No known active allergies Medications * Be aware that medications may not be up to date on this document. Alwaysverify current medications with the patient. Medication Sig Dispensed Refills Start Date End Date Status nystatin (NYSTOP) 902572 UNIT/GM powder 07/22/2016 Active melatonin 3 MG tablet Take 1 (one) tablet by mouth nightly as needed for Insomnia 01/16/2022 Active sertraline (ZOLOFT) 100 MG tablet Take 2 (two) tablets by mouth once daily 01/06/2022 Active rivaroxaban (Xarelto) 20 MG tablet Take 1 (one) tablet by mouth daily with food Active busPIRone (Buspar) 5 MG tablet Take 1 (one) tablet by mouth 3 times daily 07/02/2022 Active levothyroxine (Synthroid) 75 MCG tablet 07/18/2022 Active DULoxetine (Cymbalta) 30 MG capsule Take 1 (one) capsule by mouth once daily 10/16/2022 Active metoprolol succinate XL 24hr (Toprol XL) 50 MG tablet Take 1 (one) tablet by mouth once daily 08/23/2022 Active Gemtesa 75 MG TABS Take 1 (one) tablet by mouth once daily 12/15/2022 Active ferrous sulfate 325 (65 FE) MG tablet Take 1 (one) tablet by mouth once daily Active traMADol (Ultram) 50 MG tablet Take 1 (one) tablet by mouth every 8 hours as needed for Pain Active acetaminophen (Tylenol) 500 MG tablet Take 1 (one) tablet by mouth every 4 hours as needed for Fever or Pain Maximum allowable Acetaminophen amount = 4 Grams (4000 mg) / 24 hours. Active betamethasone dipropionate augmented (Diprolene Af) 0.05 % cream 08/18/2023 Active lisinopril (Prinivil; Zestril) 5 MG tablet 11/08/2023 Active meclizine (Antivert) 25 MG tablet Take 1 (one) tablet by mouth 3 times daily as needed for Dizziness Active dapagliflozin propanediol (Farxiga) 10 MG tablet Take 1 (one) tablet by mouth once daily 01/11/2024 Active ARIPiprazole (Abilify) 20 MG tablet Take 1 (one) tablet by mouth once daily Active divalproex DR (Depakote) 500 MG tablet Take 1 (one) tablet by mouth once daily Active furosemide (Lasix) 20 MG tablet Take 1 (one) tablet by mouth once daily Active levothyroxine (Synthroid) 200 MCG tablet Take 1 (one) tablet by mouth daily before breakfast 11/29/2023 Active abatacept (Orencia) IV injection Intravenous 11/29/2023 Active hydroxychloroquine (Plaquenil) 200 MG tablet Take 1 (one) tablet by mouth 2 times daily 180 tablet 3 09/26/2024 Active alendronate (Fosamax) 70 MG tabletIndications: Hypovitaminosis D,H/O healed fragility fracture Take 1 (one) tablet by mouth every 7 days before meal Take in morning with full glass of water on empty stomach and remain upright for 30 min 12 tablet 4 09/26/2024 Active leflunomide (Arava) 20 MG tabletIndications: Rheumatoid arthritis involving multiple sites with positive rheumatoid factor (HCC) Take 1 (one) tablet by mouth once daily 90 tablet 3 09/26/2024 Active Active Problems Problem Noted Date Diagnosed Date RA (rheumatoid arthritis) 12/10/2017 Rheumatoid arthritis with rheumatoid factor 05/2017 Rheumatoid nodule 01/18/2017 Rheumatoid arthritis 06/27/2015 Sjogren's syndrome 03/12/2014 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 Encounters Date Type Department Care Team Description 12/12/2024 9:59 AM CDT - 12/12/2024 11:59 PM CDT Hospital Encounter [facility] [address] [place] [address] Spenser Fry MD Discharge Disposition: Home or Self Care 11/17/2024 Refill [facility] - Rheumatology [address] [place] [phone] Spenser Fry MD Refill Request 11/14/2024 9:33 AM EQUITY DIRECTOR - 11/14/2024 11:59 PM EQUITY DIRECTOR Hospital Encounter [facility] [address] [place] [address] Spenser Fry MD Discharge Disposition: Home or Self Care 10/17/2024 10:00 AM EQUITY DIRECTOR - 10/17/2024 11:59 PM EQUITY DIRECTOR Hospital Encounter [facility] [address] [place] [phone] Spenser Fry MD Discharge Disposition: Home or Self Care 10/05/2024 Orders Only [facility] - GI [address] [place] [phone] Celeste Rowley, CONTACT MANAGER-PORTER HEAD Metabolic dysfunction-associated steatotic liver disease (MASLD) ; Morbid obesity 09/26/2024 8:40 AM EQUITY DIRECTOR Office Visit [facility] - Rheumatology [address] [place] [address] Spenser Fry MD Rheumatoid arthritis involving multiple sites with positive rheumatoid factor (Primary Dx); Screening-pulmonary TB; Hypovitaminosis D; H/O healed fragility fracture; Therapeutic drug monitoring; Fatty liver; Chronic respiratory failure with hypoxia; Immunosuppression due to drug therapy; Encounter for monitoring of hydroxychloroquine therapy 09/26/2024 Travel 09/20/2024 Telephone [facility] - [address] [place] [address] Razia Fitzgerald RN Results from Last 3 Months Immunizations Name Administration Dates Next Due INFLUENZA VACCINE, TRIV. (AF LURIA, FLUZONE TRIVALENT; 6MO+) (IIV3) 06/06/2016 INFLUENZA VACCINE 06/30/2021,07/23/2014 INFLUENZA VACCINE, QUADR. (F LUZONE; FLULAVAL; FLUARIX; AFLURIA QUADRIVALENT; 6MO+), 0.5 ML (IIV4) 05/23/2020,05/24/2019 Influenza Intradermal 07/23/2014 Family History Medical History Relation Name Comments Glaucoma Neg Hx Social History Tobacco Use Types Packs/Day Years Used Date Smoking Tobacco: Never Smokeless Tobacco: Never Tobacco Cessation:Counseling Given: Not Answered Alcohol Use Standard Drinks/Week Comments No 0 (1 standard drink = 0.6 oz pur e alcohol) PHQ-2 Answer Date Recorded Patient Health Questionnaire-2 Score 0 12/09/2023 Sex and Gender Information Value Date Recorded Sex Assigned at Not on file Gender Identity Not on file Sexual Orientation Not on file Last Filed Vital Signs Vital Sign Reading Time Taken Comments Blood Pressure 166/85 12/12/2024 10:07 AM CDT Pulse 61 12/12/2024 10:07 AM CDT Temperature 36.2 C (97.1 F) 12/12/2024 10:07 AM CDT Respiratory Rate 18 12/12/2024 10:07 AM CDT Oxygen Saturation 96% 12/12/2024 10:07 AM CDT Inhaled Oxygen Concentration - - Weight 134.3 kg (296 lb) 12/12/2024 10:07 AM CDT Height 170.2 cm (5' 7.01 ) 09/26/2024 8:34 AM CS T Body Mass Index 46.35 09/26/2024 8:34 AM EQUITY DIRECTOR Plan of Treatment Upcoming Encounters Date Type Department Care Team (Late st Contact Info) Description 01/09/2025 10:00 AM CDT Appointment [facility] [address] [place] [address] Spenser Fry MD [address] [place] [address] [address] [place] [phone] 02/12/2025 11:00 AM CDT Office Visit [facility] [address] [place] [address], [place] [phone] Celeste Rowley, CONTACT MANAGER-PORTER HEAD [address] [place] [address] [address] [place] [address] 03/28/2025 9:40 AM CDT Office Visit [facility] Rheumatology [address] [place] [address], [place] [phone] Spenser Fry MD [address] [place] [address] [address] [place] [phone] Health Maintenance Due Date Last Done Comments COLOGUARD (AGES 45-75) - COLON CA SCREENING 1975 COLON MONITORING 1975 COLONOSCOPY - COLON CA SCREENING 1975 CT COLONOGRAPHY - COLON CA SCREENING 1975 Colorectal Cancer Screening 1975 FIT - COLON CA SCREENING 1975 FLEX SIG - COLON CA SCREENING 1975 MEDICARE AWV 12 MONTHS 1975 DTAP/TDAP/TD VACCINES (1 - Tdap) 1994 HEPATITIS B VACCINE (1 of 3 - 19+ 3-dose series) 1994 ZOSTER VACCINE (1 of 2) 1994 PAP with HPV 2005 COVID-19 VACCINE ( season) 2024 10/06/2022, 12/02/2021, 01/16/2021, Additional history exists DEPRESSION SCREENING 09/13/2024 12/09/2023, 07/19/2023, 02/24/2022 INFLUENZA VACCINE (Season Ended) 2025 10/20/2022, 10/06/2022, 06/30/2021, Additional history exists SCREENING FOR DIABETES 06/29/2025 , 06/01/2022, 05/04/2022, Additional history exists MAMMOGRAM 06/06/2026 06/06/2024 LIPID TESTING 11/14/2028 11/15/2023, 03/0 11/2023, 08/29/2021, Additional history exists HIV SCREENING Completed 06/28/2020 HEPATITIS C SCREENING Completed 05/31/2023 , 05/04/2022, 06/28/2020 HIB VACCINE Aged Out No longer eligi ble based on patient's age to complete this topic HPV VACCINE Aged Out No longer eligi ble based on patient's age to complete this topic MENINGOCOCCAL (Group B) VACCINE SHARED DECISION-MAKING Aged Out No longer eligible based on patient's age to complete this topic MENINGOCOCCAL GROUPS A/C/Y/W VACCINE Aged Out No longer eligible based on patient's age to complete this topic Procedures Procedure Name Priority Date/Time Associated Diagnosis Comments HEPATIC FUNCTION PANEL Routine 12/12/2024 10:30 AM CDT Therapeutic drug monitoring CREATININE BLOOD Routine 12/12/2024 10:3 0 AM CDT Therapeutic drug monitoring CBC W AUTO DIFFERENTIAL Routine 12/12/2024 10:30 AM CDT Therapeutic drug monitoring MAMMOGRAM Routine 06/06/2024 7:06 AM CDT HEPATITIS C AB SCREEN RFLX NAAT QUANT STAT 05/31/2023 11:26 AM CDT COMPREHENSIVE METABOLIC PANEL Routine 06/29/2022 12:13 PM CDT Seropositive rheumatoid arthritis of multiple sites High risk medication use Long-term use of immunosuppressant medication Encounter for therapeutic drug level monitoring Arthralgia, unspecified joint Rheumatoid arthritis involving multiple sites with positive rheumatoid factor from Last 3 Months or Most Recently Relevant to Health Maintenance Results * (ABNORMAL) CBC WITH DIFFERENTIAL (12/12/2024 10:30 AM CDT) WBC 6.9 4.0 - 10.7 x10E9/L 12/12/2024 10:46 AM [facility] RBC Count 3.94 3.90 - 5.20 x10E12/L 12/12/2024 10:46 AM [facility] Hemoglobin 11.3(L) 11.9 - 15.8 g/dL 12/12/2024 10:46 AM [facility] Hematocrit 35.7 34.8 - 46.1 % 12/12/2024 10:46 AM [facility] MCV 90.6 80.0 - 98.0 fL 12/12/2024 10:46 AM [facility] MCH 28.7 26.7 - 33.6 pg 12/12/2024 10:46 AM [facility] MCHC 31.7 31.7 - 36.3 g/dL 12/12/2024 10:46 AM [facility] RDW-CV 13.4 11.3 - 14.8 % 12/12/2024 10:46 AM [facility] Platelet Count 188 150 - 420 x10E9/L 12/12/2024 10:46 AM [facility] MPV 10.4 7.8 - 11.4 fL 12/12/2024 10:46 AM [facility] Preliminary Absolute Neutrophil 4.83 1.60 - 7.50 x10E9/L 12/12/2024 10:46 AM [facility] Neutrophil % 69.9 41.0 - 74.0 % 12/12/2024 10:46 AM [facility] Lymphocyte % 17.7 17.0 - 47.0 % 12/12/2024 10:46 AM [facility] Monocyte % 6.4 3.0 - 11.0 % 12/12/2024 10:46 AM [facility] Eosinophil % 5.1 0.0 - 7.0 % 12/12/2024 10:46 AM [facility] Basophil % 0.6 0.0 - 1.6 % 12/12/2024 10:46 AM [facility] Immature Granulocytes % 0.3 0.0 - 1.0 % 12/12/2024 10:46 AM [facility] Neutrophil Absolute 4.83 1.60 - 7.50 x10E9/L 12/12/2024 10:46 AM [facility] Lymphocyte Absolute 1.22 1.00 - 4.40 x10E9/L 12/12/2024 10:46 AM [facility] Monocyte Absolute 0.44 0.15 - 1.00 x10E9/L 12/12/2024 10:46 AM [facility] Eosinophil Absolute 0.35 0.00 - 0.60 x10E9/L 12/12/2024 10:46 AM [facility] Basophil Absolute 0.04 0.00 - 0.13 x10E9/L 12/12/2024 10:46 AM [facility] Blood BLOOD SPECIMEN / Unknown Venipuncture / Unknown 12/12/2024 10:30 AM CDT 12/12/2024 10:40 AM T Spenser Fry MD LAB - HEMATOLOGY ORD ERABLES [facility] [address] [place] [phone] [phone] * (ABNORMAL) HEPATIC FUNCTION PANEL (12/12/2024 10:30 AM T) Protein Total 6.1 6.0 - 8.3 g/dL 025 11:14 AM [facility] Albumin 2.8(L) 3.4 - 5.0 g/dL 12/12/2024 11:14 AM [facility] Bilirubin Total 0.3 0.2 - 1.2 mg/dL 09/2024 11:14 AM [facility] Bilirubin Conjugated 0.2 0.1 - 0.5 mg/dL 12/12/2024 11:14 AM [facility] Bilirubin Unconjugated 0.1 Unconjugated Bilirubin is a calculated value: Reference ranges have not been established. mg/dL 12/12/2024 11:14 AM [facility] Alkaline Phosphatase 93 40 - 150 U/L 12/12/2024 11:14 AM [facility] ALT 13 5 - 55 U/L 12/12/2024 11:14 AM T [facility] AST 15 5 - 34 U/L 12/12/2024 11:14 AM T [facility] Albumin/Globulin Ratio 0.8(L) 1.1 - 2.3 12/12/2024 11:14 AM CDT [facility] Blood BLOOD SPECIMEN / Unknown Venipuncture / Unknown 12/12/2024 10:30 AM CDT 12/12/2024 10:43 AM CDT Spenser Fry MD LAB - CHEMISTRY NANO PARIKH Performing Organization Address City/[facility]/ZIP Co de Phone Number [address] [address], [facility] [phone] * CREATININE BLOOD (12/12/2024 10:30 AM CDT) Creatinine 0.64 0.56 - 0.96 mg/dL 12/12/2024 11:14 AM T [facility] eGFR by CKD-EPI >90 >=90 mL/min/1.7 3 m2 12/12/2024 11:14 AM T [facility] Blood BLOOD SPECIMEN / Unknown Venipuncture / Unknown 12/12/2024 10:30 AM CDT 12/12/2024 10:43 AM CDT Spenser Fry MD LAB - CHEMISTRY NANO PARIKH Performing Organization Address City/[facility]/ZIP Co de Phone Number [address] [address], [place] [phone] * MAMMOGRAM (06/06/2024 7:06 AM CDT) Anatomical Region Laterality Modality Other Historical Provider SCANNING ONLY * HEPATITIS C AB SCREEN RFLX NAAT QUANT (05/31/2023 11:26 AM CDT) Hepatitis C Antibody Non-react grupo Non-reac tive 05/31/2023 1:19 PM [facility] Comment:Hepatitis C Antibody screen indicates no serologic evidence of past or current infection with Hepatitis C Virus. Patients with unexplained liver disease who are immunocompromised or suspected of having acute Hepatitis C infection may benefit from Nucleic Acid Test (RINKU) for Hepatitis C Viral RNA to confirm Hepatitis C status. Blood BLOOD SPECIMEN / Unknown Venipuncture / Unknown 05/31/2023 11:26 AM CDT 05/31/2023 11:34 AM CDT Spenser Fry MD LAB - CHEMISTRY ORDE KATI [facility] Organization Address City/State/ZIP Co de Phone Number [facility] [address] [place] [address], [facility] [phone] * (ABNORMAL) COMPREHENSIVE METABOLIC PANEL (06/29/2022 12:13 PM T) BUN 32(H) 7 - 26 mg/dL 06/29/2022 1:25 PM [facility] Creatinine 0.79 0.56 - 0.96 mg/dL 06/29/2022 1:25 PM [facility] Sodium 141 136 - 145 mmol/L 06/29/2022 1:25 PM [facility] Potassium 4.3 3.5 - 4.5 mmol/L 06/29/2022 1:25 PM [facility] Chloride 104 98 - 107 mmol/L 06/29/2022 1:25 PM [facility] CO2 25 22 - 29 mmol/L 06/29/2022 1:25 PM [facility] Glucose 107 70 - 115 mg/dL 06/29/2022 1:25 PM [facility] Calcium 8.9 8.4 - 10.2 mg/dL 06/29/2022 1:25 PM [facility] Protein Total 7.0 6.0 - 8.3 g/dL 06/29/2022 1:25 PM [facility] Albumin 3.0(L) 3.4 - 5.0 g/dL 06/29/2022 1:25 PM [facility] Bilirubin Total 0.5 0.2 - 1.2 mg/dL 06/29/2022 1:[address] [facility] Alkaline Phosphatase 135 40 - 150 U/L 06/29/2022 1:25 PM [facility] ALT 25 5 - 55 U/L 06/29/2022 1:25 PM [facility] AST 23 5 - 34 U/L 06/29/2022 1:25 PM [facility] Anion Gap 16 8 - 18 06/29/2022 1:25 PM [facility] BUN/Creatinine Ratio 41(H) 7 - 23 06/29/2022 1:[address] [facility] Osmolality Calculated 299 270 - 300 mOsm/kg 06/29/2022 1:25 PM [facility] Albumin/Globulin Ratio 0.8(L) 1.1 - 2.3 06/29/2022 1:25 PM [facility] eGFR by CKD-EPI >90 >=90 mL/min/1.7 3 m2 06/29/2022 1:25 PM [facility] Blood BLOOD SPECIMEN / Unknown Venipuncture / Unknown 06/29/2022 12:13 PM CDT 06/29/2022 12:41 PM CDT Dodie Hidalgo MD LAB - CHEMISTRY ORDERABLES [facility] [address] [place] [address], [facility] [phone] from Last 3 Months or Most Recently Relevant to Health Maintenance Care Teams Police Captain Senior Relationship Specialty Start Date End Date Durga Ford DO PCP - General Obstetrics and Gynecology 11/14/24
--- OUTSIDE RECORDS SUMMARY | 2024-12-18 12:03 | XMS_ITS | Clinical Summary ---
Author Organization [facility] [address] Address [address] [place] [address] Care Team Providers Care Websphere Process Server Developer Name Role Phone Antony Dowd MD Primary Care Provider [phone]- [phone] Allergies No known active allergies Medical History Medical History Date Comments Hypertension Hypertension Hx Other Medical Obesity, Morbid Rheumatoid arthritis (HCC) Rheum atoid arthritis Hx Other Medical Sleep Apnea, CP AP Social History Tobacco Use Types Packs/Day Years Used Date Smoking Tobacco: Never Assessed Alcohol Use Standard Drinks/Week Comments No 0 (1 standard drink = 0.6 oz pur e alcohol) Comments Unknown Sex and Gender Information Value Date Recorded Sex Assigned at Not on file Legal Sex Female 8:28 PM COLOR CHECKER Gender Identity Not on file Sexual Orientation Not on file Obstetrics History Last Filed Vital Signs Vital Sign Reading Time Taken Comments Blood Pressure 142/72 11/09/2012 1:13 PM COLOR CHECKER Pulse 78 11/09/2012 1:13 PM COLOR CHECKER Temperature - - Respiratory Rate - - Oxygen Saturation - - Inhaled Oxygen Concentration - - Weight 166.7 kg (367 lb 6.4 oz) 11/09/2012 1:13 PM COLOR CHECKER Height 175.3 cm (5' 9 ) 11/09/2012 1:13 PM COLOR CHECKER Body Mass Index 54.26 11/09/2012 1:13 PM COLOR CHECKER Plan of Treatment Not on file Insurance IDPA [facility] [place] [address] MEDICARE [facility] Address: [address] [address] [place] [address] [facility] Care Teams Websphere Process Server Developer Relationship Specialty Start Date End Date Antony Dowd MD [address] [place] [address] PCP - General 11/09/12
--- OUTSIDE RECORDS SUMMARY | 2024-12-18 12:03 | XMS_ITS | Encounter Summary ---
Author Organization [facility] Address [address] [place] [address] Care Team Providers Care Tablet Technician Name Role Phone NileJosiasAntonyvon Jaramillo DO Primary Care Provider Donavon Todd PA-C Primary Care Provide r Durga Ford DO Primary Care Provider Zeenat castro Encounter Details Date Type Department Care Team (Late Contact Info) Description 04/29/2021 Telephone [facility] [address] [place] [address] Dodie Hidalgo MD [address] [place] [address] Social History Tobacco Use Types Packs/Day Years Used Date Smoking Tobacco: Never Smokeless Tobacco: Never Alcohol Use Standard Drinks/Week Comments No 0 (1 standard drink = 0.6 oz pur e alcohol) Sex and Gender Information Value Date Recorded Sex Assigned at Not on file Gender Identity Not on file Sexual Orientation Not on file documented as of this encounter Plan of Treatment Upcoming Encounters Date Type Department Care Team (Late Contact Info) Description 01/09/2025 10:00 AM CDT Appointment [facility] [address] [place] [address] Spenser Fry MD [address] [facility] 2L [place] [address] 02/12/2025 11:00 AM CDT Office Visit [facility] GI [address] [place] [address], [place] [id number] Celeste Rowley, CLAY MAKER-STUDENT SERVICES COUNSELOR [address] [place] [address] 3[address] [place] [address] 03/28/2025 9:40 AM CDT Office Visit [facility] - Rheumatology [address] [place] [address], [place] [address] Spenser Fry MD [address] [place] [address] 2L [place] [address] documented as of this encounter Visit Diagnoses Not on filedocumented in this encounter Care Teams Tablet Technician Relationship Specialty Start Date End Date Antony Dowd DO [address] [facility] [address] [place] [address] PCP - General 03/01/09 12/08/23 Donavon Todd PA-C [address] [facility] [address] [place] [address] PCP - General Physician Display Carver 12/09/23 11/13/24 Durga Ford DO PCP - General Obstetrics and Gynecology 11/14/24 documented as of this encounter
--- OUTSIDE RECORDS SUMMARY | 2024-12-18 12:03 | XMS_ITS | Clinical Summary ---
Author Organization [facility] Address [address] [place] [address] Phone Care Team Providers Care Salt Maker Name Role Phone Antony Dowd DO Primary Care Provider [phone] Allergies No known active allergies Medications folic acid (FOLVITE) 1 mg tablet Take 1 mg by mouth daily. Active hydrOXYchloroQUI NE (PLAQUENIL) 200 mg tablet Take 200 mg by mouth 2 times daily. Active levothyroxine 200 mcg tablet Take 200 mcg by mouth daily in the morning. Active levothyroxine 75 mcg tablet Take 75 mcg by mouth daily in the morning. Active abatacept (ORENCIA SUBCUT) Inject 1 Dose by intraveous injection every Wednesday. Active mv,calcium,min/i socorro/folic/vitK (ONE-A-DAY WOMEN'S COMPLETE ORAL) Take by mouth daily. Active multivitamin with minerals (HAIR,SKIN AND NAILS ORAL) Take by mouth daily. Active acetaminophen (TYLENOL EXTRA STRENGTH ORAL) Take by mouth. PRN Active bismuth subsalicylate (PEPTO-BISMOL ORAL) Take by mouth. PRN Active nystatin (NYSTOP) 100,000 unit/gram powder Apply to affected area 2 times daily. prn Active sertraline 100 mg tablet Take 200 mg by mouth daily. Active melatonin 5 mg tablet Take 3 mg by mouth nightly as needed. Active metoprolol succinate (TOPROL XL) 50 mg Extended Release 24 hour tablet Take 1 Tablet (50 mg) by mouth daily. 90 Tablet 3 022 Active busPIRone (BUSPAR) 5 mg tablet Take 5 mg by mouth 3 times daily. Active meclizine (ANTIVERT) 25 mg tablet Take 25 mg by mouth 1 time daily as needed for Dizziness. Active divalproex (DEPAKOTE) 500 mg delayed release tablet Take 500 mg by mouth daily. Active DULoxetine (CYMBALTA) 30 mg Capsule, Delayed Release(E.C.) Take 30 mg by mouth daily. Active ferrous sulfate 325 mg (65 mg iron) tablet Take 325 mg by mouth daily. Active vibegron (Gemtesa) 75 mg Tablet Take 1 Tablet by mouth daily. Active leflunomide (ARAVA) 20 mg Tablet Take 20 mg by mouth daily. Active ARIPiprazole (ABILIFY) 10 mg tablet Take 20 mg by mouth daily at bedtime. Active traMADoL (ULTRAM) 50 mg tablet Take 50 mg by mouth every 6 hours as needed for Pain. Active fluticasone propionate (FLONASE) 50 mcg/spray [place], Suspension nasal inhaler Administer 2 Sprays in each nostril daily. Active potassium chloride (K-TAB) 20 mEq Extended Release tablet Take 0.5 Tablets (10 mEq) by mouth daily with breakfast. 30 Tablet Active benzonatate (TESSALON) 100 mg capsule Take 1 Capsule (100 mg) by mouth every 4 hours as needed for Cough. Active Additional Information Patient not taking.Reported on 01/11/2024 dextromethorphan -guaiFENesin (ROBITUSSIN DM) 10-100 mg/5 mL solution Take 10 mL by mouth every 4 hours as needed for Cough or Congestion. 118 mL Active Additional Information Patient not taking.Reported on 07/12/2024 rivaroxaban (Xarelto) 20 mg Tablet TAKE 1 TABLET(20 MG) BY MOUTH DAILY WITH SUPPER 90 Tablet 3 Active furosemide (LASIX) 20 mg tablet TAKE 1 TABLET(20 MG) BY MOUTH DAILY 90 Tablet 2 Active lisinopriL (PRINIVIL) 5 mg tablet Take 1 Tablet (5 mg) by mouth daily. 100 Tablet 2 Active dapagliflozin propanediol (Farxiga) 10 mg Tablet TAKE 1 TABLET(10 MG) BY MOUTH DAILY 90 Tablet 2 025 Active lisinopriL (PRINIVIL) 5 mg tablet Take 1 Tablet (5 mg) by mouth daily. 100 Tablet 3 024 2024 Discontinued(R eorder) dapagliflozin propanediol (FARXIGA) 10 mg Tablet Take 1 Tablet (10 mg) by mouth daily. 90 Tablet 3 024 2024 Discontinued Active Problems Patient Care Coordination No te Formatting of this note migh t be different from the original. Mitch Arroyo MD--Mate Fishing Vessel ([facility] @ ) Problem Noted Date Diagnosed Date Immunocompromised patient 11/15/2023 Bilateral pneumonia 11/15/2023 Sepsis with acute renal fail ure and tubular necrosis without septic shock 11/15/2023 Rhinovirus infection 11/14/2023 Acute on chronic respiratory failure with hypoxi a 11/14/2023 Influenza A 11/06/2023 Orthostatic syncope 08/27/2021 Chronic combined systolic and diastolic CHF, [facility] A class 1 01/02/2021 Paroxysmal atrial fibrillation 01/02/2021 Obesity 10/03/2020 Cardiac arrest 06/27/2020 Anisocoria 06/27/2020 Benign hypertension 06/27/2020 JAMILA on CPAP 06/27/2020 Personal history of DVT (deep vein thrombosis) 1 RA (rheumatoid arthritis) 06/27/2020 Leukocytosis (leucocytosis) 06/27/2020 Hypothyroidism 06/27/2020 Obesity hypoventilation syndrome 06/27/2020 Atrial flutter 06/27/2020 Pulmonary hypertension 06/27/2020 HFrEF (heart failure with re duced ejection fraction) EF: 45-50% 06/27/2020 SAI (acute kidney injury) 06/27/2020 Acute metabolic encephalopathy Cardiomyopathy 2019 novel coronavirus disease (COVID-19) COVID-19 virus detected Syncope Encounters Date Type Department Care Team Description 12/15/2024 Refill [facility] At [address] [place] [address] Mitch Arroyo MD 11/20/2024 Refill [facility] At [address] [place] [address] Mitch Arroyo MD 11/17/2024 Refill [facility] At [address] [place] [address] Mitch Arroyo MD 11/07/2024 External Device Data STL ABSTRACTION Provider, Abstract 10/31/2024 External Device Data STL ABSTRACTION Provider, Abstract 10/05/2024 External Device Data STL ABSTRACTION Provider, Abstract 09/26/2024 External Device Data STL ABSTRACTION Provider, Abstract 09/19/2024 External Device Data STL ABSTRACTION Provider, Abstract from Last 3 Months Family History Medical History Relation Name Comments Diabetes Father Heart Disease Father Hypertension Father Diabetes Mother Hypertension Mother Relation Name Status Comments Father Mother Social History Tobacco Use Types Packs/Day Years Used Date Smoking Tobacco: Never Smokeless Tobacco: Never Alcohol Use Standard Drinks/Week Comments Never 0 (1 standard drink = 0.6 oz pur e alcohol) Feeling Safe Answer Date Recorded Are you in a relationship wi th someone who hurts you emotionally and/or physically? No 11/14/2023 Comments No Sex and Gender Information Value Date Recorded Sex Assigned at Not on file Legal Sex Female 11:03 AM CDT Gender Identity Not on file Sexual Orientation Not on file Last Filed Vital Signs Vital Sign Reading Time Taken Comments Blood Pressure 101/60 07/12/2024 10:24 AM CDT Pulse 57 07/12/2024 10:24 AM CDT Temperature 36.9 C (98.4 F) 11/17/2023 5:32 PM AUTOMATIC DRILLING MACHINE OPERATOR Respiratory Rate 20 11/17/2023 5:32 PM AUTOMATIC DRILLING MACHINE OPERATOR Oxygen Saturation 96% 07/12/2024 10: 24 AM CDT Inhaled Oxygen Concentration - - Weight 135.7 kg (299 lb 3.2 oz) 024 10:24 AM CDT Height 170.2 cm (5' 7 ) 07/12/2024 10:2 4 AM CDT Body Mass Index 46.86 07/12/2024 10:24 AM CDT Plan of Treatment Upcoming Encounters Date Type Department Care Team (Late st Contact Info) Description 07/18/2025 9:30 AM AUTOMATIC DRILLING MACHINE OPERATOR Office Visit [facility] At [address] [place] [address] Mitch Arroyo MD [address] [facility] [address] [place] [address] Health Maintenance Due Date Last Done Comments DTAP/TDAP/TD VACCINES (1 - Tdap) 1994 HEPATITIS B VACCINES (1 of 3 - 19+ 3-dose series) 1994 Traditional Medicare (ACO) A nnual Wellness Visit 1994 HPV/Cotest (21-29) 01/11/1996 HPV/Cotest (30-65) 2005 FIT-DNA Q 3 years 01/11/2020 FIT/FOBT Q 1 year 01/11/2020 Flex Sig/CT Colonography Q 5 years 01/11/2020 CERVICAL CANCER SCREENING 07/28/2020 PAP SMEAR 07/28/2020 07/28/2017 INFLUENZA VACCINE (#1) 2024 , 05/24/2019, 06/06/2016, Additional history exists BREAST CANCER SCREENING 06/06/2025 06/06/20 24, 06/06/2024, 05/26/2022, Additional history exists Pre-Diabetes and Diabetes Screening 11/06/2026 11/06/2023, 06/27/2020 COLORECTAL SCREENING 06/15/2032 06/15/2022 Colorectal Cancer Screening 06/15/2032 Procedures Procedure Name Priority Date/Time Associated Diagnosis Comments HEMOGLOBIN A1C Routine 11/06/2023 2:26 AM AUTOMATIC DRILLING MACHINE OPERATOR from Last 3 Months or Most Recently Relevant to Health Maintenance Results * HEMOGLOBIN A1C (11/06/2023 2:26 AM AUTOMATIC DRILLING MACHINE OPERATOR) HEMOGLOBIN A1C 5.4 <5.7 % 11/06/2023 10:37 AM [facility] PhoneAndPhone LABORATORY SERVICES [facility] EST. AVG GLUCOSE, A1C 108 mg/dL 11/06/2023 10:37 AM [facility] Blood Venipuncture / Unknown 11/06/2023 2:26 AM AUTOMATIC DRILLING MACHINE OPERATOR 11/06/2023 2:32 AM AUTOMATIC DRILLING MACHINE OPERATOR Narrative [facility] - 11/06/2023 10:37 AM AUTOMATIC DRILLING MACHINE OPERATOR HGB A1C INTERPRETATION NORMAL: <5.7% PRE-DIABETES: 5.7 - 6.4% DIABETES: 6.5% OR GREATER Shaan Sawyer MD CHEMISTRY ORDERABLES Fi nal Result [facility] SERVICES [facility] MARTINA# [id number] [address] [place] [address] from Last 3 Months or Most Recently Relevant to Health Maintenance Insurance MEDICARE PART A AND B [facility] RX GARCIA PLANS (INTERNAL) [facility] RX [employer] RX Member Subscriber Plan / Payer (Ef fective 2010-Present) Name:Najma Ford Relation to Subscriber:Self Name:Najma Ford Payer ID:Not on file Group ID:Not on file Type:RX Commercial Address: [address] RX OPTUM RX Member Subscriber Plan / Payer (Ef fective 2019-Present) Name:Najma Ford Relation to Subscriber:Self Name:Najam Ford Payer ID:Not on file Group ID:[id number] Type:RX Commercial Address: [address] Advance Directives For more information, please contact: [phone] * Full Code (Latest Code Status on File) Date Activated Date Inactivated Comments 11/14/2023 11:28 PM 11/17/2023 9:46 PM * Full Code Date Activated Date Inactivated Comments 11/06/2023 9:43 AM 11/09/2023 8:09 AM * Full Code Date Activated Date Inactivated Comments 08/27/2021 1:16 AM 08/29/2021 8:47 PM * Full Code Date Activated Date Inactivated Comments 07/10/2020 11:32 AM 07/12/2020 6:39 PM * Full Code Date Activated Date Inactivated Comments 07/02/2020 2:38 PM 07/10/2020 11:32 AM Care Teams Salt Maker Relationship Specialty Start Date End Date Antony Dowd DO [address] [facility] [address] [place] [address] PCP - General Internal Medicine 06/28/20
[2024-12-18 12:12] LABS: LDL Cholesterol Direct 58 mg/dL
[2024-12-18 12:29] LABS: Thyroid Stimulating Hormone 0.696 uIU/mL (0.465-4.680)
[2024-12-18 13:01] LABS: Vitamin D 25 Hydroxy 52.6 ng/mL
[2024-12-18 13:09] LABS: Folic Acid > 20.0 ng/mL (2.76->20)
[2024-12-18 14:15] LABS: Hemoglobin A1C 5.2 % (<5.7)
[2024-12-20 19:12] LABS: NIL 0.03 IU/mL; Quantiferon TB Plus, 1T NEGATIVE (NEGATIVE); TB1-NIL 0.01 IU/mL; TB2-NIL 0.01 IU/mL
== END 2024-12-18 10:29 | disposition home or self-care (01) ==
PROVIDERS: PCP Internal Medicine; Referring Provider Internal Medicine Rheumatology
DX: Z11.1 Encounter for screening for respiratory tuberculosis (principal); Z79.899 Other long term (current) drug therapy
CPT/HCPCS: 36415; 80053; 80061; 82306; 82607; 82746; 83036; 84443; 85025; 86480

== ENCOUNTER 2025-01-03 11:26 | Outpatient (CLI) | payer MEDICARE, OTHER, MEDICAID, SELFPAY ==
--- NOTE | ~2025-01-03 | XR_ITS ---
Clinical Indication: 11/01/2023 PA and lateral views of the chest: Comparison: Cough Findings: There is hazy bibasilar airspace disease. No pleural effusion. Right-sided Mediport. Cardi omediastinal silhouette is within normal limits. Bones and soft tissues are unremarkable. Impression: Hazy bibasilar airspace disease. Correlate for bibasilar pulmonary edema versus pneumonia. Right-sided Mediport. Reviewed, dictated and finalized at location . Impression: Hazy bibasilar airspace disease. Correlate for bibasilar pulmonary edema versus pneumonia. Right-sided Mediport.
--- OUTSIDE RECORDS SUMMARY | 2025-01-03 13:28 | XMS_ITS | Clinical Summary ---
Author Organization [facility] [address] Address [address] [place] [address] Care Team Providers Care Production Tester Name Role Phone Antony Dowd MD Primary Care Provider [phone] Allergies No known active allergies Medical History [...] on file Legal Sex Female 8:28 PM SALES AGENT FOOD VENDING SERVICE Gender Identity Not on file Sexual Orientation Not on file Obstetrics History Last Filed Vital Signs Vital Sign Reading Time Taken Comments Blood Pressure 142/72 11/09/2012 1:13 PM SALES AGENT FOOD VENDING SERVICE Pulse 78 11/09/2012 1:13 PM SALES AGENT FOOD VENDING SERVICE Temperature - - Respiratory Rate - - Oxygen Saturation - - Inhaled Oxygen Concentration - - Weight 166.7 kg (367 lb 6.4 oz) 11/09/2012 1:13 PM SALES AGENT FOOD VENDING SERVICE Height 175.3 cm (5' 9 ) 11/09/2012 1:13 PM SALES AGENT FOOD VENDING SERVICE Body Mass Index 54.26 11/09/2012 1:13 PM SALES AGENT FOOD VENDING SERVICE Plan of Treatment Not on file Insurance IDPA [facility] [place] [address] MEDICARE [facility] Care Teams Production Tester Relationship Specialty Start Date End Date Antony Dowd MD [address] [place] [address] PCP - General 11/09/12
--- OUTSIDE RECORDS SUMMARY | 2025-01-03 13:28 | XMS_ITS | Referral Summary ---
Author Organization [facility] [address] [facility] [address] Address [address] [place] [address] Care Team Providers Care Physicist Astrophysics Name Role Phone Antony Dowd MD Primary Care Provider [phone] Allergies No known active allergies Social History Tobacco Use Types Packs/Day Years Used Date Smoking Tobacco: Never Assessed Alcohol Use Standard Drinks/Week Comments No 0 (1 standard drink = 0.6 oz pur e alcohol) Comments Unknown Sex and Gender Information Value Date Recorded Sex Assigned at Not on file Legal Sex Female 8:28 PM SUPPLY OFFICER Gender Identity Not on file Sexual Orientation Not on file Last Filed Vital Signs Vital Sign Reading Time Taken Comments Blood Pressure 142/72 11/09/2012 1:13 PM SUPPLY OFFICER Pulse 78 11/09/2012 1:13 PM SUPPLY OFFICER Temperature - - Respiratory Rate - - Oxygen Saturation - - Inhaled Oxygen Concentration - - Weight 166.7 kg (367 lb 6.4 oz) 11/09/2012 1:13 PM SUPPLY OFFICER Height 175.3 cm (5' 9 ) 11/09/2012 1:13 PM SUPPLY OFFICER Body Mass Index 54.26 11/09/2012 1:13 PM SUPPLY OFFICER Plan of Treatment Not on file Insurance IDPA [facility] [place] [address] MEDICARE [facility] Address: [address] [address] [place] [address] [facility] Care Teams Physicist Astrophysics Relationship Specialty Start Date End Date Antony Dowd MD [address] [place] [address] PCP - General 11/09/12
--- OUTSIDE RECORDS SUMMARY | 2025-01-03 13:28 | XMS_ITS | Clinical Summary ---
Author Organization [facility] Address [address] [place] [address] Phone Care Team Providers Care Pan Helper Name Role Phone Antony Dowd DO Primary Care Provider [phone] Allergies No known active allergies Medications folic [...] mg) by mouth daily. 90 Tablet 3 01/28/20 22 Active busPIRone (BUSPAR) 5 mg tablet Take 5 mg by mouth 3 times daily. Active meclizine (ANTIVERT) 25 mg tablet Take 25 mg by mouth 1 time daily as needed for Dizziness. Active divalproex (DEPAKOTE) 500 mg delayed release tablet Take 500 mg by mouth daily. 01/02/20 23 Active DULoxetine (CYMBALTA) 30 mg Capsule, Delayed Release(E.C.) Take 30 mg by mouth daily. Active ferrous sulfate 325 mg (65 mg iron) tablet Take 325 mg by mouth daily. Active vibegron (Gemtesa) 75 mg Tablet Take 1 Tablet by mouth daily. 12/16/19 23 Active leflunomide (ARAVA) 20 mg Tablet Take 20 mg by mouth daily. Active ARIPiprazole (ABILIFY) 10 mg tablet Take 20 mg by mouth daily at bedtime. Active traMADoL (ULTRAM) 50 mg tablet Take 50 mg by mouth every 6 hours as needed for Pain. Active fluticasone propionate (FLONASE) 50 mcg/spray [place], Suspension nasal inhaler Administer 2 Sprays in each nostril daily. Active potassium chloride (K-TAB) 20 mEq Extended Release tablet Take 0.5 Tablets (10 mEq) by mouth daily with breakfast. 30 Tablet 11/08/19 24 Active benzonatate (TESSALON) 100 mg capsule Take 1 Capsule (100 mg) by mouth every 4 hours as needed for Cough. 11/17/19 24 Active Additional Information Patient not taking.Reported on 01/11/2024 dextromethorphan -guaiFENesin (ROBITUSSIN DM) 10-100 mg/5 mL solution Take 10 mL by mouth every 4 hours as needed for Cough or Congestion. 118 mL 11/17/19 24 Active Additional Information Patient not taking.Reported on 07/12/2024 furosemide (LASIX) 20 mg tablet TAKE 1 TABLET(20 MG) BY MOUTH DAILY 90 Tablet 2 11/18/19 25 Active lisinopriL (PRINIVIL) 5 mg tablet Take 1 Tablet (5 mg) by mouth daily. 100 Tablet 2 11/21/19 25 Active dapagliflozin propanediol (Farxiga) 10 mg Tablet TAKE 1 TABLET(10 MG) BY MOUTH DAILY 90 Tablet 2 12/16/19 25 Active rivaroxaban (Xarelto) 20 mg Tablet TAKE 1 TABLET(20 MG) BY MOUTH DAILY WITH SUPPER 90 Tablet 2 12/30/19 25 Active dapagliflozin propanediol (FARXIGA) 10 mg Tablet Take 1 Tablet (10 mg) by mouth daily. 90 Tablet 3 01/11/20 24 2024 Discontinued rivaroxaban (Xarelto) 20 mg Tablet TAKE 1 TABLET(20 MG) BY MOUTH DAILY WITH SUPPER 90 Tablet 3 03/27/20 24 2024 Discontinued Active Problems Patient Care Coordination No te Formatting of this note migh t be different from the original. Mitch Arroyo MD--Paint Mixer ([facility] Heart [facility] V[facility] @ ) Problem Noted Date Diagnosed Date Immunocompromised patient 11/15/2023 Bilateral pneumonia 11/15/2023 Sepsis with acute renal fail ure and tubular necrosis without septic shock 11/15/2023 Rhinovirus infection 11/14/2023 Acute on chronic respiratory failure with hypoxi a 11/14/2023 Influenza A 11/06/2023 Orthostatic syncope 08/27/2021 Chronic combined systolic and diastolic CHF, [facility] A class 1 01/02/2021 Paroxysmal atrial [...] Encounters Date Type Department Care Team Description 12/29/2024 Refill [facility] Heart [facility] V[facility] At [address] [place] [address] Mitch Arroyo MD 12/15/2024 Refill [facility] At [address] [place] [address] Mitch Arroyo MD 11/20/2024 Refill [facility] At [address] [place] [address] Mitch Arroyo MD 11/17/2024 Refill [facility] At [address] [place] [address] Mitch Arroyo MD 11/07/2024 External Device Data [...] 36.9 C (98.4 F) 11/17/2023 5:32 PM BARGE ENGINEER Respiratory Rate 20 11/17/2023 5:32 PM BARGE ENGINEER Oxygen Saturation 96% 07/12/2024 10: 24 AM CDT Inhaled Oxygen Concentration - - Weight 135.7 kg (299 lb 3.2 oz) 024 10:24 AM CDT Height 170.2 cm (5' 7 ) 07/12/2024 10:2 4 AM CDT Body Mass Index 46.86 07/12/2024 10:24 AM CDT Plan of Treatment Upcoming Encounters Date Type Department Care Team (Late st Contact Info) Description 07/18/2025 9:30 AM BARGE ENGINEER Office Visit [facility] At [facility] [address] [facility] [address] [place] [address] Mitch Arroyo MD [address] [facility] [address] [place] [address] Health Maintenance Due Date Last Done Comments DTAP/TDAP/TD VACCINES (1 - Tdap) 1994 HEPATITIS B VACCINES (1 of 3 - 19+ 3-dose series) 1994 HPV/Cotest (21-29) 01/11/1996 HPV/Cotest (30-65) 2005 [...] Comments HEMOGLOBIN A1C Routine 11/06/2023 2:26 AM BARGE ENGINEER from Last 3 Months or Most Recently Relevant to Health Maintenance Results * HEMOGLOBIN A1C (11/06/2023 2:26 AM BARGE ENGINEER) HEMOGLOBIN A1C 5.4 <5.7 % 11/06/2023 10:37 AM [facility] LABORATORY SERVICES [facility] EST. AVG GLUCOSE, A1C 108 mg/dL 11/06/2023 10:37 AM [facility] LABORAT[facility] Blood Venipuncture / Unknown 11/06/2023 2:26 AM BARGE ENGINEER 11/06/2023 2:32 AM BARGE ENGINEER Narrative [facility] - 11/06/2023 10:37 AM BARGE ENGINEER HGB A1C INTERPRETATION NORMAL: <5.7% PRE-DIABETES: 5.7 - 6.4% DIABETES: 6.5% OR GREATER Shaan Sawyer MD CHEMISTRY ORDERABLES Fi nal Result [facility] LABORATORY SERVICES [facility] MARTINA# [id number] [address] [place] [address] from Last 3 Months or Most Recently Relevant to Health Maintenance Insurance MEDICARE PART A AND B [facility] RX GARCIA PLANS (INTERNAL) [facility] RX [employer] RX Member Subscriber Plan / Payer (Ef fective 2010-Present) Name:Najma Ford Relation to Subscriber:Self Name:Najma Ford Payer ID:Not on file Group ID:Not on file Type:RX Commercial Address: [address] RX [employer] RX Member Subscriber Plan / Payer (Ef fective 2019-Present) Name:Najma Ford Relation to Subscriber:Self Name:Najma Ford Payer ID:Not on file Group ID:[id number] Type:RX Commercial Address: [address] Advance Directives For more information, please contact: [phone] * Full Code (Latest Code Status on [...] 2:38 PM 07/10/2020 11:32 AM Care Teams Pan Helper Relationship Specialty Start Date End Date Antony Dowd DO [address] [facility] [address] [place] [address] PCP - General Internal Medicine 06/28/20
--- OUTSIDE RECORDS SUMMARY | 2025-01-03 13:28 | XMS_ITS | Continuity of Care Document ---
Author Organization [facility] Address [address] [place] [address] [place] [address] Phone Care Team Providers Care Engineering Mgr Name Role Phone Preston Laura Unavailable Unavailable Procedures Procedure Date Office/outpatient Visit, [facility] Visual Field Examination-Professional No Visual Field Examination-Technical Office/outpatient Visit, [facility] No Script Advance Directives Directive Yes / No Effective Date File Name No Information Encounters Encounter Description Practice Location Reason(s) For Visit Diagnoses Date Provider Providers Copied on Encounter Office/outpat ient Visit, [facility], [address] [place] [address] [address], [place], [place], [id number], tel:[phone] [facility] No Information 0-201 0 Krishnasamy Preston. [facility] [address], [facility], [place]. tel:[phone] [facility], [id number] [place] [address] [address], [place], [place], [id number], [place] tel:[phone] [facility] No Information 0 5-200 9 Krishnasamy Preston. [address], [facility], [place]. tel:[phone] Referring Provider: Preston jameson, [address], [facility]. tel:[phone] [facility], [address] [place] [address] [address], [place], [place], [id number], tel:[phone] [facility] No Information 3 0-200 9 Valentín Ariasl. [facility] [address], [facility], . tel:[phone] Referring Provider: Preston jameson, [address] [place] [address], [facility]. tel:[phone] Office/outpat ient Visit, [facility], [address], [place], [place], [address], tel:[phone] [facility] No Information 0 2-200 9 Valentín Owenshil. [facility] [address], [facility], . tel:[phone] Family History Family Member Type Diagnosis Age At Onset No Information Payers Payer name Insurance type Covered constitution party ID Authoriza tion(s) Medicare [facility] [id number] Medicaid [facility] [id number] Social History Type Description Quantity Date Captured [...]
--- OUTSIDE RECORDS SUMMARY | 2025-01-03 13:28 | XMS_ITS | Encounter Summary ---
Author Organization [facility] Health Address [facility] [place] [address] Care Team Providers Care Small Machine Bindery Operator Name Role Phone NileJosiasAntonyvon Jaramillo DO Primary Care Provider [phone] Donavon Todd PA-C Primary Care Provide r Durga Ford DO Primary Care Provider Zeenat castro Encounter Details Date Type Department Care Team (Late Contact Info) Description 04/29/2021 Telephone [facility] [address] [place], [place] [id number] Dodie Hidalgo MD [facility] [address] [place] [address] Social History Tobacco Use Types Packs/Day Years Used Date Smoking Tobacco: Never Smokeless Tobacco: Never Alcohol Use Standard Drinks/Week Comments No 0 (1 standard drink = 0.6 oz pur e alcohol) Comments No Sex and Gender Information Value Date Recorded Sex Assigned at Not on file Legal Sex Female 5:12 PM AERONAUTICAL PROJECT ENGINEER Gender Identity Not on file Sexual Orientation Not on file documented as of this encounter Plan of Treatment Upcoming Encounters Date Type Department Care Team (Late Contact Info) Description 01/09/2025 10:00 AM CDT Hospital Encounter [facility] [address] [place] [address] Spenser Fry MD [address] [place] [address] [address] [place] [address] 02/12/2025 11:00 AM CDT Office Visit [facility] [address] [place] [address], [place] [address] Celeste Rowley, SUPERVISOR SAMPLE PREPARATION-CAFE SITE ATTENDANT [address] [place] [address] [address] [place] [address] 02/13/2025 10:00 AM CDT Appointment [facility] [address] [place] [address] Spenser Fry MD [address] [place] [address] [address] [place] [address] 03/28/2025 9:40 AM CDT Office Visit [facility] Rheumatology [address] [place] [address], [place] [id number] Spenser Fry MD [address] [place] [address] [address] [place] [address] documented as of this encounter Visit Diagnoses Not on filedocumented in this encounter Care Teams Small Machine Bindery Operator Relationship Specialty Start Date End Date Antony Dowd DO [address] [place] [address] [address] [place] [address] PCP - General 03/01/09 12/08/23 Donavon Todd PA-C [address] [facility] [address] [place] [address] PCP - General Physician Mail Processing Equipment Mechanic 12/09/23 11/13/24 Durga Ford DO PCP - General Obstetrics and Gynecology 11/14/24 documented as of this encounter
--- OUTSIDE RECORDS SUMMARY | 2025-01-03 13:28 | XMS_ITS | Patient Health Record ---
Author Organization [facility] [employer] [facility] Address [address] [place] [address] Care Team Providers Care Rn Discharge Name Role Phone Mylene Overton Unavailable [phone] Zeny Adames Unavailable [phone] Migration, Provider Unavailable Unavailable Allergies No Known Allergies Reason For Referral No Information Medications Medication SIG (Take, Route, Frequency, Duration) Notes Start Date End Date Status Sertraline HCl 100 MG 2 tablet every morning Orally Once a day for 90 days Active GEMTESA 75 MG TABLET *Reorder fr Medispan for eRx and Interaction Alerts* 11/29/2023 Unknown busPIRone HCl 5 MG 1 tablet Oral three times a day for 90 days Active Levothyroxine Sodium 200 MCG Oral 11/29/2023 Unknown Divalproex Sodium 500 MG 1 tablet Orally Once a day for 90 days Active hydrALAZINE HCl 25 MG Oral 11/29/2023 Unknown Abilify 30 MG 1 tablet Oral Once a day for 90 days Active Lisinopril 5 MG Oral 11/29/2023 Unk nown Xarelto 20 MG Oral 11/29/2023 Unkno wn ARIPiprazole 30 MG TAKE 1 TABLET BY MOUTH DAILY for 90 Active Metoprolol Succinate ER 50 MG Oral 11/29/2023 Unknown Fluconazole 150 MG Oral 11/29/2023 Unknown Meclizine HCl 25 MG Oral 11/29/2023 Unknown Diphenoxylate-Atropin e 2.5-0.025 MG Oral 11/29/2023 Unknown ARIPiprazole 20 MG TAKE 1 TABLET BY MOUTH DAILY for 90 Active Multivitamin Adults Oral 11/29/2023 Unknown Furosemide 40 MG Oral 11/29/2023 Un known Fluticasone Propionate Diskus 50 MCG/ACT Inhalation *Reorder from Dogecoin for eRx and Interaction Alerts* 11/29/2023 Unknown Immunizations Vaccine Route Administration Date Status Comme nts Influenza, unspecified formulation Unknown 10/20/2022 A dministered Moderna Covid-19 Vaccine 1st dose Unknown 12/02/2021 Ad ministered Pfizer Biontech Covid-19 Vac cine 2nd dose Unknown 12/26/2020 Administered Pfizer Biontech Covid-19 Vac cine 2nd dose Unknown 01/16/2021 Administered Social History Tobacco Use: Social History Observation Description Date Details (start date - stop date) Never Smoker NA - NA Sex Assigned At : Social History Observation Description Sex Assigned At Female Household Question Answer Notes Marital status: single Number of adults in household: 4 Tobacco Control (Standard) Question Answer Notes Tobacco use: Nonsmoker Problems Problem Type SNOMED Code ICD Code Onset Dates Problem Status W/U Status Risk Notes Problem Severe recurrent major depression without psychotic features (36773035) Major depressive disorder, recurrent severe without psychotic features (F33.2) Active confirmed Problem Generalized anxiety disorder (31482704) Generalized anxiety disorder (F41.1) Active confirmed Problem Insomnia 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 (20435675) Insomnia due to 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) Active confirmed Problem Intellectual disability (disorder) (178776167) Unspecified intellectual disabilities (F79) Active confirmed Vital Signs Heart Rate 63 /min 11/21/2024 Height-cm 172.72 cm 11/21/2024 Blood pressure diastolic 76 mm Hg 11/21/2024 Weight-kg 136.08 kg 11/21/2024 Height 68.00 in 11/21/2024 Blood pressure systolic 118 mm Hg 11/21/2024 Weight 300 lbs 11/21/2024 BMI 45.61 kg/m2 11/21/2024 Encounters Encounter Location Date Provider Diagnosis [facility] [address] [facility] [address] [place] [address] 02/23/2024 Mylene Brooklynn Major depressive disorder, recurrent severe without psychotic features F33.2 ; Unspecified intellectual disabilities F79 ; Generalized anxiety disorder F41.1 and Insomnia due to other mental disorder F51.05 [facility] [address] [facility] [address] [place] [address] 04/04/2024 Mylene Brooklynn Major depressive disorder, recurrent severe without psychotic features F33.2 ; Unspecified intellectual disabilities F79 ; Generalized anxiety disorder F41.1 and Insomnia due to other mental disorder F51.[address] [facility] [address] [place] [address] 05/16/2024 Mylene Brooklynn Major depressive disorder, recurrent severe without psychotic features F33.2 ; Unspecified intellectual disabilities F79 ; Generalized anxiety disorder F41.1 and Insomnia due to other mental disorder F51.05 [facility] [address] [facility] [address] [facility] [address] [place] [address] 08/15/2024 Mylene Brooklynn Major depressive disorder, recurrent severe without psychotic features F33.2 ; Unspecified intellectual disabilities F79 ; Generalized anxiety disorder F41.1 and Insomnia due to other mental disorder F51.[address] [facility] [address] [place] [address] 11/21/2024 Mylene Overton Unspecified intellectual disabilities F79 ; Other exterminator (current) drug therapy Z79.899 ; Generalized anxiety disorder F41.1 ; Major depressive disorder, recurrent severe without psychotic features F33.2 ; Insomnia due to other mental disorder F51.05 ; Encounter for screening for cardiovascular disorders Z13.6 ; Encounter for screening for depression Z13.31 and On senior living drug therapy Z79.[address] [address] 01/26/2024 Provider Migration [address] [address] 01/29/2024 Provider Migration [facility] [employer] [place] [address] [address] [facility] [address] [facility] [address] [place] [address] 01/30/2024 Provider Migration [facility] [employer] [address] 04/20/2024 Mylene Overton [place] [address] [address] [facility] [address] [address] 04/14/2024 Zeny Adames Assessments Encounter Date Diagnosis (ICD Code) Assessment Notes Treatment Notes Treatment Clinical Notes Section Notes 02/23/2024 Major depressive disorder, recurrent severe without psychotic features (ICD-10 - F33.2) Increase Abilify to 15mg daily for irritability. Consider increase in Depakote if not effective. Patient educated on all medications including potential benefits, side effects, risks. Educated on proper dosing schedule and importance of compliance. Second generation antipsychotics (SGAs) have metabolic syndrome issues with weight gain, increase in prolactin, increased waist circumference, increased lipids, and increased glucose. Thus routine monitoring of weight, metabolic labs, etc. is indicated. A general rank ordering of antipsychotics that have the greatest to the least risk of metabolic effects is olanzapine, quetiapine, risperidone, ziprasidone, and aripiprazole. However, weight gain can occur with all of these drugs and considerable variability exists among patients receiving the same drug regarding the risk of metabolic effects. Anti-psychotic agents not only increase the risk of metabolic disorder, they also increase the risk of CVA, akathisia, and movement disorders including EPS or tardive dyskinesia (more common with first generation antipsychotics) and more. 05/16/2024 Major depressive disorder, recurrent severe without psychotic features (ICD-10 - F33.2) Second generation antipsychotics (SGAs) have metabolic syndrome issues with weight gain, increase in prolactin, increased waist circumference, increased lipids, and increased glucose. Thus routine monitoring of weight, metabolic labs, etc. is indicated. A general rank ordering of antipsychotics that have the greatest to the least risk of metabolic effects is olanzapine, quetiapine, risperidone, ziprasidone, and aripiprazole. However, weight gain can occur with all of these drugs and considerable variability exists among patients receiving the same drug regarding the risk of metabolic effects. Anti-psychotic agents not only increase the risk of metabolic disorder, they also increase the risk of CVA, akathisia, and movement disorders including EPS or tardive dyskinesia (more common with first generation antipsychotics) and more. 02/23/2024 Unspecified intellectual disabilities (ICD-10 - F79) 04/04/2024 Major depressive disorder, recurrent severe without psychotic features (ICD-10 - F33.2) Increase Abilify to 20mg daily for irritability, depression. Patient educated on all medications including potential benefits, side effects, risks. Educated on proper dosing schedule and importance of compliance. Second generation antipsychotics (SGAs) have metabolic syndrome issues with weight gain, increase in prolactin, increased waist circumference, increased lipids, and increased glucose. Thus routine monitoring of weight, metabolic labs, etc. is indicated. A general rank ordering of antipsychotics that have the greatest to the least risk of metabolic effects is olanzapine, quetiapine, risperidone, ziprasidone, and aripiprazole. However, weight gain can occur with all of these drugs and considerable variability exists among patients receiving the same drug regarding the risk of metabolic effects. Anti-psychotic agents not only increase the risk of metabolic disorder, they also increase the risk of CVA, akathisia, and movement disorders including EPS or tardive dyskinesia (more common with first generation antipsychotics) and more. 08/15/2024 Major depressive disorder, recurrent severe without psychotic features (ICD-10 - F33.2) Second generation antipsychotics (SGAs) have metabolic syndrome issues with weight gain, increase in prolactin, increased waist circumference, increased lipids, and increased glucose. Thus routine monitoring of weight, metabolic labs, etc. is indicated. A general rank ordering of antipsychotics that have the greatest to the least risk of metabolic effects is olanzapine, quetiapine, risperidone, ziprasidone, and aripiprazole. However, weight gain can occur with all of these drugs and considerable variability exists among patients receiving the same drug regarding the risk of metabolic effects. Anti-psychotic agents not only increase the risk of metabolic disorder, they also increase the risk of CVA, akathisia, and movement disorders including EPS or tardive dyskinesia (more common with first generation antipsychotics) and more. 11/21/2024 Unspecified intellectual disabilities (ICD-10 - F79) 11/21/2024 Other senior living (current) drug therapy (ICD-10 - Z79.899) 04/04/2024 Unspecified intellectual disabilities (ICD-10 - F79) 05/16/2024 Unspecified intellectual disabilities (ICD-10 - F79) 08/15/2024 Unspecified intellectual disabilities (ICD-10 - F79) 11/21/2024 Generalized anxiety disorder (ICD-10 - F41.1) 02/23/2024 Generalized anxiety disorder (ICD-10 - F41.1) 02/23/2024 Insomnia due to other mental disorder (ICD-10 - F51.05) 05/16/2024 Generalized anxiety disorder (ICD-10 - F41.1) 04/04/2024 Generalized anxiety disorder (ICD-10 - F41.1) 11/21/2024 Insomnia due to other mental disorder (ICD-10 - F51.05) 11/21/2024 Major depressive disorder, recurrent severe without psychotic features (ICD-10 - F33.2) Second generation antipsychotics (SGAs) have metabolic syndrome issues with weight gain, increase in prolactin, increased waist circumference, increased lipids, and increased glucose. Thus routine monitoring of weight, metabolic labs, etc. is indicated. A general rank ordering of antipsychotics that have the greatest to the least risk of metabolic effects is olanzapine, quetiapine, risperidone, ziprasidone, and aripiprazole. However, weight gain can occur with all of these drugs and considerable variability exists among patients receiving the same drug regarding the risk of metabolic effects. Anti-psychotic agents not only increase the risk of metabolic disorder, they also increase the risk of CVA, akathisia, and movement disorders including EPS or tardive dyskinesia (more common with first generation antipsychotics) and more. 08/15/2024 Generalized anxiety disorder (ICD-10 - F41.1) 08/15/2024 Insomnia due to other mental disorder (ICD-10 - F51.05) 04/04/2024 Insomnia due to other mental disorder (ICD-10 - F51.05) 05/16/2024 Insomnia due to other mental disorder (ICD-10 - F51.05) 11/21/2024 Encounter for screening for cardiovascular disorders (ICD-10 - Z13.6) 11/21/2024 Encounter for screening for depression (ICD-10 - Z13.31) 11/21/2024 On exterminator drug therapy (ICD-10 - Z79.899) 05/16/2024 Other Stable, continue current medications. Refills sent in today. Patient educated on all medications including potential benefits, side effects, risks. Educated on proper dosing schedule and importance of compliance. 08/15/2024 Other Discontinue duloxetine due to polypharmacy Increase Abilify to 30mg daily for mood stabilization Patient educated on all medications including potential benefits, side effects, risks. Educated on proper dosing schedule and importance of compliance. LABS NEXT APT --could consider vraylar/caplyta if weight gain continues 11/21/2024 Other Stable, cont current medications. Refills sent in. Patient educated on all medications including potential benefits, side effects, risks. Educated on proper dosing schedule and importance of compliance. Labs ordered -Assessment and treatment plan reviewed with patient. -Compliance with treatment plan importance discussed. -Discussed the risks/benefits of this medication -Discussed medication side effects. -Contact office if symptoms worsen. -Discussed that it can take up to 6-8 weeks to see full therapeutic effects of psychotropic medications. -Crisis prevention hotline 988. Plan Of Treatment Pending Test Test Name Order Date LIPID PANEL, STANDARD (7600) 11/21/2024 THYROID PANEL WITH TSH (7444) 11/21/2024 COMPREHENSIVE METABOLIC PANEL (40967) CBC (INCLUDES DIFF/PLT) (6399) HEMOGLOBIN A1c (496) 11/21/2024 VITAMIN B12/FOLATE, SERUM PANEL (7065) 0 11/21/2024 VITAMIN D,25-OH,TOTAL,IA (47947) 025 Next Appt Details Provider Name:Mylene Gabriela Overton, 02/21/2025 09:45:00 AM, [address], [facility] [address], [place], [address], Insurance Providers Payer Name Payer Address Payer Phone Subscriber Number Group Number Insured Name Patient Relationship to Insured Coverage Start Date Coverage End Date Medicare-I l Medicare [address] [place] [address] [id number] SHAYY YOUNG Self - patient is the insured Medicaid-I l Medicaid [address] [address] [place] [address] [id number] SHAYY YOUNG Self - patient is the insured Medical (General) History Medical History History ICD Code Problems: Generalized anxiety disorder Insomnia disorder related to another men kelli disorder Intellectual disability Obesity Severe recurrent major depression Surgical History Surgery Date(Month/Year) Surgical manipulation of ankle joint (26 [id number]) Neurosurgery Other Carpal tunnel surgery (13387) Heart surgery Heart surgery 1975
--- OUTSIDE RECORDS SUMMARY | 2025-01-03 13:28 | XMS_ITS | Clinical Summary ---
Author Organization [facility] Address [address] [place] [address] Care Team Providers Care Teletype Adjuster Name Role Phone Durga Ford DO Primary Care Provider Zeenat castro Source Comments [facility],non-owned Affiliates and Associated Physician Practices is amultiple site organization consisting of ambulatory clinics and hospital sitesin [place], [place], [place]. This disclosure is being madepursuant to the Care Everywhere program and may not contain all informatio navailable regarding this patient. Last updated 18.[facility] Allergies No known active allergies Medications * Be aware that medications may not be up to date on this document. Alwaysverify current medications with the patient. nystatin (NYSTOP) 027667 UNIT/GM powder 07/22/20 16 Active melatonin 3 MG tablet Take 1 (one) tablet by mouth nightly as needed for Insomnia 01/17/20 22 Active sertraline (ZOLOFT) 100 MG tablet Take 2 (two) tablets by mouth once daily 01/07/20 22 Active rivaroxaban (Xarelto) 20 MG tablet Take 1 (one) tablet by mouth daily with food Active busPIRone (Buspar) 5 MG tablet Take 1 (one) tablet by mouth 3 times daily 07/02/20 22 Active levothyroxine (Synthroid) 75 MCG tablet 07/18/20 22 Active DULoxetine (Cymbalta) 30 MG capsule Take 1 (one) capsule by mouth once daily 10/16/19 23 Active metoprolol succinate XL 24hr (Toprol XL) 50 MG tablet Take 1 (one) tablet by mouth once daily 08/23/20 22 Active Gemtesa 75 MG TABS Take 1 (one) tablet by mouth once daily 12/16/19 23 Active ferrous sulfate 325 (65 FE) MG [...] dipropionate augmented (Diprolene Af) 0.05 % cream 08/18/20 23 Active lisinopril (Prinivil; Zestril) 5 MG tablet 11/08/19 24 Active meclizine (Antivert) 25 MG tablet Take 1 (one) tablet by mouth 3 times daily as needed for Dizziness Active dapagliflozin propanediol (Farxiga) 10 MG tablet Take 1 (one) tablet by mouth once daily 01/11/20 24 Active ARIPiprazole (Abilify) 20 MG tablet Take 1 (one) tablet by mouth once daily Active divalproex DR (Depakote) 500 MG tablet Take 1 (one) tablet by mouth once daily Active furosemide (Lasix) 20 MG tablet Take 1 (one) tablet by mouth once daily Active levothyroxine (Synthroid) 200 MCG tablet Take 1 (one) tablet by mouth daily before breakfast 11/29/19 24 Active abatacept (Orencia) IV injection Intravenous 11/29/19 24 Active hydroxychloroqui ne (Plaquenil) 200 MG tablet Take 1 (one) tablet by mouth 2 times daily 180 tablet 3 09/26/19 25 Active alendronate (Fosamax) 70 MG tabletIndication s:Hypovitaminosi s D,H/O healed fragility fracture Take 1 (one) tablet by mouth every 7 days before meal Take in morning with full glass of water on empty stomach and remain upright for 30 min 12 tablet 4 09/26/19 25 Active leflunomide (Arava) 20 MG tabletIndication s:Rheumatoid arthritis involving multiple sites with positive rheumatoid factor (HCC) Take 1 (one) tablet by mouth once daily 90 tablet 3 09/26/19 25 Active Active Problems Problem Noted Date Diagnosed Date RA (rheumatoid arthritis) 12/10/2017 Rheumatoid arthritis with rheumatoid factor 05/2017 Rheumatoid nodule 01/18/2017 Rheumatoid arthritis 06/27/2015 Sjogren's syndrome 03/12/2014 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 Encounters Date Type Department Care Team Description 12/12/2024 9:59 AM CDT - 12/12/2024 11:59 PM CDT Hospital Encounter [facility] [address] [place] [address] Spenser Fry MD Discharge Disposition: Home or Self Care 11/17/2024 Refill [facility] - Rheumatology [address] [place] [phone] Spenser Fry MD Refill Request 11/14/2024 9:33 AM PLANNING DIVISION SUPERINTENDENT - 11/14/2024 11:59 PM PLANNING DIVISION SUPERINTENDENT Hospital Encounter [facility] [address] [place] [address] Spenser Fry MD Discharge Disposition: Home or Self Care 10/17/2024 10:00 AM PLANNING DIVISION SUPERINTENDENT - 10/17/2024 11:59 PM PLANNING DIVISION SUPERINTENDENT Hospital Encounter [facility] [address] [place] [address] Spenser Fry MD Discharge Disposition: Home or Self Care 10/05/2024 Orders Only [facility] - GI [address] [place] [phone] Celeste Rowley, SUPERVISOR [employer]EN[employer]ISH [employer]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 [...] Recorded Patient Health Questionnaire-2 Score 0 12/09/2023 Comments No Sex and Gender Information Value Date Recorded Sex Assigned at Not on file Legal Sex Female 5:12 PM PLANNING DIVISION SUPERINTENDENT Gender Identity Not on file Sexual Orientation [...] Body Mass Index 46.35 09/26/2024 8:34 AM PLANNING DIVISION SUPERINTENDENT Plan of Treatment Upcoming Encounters Date Type Department Care Team (Late st Contact Info) Description 01/09/2025 10:00 AM CDT Hospital Encounter [facility] [address] [place] [address] Spenser Fry MD [address] [place] [address] [address] [place] [address] 02/12/2025 11:00 AM CDT Office Visit [facility] - GI [address] [place] [address], [place] [phone] Celeste Rowley, SUPERVISOR [employer]EN[employer]ANGUAGE LEARNER TEACHER [address] [place] [address] [address] [place] [address] 02/13/2025 10:00 AM CDT Appointment [facility] [address] [place] [address] Spenser Fry MD [address] [place] [address] [address] [place] [phone] 03/28/2025 9:40 AM CDT Office Visit [facility] - Rheumatology [address] [place] [address], [place] [phone] Spenser Fry MD [address] [place] [address] [address] [facility] [phone] Health Maintenance Due Date Last Done Comments [...] CBC WITH DIFFERENTIAL (12/12/2024 10:30 AM CDT) [facility] WBC 6.9 4.0 - 10.7 x10E9/L 12/12/2024 10:46 AM CDT [facility] RBC Count 3.94 3.90 - 5.20 x10E12/L 12/12/2024 10:[address] [facility] Hemoglobin 11.3(L) 11.9 - 15.8 g/dL 12/12/2024 10:[address] [facility] Hematocrit 35.7 34.8 - 46.1 % 12/12/2024 10:[address] [facility] MCV 90.6 80.0 - 98.0 fL 12/12/2024 10:[address] [facility] MCH 28.7 26.7 - 33.6 pg 12/12/2024 10:[address] [facility] MCHC 31.7 31.7 - 36.3 g/dL 12/12/2024 10:[address] [facility] RDW-CV 13.4 11.3 - 14.8 % 12/12/2024 10:[address] [facility] Platelet Count 188 150 - 420 x10E9/L 12/12/2024 10:[address] [facility] MPV 10.4 7.8 - 11.4 fL 12/12/2024 10:[address] [facility] Preliminary Absolute Neutrophil 4.83 1.60 - 7.50 x10E9/L 12/12/2024 10:[address] [facility] Neutrophil % 69.9 41.0 - 74.0 % 12/12/2024 10:[address] [facility] Lymphocyte % 17.7 17.0 - 47.0 % 12/12/2024 10:[address] [facility] Monocyte % 6.4 3.0 - 11.0 % 12/12/2024 10:[address] [facility] Eosinophil % 5.1 0.0 - 7.0 % 12/12/2024 10:[address] [facility] Basophil % 0.6 0.0 - 1.6 % 12/12/2024 10:[address] [facility] Immature Granulocytes % 0.3 0.0 - 1.0 % 12/12/2024 10:[address] [facility] Neutrophil Absolute 4.83 1.60 - 7.50 x10E9/L 12/12/2024 10:[address] [facility] Lymphocyte Absolute 1.22 1.00 - 4.40 x10E9/L 12/12/2024 10:[address] [facility] Monocyte Absolute 0.44 0.15 - 1.00 x10E9/L 12/12/2024 10:[address] [facility] Eosinophil Absolute 0.35 0.00 - 0.60 x10E9/L 12/12/2024 10:[address] [facility] Basophil Absolute 0.04 0.00 - 0.13 x10E9/L 12/12/2024 10:[address] [facility] Blood BLOOD SPECIMEN / Unknown Venipuncture / Unknown 12/12/2024 10:30 AM CDT 12/12/2024 10:40 AM T Spenser Fry MD LAB - HEMATOLOGY ORDERABLES F inal Result [address] [address] [phone] * (ABNORMAL) HEPATIC FUNCTION PANEL (12/12/2024 10:30 AM T) Protein Total 6.1 6.0 - 8.3 g/dL 025 11:[address] [facility] Albumin 2.8(L) 3.4 - 5.0 g/dL 12/12/2024 11:[address] [facility] Bilirubin Total 0.3 0.2 - 1.2 mg/dL 09/2024 11:[address] [facility] Bilirubin Conjugated 0.2 0.1 - 0.5 mg/dL 12/12/2024 11:[address] [facility] Bilirubin Unconjugated 0.1 Unconjugated Bilirubin is a calculated value: Reference ranges have not been established. mg/dL 12/12/2024 11:[address] [facility] Alkaline Phosphatase 93 40 - 150 U/L 12/12/2024 11:[address] [facility] ALT 13 5 - 55 U/L 12/12/2024 11:[address] [facility] AST 15 5 - 34 U/L 12/12/2024 11:14 AM CDT [facility] Albumin/Globulin Ratio 0.8(L) 1.1 - 2.3 12/12/2024 11:14 AM CDT [facility] Blood BLOOD SPECIMEN / Unknown Venipuncture / Unknown 12/12/2024 10:30 AM CDT 12/12/2024 10:43 AM CDT Spenser Fry MD LAB - CHEMISTRY ORDERABLES Fi nal Result Performing Organization Address City/[facility]/ZIP Co de Phone Number [address] [address], [facility] [phone] * CREATININE BLOOD (12/12/2024 10:30 AM CDT) Creatinine 0.64 0.56 - 0.96 mg/dL 12/12/2024 11:14 AM CDT [facility] eGFR by CKD-EPI >90 >=90 mL/min/1.7 3 m2 12/12/2024 11:14 AM T [facility] Blood BLOOD SPECIMEN / Unknown Venipuncture / Unknown 12/12/2024 10:30 AM CDT 12/12/2024 10:43 AM CDT Spenser Fry MD LAB - CHEMISTRY ORDERABLES Fi nal Result Performing Organization Address [facility] Co de Phone Number [address] [address], [facility] [phone] * MAMMOGRAM (06/06/2024 7:06 AM CDT) Anatomical Region Laterality Modality Other Historical Provider MD SCANNING ONLY Final Res ult * HEPATITIS C AB SCREEN RFLX NAAT QUANT (05/31/2023 11:26 AM CDT) Hepatitis C Antibody Non-react grupo Non-reac tive 05/31/2023 1:19 PM CDT [facility] Comment:Hepatitis C Antibody screen indicates no [...] CDT Spenser Fry MD LAB - CHEMISTRY ORDERABLES Fi nal Result [facility] [address] [place] [address], [facility] [phone] * (ABNORMAL) COMPREHENSIVE METABOLIC PANEL (06/29/2022 12:13 PM T) BUN 32(H) 7 - 26 mg/dL 06/29/2022 1:[address] [facility] Creatinine 0.79 0.56 - 0.96 mg/dL 06/29/2022 1:[address] [facility] Sodium 141 136 - 145 mmol/L 06/29/2022 1:[address] [facility] Potassium 4.3 3.5 - 4.5 mmol/L 06/29/2022 1:[address] [facility] Chloride 104 98 - 107 mmol/L 06/29/2022 1:[address] [facility] CO2 25 22 - 29 mmol/L 06/29/2022 1:[address] [facility] Glucose 107 70 - 115 mg/dL 06/29/2022 1:[address] [facility] Calcium 8.9 8.4 - 10.2 mg/dL 06/29/2022 1:[address] [facility] Protein Total 7.0 6.0 - 8.3 g/dL 06/29/2022 1:[address] [facility] Albumin 3.0(L) 3.4 - 5.0 g/dL 06/29/2022 1:[address] [facility] Bilirubin Total 0.5 0.2 - 1.2 mg/dL 06/29/2022 1:[address] [facility] Alkaline Phosphatase 135 40 - 150 U/L 06/29/2022 1:25 PM CDT [facility] ALT 25 5 - 55 U/L 06/29/2022 1:[address] [facility] AST 23 5 - 34 U/L 06/29/2022 1:25 PM T [facility] Anion Gap 16 8 - 18 06/29/2022 1:[address] [facility] BUN/Creatinine Ratio 41(H) 7 - 23 06/29/2022 1:25 PM T [facility] Osmolality Calculated 299 270 - 300 mOsm/kg 06/29/2022 1:[address] [facility] Albumin/Globulin Ratio 0.8(L) 1.1 - 2.3 06/29/2022 1:[address] [facility] eGFR by CKD-EPI >90 >=90 mL/min/1.7 3 m2 06/29/2022 1:[address] [facility] Blood BLOOD SPECIMEN / Unknown Venipuncture / Unknown 06/29/2022 12:13 PM CDT 06/29/2022 12:41 PM T us Dodie Hidalgo MD LAB - CHEMISTRY ORDERAB LES Final Result [facility] [address] [place] [address], [facility] [phone] from Last 3 Months or Most Recently Relevant to Health Maintenance Insurance MEDICARE MEDICAID - [place] [facility] Care Teams Teletype Adjuster Relationship Specialty Start Date End Date Durga Ford DO PCP - General Obstetrics and Gynecology 11/14/24
== END 2025-01-03 11:27 | disposition home or self-care (01) ==
PROVIDERS: PCP Internal Medicine; Visit Provider Nurse Practitioner
DX: R05.8 Other specified cough (principal); J98.11 Atelectasis; Z95.828 Presence of other vascular implants and grafts
CPT/HCPCS: 71046

== ENCOUNTER 2025-02-22 11:54 | Outpatient (CLI) | payer MEDICARE, OTHER, MEDICAID, SELFPAY ==
[2025-02-22 12:25] LABS: Hematocrit 38.9 % (37.0-47.0); Hemoglobin 11.5 g/dL (12.0-15.0); Mean Corpuscular HGB Conc 29.6 g/dl (32-36); Mean Corpuscular Hemoglobin 27.6 pg (26-34); Mean Corpuscular Volume 93.3 fl (80-100); Mean Platelet Volume 10.6 fl (7.4-10.4); Platelet Count Result 217 k/mm3 (150-375); Red Blood Count 4.17 M/mm3 (4.2-5.4); Red Cell Distribution Width 15.1 % (11.5-14.5); White Blood Count 7.5 K/mm3 (4.5-10.0)
[2025-02-22 12:38] LABS: Alanine Aminotransferase 17 U/L (6-35); Albumin Level 3.8 g/dL (3.5-5.1); Alkaline Phosphatase 134 U/L (38-126); Amylase 45 U/L (30-110); Anion Gap 7 mmol/L (4-12); Aspartate Amino Transferase 26 U/L (14-36); Bilirubin,Total 0.6 mg/dL (0.2-1.3); Blood Urea Nitrogen 14 mg/dL (7-17); Calcium 8.8 mg/dL (8.4-10.2); Carbon Dioxide 30 mmol/L (22-30); Chloride 104 mmol/L (98-107); Estimated Glomerular Filt Rate > 60; Glucose 89 mg/dL (65-110); Lipase 51 U/L (23-300); Potassium 3.4 mmol/L (3.4-5.0); Sodium 141 mmol/L (137-145); Total Protein 7.3 g/dL (6.3-8.2)
--- OUTSIDE RECORDS SUMMARY | 2025-02-22 12:41 | XMS_ITS | Continuity of Care Document ---
Author Organization [facility] Address [address] [place] [address] [place] [address] Phone Care Team Providers Care Daycare Worker Name Role Phone Preston Laura Unavailable Unavailable Procedures Procedure Date Office/outpatient Visit, [facility] Visual Field Examination-Professional No Visual Field Examination-Technical Office/outpatient Visit, [facility] No Script Advance Directives Directive Yes / No Effective Date File Name No Information Encounters Encounter Description Practice Location Reason(s) For Visit Diagnoses Date Provider Providers Copied on Encounter Office/outpat ient Visit, [facility], [address] [place] [address] [address], [place], [place], [id number], tel:[phone] [facility] No Information 0-201 0 Krishnasamy Preston. Formerly [facility], [facility], [place]. tel:[phone] [facility], [address] [place] [address] [address], [place], [place], [id number], [place] tel:[phone] [facility] No Information 0 5-200 9 Krishnasamy Preston. [address], [facility], [place]. tel:[phone] Referring Provider: Preston jameson, [address], [facility]. tel:[phone] [facility], [address] [place] [address] [address], [place], [place], [id number], tel:[phone] [facility] No Information 3 0-200 9 Valentín Ariasl. [facility] [address], [facility], . tel:[phone] Referring Provider: Preston jameson, [address] [place] [address], [facility]. tel:[phone] Office/outpat ient Visit, [facility], [address], [place], [place], [id number], tel:[phone] [facility] No Information 0 2-200 9 Valentín Owenshil. [facility] [address], [facility], . tel:[phone] Family History Family Member Type Diagnosis Age At Onset No Information Payers Payer name Insurance type Covered libertarian ID Authoriza tion(s) Medicare [facility] [id number] Medicaid [facility] [id number] Social History Type Description Quantity Date Captured [...]
--- OUTSIDE RECORDS SUMMARY | 2025-02-22 12:41 | XMS_ITS | Encounter Summary ---
Author Organization [facility] Health Address [facility] [place] [address] Care Team Providers Care Legal Specialist Name Role Phone NileJosiasAntonyvon Jaramillo DO Primary Care Provider Donavon Todd PA-C Primary Care Provide r Durga Ford DO Primary Care Provider Zeenat castro Encounter Details Date Type Department Care Team (Late Contact Info) Description 04/29/2021 Telephone [facility] [address] [place] [address] Dodie Hidalgo MD [facility] [address] [place] [address] Social History Tobacco Use Types Packs/Day Years Used Date Smoking Tobacco: Never Smokeless Tobacco: Never Alcohol Use Standard Drinks/Week Comments No 0 (1 standard drink = 0.6 oz pur e alcohol) Comments No Sex and Gender Information Value Date Recorded Sex Assigned at Not on file Legal Sex Female 5:12 PM REGISTERED MIDWIFE Gender Identity Not on file Sexual Orientation Not on file documented as of this encounter Plan of Treatment Upcoming Encounters Date Type Department Care Team (Late Contact Info) Description 03/13/2025 10:00 AM CDT Appointment [facility] [address] [place] [address] Spenser Fry MD [address] [place] [address] [address] [place] [address] 03/28/2025 9:40 AM CDT Office Visit [facility] - Rheumatology [address] [place] [address], [place] [address] Spenser Fry MD [address] [place] [address] [address] [place] [address] documented as of this encounter Visit Diagnoses Not on filedocumented in this encounter Care Teams Legal Specialist Relationship Specialty Start Date End Date Antony Dowd DO [address] [facility] [address] [place] [address] PCP - General 03/01/09 12/08/23 Donavon Todd PA-C [address] [facility] [address] [place] [address] PCP - General Physician Supervisor [employer]er[employer] 12/09/23 11/13/24 Durga Ford DO PCP - General Obstetrics and Gynecology 11/14/24 documented as of this encounter
--- OUTSIDE RECORDS SUMMARY | 2025-02-22 12:42 | XMS_ITS | Patient Health Record ---
Author Organization [facility] [employer] [facility] Address [address] [place] [address] Care Team Providers Care Fast Food Cashier Name Role Phone Mylene Fang Unavailable [phone] VerónicaZeny jameson Unavailable [phone] Allergies No Known Allergies Reason For Referral No Information Medications Medication SIG (Take, Route, Frequency, Duration) Notes Start Date End Date Status Sertraline HCl 100 MG 2 tablet every morning Orally Once a day for 90 days Active GEMTESA 75 MG TABLET *Reorder fr om [employer] for eRx and Interaction Alerts* 11/29/2023 [...] Propionate Diskus 50 MCG/ACT Inhalation *Reorder from [employer] for eRx and Interaction Alerts* 11/29/2023 Unknown Immunizations Vaccine Route Administration Date Status Comme nts Pfizer Biontech Covid-19 Vac cine 2nd dose Unknown 12/26/2020 Administered Pfizer Biontech Covid-19 Vac cine 2nd dose Unknown 01/16/2021 Administered Moderna Covid-19 Vaccine 1st dose Unknown 12/02/2021 Ad ministered Influenza, unspecified formulation Unknown 10/20/2022 A dministered Social History Tobacco Use: Social History Observation [...] Severe recurrent major depression without psychotic features (16764883) Major depressive disorder, recurrent severe without psychotic features (F33.2) Active confirmed Problem Generalized anxiety disorder (85797232) Generalized anxiety disorder (F41.1) Active confirmed Problem Insomnia 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 (57094515) Insomnia due to 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) Active confirmed Problem Unspecified intellectual disabilities (F79) Active confirmed Vital Signs Heart Rate 63 /min 11/21/2024 Height-cm 172.72 cm 11/21/2024 Blood pressure diastolic 76 mm Hg 11/21/2024 Weight-kg 136.08 kg 11/21/2024 Height 68.00 in 11/21/2024 Blood pressure systolic 118 mm Hg 11/21/2024 Weight 300 lbs 11/21/2024 BMI 45.61 kg/m2 11/21/2024 Encounters Encounter Location Date Provider Diagnosis [facility] [address] [address] 02/23/2024 Mylene Fang Major depressive disorder, recurrent severe without psychotic features F33.2 ; Unspecified intellectual disabilities F79 ; Generalized anxiety disorder F41.1 and Insomnia due to other mental disorder F51.05 [facility] [address] [facility] [address] [place] [address] 04/04/2024 Mylene Fang Major depressive disorder, recurrent severe without psychotic features F33.2 ; Unspecified intellectual disabilities F79 ; Generalized anxiety disorder F41.1 and Insomnia due to other mental disorder F51.05 [facility] [place] [address] [facility] [address] [facility] [address] [place] [address] 05/16/2024 Mylene Fang Major depressive disorder, recurrent severe without psychotic features F33.2 ; Unspecified intellectual disabilities F79 ; Generalized anxiety disorder F41.1 and Insomnia due to other mental disorder F51.05 [facility] [address] [facility] [address] [place] [address] 08/15/2024 Mylene Fang Major depressive disorder, recurrent severe without psychotic features F33.2 ; Unspecified intellectual disabilities F79 ; Generalized anxiety disorder F41.1 and Insomnia due to other mental disorder F51.05 [facility] [address] [address] 11/21/2024 Mylene Fang Unspecified intellectual disabilities F79 ; Other [facility] (current) drug therapy Z79.899 ; Generalized anxiety disorder F41.1 ; Major depressive disorder, recurrent severe without psychotic features F33.2 ; Insomnia due to other mental disorder F51.05 ; Encounter for screening for cardiovascular disorders Z13.6 ; Encounter for screening for depression Z13.31 and On [facility] drug therapy Z79.899 [facility] [address] [address] 04/20/2024 [facility] [address] [address] 04/14/2024 Zeny Adames Assessments Encounter Date Diagnosis [...] with first generation antipsychotics) and more. 11/21/2024 Other long term care social worker (current) drug therapy (ICD-10 - Z79.899) 08/15/2024 Major depressive disorder, recurrent severe without [...] 11/21/2024 Unspecified intellectual disabilities (ICD-10 - F79) 04/04/2024 [...] 02/23/2024 Unspecified intellectual disabilities (ICD-10 - F79) 11/21/2024 Generalized anxiety disorder (ICD-10 - F41.1) 05/16/2024 Unspecified intellectual disabilities (ICD-10 - F79) 02/23/2024 Generalized anxiety disorder (ICD-10 - F41.1) 04/04/2024 Unspecified intellectual disabilities (ICD-10 - F79) 08/15/2024 Unspecified intellectual disabilities (ICD-10 - F79) 02/23/2024 Insomnia due to other mental disorder (ICD-10 - F51.05) 08/15/2024 Generalized anxiety disorder (ICD-10 - F41.1) 11/21/2024 Major depressive disorder, recurrent severe without [...] with first generation antipsychotics) and more. 05/16/2024 Generalized anxiety disorder (ICD-10 - F41.1) 11/21/2024 Insomnia due to other mental disorder (ICD-10 - F51.05) 04/04/2024 Generalized anxiety disorder (ICD-10 - F41.1) 04/04/2024 Insomnia due to other mental disorder (ICD-10 - F51.05) 11/21/2024 Encounter for screening for cardiovascular disorders (ICD-10 - Z13.6) 05/16/2024 Insomnia due to other mental disorder (ICD-10 - F51.05) 08/15/2024 Insomnia due to other mental disorder (ICD-10 - F51.05) 11/21/2024 Encounter for screening for depression (ICD-10 - Z13.31) 11/21/2024 On long term care social worker drug therapy (ICD-10 - Z79.899) 05/16/2024 Other [...] Test Name Order Date LIPID PANEL, STANDARD (5860) 11/21/2024 THYROID PANEL WITH TSH (7444) 11/21/2024 COMPREHENSIVE METABOLIC PANEL (34709) CBC (INCLUDES DIFF/PLT) (6399) HEMOGLOBIN A1c (496) 11/21/2024 VITAMIN B12/FOLATE, SERUM PANEL (7065) 0 11/21/2024 VITAMIN D,25-OH,TOTAL,IA (45834) 025 Next Appt Details Provider Name:Mylene russell, 03/08/2025 11:15:00 AM, [address], [facility] [address], [place], [address], Insurance Providers Payer Name Payer Address Payer Phone Subscriber Number Group Number Insured Name Patient Relationship to Insured Coverage Start Date Coverage End Date Medicare-I l Medicare [address] [place] [address] [id number] SHAYY YOUNG Self - patient is the insured Medicaid-I l Medicaid [address] [address] [place] [address] [id number] SHAYY YOUNG Self - patient is the insured Medical (General) History Medical History History ICD Code Problems: Generalized anxiety disorder Insomnia disorder related to another men kelli disorder Intellectual disability Obesity Severe recurrent major depression Surgical History Surgery Date(Month/Year) Surgical manipulation of ankle joint (26 [id number]) Neurosurgery Other Carpal tunnel surgery (51228) Heart surgery Heart surgery 1975
--- OUTSIDE RECORDS SUMMARY | 2025-02-22 12:42 | XMS_ITS | Clinical Summary ---
Author Organization [facility] Address [address] [facility] [place] [address] Care Team Providers Care Director Of Events Name Role Phone Durga Ford DO Primary Care Provider Zeenat castro Source Comments [facility],non-owned Affiliates and Associated Physician Practices is amultiple site organization consisting of ambulatory clinics and hospital sitesin [place], [place], [place] and [place]. This disclosure is being madepursuant to the Care Everywhere program and may not contain all informatio navailable regarding this patient. Last updated 18.[facility] Allergies No known active allergies Medications * Be aware that medications may not be up to date on this document. Alwaysverify current medications with the patient. nystatin (NYSTOP) 191476 UNIT/GM powder 07/22/20 16 Active melatonin 3 [...] Encounters Date Type Department Care Team Description 02/13/2025 9:42 AM CDT - 02/13/2025 11:59 PM CDT Hospital Encounter [facility] [address] [place] [address] Spenser Fry MD Discharge Disposition: Home or Self Care 01/16/2025 9:39 AM CDT - 01/16/2025 11:59 PM CDT Hospital Encounter [facility] [address] [place] [address] Spenser Fry MD Discharge Disposition: Home or Self Care 12/12/2024 9:59 AM CDT - 12/12/2024 11:59 PM CDT Hospital Encounter [facility] [address] [place] [address] Spenser Fry MD Discharge Disposition: Home or Self Care from Last 3 Months Immunizations Immunization Administration [...] on file Legal Sex Female 5:12 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 Gender Identity Not on file Sexual Orientation Not on file Last Filed Vital Signs Vital Sign Reading Time Taken Comments Blood Pressure 163/90 02/13/2025 9:49 AM CDT Pulse 64 02/13/2025 9:49 AM CDT Temperature 36.1 C (97 F) 02/13/2025 9:49 AM CDT Respiratory Rate 18 02/13/2025 9:49 AM CDT Oxygen Saturation 92% 02/13/2025 9:49 AM CDT Inhaled Oxygen Concentration - - Weight 130.5 kg (287 lb 12.8 oz) 02/13/2025 9:49 AM CDT Height 170.2 cm (5' 7.01) 09/26/2024 8:34 AM CS T Body Mass Index 45.07 09/26/2024 8:34 AM H[employer]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 Plan of Treatment Upcoming Encounters Date Type Department Care Team (Late st Contact Info) Description 03/13/2025 10:00 AM CDT Appointment [facility] [address] [place] [address] Spenser Fry MD [address] [place] [address] [address] [place] [address] 03/28/2025 9:40 AM CDT Office Visit [facility] - Rheumatology [address] [place] [address], [place] [address] Spenser Fry MD [address] [place] [address] [address] [place] [address] Health Maintenance Due Date Last Done Comments [...] of 3 - 19+ 3-dose series) 1994 PNEUMOCOCCAL VACCINE 50+ (1 of 2 - PCV) 1994 ZOSTER VACCINE (1 of 2) 1994 PAP with HPV 2005 COVID-19 VACCINE ( season) 2024 10/06/2022, 12/02/2021, 01/16/2021, Additional history exists DEPRESSION SCREENING 09/13/2024 12/09/2023, 07/19/2023, 02/24/2022 INFLUENZA VACCINE (Season Ended) 2025 10/20/2022, 10/06/2022, 06/30/2021, Additional history exists MAMMOGRAM 06/06/2026 06/06/2024 SCREENING FOR DIABETES 11/16/2026 , 11/17/2023, 11/16/2023, Additional history exists LIPID TESTING 11/14/2028 11/15/2023, 03/0 11/2023, 08/29/2021, [...] CBC WITH DIFFERENTIAL (12/12/2024 10:30 AM CDT) [facility] WBC 6.9 4.0 - 10.7 x10E9/L 12/12/2024 10:46 AM [facility] RBC Count 3.94 3.90 - 5.20 x10E12/L 12/12/2024 10:46 AM [facility] Hemoglobin 11.3(L) 11.9 - 15.8 g/dL 12/12/2024 10:46 AM [facility] Hematocrit 35.7 34.8 - 46.1 % 12/12/2024 10:46 AM [facility] MCV 90.6 80.0 - 98.0 fL 12/12/2024 10:46 AM [facility] MCH 28.7 26.7 - 33.6 pg 12/12/2024 10:46 AM [facility] MCHC 31.7 31.7 - 36.3 g/dL 12/12/2024 10:46 AM [facility] RDW-CV 13.4 11.3 - 14.8 % 12/12/2024 10:46 AM [facility] Platelet Count 188 150 - 420 x10E9/L 12/12/2024 10:46 AM [facility] MPV 10.4 7.8 - 11.4 fL 12/12/2024 10:46 AM [facility] Preliminary Absolute Neutrophil 4.83 1.60 - 7.50 x10E9/L 12/12/2024 10:46 AM [facility] Neutrophil % 69.9 41.0 - 74.0 % 12/12/2024 10:46 AM [facility] Lymphocyte % 17.7 17.0 - 47.0 % 12/12/2024 10:46 AM [facility] Monocyte % 6.4 3.0 - 11.0 % 12/12/2024 10:46 AM [facility] Eosinophil % 5.1 0.0 - 7.0 % 12/12/2024 10:46 AM [facility] Basophil % 0.6 0.0 - 1.6 % 12/12/2024 10:46 AM [facility] Immature Granulocytes % 0.3 0.0 - 1.0 % 12/12/2024 10:46 AM [facility] Neutrophil Absolute 4.83 1.60 - 7.50 x10E9/L 12/12/2024 10:46 AM [facility] Lymphocyte Absolute 1.22 1.00 - 4.40 x10E9/L 12/12/2024 10:46 AM [facility] Monocyte Absolute 0.44 0.15 - 1.00 x10E9/L 12/12/2024 10:46 AM [facility] Eosinophil Absolute 0.35 0.00 - 0.60 x10E9/L 12/12/2024 10:46 AM [facility] Basophil Absolute 0.04 0.00 - 0.13 x10E9/L 12/12/2024 10:46 AM [facility] Blood BLOOD SPECIMEN / Unknown Venipuncture / Unknown 12/12/2024 10:30 AM CDT 12/12/2024 10:40 AM CDT us Spenser Fry MD LAB - HEMATOLOGY ORDERABLES F inal Result [address] [address], [facility] [phone] * (ABNORMAL) HEPATIC FUNCTION PANEL (12/12/2024 10:30 AM CDT) Pathologist [facility] Protein Total 6.1 6.0 - 8.3 g/dL 025 11:14 AM [facility] Albumin 2.8(L) 3.4 - 5.0 g/dL 12/12/2024 11:14 AM [facility] Bilirubin Total 0.3 0.2 - 1.2 mg/dL 09/2024 11:14 AM [facility] Bilirubin Conjugated 0.2 0.1 - 0.5 mg/dL 12/12/2024 11:14 AM [facility] Bilirubin Unconjugated 0.1 Unconjugated Bilirubin is a calculated value: Reference ranges have not been established. mg/dL 12/12/2024 11:14 AM [facility] Alkaline Phosphatase 93 40 - 150 U/L 12/12/2024 11:14 AM [facility] ALT 13 5 - 55 U/L 12/12/2024 11:14 AM [facility] AST 15 5 - 34 U/L 12/12/2024 11:14 AM [facility] Albumin/Globulin Ratio 0.8(L) 1.1 - 2.3 12/12/2024 11:14 AM [facility] Blood BLOOD SPECIMEN / Unknown Venipuncture / Unknown 12/12/2024 10:30 AM CDT 12/12/2024 10:43 AM T Spenser Fry MD LAB - CHEMISTRY ORDERABLES Fi nal Result [address] [address], [facility] [phone] * CREATININE BLOOD (12/12/2024 10:30 AM CDT) Creatinine 0.64 0.56 - 0.96 mg/dL 12/12/2024 11:14 AM [facility] eGFR by CKD-EPI >90 >=90 mL/min/1.7 3 m2 12/12/2024 11:14 AM [facility] Blood BLOOD SPECIMEN / Unknown Venipuncture / Unknown 12/12/2024 10:30 AM CDT 12/12/2024 10:43 AM CDT Spenser Fry MD LAB - CHEMISTRY ORDERABLES Fi nal Result Performing Organization Address City/[facility]/ZIP Co de Phone Number [facility] [address] [place] [address], [place] [phone] * MAMMOGRAM (06/06/2024 7:06 AM CDT) Anatomical Region Laterality Modality Other Historical Provider MD SCANNING ONLY Final Res ult * HEPATITIS C AB SCREEN RFLX NAAT QUANT (05/31/2023 11:26 AM CDT) Pathologist [facility] Hepatitis C Antibody Non-react grupo Non-reac tive 05/31/2023 1:19 PM CDT [facility] Comment:Hepatitis C Antibody screen indicates no [...] ORDERABLES Fi nal Result Performing Organization Address City/[facility]/ZIP Co de Phone Number [facility] [address] [place] [address], [place] [phone] * (ABNORMAL) COMPREHENSIVE METABOLIC PANEL (06/29/2022 12:13 PM CDT) BUN 32(H) 7 - 26 mg/dL 06/29/2022 1:25 PM CDT [facility] Creatinine 0.79 0.56 - 0.96 mg/dL 06/29/2022 1:25 PM CDT [facility] Sodium 141 136 - 145 mmol/L 06/29/2022 1:25 PM CDT [facility] Potassium 4.3 3.5 - 4.5 mmol/L 06/29/2022 1:25 PM [facility] Chloride 104 98 - 107 mmol/L 06/29/2022 1:25 PM [facility] CO2 25 22 - 29 mmol/L 06/29/2022 1:25 PM [facility] Glucose 107 70 - 115 mg/dL 06/29/2022 1:25 PM [facility] Calcium 8.9 8.4 - 10.2 mg/dL 06/29/2022 1:25 PM [facility] Protein Total 7.0 6.0 - 8.3 g/dL 06/29/2022 1:25 PM [facility] Albumin 3.0(L) 3.4 - 5.0 g/dL 06/29/2022 1:25 PM [facility] Bilirubin Total 0.5 0.2 - 1.2 mg/dL 06/29/2022 1:25 PM [facility] Alkaline Phosphatase 135 40 - 150 U/L 06/29/2022 1:25 PM [facility] ALT 25 5 - 55 U/L 06/29/2022 1:25 PM [facility] AST 23 5 - 34 U/L 06/29/2022 1:25 PM [facility] Anion Gap 16 8 - 18 06/29/2022 1:25 PM [facility] BUN/Creatinine Ratio 41(H) 7 - 23 06/29/2022 1:25 PM [facility] Osmolality Calculated 299 270 - 300 mOsm/kg 06/29/2022 1:25 PM [facility] Albumin/Globulin Ratio 0.8(L) 1.1 - 2.3 06/29/2022 1:25 PM [facility] eGFR by CKD-EPI >90 >=90 mL/min/1.7 3 m2 06/29/2022 1:25 PM [facility] Blood BLOOD SPECIMEN / Unknown Venipuncture / Unknown 06/29/2022 12:13 PM CDT 06/29/2022 12:41 PM CDT us Dodie Hidalgo MD LAB - CHEMISTRY ORDERAB LES Final Result [facility] [address] [place] [address], [facility] [phone] from Last 3 Months or Most Recently Relevant to Health Maintenance Insurance MEDICARE MEDICAID - [facility] Care Teams Director Of Events Relationship Specialty Start Date End Date Durga Ford DO PCP - General Obstetrics and Gynecology 11/14/24
--- OUTSIDE RECORDS SUMMARY | 2025-02-22 12:42 | XMS_ITS | Clinical Summary ---
Author Organization [facility], [facility] Address [address] [place] [address] Phone Care Team Providers Care Inspector Hot Forgings Name Role Phone Antony Dowd DO Primary Care Provider [phone] Allergies No known active allergies Medications folic acid (FOLVITE) 1 mg tablet Take 1 mg by mouth daily. Active hydrOXYchloroQUIN E (PLAQUENIL) 200 mg tablet Take 200 mg by mouth 2 times daily. Active levothyroxine 200 mcg tablet Take 200 mcg by mouth daily in the morning. Active levothyroxine 75 mcg tablet Take 75 mcg by mouth daily in the morning. Active abatacept (ORENCIA SUBCUT) Inject 1 Dose by intraveous injection every Wednesday. Active mv,calcium,min/ir on/folic/vitK (ONE-A-DAY WOMEN'S COMPLETE ORAL) Take by mouth [...] mg) by mouth daily. 90 Tablet 3 2 Active busPIRone (BUSPAR) 5 mg tablet Take 5 mg by mouth 3 times daily. Active meclizine (ANTIVERT) 25 mg tablet Take 25 mg by mouth 1 time daily as needed for Dizziness. Active divalproex (DEPAKOTE) 500 mg delayed release tablet Take 500 mg by mouth daily. 3 Active DULoxetine (CYMBALTA) 30 mg Capsule, Delayed Release(E.C.) Take 30 mg by mouth daily. Active ferrous sulfate 325 mg (65 mg iron) tablet Take 325 mg by mouth daily. Active vibegron (Gemtesa) 75 mg Tablet Take 1 Tablet by mouth daily. 3 Active leflunomide (ARAVA) 20 mg Tablet Take 20 mg by mouth daily. Active ARIPiprazole (ABILIFY) 10 mg tablet Take 20 mg by mouth daily at bedtime. Active traMADoL (ULTRAM) 50 mg tablet Take 50 mg by mouth every 6 hours as needed for Pain. Active fluticasone propionate (FLONASE) 50 mcg/spray [place], Suspension nasal inhaler Administer 2 Sprays in each nostril daily. Active potassium chloride (K-TAB) 20 mEq Extended Release tablet Take 0.5 Tablets (10 mEq) by mouth daily with breakfast. 30 Tablet 4 Active benzonatate (TESSALON) 100 mg capsule Take 1 Capsule (100 mg) by mouth every 4 hours as needed for Cough. 4 Active Additional Information Patient not taking.Reported on 01/11/2024 dextromethorphan- guaiFENesin (ROBITUSSIN DM) 10-100 mg/5 mL solution Take 10 mL by mouth every 4 hours as needed for Cough or Congestion. 118 mL 4 Active Additional Information Patient not taking.Reported on 07/12/2024 furosemide (LASIX) 20 mg tablet TAKE 1 TABLET(20 MG) BY MOUTH DAILY 90 Tablet 2 5 Active lisinopriL (PRINIVIL) 5 mg tablet Take 1 Tablet (5 mg) by mouth daily. 100 Tablet 2 5 Active dapagliflozin propanediol (Farxiga) 10 mg Tablet TAKE 1 TABLET(10 MG) BY MOUTH DAILY 90 Tablet 2 5 Active rivaroxaban (Xarelto) 20 mg Tablet TAKE 1 TABLET(20 MG) BY MOUTH DAILY WITH SUPPER 90 Tablet 2 5 Active Active Problems Patient Care Coordination No te Formatting of this note migh t be different from the original. Mitch Arroyo MD--Smelter Liner ([facility] @ ) Problem Noted Date Diagnosed Date Immunocompromised patient 11/15/2023 Bilateral pneumonia 11/15/2023 Sepsis with acute renal fail ure and tubular necrosis without septic shock 11/15/2023 Rhinovirus infection 11/14/2023 Acute on chronic respiratory failure with hypoxi a 11/14/2023 Influenza A 11/06/2023 Orthostatic syncope 08/27/2021 Chronic combined systolic and diastolic CHF, [facility] A class 1 01/02/2021 Paroxysmal atrial fibrillation [...] Encounters Date Type Department Care Team Description 02/06/2025 External Device Data STL ABSTRACTION Provider, Abstract 12/29/2024 Refill [facility] [address] [place] [address] Mitch Arroyo MD 12/15/2024 Refill [facility] [address] [place] [address] Mitch Arroyo MD from Last 3 Months Family History Medical [...] 36.9 C (98.4 F) 11/17/2023 5:32 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 Respiratory Rate 20 11/17/2023 5:32 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 Oxygen Saturation 96% 07/12/2024 10: 24 AM CDT Inhaled Oxygen Concentration - - Weight 135.7 kg (299 lb 3.2 oz) 024 10:24 AM CDT Height 170.2 cm (5' 7) 07/12/2024 10:2 4 AM CDT Body Mass Index 46.86 07/12/2024 10:24 AM CDT Plan of Treatment Upcoming Encounters Date Type Department Care Team (Late st Contact Info) Description 07/18/2025 9:30 AM SYNCHRONOUS MOTOR ASSEMBLER Office Visit [facility] [address] [place] [phone] Mitch Arroyo MD [address] [place] [address] [address] [place] [address] Health Maintenance Due Date Last Done Comments DTAP/TDAP/TD VACCINES (1 - Tdap) 1994 HEPATITIS B VACCINES (1 of 3 - 19+ 3-dose series) 1994 ZOSTER VACCINE (1 of 2) 1994 HPV/Cotest (21-29) 01/11/1996 HPV/Cotest (30-65) 2005 FIT-DNA Q 3 years 01/11/2020 FIT/FOBT Q 1 year 01/11/2020 Flex Sig/CT Colonography Q 5 years 01/11/2020 CERVICAL CANCER SCREENING 07/28/2020 PAP SMEAR 07/28/2020 07/28/2017 INFLUENZA VACCINE (#1) 2024 0, 05/24/2019, 06/06/2016, Additional history exists BREAST CANCER SCREENING 06/06/2025 06/06/20 24, 06/06/2024, 05/26/2022, Additional history exists Pre-Diabetes and Diabetes Screening 11/06/2026 11/06/2023, 06/27/2020 COLORECTAL SCREENING 06/15/2032 06/15/2022 Colorectal Cancer Screening 06/15/2032 Procedures Procedure Name Priority Date/Time Associated Diagnosis Comments HEMOGLOBIN A1C Routine 11/06/2023 2:26 AM SYNCHRONOUS MOTOR ASSEMBLER from Last 3 Months or Most Recently Relevant to Health Maintenance Results * HEMOGLOBIN A1C (11/06/2023 2:26 AM SYNCHRONOUS MOTOR ASSEMBLER) HEMOGLOBIN A1C 5.4 <5.7 % 11/06/2023 10:37 AM [facility] EST. AVG GLUCOSE, A1C 108 mg/dL 11/06/2023 10:37 AM [facility] [employer] [facility] Blood Venipuncture / Unknown 11/06/2023 2:26 AM SYNCHRONOUS MOTOR ASSEMBLER 11/06/2023 2:32 AM SYNCHRONOUS MOTOR ASSEMBLER [facility] - 11/06/2023 10:37 AM SYNCHRONOUS MOTOR ASSEMBLER HGB A1C INTERPRETATION NORMAL: <5.7% PRE-DIABETES: 5.7 - 6.4% DIABETES: 6.5% OR GREATER Shaan Sawyer MD CHEMISTRY ORDERABLES Fi nal Result [facility] [employer] [facility] CLIA# [id number] [address] [place] [address] from Last 3 Months or Most Recently Relevant to Health Maintenance Insurance MEDICAID [place] MEDICARE PART A AND B [facility] RX GARCIA PLANS (INTERNAL) [facility] RX [employer] RX Member Subscriber Plan / Payer (Ef fective 2010-Present) Name:Jayleen Fordine Relation to Subscriber:Self Name:Najma Ford Payer ID:Not on file Group ID:Not on file Type:RX Commercial Address: [address] RX OPTUM RX Member Subscriber Plan / Payer (Ef fective 2019-Present) Name:Najma Ford Relation to Subscriber:Self Name:Najma Ford Payer ID:Not on file Group ID:[id number] Type:RX Commercial Address: [address] Advance Directives For more information, please contact: [phone] * Full Code (Latest Code Status on [...] 2:38 PM 07/10/2020 11:32 AM Care Teams Inspector Hot Forgings Relationship Specialty Start Date End Date Antony Dowd DO [address] [address] PCP - General Internal Medicine 06/28/20
--- OUTSIDE RECORDS SUMMARY | 2025-02-22 12:42 | XMS_ITS | Clinical Summary ---
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 Gender Identity Not on file Sexual Orientation Not on file Obstetrics History Last Filed Vital Signs Vital Sign Reading Time Taken Comments Blood Pressure 142/72 11/09/2012 1:13 PM LEAD CLINICAL RESEARCH COORDINATOR Pulse 78 11/09/2012 1:13 PM LEAD CLINICAL RESEARCH COORDINATOR Temperature - - Respiratory Rate - - Oxygen Saturation - - Inhaled Oxygen Concentration - - Weight 166.7 kg (367 lb 6.4 oz) 11/09/2012 1:13 PM LEAD CLINICAL RESEARCH COORDINATOR Height 175.3 cm (5' 9) 11/09/2012 1:13 PM LEAD CLINICAL RESEARCH COORDINATOR Body Mass Index 54.26 11/09/2012 1:13 PM LEAD CLINICAL RESEARCH COORDINATOR Plan of Treatment Not on file Insurance ID[place] [facility] [place] [address] MEDICARE [facility] Address: [address] [address] [place] [address] [facility] Care Teams Maintenance Plumber Relationship Specialty Start Date End Date Antony Dowd MD [address] [facility] [address] [place] [address] PCP - General 11/09/12
--- OUTSIDE RECORDS SUMMARY | 2025-02-22 12:42 | XMS_ITS | Referral Summary ---
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 Gender Identity Not on file Sexual Orientation Not on file Last Filed Vital Signs Vital Sign Reading Time Taken Comments Blood Pressure 142/72 11/09/2012 1:13 PM WEAVING INSTRUCTOR Pulse 78 11/09/2012 1:13 PM WEAVING INSTRUCTOR Temperature - - Respiratory Rate - - Oxygen Saturation - - Inhaled Oxygen Concentration - - Weight 166.7 kg (367 lb 6.4 oz) 11/09/2012 1:13 PM WEAVING INSTRUCTOR Height 175.3 cm (5' 9) 11/09/2012 1:13 PM WEAVING INSTRUCTOR Body Mass Index 54.26 11/09/2012 1:13 PM WEAVING INSTRUCTOR Plan of Treatment Not on file Insurance IDPA [facility] [place] [address] MEDICARE [facility] Care Teams Perl Programmer Relationship Specialty Start Date End Date Antony Dowd MD [address] [place] [address] PCP - General 11/09/12
[2025-02-22 13:02] LABS: Free T4 Free Thyroxine 1.61 ng/dL (0.78-2.19)
[2025-02-22 13:09] LABS: Thyroid Stimulating Hormone 0.945 uIU/mL (0.465-4.680)
== END 2025-02-22 11:55 | disposition home or self-care (01) ==
LOC: ANHLAB 11:56
PROVIDERS: PCP Internal Medicine; Visit Provider Nurse Practitioner
DX: E78.49 Other hyperlipidemia (principal); R10.9 Unspecified abdominal pain; E78.5 Hyperlipidemia, unspecified; E03.9 Hypothyroidism, unspecified; E66.01 Morbid (severe) obesity due to excess calories; R73.03 Prediabetes
CPT/HCPCS: 36415; 80053; 82150; 83036; 83690; 84439; 84443; 85027

== ENCOUNTER 2025-03-01 12:03 | Outpatient (CLI) | payer MEDICARE, OTHER, MEDICAID, SELFPAY ==
--- NOTE | ~2025-03-01 | XR_ITS ---
EXAMINATION: XR UGIAC w barium swallow DATE: 03/01/2025 12:54 INDICATION: Left-sided abdominal pain with meals TECHNIQUE: The patient drank thick barium, gas-producing crystals, and thin barium. A total of 1231 f luoroscopic images of the esophagus, stomach, and proximal small bowel were obtained. Fluoroscopy exp osure time was 2.5 minutes. Total DAP was 17.376 mGycm^2 COMPARISON: None. FINDINGS: The esophagus is normal without mass or stricture. Esophageal motility is normal. Small sli ding-type hiatal hernia with esophageal B ring 4 cm above level of the diaphragm. There was no gastro esophageal reflux with provocative maneuvers. The stomach and proximal small bowel are normal. Right internal jugular central venous port catheter with distal tip at the level of the caudal superior jim a cava. IMPRESSION: 1. Small sliding-type hiatal hernia without evident gastroesophageal reflux with provocative maneuver s. Reviewed, dictated and finalized at location B. IMPRESSION: 1. Small sliding-type hiatal hernia without evident gastroesophageal reflux wit h provocative maneuvers.
--- OUTSIDE RECORDS SUMMARY | 2025-03-01 12:37 | XMS_ITS | Continuity of Care Document ---
Author Organization [facility] Address [address] [place] [address] [place] [address] Phone Care Team Providers Care Ore Dryer Name Role Phone Preston Laura Unavailable Unavailable Procedures Procedure Date Office/outpatient Visit, [facility] Visual Field Examination-Professional No Visual Field Examination-Technical Office/outpatient Visit, [facility] No Script Advance Directives Directive Yes / No Effective Date File Name No Information Encounters Encounter Description Practice Location Reason(s) For Visit Diagnoses Date Provider Providers Copied on Encounter Office/outpat ient Visit, [facility], [address] [place] [address] [address], [place], [place], [id number], tel:[phone] [facility] No Information 0-201 0 Krishnasamy Preston. [facility] [address], [facility], [place]. tel:[phone] [facility], [address] [place] [address] [address], [place], [place], [id number], [place] tel:[phone] [facility] No Information 0 5-200 9 Krishnasamy Preston. [address], [facility], [place]. tel:[phone] Referring Provider: Preston jameson, [address], [facility]. tel:[phone] [facility], [address] [place] [address] [address], [place], [place], [id number], tel:[phone] [facility] No Information 3 0-200 9 Valentín Ariasl. [facility] [address], [facility], . tel:[phone] Referring Provider: Preston jameson, [address] [place] [address], [facility]. tel:[phone] Office/outpat ient Visit, [facility], [address], [place], [place], [id number], tel:[phone] [facility] No Information 0 2-200 9 Valentín Owenshil. [facility] [address], [facility], . tel:[phone] Family History Family Member Type Diagnosis Age At Onset No Information Payers Payer name Insurance type Covered republican ID Authoriza tion(s) Medicare [facility] [id number] Medicaid [facility] [id number] Social History Type Description Quantity Date Captured [...]
--- OUTSIDE RECORDS SUMMARY | 2025-03-01 12:37 | XMS_ITS | Clinical Summary ---
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 Gender Identity Not on file Sexual Orientation Not on file Obstetrics History Last Filed Vital Signs Vital Sign Reading Time Taken Comments Blood Pressure 142/72 11/09/2012 1:13 PM DELIVERY ENGINEER Pulse 78 11/09/2012 1:13 PM DELIVERY ENGINEER Temperature - - Respiratory Rate - - Oxygen Saturation - - Inhaled Oxygen Concentration - - Weight 166.7 kg (367 lb 6.4 oz) 11/09/2012 1:13 PM DELIVERY ENGINEER Height 175.3 cm (5' 9) 11/09/2012 1:13 PM DELIVERY ENGINEER Body Mass Index 54.26 11/09/2012 1:13 PM DELIVERY ENGINEER Plan of Treatment Not on file Insurance IDPA [facility] [place] [address] MEDICARE [facility] Care Teams Manager Er Relationship Specialty Start Date End Date Antony Dowd MD [address] [facility] [address] [place] [address] PCP - General 11/09/12
--- OUTSIDE RECORDS SUMMARY | 2025-03-01 12:37 | XMS_ITS | Clinical Summary ---
Author Organization [facility] Address [address] [facility] [place] [address] Care Team Providers Care Scientific Director Name Role Phone Durga Ford DO Primary Care Provider Zeenat castro Source Comments [facility],non-owned Affiliates and Associated Physician Practices is amultiple site organization consisting of ambulatory clinics and hospital sitesin [place], [place], [place] and [place]. This disclosure is being madepursuant to the Care Everywhere program and may not contain all informatio navailable regarding this patient. Last updated 18.[facility] Allergies No known active allergies Medications * Be aware that medications may not be up to date on this document. Alwaysverify current medications with the patient. nystatin (NYSTOP) [id number] UNIT/GM powder 07/22/20 16 Active melatonin 3 [...] - 02/13/2025 11:59 PM CDT Hospital Encounter [facility] [address] [place] [address] Spenser Fry MD Discharge Disposition: Home or Self Care 01/16/2025 9:39 AM CDT - 01/16/2025 11:59 PM CDT Hospital Encounter [facility] [address] [place] [address] Spenser Fry MD Discharge Disposition: Home or Self Care 12/12/2024 9:59 AM CDT - 12/12/2024 11:59 PM CDT Hospital Encounter [facility] [address] [place] [address] Spenser Fry MD Discharge Disposition: Home or [...] on file Legal Sex Female 5:12 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 Gender Identity Not on file Sexual Orientation [...] Body Mass Index 45.07 09/26/2024 8:34 AM IT SOFTWARE DEVELOPER Plan of Treatment Upcoming Encounters Date Type Department Care Team (Late st Contact Info) Description 03/20/2025 10:00 AM CDT Appointment [facility] [address] [place] [address] Spenser Fry MD [address] [place] [address] [address] [place] [id number] 03/28/2025 9:40 AM CDT Office Visit [facility] - Rheumatology [address] [place] [address], [place] [address] Spenser Fry MD [address] [place] [address] [address] [place] [address] Health Maintenance Due Date Last Done Comments [...] CBC WITH DIFFERENTIAL (12/12/2024 10:30 AM CDT) [facility] WBC 6.9 4.0 - 10.7 x10E9/L 12/12/2024 10:46 AM [facility] RBC Count 3.94 3.90 - 5.20 x10E12/L 12/12/2024 10:46 AM [facility] Hemoglobin 11.3(L) 11.9 - 15.8 g/dL 12/12/2024 10:46 AM [facility] Hematocrit 35.7 34.8 - 46.1 % 12/12/2024 10:46 AM [facility] MCV 90.6 80.0 - 98.0 fL 12/12/2024 10:46 AM [facility] MCH 28.7 26.7 - 33.6 pg 12/12/2024 10:46 AM [facility] MCHC 31.7 31.7 - 36.3 g/dL 12/12/2024 10:46 AM [facility] RDW-CV 13.4 11.3 - 14.8 % 12/12/2024 10:46 AM [facility] Platelet Count 188 150 - 420 x10E9/L 12/12/2024 10:46 AM [facility] MPV 10.4 7.8 - 11.4 fL 12/12/2024 10:46 AM [facility] Preliminary Absolute Neutrophil 4.83 1.60 - 7.50 x10E9/L 12/12/2024 10:46 AM [facility] Neutrophil % 69.9 41.0 - 74.0 % 12/12/2024 10:46 AM [facility] Lymphocyte % 17.7 17.0 - 47.0 % 12/12/2024 10:46 AM [facility] Monocyte % 6.4 3.0 - 11.0 % 12/12/2024 10:46 AM [facility] Eosinophil % 5.1 0.0 - 7.0 % 12/12/2024 10:46 AM [facility] Basophil % 0.6 0.0 - 1.6 % 12/12/2024 10:46 AM [facility] Immature Granulocytes % 0.3 0.0 - 1.0 % 12/12/2024 10:46 AM [facility] Neutrophil Absolute 4.83 1.60 - 7.50 x10E9/L 12/12/2024 10:46 AM [facility] Lymphocyte Absolute 1.22 1.00 - 4.40 x10E9/L 12/12/2024 10:46 AM [facility] Monocyte Absolute 0.44 0.15 - 1.00 x10E9/L 12/12/2024 10:46 AM [facility] Eosinophil Absolute 0.35 0.00 - 0.60 x10E9/L 12/12/2024 10:46 AM [facility] Basophil Absolute 0.04 0.00 - 0.13 x10E9/L 12/12/2024 10:46 AM [facility] Blood BLOOD SPECIMEN / Unknown Venipuncture / Unknown 12/12/2024 10:30 AM CDT 12/12/2024 10:40 AM CDT us Spenser Fry MD LAB - HEMATOLOGY ORDERABLES F inal Result [address] [address], [facility] [phone] * (ABNORMAL) HEPATIC FUNCTION PANEL (12/12/2024 10:30 AM CDT) Pathologist [facility] Protein Total 6.1 6.0 - 8.3 g/dL 025 11:14 AM [facility] Albumin 2.8(L) 3.4 - 5.0 g/dL 12/12/2024 11:14 AM [facility] Bilirubin Total 0.3 0.2 - 1.2 mg/dL 09/2024 11:14 AM [facility] Bilirubin Conjugated 0.2 0.1 - 0.5 mg/dL 12/12/2024 11:14 AM [facility] Bilirubin Unconjugated 0.1 Unconjugated Bilirubin is a calculated value: Reference ranges have not been established. mg/dL 12/12/2024 11:14 AM [facility] Alkaline Phosphatase 93 40 - 150 U/L 12/12/2024 11:14 AM [facility] ALT 13 5 - 55 U/L 12/12/2024 11:14 AM [facility] AST 15 5 - 34 U/L 12/12/2024 11:14 AM [facility] Albumin/Globulin Ratio 0.8(L) 1.1 - 2.3 12/12/2024 11:14 AM [facility] Blood BLOOD SPECIMEN / Unknown Venipuncture / Unknown 12/12/2024 10:30 AM CDT 12/12/2024 10:43 AM T Spenser Fry MD LAB - CHEMISTRY ORDERABLES Fi nal Result [address] [address], [facility] [phone] * CREATININE BLOOD (12/12/2024 10:30 AM CDT) Creatinine 0.64 0.56 - 0.96 mg/dL 12/12/2024 11:14 AM [facility] eGFR by CKD-EPI >90 >=90 mL/min/1.7 3 m2 12/12/2024 11:14 AM [facility] Blood BLOOD SPECIMEN / Unknown Venipuncture / Unknown 12/12/2024 10:30 AM CDT 12/12/2024 10:43 AM CDT Spenser Fry MD LAB - CHEMISTRY ORDERABLES Fi nal Result Performing Organization Address City/[facility]/ZIP Co de Phone Number [facility] [address] [place] [address], [place] [phone] * MAMMOGRAM (06/06/2024 7:06 AM CDT) Anatomical Region Laterality Modality Other Historical Provider MD SCANNING ONLY Final Res ult * HEPATITIS C AB SCREEN RFLX NAAT QUANT (05/31/2023 11:26 AM CDT) Pathologist [facility] Hepatitis C Antibody Non-react grupo Non-reac tive 05/31/2023 1:19 PM CDT [facility] Comment:Hepatitis C Antibody screen indicates no [...] ORDERABLES Fi nal Result Performing Organization Address City/[facility]/ZIP Co de Phone Number [facility] [address] [place] [address], [place] [phone] * (ABNORMAL) COMPREHENSIVE METABOLIC PANEL (06/29/2022 12:13 PM CDT) BUN 32(H) 7 - 26 mg/dL 06/29/2022 1:25 PM CDT [facility] Creatinine 0.79 0.56 - 0.96 mg/dL 06/29/2022 1:25 PM CDT [facility] Sodium 141 136 - 145 mmol/L 06/29/2022 1:25 PM CDT [facility] Potassium 4.3 3.5 - 4.5 mmol/L 06/29/2022 1:25 PM [facility] Chloride 104 98 - 107 mmol/L 06/29/2022 1:25 PM [facility] CO2 25 22 - 29 mmol/L 06/29/2022 1:25 PM [facility] Glucose 107 70 - 115 mg/dL 06/29/2022 1:25 PM [facility] Calcium 8.9 8.4 - 10.2 mg/dL 06/29/2022 1:25 PM [facility] Protein Total 7.0 6.0 - 8.3 g/dL 06/29/2022 1:25 PM [facility] Albumin 3.0(L) 3.4 - 5.0 g/dL 06/29/2022 1:25 PM [facility] Bilirubin Total 0.5 0.2 - 1.2 mg/dL 06/29/2022 1:25 PM [facility] Alkaline Phosphatase 135 40 - 150 U/L 06/29/2022 1:25 PM [facility] ALT 25 5 - 55 U/L 06/29/2022 1:25 PM [facility] AST 23 5 - 34 U/L 06/29/2022 1:25 PM [facility] Anion Gap 16 8 - 18 06/29/2022 1:25 PM [facility] BUN/Creatinine Ratio 41(H) 7 - 23 06/29/2022 1:25 PM [facility] Osmolality Calculated 299 270 - 300 mOsm/kg 06/29/2022 1:25 PM [facility] Albumin/Globulin Ratio 0.8(L) 1.1 - 2.3 06/29/2022 1:25 PM [facility] eGFR by CKD-EPI >90 >=90 mL/min/1.7 3 m2 06/29/2022 1:25 PM [facility] Blood BLOOD SPECIMEN / Unknown Venipuncture / Unknown 06/29/2022 12:13 PM CDT 06/29/2022 12:41 PM CDT us Dodie Hidalgo MD LAB - CHEMISTRY ORDERAB LES Final Result [facility] [address] [place] [address], [facility] [phone] from Last 3 Months or Most Recently Relevant to Health Maintenance Insurance MEDICARE MEDICAID - [place] [facility] Care Teams Scientific Director Relationship Specialty Start Date End Date Durga Ford DO PCP - General Obstetrics and Gynecology 11/14/24
--- OUTSIDE RECORDS SUMMARY | 2025-03-01 12:37 | XMS_ITS | Encounter Summary ---
Author Organization [facility] Health Address [facility] [place] [address] Care Team Providers Care Counter Manager Name Role Phone NileJosiasAntonyvon Jaramillo DO Primary Care Provider [phone] Donavon Todd PA-C Primary Care Provide r Durga Ford DO Primary Care Provider Zeenat castro Encounter Details Date Type Department Care Team (Late Contact Info) Description 04/29/2021 Telephone [facility] [address] [place] [address] Dodie Hidalgo MD [facility] [address] [place] [address] Social History Tobacco Use Types Packs/Day Years Used Date Smoking Tobacco: Never Smokeless Tobacco: Never Alcohol Use Standard Drinks/Week Comments No 0 (1 standard drink = 0.6 oz pur e alcohol) Comments No Sex and Gender Information Value Date Recorded Sex Assigned at Not on file 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 Gender Identity Not on file Sexual Orientation Not on file documented as of this encounter Plan of Treatment Upcoming Encounters Date Type Department Care Team (Late Contact Info) Description 03/20/2025 10:00 AM CDT Appointment [facility] [address] [place] [address] Spenser Fry MD [address] [place] [address] 2L [place] [address] 03/28/2025 9:40 AM CDT Office Visit [facility] - Rheumatology [address] [place] [address], [place] [address] Spenser Fry MD [address] [place] [address] [address] [place] [address] documented as of this encounter Visit Diagnoses Not on filedocumented in this encounter Care Teams Counter Manager Relationship Specialty Start Date End Date Antony Dowd DO [address] [facility] [address] [place] [address] PCP - General 03/01/09 12/08/23 Donavon Todd PA-C [address] [facility] [address] [place] [address] PCP - General Physician Laboratory Associate 12/09/23 11/13/24 Durga Ford DO PCP - General Obstetrics and Gynecology 11/14/24 documented as of this encounter
--- OUTSIDE RECORDS SUMMARY | 2025-03-01 12:37 | XMS_ITS | Referral Summary ---
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 Gender Identity Not on file Sexual Orientation Not on file Last Filed Vital Signs Vital Sign Reading Time Taken Comments Blood Pressure 142/72 11/09/2012 1:13 PM OPTICAL EFFECTS 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 Pulse 78 11/09/2012 1:13 PM OPTICAL EFFECTS 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 Temperature - - Respiratory Rate - - Oxygen Saturation - - Inhaled Oxygen Concentration - - Weight 166.7 kg (367 lb 6.4 oz) 11/09/2012 1:13 PM OPTICAL EFFECTS 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 Height 175.3 cm (5' 9) 11/09/2012 1:13 PM OPTICAL EFFECTS 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 Body Mass Index 54.26 11/09/2012 1:13 PM OPTICAL EFFECTS 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 Plan of Treatment Not on file Insurance ID[place] [address] MEDICARE [facility] Address: [address] [address] [place] [address] [facility] Care Teams Floor Person Relationship Specialty Start Date End Date Antony Dowd MD [address] [place] [address] PCP - General 11/09/12
--- OUTSIDE RECORDS SUMMARY | 2025-03-01 12:37 | XMS_ITS | Patient Health Record ---
Author Organization [facility] Address [address] [place] [address] Care Team Providers Care Brake Machine Operator Name Role Phone Mylene Fang Unavailable [phone] VerónicaZeny jameson Unavailable [phone] Allergies No Known Allergies Reason For Referral [...] Propionate Diskus 50 MCG/ACT Inhalation *Reorder from [employer] for eRx and Interaction Alerts* 11/29/2023 Unknown [...] Severe recurrent major depression without psychotic features (37920216) Major depressive disorder, recurrent severe without psychotic features (F33.2) Active confirmed Problem Generalized anxiety disorder (85563115) Generalized anxiety disorder (F41.1) Active confirmed Problem Insomnia 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 (26609200) Insomnia due to 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) Active confirmed Problem Intellectual disability (disorder) (030294190) Unspecified intellectual disabilities (F79) Active confirmed Vital Signs Heart Rate 63 /min 11/21/2024 Blood pressure diastolic 76 mm Hg 11/21/2024 Height-cm 172.72 cm 11/21/2024 Weight-kg 136.08 kg 11/21/2024 Height 68.00 in 11/21/2024 Blood pressure systolic 118 mm Hg 11/21/2024 Weight 300 lbs 11/21/2024 BMI 45.61 kg/m2 11/21/2024 Encounters Encounter Location Date Provider Diagnosis [facility] [address] [address] 04/04/2024 Mylene Annalisa Major depressive disorder, recurrent severe without psychotic features F33.2 ; Unspecified intellectual disabilities F79 ; Generalized anxiety disorder F41.1 and Insomnia due to other mental disorder F51.05 [facility] [address] [address] 05/16/2024 Mylene Fang Major depressive disorder, recurrent severe without psychotic features F33.2 ; Unspecified intellectual disabilities F79 ; Generalized anxiety disorder F41.1 and Insomnia due to other mental disorder F51.[address] [address] 08/15/2024 Mylene Fang Major depressive disorder, recurrent severe without psychotic features F33.2 ; Unspecified intellectual disabilities F79 ; Generalized anxiety disorder F41.1 and Insomnia due to other mental disorder F51.[address] [address] 11/21/2024 Mylene Fang Unspecified intellectual disabilities F79 ; Other intermediate designer (current) drug therapy Z79.899 ; Generalized anxiety disorder F41.1 ; Major depressive disorder, recurrent severe without psychotic features F33.2 ; Insomnia due to other mental disorder F51.05 ; Encounter for screening for cardiovascular disorders Z13.6 ; Encounter for screening for depression Z13.31 and On prison drug therapy Z79.899 [facility] [address] [address] 04/20/2024 Mylene Fang [address] [address] 04/14/2024 Zeny Adames Assessments Encounter Date Diagnosis (ICD Code) Assessment Notes Treatment Notes Treatment Clinical Notes Section Notes 05/16/2024 Major depressive disorder, recurrent severe without [...] common with first generation antipsychotics) and more. 04/04/2024 Major depressive disorder, recurrent severe without [...] intellectual disabilities (ICD-10 - F79) 11/21/2024 Other intermediate designer (current) drug therapy (ICD-10 - Z79.899) 04/04/2024 Unspecified intellectual disabilities (ICD-10 - F79) 05/16/2024 Unspecified intellectual disabilities (ICD-10 - F79) 08/15/2024 Unspecified intellectual disabilities (ICD-10 - F79) 11/21/2024 Generalized anxiety disorder (ICD-10 - F41.1) 05/16/2024 Generalized anxiety disorder (ICD-10 - F41.1) [...] for depression (ICD-10 - Z13.31) 11/21/2024 On intermediate designer drug therapy (ICD-10 - Z79.899) 05/16/2024 Other [...] effects of psychotropic medications. -Crisis prevention hotline 238. Plan Of Treatment Pending Test Test Name Order Date LIPID PANEL, STANDARD (0040) 11/21/2024 THYROID PANEL WITH TSH (7444) 11/21/2024 COMPREHENSIVE METABOLIC PANEL (28825) CBC (INCLUDES DIFF/PLT) (6399) HEMOGLOBIN A1c (496) 11/21/2024 VITAMIN B12/FOLATE, SERUM PANEL (7065) 0 11/21/2024 VITAMIN D,25-OH,TOTAL,IA (34808) 025 Next Appt Details Provider Name:Mylene Ochoa Obdulia russell, 03/08/2025 11:15:00 AM, [address], [facility], [place], [address], Insurance Providers Payer Name Payer Address Payer Phone Subscriber Number Group Number Insured Name Patient Relationship to Insured Coverage Start Date Coverage End Date Medicare-I l Medicare [address] [place] [address] [id number] SHAYY YOUNG Self - patient is the insured Medicaid-I l Medicaid [address] [address] [place] [address] [id number] SHAYY YOUNG Self - patient is the insured Medical (General) History Medical History History ICD Code Problems: Generalized anxiety disorder Insomnia disorder related to another men kelli disorder Intellectual disability Obesity Severe recurrent major depression Surgical History Surgery Date(Month/Year) Surgical manipulation of ankle joint ( 6119302) Neurosurgery Other Carpal tunnel surgery (97849) Heart surgery Heart surgery 1975
--- OUTSIDE RECORDS SUMMARY | 2025-03-01 12:37 | XMS_ITS | Clinical Summary ---
Author Organization [facility] Address [address] [place] [address] Phone Care Team Providers Care Pharmacy Account Director Name Role Phone Antony Dowd DO Primary Care Provider [phone] Allergies No known active allergies Medications folic [...] Pain. Active fluticasone propionate (FLONASE) 50 mcg/spray [place], Suspension nasal inhaler Administer 2 Sprays in [...] be different from the original. Mitch Arroyo MD--Program Scheduler ([facility] @ ) Problem Noted Date Diagnosed Date Immunocompromised patient 11/15/2023 Bilateral pneumonia 11/15/2023 Sepsis with acute renal fail ure and tubular necrosis without septic shock 11/15/2023 Rhinovirus infection 11/14/2023 Acute on chronic respiratory failure with hypoxi a 11/14/2023 Influenza A 11/06/2023 Orthostatic syncope 08/27/2021 Chronic combined systolic and diastolic CHF, [facility] A class 1 01/02/2021 Paroxysmal atrial fibrillation [...] Data STL ABSTRACTION Provider, Abstract 12/29/2024 Refill [facility] [address] [place] [address] Mitch Arroyo MD 12/15/2024 Refill [facility] [address] [place] [address] Mitch Arroyo MD from Last 3 Months [...] 36.9 C (98.4 F) 11/17/2023 5:32 PM CONVENTION WORKER Respiratory Rate 20 11/17/2023 5:32 PM CONVENTION WORKER Oxygen Saturation 96% 07/12/2024 10: 24 AM CDT Inhaled Oxygen Concentration - - Weight 135.7 kg (299 lb 3.2 oz) 024 10:24 AM CDT Height 170.2 cm (5' 7) 07/12/2024 10:2 4 AM CDT Body Mass Index 46.86 07/12/2024 10:24 AM CDT Plan of Treatment Upcoming Encounters Date Type Department Care Team (Late st Contact Info) Description 07/18/2025 9:30 AM CONVENTION WORKER Office Visit [facility] [address] [place] [address] Mitch Arroyo MD [address] [place] [address] [address] [place] [address] Health Maintenance Due Date Last [...] Comments HEMOGLOBIN A1C Routine 11/06/2023 2:26 AM CONVENTION WORKER from Last 3 Months or Most Recently Relevant to Health Maintenance Results * HEMOGLOBIN A1C (11/06/2023 2:26 AM CONVENTION WORKER) HEMOGLOBIN A1C 5.4 <5.7 % 11/06/2023 10:37 AM [facility] EST. AVG GLUCOSE, A1C 108 mg/dL 11/06/2023 10:37 AM [facility] [facility] Blood Venipuncture / Unknown 11/06/2023 2:26 AM CONVENTION WORKER 11/06/2023 2:32 AM CONVENTION WORKER On license of [facility] - 11/06/2023 10:37 AM CONVENTION WORKER HGB A1C INTERPRETATION NORMAL: <5.7% PRE-DIABETES: 5.7 - 6.4% DIABETES: 6.5% OR GREATER Shaan Sawyer MD CHEMISTRY ORDERABLES Fi nal Result [facility] [facility] CLIA# [id number] [address] [place] [address] from Last 3 Months or Most Recently Relevant to Health Maintenance Insurance MEDICAID [place] MEDICARE PART A AND B [facility] RX GARCIA PLANS (INTERNAL) [facility] [...] Advance Directives For more information, please contact: [phone] * Full Code (Latest Code Status on [...] 2:38 PM 07/10/2020 11:32 AM Care Teams Pharmacy Account Director Relationship Specialty Start Date End Date Antony Dowd DO [address] [address] PCP - General Internal Medicine 06/28/20
== END 2025-03-01 12:04 | disposition home or self-care (01) ==
PROVIDERS: PCP Internal Medicine; Visit Provider Nurse Practitioner
DX: K44.9 Diaphragmatic hernia without obstruction or gangrene (principal)
CPT/HCPCS: 74246

== ENCOUNTER 2025-03-21 10:01 | Outpatient (CLI) | payer MEDICARE, OTHER, MEDICAID, SELFPAY ==
--- NOTE | ~2025-03-21 | CT_ITS ---
CT of the Abdomen and Pelvis: Indication: Abdominal pain Technique: 2.5 mm axial scans were obtained through the abdomen and pelvis following intravenous adm inistration of 100 cc of Omnipaque 350. Dose reduction technique was used on this scan by utilizing a utomated exposure control and iterative reconstruction technique. The dose-length product (DLP) was 1 341.20 mGy-cm. Findings: Scans through the lung bases is a probable mild tree-in-bud opacities the right lung base. The liver, spleen, pancreas, gallbladder, adrenals and kidneys are within normal limits. No evidence of aortic aneurysm. No lymphadenopathy. There is wall thickening inflammatory change involving the sigmoid colon, compatible diverticulitis v ersus other infectious/inflammatory colitis. No definite abscess or free air. No bowel obstruction. Images through the pelvis were performed. Urinary bladder unremarkable. No adnexal mass evident. Smal l amount of pelvic ascites present. There is moderate to advanced degenerative spondylosis of the lumbar spine. Impression: Acute sigmoid diverticulitis versus other infectious/inflammatory colitis. Possible minimal tree-in-bud opacities right lung base. Correlate for small airways infectious proces s. Reviewed, dictated and finalized at location . Impression: Acute sigmoid diverticulitis versus other infectious/inflammatory colitis. Possible minimal tree-in-bud opacities right lung base. Correlate for small air ways infectious process.
--- OUTSIDE RECORDS SUMMARY | 2025-03-21 10:15 | XMS_ITS | Referral Summary ---
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 Gender Identity Not on file Sexual Orientation Not on file Last Filed Vital Signs Vital Sign Reading Time Taken Comments Blood Pressure 142/72 11/09/2012 1:13 PM DRYING TUMBLER OPERATOR Pulse 78 11/09/2012 1:13 PM DRYING TUMBLER OPERATOR Temperature - - Respiratory Rate - - Oxygen Saturation - - Inhaled Oxygen Concentration - - Weight 166.7 kg (367 lb 6.4 oz) 11/09/2012 1:13 PM DRYING TUMBLER OPERATOR Height 175.3 cm (5' 9) 11/09/2012 1:13 PM DRYING TUMBLER OPERATOR Body Mass Index 54.26 11/09/2012 1:13 PM DRYING TUMBLER OPERATOR Plan of Treatment Not on file Insurance IDPA [facility] [address] MEDICARE [facility] Care Teams Window Assembler Relationship Specialty Start Date End Date Antony Dowd MD [address] [place] [address] PCP - General 11/09/12
--- OUTSIDE RECORDS SUMMARY | 2025-03-21 10:15 | XMS_ITS | Patient Health Record ---
Author Organization [facility] [place] [facility]'s what's in store [facility] Address [address] [place] [address] Care Team Providers Care Hazardous Materials Analyst Name Role Phone Mylene Fang Unavailable [phone] VerónicaZeny jameson Unavailable [phone] Allergies No Known Allergies Reason For Referral No Information Medications Medication SIG (Take, Route, Frequency, Duration) Notes Start Date End Date Status Sertraline HCl 100 MG 2 tablet every morning Orally Once a day; Duration: 90 days Active GEMTESA 75 MG TABLET *Reorder fr om [employer] for eRx and Interaction Alerts* 11/29/2023 Unknown busPIRone HCl 5 MG 1 tablet Oral three times a day; Duration: 90 days Active Levothyroxine Sodium 200 MCG Oral 11/29/2023 Unknown Divalproex Sodium 500 MG 1 tablet Orally Once a day; Duration: 90 days Active hydrALAZINE HCl 25 MG Oral 11/29/2023 Unknown Abilify 30 MG 1 tablet Oral Once a day; Duration: 90 days Active Lisinopril 5 MG Oral 11/29/2023 Unk nown Xarelto 20 MG Oral 11/29/2023 Unkno wn ARIPiprazole 30 MG TAKE 1 TABLET BY MOUTH DAILY; Duration: 90 Active Metoprolol Succinate ER 50 MG Oral 11/29/2023 Unknown Fluconazole 150 MG Oral 11/29/2023 Unknown Meclizine HCl 25 MG Oral 11/29/2023 Unknown Diphenoxylate-Atropin e 2.5-0.025 MG Oral 11/29/2023 Unknown ARIPiprazole 20 MG TAKE 1 TABLET BY MOUTH DAILY; Duration: 90 Active Multivitamin Adults Oral 11/29/2023 Unknown Furosemide 40 MG Oral 11/29/2023 Un known Fluticasone Propionate Diskus 50 MCG/ACT Inhalation *Reorder from [employer] for eRx and Interaction Alerts* 11/29/2023 Unknown [...] Severe recurrent major depression without psychotic features (69622085) Major depressive disorder, recurrent severe without psychotic features (F33.2) Active confirmed Problem Generalized anxiety disorder (23101041) Generalized anxiety disorder (F41.1) Active confirmed Problem Insomnia 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 (60669686) Insomnia due to 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) Active confirmed Problem Intellectual disability (disorder) (275317626) Unspecified intellectual disabilities (F79) Active confirmed Vital Signs Heart Rate 63 /min 11/21/2024 Blood pressure diastolic 76 mm Hg 11/21/2024 Height-cm 172.72 cm 11/21/2024 Weight-kg 136.08 kg 11/21/2024 Height 68.00 in 11/21/2024 Blood pressure systolic 118 mm Hg 11/21/2024 Weight 300 lbs 11/21/2024 BMI 45.61 kg/m2 11/21/2024 Encounters Encounter Location Date Provider Diagnosis [email or web address] [address] [address] 04/04/2024 Mylene Fang Major depressive disorder, recurrent severe without psychotic features F33.2 ; Unspecified intellectual disabilities F79 ; Generalized anxiety disorder F41.1 and Insomnia due to other mental disorder F51.05 [email or web address] [address] [facility] [address] [place] [address] 05/16/2024 Mylene Fang Major depressive disorder, recurrent severe without psychotic features F33.2 ; Unspecified intellectual disabilities F79 ; Generalized anxiety disorder F41.1 and Insomnia due to other mental disorder F51.[address] [address] 08/15/2024 Mylene Fang Major depressive disorder, recurrent severe without psychotic features F33.2 ; Unspecified intellectual disabilities F79 ; Generalized anxiety disorder F41.1 and Insomnia due to other mental disorder F51.[address] [address] 11/21/2024 Mylene Fang Unspecified intellectual disabilities F79 ; 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 Z79.899 ; Generalized anxiety disorder F41.1 ; Major depressive disorder, recurrent severe without psychotic features F33.2 ; Insomnia due to other mental disorder F51.05 ; Encounter for screening for cardiovascular disorders Z13.6 ; Encounter for screening for depression Z13.31 and On nursing home drug therapy Z79.899 [facility] [employer] [address] [address] 04/20/2024 Mylene Fang [address] [address] 04/14/2024 Zeny Adames Assessments Encounter Date Diagnosis [...] intellectual disabilities (ICD-10 - F79) 11/21/2024 Other nursing home (current) drug therapy (ICD-10 - Z79.899) 04/04/2024 [...] for depression (ICD-10 - Z13.31) 11/21/2024 On nursing home drug therapy (ICD-10 - Z79.899) 05/16/2024 Other [...] WITH TSH (7444) 11/21/2024 COMPREHENSIVE METABOLIC PANEL (27780) CBC (INCLUDES DIFF/PLT) (6399) HEMOGLOBIN A1c (496) 11/21/2024 VITAMIN B12/FOLATE, SERUM PANEL (7065) 0 11/21/2024 VITAMIN D,25-OH,TOTAL,IA (59328) 025 Next Appt Details Provider Name:Mylene russell, 04/05/2025 11:15:00 AM, [address], [facility] [address], [place], [address], Insurance Providers Payer Name Payer Address Payer Phone Subscriber Number Group Number Insured Name Patient Relationship to Insured Coverage Start Date Coverage End Date Medicare-I l Medicare [address] [place] [phone] [id number] SHAYY YOUNG Self - patient is the insured Medicaid-I l Medicaid [address] [address] [place] [address] [id number] SHAYY YOUNG Self - patient is the insured Medical (General) History Medical History History ICD Code Problems: Generalized anxiety disorder Insomnia disorder related to another men kelli disorder Intellectual disability Obesity Severe recurrent major depression Surgical History Surgery Date(Month/Year) Surgical manipulation of ankle joint (26 2435262) Neurosurgery Other Carpal tunnel surgery (09259) Heart surgery Heart surgery 1975
--- OUTSIDE RECORDS SUMMARY | 2025-03-21 10:15 | XMS_ITS | Clinical Summary ---
Author Organization [facility] Address [address] [place] [address] Phone Care Team Providers Care Recruiter Coordinator Name Role Phone Antony Dowd DO Primary Care Provider [phone] Allergies No known active allergies Medications folic [...] Pain. Active fluticasone propionate (FLONASE) 50 mcg/spray [place], Suspension nasal inhaler Administer 2 Sprays in [...] MOUTH DAILY WITH SUPPER 90 Tablet 2 Active Active Problems Patient Care Coordination No te Formatting of this note migh t be different from the original. Mitch Arroyo MD--Senior Marketing Coordinator ([facility] @ ) Problem Noted Date Diagnosed Date Immunocompromised patient 11/15/2023 Bilateral pneumonia 11/15/2023 Sepsis with acute renal fail ure and tubular necrosis without septic shock 11/15/2023 Rhinovirus infection 11/14/2023 Acute on chronic respiratory failure with hypoxi a 11/14/2023 Influenza A 11/06/2023 Orthostatic syncope 08/27/2021 Chronic combined systolic and diastolic CHF, [facility] A class 1 01/02/2021 Paroxysmal atrial fibrillation [...] Provider, Abstract 12/29/2024 Refill [facility] [address] [place] [address] Mitch Arroyo MD from Last 3 Months [...] 36.9 C (98.4 F) 11/17/2023 5:32 PM SHUTTLE REPAIRER Respiratory Rate 20 11/17/2023 5:32 PM SHUTTLE REPAIRER Oxygen Saturation 96% 07/12/2024 10: 24 AM CDT Inhaled Oxygen Concentration - - Weight 135.7 kg (299 lb 3.2 oz) 024 10:24 AM CDT Height 170.2 cm (5' 7) 07/12/2024 10:2 4 AM CDT Body Mass Index 46.86 07/12/2024 10:24 AM CDT Plan of Treatment Upcoming Encounters Date Type Department Care Team (Late st Contact Info) Description 07/18/2025 9:30 AM SHUTTLE REPAIRER Office Visit [facility] [address] [place] [phone] Mitch Arroyo MD [address] [place] [address] [address] [place] [address] Health Maintenance Due Date Last [...] PAP SMEAR 07/28/2020 07/28/2017 INFLUENZA VACCINE (#1) 2025 , 05/24/2019, 06/06/2016, Additional history exists BREAST CANCER SCREENING 06/06/2025 06/06/20 24, 06/06/2024, 05/26/2022, Additional history exists Pre-Diabetes and Diabetes Screening 11/06/2026 11/06/2023, 06/27/2020 COLORECTAL SCREENING 06/15/2032 06/15/2022 Colorectal Cancer Screening 06/15/2032 Procedures Procedure Name Priority Date/Time Associated Diagnosis Comments HEMOGLOBIN A1C Routine 11/06/2023 2:26 AM SHUTTLE REPAIRER from Last 3 Months or Most Recently Relevant to Health Maintenance Results * HEMOGLOBIN A1C (11/06/2023 2:26 AM SHUTTLE REPAIRER) HEMOGLOBIN A1C 5.4 <5.7 % 11/06/2023 10:37 AM SHUTTLE REPAIRER [facility] EST. AVG GLUCOSE, A1C 108 mg/dL 11/06/2023 10:37 AM [facility] Blood Venipuncture / Unknown 11/06/2023 2:26 AM SHUTTLE REPAIRER 11/06/2023 2:32 AM SHUTTLE REPAIRER Narrative [facility] - 11/06/2023 10:37 AM SHUTTLE REPAIRER HGB A1C INTERPRETATION NORMAL: <5.7% PRE-DIABETES: 5.7 - 6.4% DIABETES: 6.5% OR GREATER Shaan Sawyer MD CHEMISTRY ORDERABLES Fi nal Result [facility] [id number] [address] [place] [address] from Last 3 Months or Most Recently Relevant to Health Maintenance Insurance MED[place]ID [place] MEDICARE PART A AND B [facility] RX GARCIA PLANS (INTERNAL) [facility] RX OPTUM RX Member Subscriber Plan / Payer (Ef fective 2010-Present) Name:Logan Najma Relation to Subscriber:Self Name:Logan Najma Payer ID:Not on file Group ID:Not on file Type:RX Commercial Address: [address] RX OPTUM RX Member Subscriber Plan / Payer (Ef fective 2019-Present) Name:Najma Ford Relation to Subscriber:Self Name:Najma Ford Payer ID:Not on file Group ID:[id number] Type:RX Commercial Address: [address] Advance Directives For more information, please contact: [phone] * Full Code (Latest Code Status on [...] 2:38 PM 07/10/2020 11:32 AM Care Teams Recruiter Coordinator Relationship Specialty Start Date End Date Antony Dowd DO [address] [facility] [address] [address] PCP - General Internal Medicine 06/28/20
--- OUTSIDE RECORDS SUMMARY | 2025-03-21 10:15 | XMS_ITS | Encounter Summary ---
Author Organization [facility] Address [address] [place] [address] [place] [address] Care Team Providers Care Dental Insurance Biller Name Role Phone NileJosiasAntonyvon Jaramillo DO Primary Care Provider Donavon Todd PA-C Primary Care Provide r Durga Ford DO Primary Care Provider Zeenat castro Encounter Details Date Type Department Care Team (Late Contact Info) Description 04/29/2021 Telephone [facility] [address] [place] [address] Dodie Hidalgo MD [address] [place] [address] [place] [address] Social History Tobacco Use Types Packs/Day Years Used Date Smoking Tobacco: Never Smokeless Tobacco: Never Alcohol Use Standard Drinks/Week Comments No 0 (1 standard drink = 0.6 oz pur e alcohol) Comments No Sex and Gender Information Value Date Recorded Sex Assigned at Not on file 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 [address] [place] [address] Spenser Fry MD [address] [facility] [address]L [place] [address] 04/27/2025 10:[address] [facility] [address] [place] [address] Spenser Fry MD [address] [facility] [address] [place] [phone] documented as of this encounter Visit Diagnoses Not on filedocumented in this encounter Care Teams Dental Insurance Biller Relationship Specialty Start Date End Date Antony Dowd DO [address] [facility] [address] [place] [address] PCP - General 03/01/09 12/08/23 Donavon Todd PA-C [address] [facility] [address] [place] [address] PCP - General Physician Rn Field Case Manager 12/09/23 11/13/24 Durga Ford DO PCP - General Obstetrics and Gynecology 11/14/24 documented as of this encounter
--- OUTSIDE RECORDS SUMMARY | 2025-03-21 10:15 | XMS_ITS | Clinical Summary ---
Author Organization [facility] Address [address] [facility] [place] [address] Care Team Providers Care Skiver Hand Name Role Phone Durga Ford DO Primary Care Provider Zeenat castro Source Comments [facility],non-owned Affiliates and Associated Physician Practices is amultiple site organization consisting of ambulatory clinics and hospital sitesin [place], [place], [place] and [place]. This disclosure is being madepursuant to the Care Everywhere program and may not contain all informatio navailable regarding this patient. Last updated 18.[facility] Allergies No known active allergies Medications * Be aware that medications may not be up to date on this document. Alwaysverify current medications with the patient. 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 Gender Identity Not on file Sexual Orientation [...] Body Mass Index 45.07 09/26/2024 8:34 AM TENNIS BALL COVER CEMENTER Plan of Treatment Upcoming Encounters Date Type Department Care Team (Late st Contact Info) Description 03/28/2025 9:40 AM CDT Office Visit [facility] - Rheumatology [address] [place] [address], [facility] [place] [address] Spenser Fry MD [address] [place] [address] [address] [place] [phone] 03/30/2025 10:00 AM CDT Appointment [facility] [address] [place] [address] Spenser Fry MD [address] [place] [address] [address] [place] [address] 04/27/2025 10:00 AM CDT Appointment [facility] [address] [place] [address] Spenser Fry MD [address] [place] [address] [address] [place] [address] Health Maintenance Due Date Last Done Comments [...] SCREENING 09/13/2024 12/09/2023, 07/19/2023, 02/24/2022 INFLUENZA VACCINE (#1) 2025 3, 10/06/2022, 06/30/2021, Additional history exists MAMMOGRAM 06/06/2026 [...] Procedure Name Priority Date/Time Associated Diagnosis Comments MAMMOGRAM Routine 06/06/2024 7:06 AM CDT HEPATITIS [...] Recently Relevant to Health Maintenance Results * MAMMOGRAM (06/06/2024 7:06 AM CDT) Anatomical Region Laterality Modality Other us Historical Provider MD SCANNING ONLY Final Res ult * HEPATITIS C AB SCREEN RFLX NAAT QUANT (05/31/2023 11:26 AM CDT) Pathologist [facility] Hepatitis C Antibody Non-react grupo Non-reac tive 05/31/2023 1:19 PM CDT [facility] Comment:Hepatitis C Antibody screen indicates no [...] Spenser Fry MD LAB - CHEMISTRY ORDERABLES [facility] Result [address] [address], [facility] [phone] * (ABNORMAL) COMPREHENSIVE METABOLIC PANEL (06/29/2022 12:13 PM CDT) Pathologist [facility] BUN 32(H) 7 - 26 mg/dL 06/29/2022 1:25 PM CDT [facility] Creatinine 0.79 0.56 - 0.96 mg/dL 06/29/2022 1:25 PM CDT [facility] Sodium 141 136 - 145 mmol/L 06/29/2022 1:25 PM CDT [facility] Potassium 4.3 3.5 - 4.5 mmol/L 06/29/2022 1:25 PM CDT [facility] Chloride 104 98 - 107 mmol/L 06/29/2022 1:25 PM [facility] CO2 25 22 - 29 mmol/L 06/29/2022 1:25 PM [facility] Glucose 107 70 - 115 mg/dL 06/29/2022 1:25 PM [facility] Calcium 8.9 8.4 - 10.2 mg/dL 06/29/2022 1:25 PM [facility] Protein Total 7.0 6.0 - 8.3 g/dL 06/29/2022 1:25 PM [facility] Albumin 3.0(L) 3.4 - 5.0 g/dL 06/29/2022 1:25 PM [facility] Bilirubin Total 0.5 0.2 - 1.2 mg/dL 06/29/2022 1:25 PM [facility] Alkaline Phosphatase 135 40 - 150 U/L 06/29/2022 1:25 PM [facility] ALT 25 5 - 55 U/L 06/29/2022 1:25 PM [facility] AST 23 5 - 34 U/L 06/29/2022 1:25 PM [facility] Anion Gap 16 8 - 18 06/29/2022 1:25 PM [facility] BUN/Creatinine Ratio 41(H) 7 - 23 06/29/2022 1:25 PM [facility] Osmolality Calculated 299 270 - 300 mOsm/kg 06/29/2022 1:25 PM [facility] Albumin/Globulin Ratio 0.8(L) 1.1 - 2.3 06/29/2022 1:25 PM [facility] eGFR by CKD-EPI >90 >=90 mL/min/1.7 3 m2 06/29/2022 1:25 PM [facility] Blood BLOOD SPECIMEN / Unknown Venipuncture / Unknown 06/29/2022 12:13 PM CDT 06/29/2022 12:41 PM [facility] us Dodie Hidalgo MD LAB - CHEMISTRY ORDERAB LES Final Result [facility] [address] [place] [address] [phone] from Last 3 Months or Most Recently Relevant to Health Maintenance Insurance MEDICARE MEDICAID - [place] Care Teams Skiver Hand Relationship Specialty Start Date End Date Durga Ford DO PCP - General Obstetrics and Gynecology 11/14/24
--- OUTSIDE RECORDS SUMMARY | 2025-03-21 10:15 | XMS_ITS | Continuity of Care Document ---
Author Organization [facility] Address [address] [place] [address] [place] [address] Phone Care Team Providers Care Meter Tester Polyphase Name Role Phone Preston Laura Unavailable Unavailable Procedures Procedure Date Office/outpatient Visit, [facility] Visual Field Examination-Professional No Visual Field Examination-Technical Office/outpatient Visit, [facility] No Script Advance Directives Directive Yes / No Effective Date File Name No Information Encounters Encounter Description Practice Location Reason(s) For Visit Diagnoses Date Provider Providers Copied on Encounter Office/outpat ient Visit, [facility], [address] [place] [address] [address], [place], [place], [id number], tel:[phone] [facility] No Information 0-201 0 Krishnasamy Preston. Formerly [facility] [address], [facility], [place]. tel:[phone] [facility], [address] [place] [address] [address], [place], [place], [id number], [place] tel:[phone] [facility] No Information 0 5-200 9 Krishnasamy Preston. [address], [facility], [place]. tel:[phone] Referring Provider: Preston jameson, [address], [facility]. tel:[phone] [facility], [address] [place] [address] [address], [place], [place], [id number], tel:[phone] [facility] No Information 3 0-200 9 Valentín Ariasl. [facility] [address], [facility], . tel:[phone] Referring Provider: Preston jameson, [address] [place] [address], [facility]. tel:[phone] Office/outpat ient Visit, [facility], [address], [place], [place], [id number], tel:[phone] [facility] No Information 0 2-200 9 Valentín Owenshil. [facility] [address], [facility], . tel:[phone] Family History Family Member Type Diagnosis Age At Onset No Information Payers Payer name Insurance type Covered republican ID Authoriza tion(s) Medicare [facility] [id number] Medicaid [facility] [id number] Social History Type Description Quantity Date Captured [...]
--- OUTSIDE RECORDS SUMMARY | 2025-03-21 10:15 | XMS_ITS | Clinical Summary ---
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 Gender Identity Not on file Sexual Orientation Not on file Obstetrics History Last Filed Vital Signs Vital Sign Reading Time Taken Comments Blood Pressure 142/72 11/09/2012 1:13 PM SOFT METALS ENGRAVER HAND Pulse 78 11/09/2012 1:13 PM SOFT METALS ENGRAVER HAND Temperature - - Respiratory Rate - - Oxygen Saturation - - Inhaled Oxygen Concentration - - Weight 166.7 kg (367 lb 6.4 oz) 11/09/2012 1:13 PM SOFT METALS ENGRAVER HAND Height 175.3 cm (5' 9) 11/09/2012 1:13 PM SOFT METALS ENGRAVER HAND Body Mass Index 54.26 11/09/2012 1:13 PM SOFT METALS ENGRAVER HAND Plan of Treatment Not on file Insurance IDPA [facility] [address] MEDICARE [facility] Care Teams Clam Bed Worker Relationship Specialty Start Date End Date Antony Dowd MD [address] [place] [address] PCP - General 11/09/12
== END 2025-03-21 10:02 | disposition home or self-care (01) ==
PROVIDERS: PCP Internal Medicine; Visit Provider Nurse Practitioner
DX: K57.92 Diverticulitis of intestine, part unspecified, without perforation or abscess without bleeding (principal); A08.8 Other specified intestinal infections
CPT/HCPCS: 74177; Q9967

== ENCOUNTER 2025-04-13 02:52 | Inpatient (IN) | payer MEDICARE, MEDICAID, OTHER, SELFPAY ==
[2025-04-13] VITALS (8 sets, daily range): BP systolic 128–164; BP diastolic 60–91; PULSE 63–68; RESP 13–23; TEMP 35.9–37.1; O2SAT 90–99; BMI 42.3
--- NOTE | ~2025-04-13 | CT_ITS ---
CLINICAL INDICATION: Lower abdominal pain COMPARISON: 03/21/2025 which demonstrated acute sigmoid diverticulitis. TECHNIQUE: Multiple contiguous axial images of the abdomen and pelvis were performed following the ad ministration of with 100 mL Omnipaque-350 intravenous contrast The dose-length product (DLP) was 1779.38 mGy-cm. Automated exposure control and iterative reconstruction technique were employed. FINDINGS/OBSERVATIONS: Visualized lower thorax: Left basilar pleural thickening with adjacent compressive atelectasis. The remainder of the lungs are clear. The heart is enlarged without pericardial effusion. Small hiatal hernia is present. Liver: The liver demonstrates homogeneous enhancement and is enlarged measuring 23 cm in longitudinal dimens ion. Gallbladder and biliary system: The gallbladder is only minimally distended, and otherwise unremarkable. Pancreas: The pancreas enhances homogeneously without ductal dilatation. Spleen: The spleen enhances homogeneously and is not enlarged. Kidneys: The bilateral kidneys enhance symmetrically without hydronephrosis or renal calculi. Adrenal glands: Unremarkable. Gastrointestinal tract: Colon is fluid-filled and distended with surrounding inflammatory change. Air-fluid levels are identified extending retrograde to the level of the distal ileum. A contained perforation is noted within the proximal sigmoid colon. No gross free air is appreciated. Significant phlegmonous change within the left hemipelvis. No drainable fluid collection is present for which repeat imaging pending clinical tolerance is recom mended. Appendix: The air-filled appendix is of normal caliber (axial series, images 123 through 148). Vasculature: Unremarkable. Lymph nodes: Scattered morphologically benign lymph nodes within the retroperitoneum, likely reactive. No pathologically enlarged or morphologically suspicious lymph nodes within the retroperitoneum or at the root of the mesentery. Pelvic structures: The bladder is decompressed limiting evaluation The uterus is surgically absent or markedly atrophic Body wall and musculoskeletal: Small fat-containing umbilical hernia. Age advanced degenerative disease within the lower thoracic or lumbosacral spine. IMPRESSION: Interval progression of acute diverticulitis with a contained perforation. No drainable fluid collect ion is identified at this point for which the imaging is recommended pending patient's clinical rommel ance Reviewed, dictated and finalized at location A. IMPRESSION: Interval progression of acute diverticulitis with a contained perforation. No d rainable fluid collection is identified at this point for which the imaging is recommended pending patient's clinical tolerance
--- NOTE | 2025-04-13 03:10 | ECG_ITS ---
Test Date: 2025-04-13 03:26:00 Measurements Intervals Duson Rate: 62 P: 19 ND: 192 QRS: 134 QRSD: 116 T: 88 QT: 451 QTc: 459 Interpretive Statements SINUS RHYTHM RIGHT AXIS DEVIATION POSSIBLE ANTERIOR MYOCARDIAL INFARCTION , OF INDETERMINATE AGE CONSIDER INFERIOR INFARCT, AGE INDETERMINATE BORDERLINE ST-T WAVE ABNORMALITY- HIGH LATERAL LEADS BASELINE ARTIFACT- I, II, AVR, AVL, AVF, V6 ABNORMAL ECG No previous ECG available for comparison Electronically Signed On 04-13-2025 06:17:35 CDT by Juan Luis Cervantes D.O.
[2025-04-13 03:19] LABS: Hematocrit 36.1 % (37.0-47.0); Hemoglobin 10.8 g/dL (12.0-15.0); Immature Granulocyte Percent A 0.3 % (0-0.5); Lymphocytes Absolute Auto 1.10 K/mm3 (0.9-3.2); Mean Corpuscular HGB Conc 29.9 g/dl (32-36); Mean Corpuscular Hemoglobin 27.5 pg (26-34); Mean Corpuscular Volume 91.9 fl (80-100); Nucleated Red Blood Cells Absolute Auto 0.000 K/mm3 (0.0-0.012); Nucleated Red Blood Cells Perc 0.0 % (0.0-0.2); Platelet Count Result 239 k/mm3 (150-375); Red Blood Count 3.93 M/mm3 (4.2-5.4); White Blood Count 11.0 K/mm3 (4.5-10.0)
[2025-04-13] MEDS: ONDANSETRON INJ 4 MG/2 ML VIAL IV PUSH (03:23)
[2025-04-13] MEDS: SODIUM CHLORIDE 0.9% IV 1,000 ML 999 ML IV CONT (03:23)
[2025-04-13] MEDS: HYDROmorphone HCL INJ (*CRX) 2 MG/ML VIAL 0.5 MG IV PUSH ×3 (03:23→16:14)
[2025-04-13 03:34] LABS: Alanine Aminotransferase 15 U/L (6-35); Albumin Level 3.4 g/dL (3.5-5.1); Alkaline Phosphatase 104 U/L (38-126); Anion Gap 3 mmol/L (4-12); Aspartate Amino Transferase 24 U/L (14-36); Bilirubin,Total 0.5 mg/dL (0.2-1.3); Blood Urea Nitrogen 17 mg/dL (7-17); Calcium 8.1 mg/dL (8.4-10.2); Carbon Dioxide 30 mmol/L (22-30); Chloride 102 mmol/L (98-107); Estimated CRCL calculation 110 ml/min; Estimated Glomerular Filt Rate > 60; Glucose 115 mg/dL (65-110); Lipase 42 U/L (23-300); Potassium 3.6 mmol/L (3.4-5.0); Sodium 135 mmol/L (137-145); Total Protein 6.8 g/dL (6.3-8.2)
[2025-04-13 03:36] LABS: Band Neutrophils Percent 0 % (0-6)
[2025-04-13 03:37] LABS: Hypochromasia 1+; Ovalocytes 1+; Schistocytes None Seen
--- NOTE | 2025-04-13 03:46 | ED.GENADULT ---
HPI - General Adult General Chief complaint: Abdominal Pain <Alan Coyle MD - Last Filed: 04/13/25 06:32> Stated complaint: RLQ pain <Alan Coyle MD - Last Filed: 04/13/25 06:32> History of Present Illness HPI narrative: This is a 50-year-old female presenting ED with right lower quadrant abdominal pain. She has been having sharp stabbing pain in the right lower quadrant. It comes and goes. It is 8 out 10 intensity with constant. This got worse over last several days. It is associated with nausea and vomiting. Last bowel movement was earlier today and was normal in character. Patient denies fevers chest pain difficulty breathing or urinary symptoms. No abdominal surgeries. <Alan Coyle MD - Last Filed: 04/13/25 06:32> Related Data Home medications: Home Medications ?Medication ?Instructions ?Recorded ?Confirmed ?Last Taken ?Type hydroxychloroquine 200 mg tablet 200 mg PO BID 10/08/20 04/13/25 04/12/25 History divalproex 250 mg tablet,delayed 500 mg PO DAILY 12/02/22 04/13/25 04/12/25 History release rivaroxaban 20 mg tablet (Xarelto) 20 mg PO DAILY 03/29/23 04/13/25 04/12/25 History vibegron 75 mg tablet (Gemtesa) 75 mg PO DAILY 06/01/23 04/13/25 04/12/25 History sertraline 100 mg tablet 200 mg PO DAILY 06/17/23 04/13/25 04/12/25 History Orencia See Rx Instructions .Route .COMPLEX 11/01/23 04/13/25 Unknown History leflunomide 20 mg tablet 20 mg PO DAILY 11/01/23 04/13/25 04/12/25 History melatonin 3 mg tablet 3 mg PO HS 12/08/23 04/13/25 04/12/25 History dapagliflozin propanediol 10 mg 10 mg PO DAILY 06/02/24 04/13/25 04/12/25 History tablet (Farxiga) ferrous sulfate 325 mg (65 mg 325 mg PO DAILY 06/02/24 04/13/25 04/12/25 History iron) tablet furosemide 20 mg tablet 20 mg PO BID 06/02/24 04/13/25 04/12/25 History Calcium 1,200 mg PO DAILY 12/05/24 04/13/25 04/12/25 History alendronate 70 mg tablet 70 mg PO WEEKLY 12/05/24 04/13/25 04/07/25 History levothyroxine 75 mcg capsule 75 mcg PO DAILY 12/05/24 04/13/25 04/12/25 History aripiprazole 30 mg tablet 30 mg PO HS 04/13/25 04/13/25 04/12/25 History buspirone 7.5 mg tablet 7.5 mg PO TID 04/13/25 04/13/25 04/12/25 History lisinopril 5 mg tablet 5 mg PO DAILY 04/13/25 04/13/25 04/12/25 History <Alan Coyle MD - Last Filed: 04/13/25 06:32> Allergies/adverse reactions: Allergies Allergy/AdvReac Type Severity Reaction Status Date / Time No Known Allergies Allergy Verified 12/05/24 09:48 <Alan Coyle MD - Last Filed: 04/13/25 06:32> Review of Systems Review of Systems: All systems reviewed & are unremarkable except as noted in HPI and below <Juan Manuel Richardson MD - Last Filed: 04/13/25 17:53> [facility] Past Medical History Medical History: Medical History Obstructive sleep apnea Primary osteoarthritis of knees, bilateral Synovial cyst SOB (shortness of breath) on exertion Cubital tunnel syndrome on right Cubital tunnel syndrome on left Colon cancer screening Borderline diabetes Morbid obesity Rheumatoid aortitis Hyperglycemia Hypothyroidism Obesity hypoventilation syndrome Rheumatoid arthritis <Alan Coyle MD - Last Filed: 04/13/25 06:32> Surgical History Surgical History: Surgical History History of surgical removal of ganglion cyst S/P ORIF (open reduction internal fixation) fracture right ankle and left wrist. S/P cubital tunnel release History of dilation and curettage bilateral arms History of carpal tunnel repair <Alan Coyle MD - Last Filed: 04/13/25 06:32> Family History Family History: Family History Mother Patient's mother is in good health Hypertension Kidney failure Dementia Alzheimer disease Father Patient's father is in good health Chronic obstructive pulmonary disease Emphysema of lung Sibling Patient's sister is in good health Grandparent Diabetes mellitus Family history of hypercholesterolemia <Alan Coyle MD - Last Filed: 04/13/25 06:32> Social History Social History: Social History Social History: the patient lives with her parents and her sister and [id number] and there are 2 little children. The patient stated that her dad is a durable power energy attorney for healthcare. The patient is a full code. She is single never been . Never had any children. 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 She isn't use any marijuana or illicit drugs no alcohol. Smoking status: Never smoker Second hand tobacco smoke exposure: No Alcohol intake: never Substance use: never Substance use type: does not use Do You Feel Safe in your Home?: Yes Lack of Transportation: No Lack of Food: Never True Current Housing: I Have Housing Concerned About Future Housing: No Difficulty Paying Gas/Electric Bills: No Difficulty Paying for Meds: No Currently Unemployed: No Education: High School Diploma/GED Difficulty w/ Childcare or Family Care: No Living arrangements: with family Occupation/Education: unemployed Gender identity (if verbalized by the patient): Female Spiritual care concerns: No <Alan Coyle MD - Last Filed: 04/13/25 06:32> Exam Narrative: APPEARANCE: No apparent distress. Head: atraumatic. EYES: EOMI, NOSE: Atraumatic NECK: Trachea midline RESPIRATORY: No increased rate of breathing CTAB CARDIOVASCULAR: RRR, lymphedema ABDOMINAL: Physical exam limited by obesity, tenderness in the right lower quadrant without guarding or rebound MUSCULOSKELETAl: No obvious deformities NEURO: Alert. Moving 4/4 extremities SKIN:: Warm, dry. Normal color PSYCHIATRIC: Normal affect <Alan Coyle MD - Last Filed: 04/13/25 06:32> Course Course Emergency Course: Patient care was signed out to me by the overnight physician with CT pending. Patient is afebrile but does have a leukocytosis of 14.5 and hemoglobin 11.0. No acute abnormalities on her CMP, UA was positive for infection. CT scan did show evidence of worsening diverticulitis with acute perforation. No abscess was noted. Case was discussed with surgery. Patient was started on IV Zosyn the emergency department. Case was also discussed with hospitalist patient was accepted for admission. Patient was updated the results of her workup and need for admission. All questions concerns were addressed patient was well-appearing at time of admission. <Juan Manuel Richardson MD - Last Filed: 04/13/25 17:53> Vital Signs Vital signs: Vital Signs Temperature 98.7 F 04/13/25 02:52 Pulse Rate 66 04/13/25 02:52 Respiratory Rate 18 04/13/25 02:52 Blood Pressure 157/78 H 04/13/25 02:52 Pulse Oximetry 93 04/13/25 02:52 Oxygen Delivery Room Air 04/13/25 02:52 Temperature 97.0 F L 04/13/25 14:28 Pulse Rate 68 04/13/25 15:33 Respiratory Rate 17 04/13/25 14:28 Blood Pressure 128/63 04/13/25 14:28 Pulse Oximetry 90 04/13/25 14:28 Oxygen Delivery Room Air 04/13/25 02:52 <Alan Coyle MD - Last Filed: 04/13/25 06:32> Vital Signs Temperature 98.7 F 04/13/25 02:52 Pulse Rate 66 04/13/25 02:52 Respiratory Rate 18 04/13/25 02:52 Blood Pressure 157/78 H 04/13/25 02:52 Pulse Oximetry 93 04/13/25 02:52 Oxygen Delivery Room Air 04/13/25 02:52 Temperature 97.0 F L 04/13/25 14:28 Pulse Rate 68 04/13/25 15:33 Respiratory Rate 17 04/13/25 14:28 Blood Pressure 128/63 04/13/25 14:28 Pulse Oximetry 90 04/13/25 14:28 Oxygen Delivery Room Air 04/13/25 02:52 <Juan Manuel Richardson MD - Last Filed: 04/13/25 17:53> Medical Decision Making [facility] Narrative Medical decision making narrative: -Course: 50-year-old female presenting with right lower quadrant pain x3 weeks. Physical exam is severely limited due to body habitus. Vital signs are stable and she does not appear to be in any distress. -DDX includes but is not limited to: Appendicitis, colitis, panniculitis, constipation, gastroenteritis <Alan Coyle MD - Last Filed: 04/13/25 06:32> Vital Signs Vital Signs: Vital Signs Temperature 98.7 F 04/13/25 02:52 Pulse Rate 66 04/13/25 02:52 Respiratory Rate 18 04/13/25 02:52 Blood Pressure 157/78 H 04/13/25 02:52 Pulse Oximetry 93 04/13/25 02:52 Oxygen Delivery Room Air 04/13/25 02:52 Temperature 97.0 F L 04/13/25 14:28 Pulse Rate 68 04/13/25 15:33 Respiratory Rate 17 04/13/25 14:28 Blood Pressure 128/63 04/13/25 14:28 Pulse Oximetry 90 04/13/25 14:28 Oxygen Delivery Room Air 04/13/25 02:52 <Alan Coyle MD - Last Filed: 04/13/25 06:32> Vital Signs Temperature 98.7 F 04/13/25 02:52 Pulse Rate 66 04/13/25 02:52 Respiratory Rate 18 04/13/25 02:52 Blood Pressure 157/78 H 04/13/25 02:52 Pulse Oximetry 93 04/13/25 02:52 Oxygen Delivery Room Air 04/13/25 02:52 Temperature 97.0 F L 04/13/25 14:28 Pulse Rate 68 04/13/25 15:33 Respiratory Rate 17 04/13/25 14:28 Blood Pressure 128/63 04/13/25 14:28 Pulse Oximetry 90 04/13/25 14:28 Oxygen Delivery Room Air 04/13/25 02:52 <Juan Manuel Richardson MD - Last Filed: 04/13/25 17:53> Lab Data Lab results reviewed: Yes I reviewed the patient's lab results. <Juan Manuel Richardson MD - Last Filed: 04/13/25 17:53> Result diagrams: 04/13/25 11:58 04/13/25 11:58 <Alan Coyle MD - Last Filed: 04/13/25 06:32> Labs: Lab Results 04/13/25 04/13/25 04/13/25 Range/Units 03:11 03:18 04:24 WBC 11.0 H (4.5-10.0) K/mm3 RBC 3.93 L (4.2-5.4) M/mm3 Hgb 10.8 L (12.0-15.0) g/dL Hct 36.1 L (37.0-47.0) % MCV 91.9 (80-100) fl MCH 27.5 (26-34) pg MCHC 29.9 L (32-36) g/dl RDW 14.6 H (11.5-14.5) % Plt Count 239 (150-375) k/mm3 MPV 10.1 (7.4-10.4) fl Immature Gran % (Auto) 0.3 (0-0.5) % Neut % (Auto) 82.9 H (45.5-73.1) % Lymph % (Auto) 10.0 L (18.3-44.2) % [place] % (Auto) 5.2 (2.6-8.5) % Eos % (Auto) 1.1 (0-4.4) % Baso % (Auto) 0.5 (0.2-1.2) % Lymph # (Auto) 1.10 (0.9-3.2) K/mm3 [place] # (Auto) 0.6 (0.1-0.6) K/mm3 Eos # (Auto) 0.1 (0-0.3) K/mm3 Baso # (Auto) 0.1 (0.0-0.1) K/mm3 Abs Immat Gran (auto) 0.03 (0.00-0.031) K/mm3 Absolute Neuts (auto) 9.1 H (1.3-6.7) K/mm3 Absolute Nucleated RBC 0.000 (0.0-0.012) K/mm3 Band Neutrophils % 0 (0-6) % Nucleated RBC % 0.0 (0.0-0.2) % Platelet Estimate Adequate (Adequate) Hypochromasia 1+ Ovalocytes 1+ Schistocytes None seen Sodium 135 L (137-145) mmol/L Potassium 3.6 (3.4-5.0) mmol/L Chloride 102 (98-107) mmol/L Carbon Dioxide 30 (22-30) mmol/L Anion Gap 3 L (4-12) mmol/L BUN 17 (7-17) mg/dL Creatinine 0.70 (0.7-1.0) mg/dL Estim Creat Clear Calc 110 ml/min Estimated GFR > 60 (59 - ) Glucose 115 H (65-110) mg/dL Lactic Acid 1.1 (0.7-2.0) mmol/L Calcium 8.1 L (8.4-10.2) mg/dL Total Bilirubin 0.5 (0.2-1.3) mg/dL AST 24 (14-36) U/L ALT 15 (6-35) U/L Alkaline Phosphatase 104 (38-126) U/L Total Protein 6.8 (6.3-8.2) g/dL Albumin 3.4 L (3.5-5.1) g/dL Lipase 42 (23-300) U/L Urine Color Yellow (Yellow) Urine Appearance Clear (Clear) Urine pH 6.0 (5.0-9.0) Ur Specific Newberry 1.041 H (1.001-1.035) Urine Protein Trace (Negative) mg/dL Urine Glucose (UA) 3+ H (Negative) mg/dL Urine Ketones Negative (Negative) mg/dL Ur Blood (Man) Trace (Negative) Urine Nitrate Negative (Negative) Urine Bilirubin Negative (Negative) Urine Urobilinogen 1.0 (<2.0) mg/dL Add Ur Microanalysis Reviewed Leukocyte Esterase Rfl 1+ H (Negative) ZIGGY/UL Urine RBC 11-20 H (0-2) /hpf Urine WBC 11-20 H (0-3) /hpf Ur Squamous Epith Cells Few (Few) /hpf Urine Bacteria 1+ H /hpf Urine Casts 0-2 Urine Yeast (Budding) Present H (None) /hpf <Alan Coyle MD - Last Filed: 04/13/25 06:32> Lab Results 04/13/25 04/13/25 04/13/25 Range/Units 03:11 03:18 04:24 WBC 11.0 H (4.5-10.0) K/mm3 RBC 3.93 L (4.2-5.4) M/mm3 Hgb 10.8 L (12.0-15.0) g/dL Hct 36.1 L (37.0-47.0) % MCV 91.9 (80-100) fl MCH 27.5 (26-34) pg MCHC 29.9 L (32-36) g/dl RDW 14.6 H (11.5-14.5) % Plt Count 239 (150-375) k/mm3 MPV 10.1 (7.4-10.4) fl Immature Gran % (Auto) 0.3 (0-0.5) % Neut % (Auto) 82.9 H (45.5-73.1) % Lymph % (Auto) 10.0 L (18.3-44.2) % [place] % (Auto) 5.2 (2.6-8.5) % Eos % (Auto) 1.1 (0-4.4) % Baso % (Auto) 0.5 (0.2-1.2) % Lymph # (Auto) 1.10 (0.9-3.2) K/mm3 [place] # (Auto) 0.6 (0.1-0.6) K/mm3 Eos # (Auto) 0.1 (0-0.3) K/mm3 Baso # (Auto) 0.1 (0.0-0.1) K/mm3 Abs Immat Gran (auto) 0.03 (0.00-0.031) K/mm3 Absolute Neuts (auto) 9.1 H (1.3-6.7) K/mm3 Absolute Nucleated RBC 0.000 (0.0-0.012) K/mm3 Band Neutrophils % 0 (0-6) % Nucleated RBC % 0.0 (0.0-0.2) % Platelet Estimate Adequate (Adequate) Hypochromasia 1+ Ovalocytes 1+ Schistocytes None seen Sodium 135 L (137-145) mmol/L Potassium 3.6 (3.4-5.0) mmol/L Chloride 102 (98-107) mmol/L Carbon Dioxide 30 (22-30) mmol/L Anion Gap 3 L (4-12) mmol/L BUN 17 (7-17) mg/dL Creatinine 0.70 (0.7-1.0) mg/dL Estim Creat Clear Calc 110 ml/min Estimated GFR > 60 (59 - ) Glucose 115 H (65-110) mg/dL Lactic Acid 1.1 (0.7-2.0) mmol/L Calcium 8.1 L (8.4-10.2) mg/dL Total Bilirubin 0.5 (0.2-1.3) mg/dL AST 24 (14-36) U/L ALT 15 (6-35) U/L Alkaline Phosphatase 104 (38-126) U/L Total Protein 6.8 (6.3-8.2) g/dL Albumin 3.4 L (3.5-5.1) g/dL Lipase 42 (23-300) U/L Urine Color Yellow (Yellow) Urine Appearance Clear (Clear) Urine pH 6.0 (5.0-9.0) Ur Specific Newberry 1.041 H (1.001-1.035) Urine Protein Trace (Negative) mg/dL Urine Glucose (UA) 3+ H (Negative) mg/dL Urine Ketones Negative (Negative) mg/dL Ur Blood (Man) Trace (Negative) Urine Nitrate Negative (Negative) Urine Bilirubin Negative (Negative) Urine Urobilinogen 1.0 (<2.0) mg/dL Add Ur Microanalysis Reviewed Leukocyte Esterase Rfl 1+ H (Negative) ZIGGY/UL Urine RBC 11-20 H (0-2) /hpf Urine WBC 11-20 H (0-3) /hpf Ur Squamous Epith Cells Few (Few) /hpf Urine Bacteria 1+ H /hpf Urine Casts 0-2 Urine Yeast (Budding) Present H (None) /hpf <Juan Manuel Richardson MD - Last Filed: 04/13/25 17:53> Imaging Data Radiologist's impression: Impressions Abdomen/Pelvis CT 04/13/25 07:14 IMPRESSION: Interval progression of acute diverticulitis with a contained perforation. No drainable fluid collection is identified at this point for which the imaging is recommended pending patient's clinical tolerance <Juan Manuel Richardson MD - Last Filed: 04/13/25 17:53> Discharge Plan Discharge Clinical Impression: Diverticulitis of colon with perforation <Alan Coyle MD - Last Filed: 04/13/25 06:32> Patient Disposition: Still a Patient <Alan Coyle MD - Last Filed: 04/13/25 06:32> Condition: Stable <Alan Coyle MD - Last Filed: 04/13/25 06:32>
--- OUTSIDE RECORDS SUMMARY | 2025-04-13 03:49 | XMS_ITS | Referral Summary ---
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 Gender Identity Not on file Sexual Orientation Not on file Last Filed Vital Signs Vital Sign Reading Time Taken Comments Blood Pressure 142/72 11/09/2012 1:13 PM CHRISTMAS TREE FARM MANAGER Pulse 78 11/09/2012 1:13 PM CHRISTMAS TREE FARM MANAGER Temperature - - Respiratory Rate - - Oxygen Saturation - - Inhaled Oxygen Concentration - - Weight 166.7 kg (367 lb 6.4 oz) 11/09/2012 1:13 PM CHRISTMAS TREE FARM MANAGER Height 175.3 cm (5' 9) 11/09/2012 1:13 PM CHRISTMAS TREE FARM MANAGER Body Mass Index 54.26 11/09/2012 1:13 PM CHRISTMAS TREE FARM MANAGER Plan of Treatment Not on file Insurance ID[place] [facility] [address] MEDICARE [facility] Address: [address] [address] [place] [address] [facility] Care Teams Bottom Presser Relationship Specialty Start Date End Date Antony Dowd MD [address] [place] [address] PCP - General 11/09/12
--- OUTSIDE RECORDS SUMMARY | 2025-04-13 03:49 | XMS_ITS | Clinical Summary ---
Author Organization [facility] [address] Address [address] [place] [address] Care Team Providers Care Facilities Mechanical Design Engineer Name Role Phone Antony Dowd MD Primary Care Provider [phone]- [phone] Allergies No known active allergies Medical History [...] on file Legal Sex Female 8:28 PM TRAFFIC CONTROL SPECIALIST Gender Identity Not on file Sexual Orientation Not on file Obstetrics History Last Filed Vital Signs Vital Sign Reading Time Taken Comments Blood Pressure 142/72 11/09/2012 1:13 PM TRAFFIC CONTROL SPECIALIST Pulse 78 11/09/2012 1:13 PM TRAFFIC CONTROL SPECIALIST Temperature - - Respiratory Rate - - Oxygen Saturation - - Inhaled Oxygen Concentration - - Weight 166.7 kg (367 lb 6.4 oz) 11/09/2012 1:13 PM TRAFFIC CONTROL SPECIALIST Height 175.3 cm (5' 9) 11/09/2012 1:13 PM TRAFFIC CONTROL SPECIALIST Body Mass Index 54.26 11/09/2012 1:13 PM TRAFFIC CONTROL SPECIALIST Plan of Treatment Not on file Insurance IDPA [facility] [place] [id number] MEDICARE [facility] Care Teams Facilities Mechanical Design Engineer Relationship Specialty Start Date End Date Antony Dowd MD [address] [place] [address] PCP - General 11/09/12
--- OUTSIDE RECORDS SUMMARY | 2025-04-13 03:49 | XMS_ITS | Continuity of Care Document ---
Author Organization formerly [facility] Address [address] [place] [address] [place] [address] Phone Care Team Providers Care Installation Helper Name Role Phone Preston Laura Unavailable Unavailable Procedures Procedure Date Office/outpatient Visit, [facility] Visual Field Examination-Professional No Visual Field Examination-Technical Office/outpatient Visit, [facility] No Script Advance Directives Directive Yes / No Effective Date File Name No Information Encounters Encounter Description Practice Location Reason(s) For Visit Diagnoses Date Provider Providers Copied on Encounter Office/outpat ient Visit, [facility], [address] [place] [address] [address], [place], [place], [id number], tel:[phone] [facility] No Information 0-201 0 Krishnasamy Preston. [facility], [facility] [place], [place]. tel:[phone] [facility], [address] [place] [address] [address], [place], [place], [id number], [place] tel:[phone] [facility] No Information 0 5-200 9 Krishnasamy Preston. [address], [facility] [place]. tel:[phone] Referring Provider: Preston jameson, [address], [facility]. tel:[phone] [facility], [address] [place] [address] [address], [place], [place], [id number], tel:[phone] [facility] No Information 3 0-200 9 Valentín Ariasl. [facility] [address], [facility], . tel:[phone] Referring Provider: Preston jameson, [address] [place] [address], [facility]. tel:[phone] Office/outpat ient Visit, [facility], [address], [place], [place], [id number], tel:[phone] [facility] No Information 0 2-200 9 Valentín Owenshil. [facility] [address], [facility], . tel:[phone] Family History Family Member Type Diagnosis Age At Onset No Information Payers Payer name Insurance type Covered republican ID Authoriza tion(s) Medicare [facility] [id number] Medicaid [facility] [id number] Social History Type Description Quantity Date Captured [...]
--- OUTSIDE RECORDS SUMMARY | 2025-04-13 03:49 | XMS_ITS | Encounter Summary ---
Author Organization [facility] Address [facility] [place] [address] Care Team Providers Care Donor Floor Technician Name Role Phone NileJosiasAntonyvon Jaramillo DO Primary Care Provider [phone] Donavon Todd PA-C Primary Care Provide r Durga Ford DO Primary Care Provider Zeenat castro Encounter Details Date Type Department Care Team (Late Contact Info) Description 04/29/2021 Telephone [facility] [address] [place] [address] Dodie Hidalgo MD [facility] [address] [place] [address] Social History Tobacco Use Types Packs/Day Years Used Date Smoking Tobacco: Never Smokeless Tobacco: Never Alcohol Use Standard Drinks/Week Comments No 0 (1 standard drink = 0.6 oz pur e alcohol) Comments No Sex and Gender Information Value Date Recorded Sex Assigned at Not on file Legal Sex Female 5:12 PM DIRECTOR OF GUIDANCE Gender Identity Not on file Sexual Orientation Not on file documented as of this encounter Plan of Treatment Upcoming Encounters Date Type Department Care Team (Late Contact Info) Description 04/27/2025 10:[address] [facility] [address] [place] [address] Spenser Fry MD [address] [place] [address] [address] [place] [phone] 05/01/2025 2:40 PM CDT Office Visit [facility] - Rheumatology [address] [place] [address], [place] [phone] Spenser Fry MD [address] [place] [address] [address] [place] [phone] documented as of this encounter Visit Diagnoses Not on filedocumented in this encounter Care Teams Donor Floor Technician Relationship Specialty Start Date End Date Antony Dowd DO [address] [facility] [address] [place] [address] PCP - General 03/01/09 12/08/23 Donavon Todd PA-C [address] [place] [address] PCP - General Physician Electrical Engineering Manager 12/09/23 11/13/24 Durga Ford DO PCP - General Obstetrics and Gynecology 11/14/24 documented as of this encounter
--- OUTSIDE RECORDS SUMMARY | 2025-04-13 03:49 | XMS_ITS | Clinical Summary ---
Author Organization [facility] Address [address] [place] [address] Phone Care Team Providers Care Lead Project Engineer Name Role Phone Antony Dowd DO Primary Care Provider [phone] Allergies No known active allergies Medications folic [...] Pain. Active fluticasone propionate (FLONASE) 50 mcg/spray [place], Suspension nasal inhaler Administer 2 Sprays in [...] be different from the original. Mitch Arroyo MD--Brick And Tile Making Machine Operator ([facility] @ ) Problem Noted Date Diagnosed Date Immunocompromised patient 11/15/2023 Bilateral pneumonia 11/15/2023 Sepsis with acute renal fail ure and tubular necrosis without septic shock 11/15/2023 Rhinovirus infection 11/14/2023 Acute on chronic respiratory failure with hypoxi a 11/14/2023 Influenza A 11/06/2023 Orthostatic syncope 08/27/2021 Chronic combined systolic and diastolic CHF, [facility] A class 1 01/02/2021 Paroxysmal atrial [...] 36.9 C (98.4 F) 11/17/2023 5:32 PM AGRICULTURE TECHNICIAN Respiratory Rate 20 11/17/2023 5:32 PM AGRICULTURE TECHNICIAN Oxygen Saturation 96% 07/12/2024 10: 24 AM CDT Inhaled Oxygen Concentration - - Weight 135.7 kg (299 lb 3.2 oz) 024 10:24 AM CDT Height 170.2 cm (5' 7) 07/12/2024 10:2 4 AM CDT Body Mass Index 46.86 07/12/2024 10:24 AM CDT Plan of Treatment Upcoming Encounters Date Type Department Care Team (Late st Contact Info) Description 07/23/2025 10:15 AM AGRICULTURE TECHNICIAN Office Visit [facility] [address] [place] [address] Mitch Arroyo MD [facility] [address] [place] [address] Health Maintenance Due Date Last [...] SMEAR 07/28/2020 07/28/2017 INFLUENZA VACCINE (#1) 2025 0, 05/24/2019, 06/06/2016, Additional history exists BREAST CANCER SCREENING 06/06/2025 06/06/20 24, 06/06/2024, 05/26/2022, Additional history exists Pre-Diabetes and Diabetes Screening 11/06/2026 11/06/2023, 06/27/2020 COLORECTAL SCREENING 06/15/2032 06/15/2022 Colorectal Cancer Screening 06/15/2032 Procedures Procedure Name Priority Date/Time Associated Diagnosis Comments HEMOGLOBIN A1C Routine 11/06/2023 2:26 AM AGRICULTURE TECHNICIAN from Last 3 Months or Most Recently Relevant to Health Maintenance Results * HEMOGLOBIN A1C (11/06/2023 2:26 AM AGRICULTURE TECHNICIAN) HEMOGLOBIN A1C 5.4 <5.7 % 11/06/2023 10:37 AM AGRICULTURE TECHNICIAN [facility] EST. AVG GLUCOSE, A1C 108 mg/dL 11/06/2023 10:37 AM [facility] [employer] [facility] Blood Venipuncture / Unknown 11/06/2023 2:26 AM AGRICULTURE TECHNICIAN 11/06/2023 2:32 AM AGRICULTURE TECHNICIAN Narrative [facility] [employer] [facility] - 11/06/2023 10:37 AM AGRICULTURE TECHNICIAN HGB A1C INTERPRETATION NORMAL: <5.7% PRE-DIABETES: 5.7 - 6.4% DIABETES: 6.5% OR GREATER Shaan Sawyer MD CHEMISTRY ORDERABLES Fi nal Result [facility] [employer] [facility] CLIA# [id number] [address] [place] [address] from Last 3 Months or Most Recently Relevant to Health Maintenance Insurance MEDICAID [place] MEDICARE PART A AND B [facility] RX GARCIA PLANS (INTERNAL) [facility] [...] Advance Directives For more information, please contact: [phone] * Full Code (Latest Code Status on [...] 2:38 PM 07/10/2020 11:32 AM Care Teams Lead Project Engineer Relationship Specialty Start Date End Date Antony Dowd DO [address] [facility] [address] [place] [id number] PCP - General Internal Medicine 06/28/20
--- OUTSIDE RECORDS SUMMARY | 2025-04-13 03:49 | XMS_ITS | Clinical Summary ---
Author Organization [facility] Address [address] [facility] [place] [address] Care Team Providers Care Medical Reception Name Role Phone Durga Ford DO Primary Care Provider Zeenat castro Source Comments [facility],non-owned Affiliates and Associated Physician Practices is amultiple site organization consisting of ambulatory clinics and hospital sitesin [place], [place], [place] and [place]. This disclosure is being madepursuant to the Care Everywhere program and may not contain all informatio navailable regarding this patient. Last updated 18.[facility] Allergies No known active allergies Medications * Be aware that medications may not be up to date on this document. Alwaysverify current medications with the patient. nystatin (NYSTOP) [id number] UNIT/GM powder 07/22/20 16 Active melatonin 3 [...] Encounters Date Type Department Care Team Description 03/30/2025 9:57 AM CDT - 03/30/2025 11:59 PM CDT Hospital Encounter [facility] [address] [place] [address] Spenser Fry MD Discharge Disposition: Home or Self Care 03/29/2025 Orders Only [facility] - Rheumatology [address] [place] [phone] Spenser Fry MD 02/13/2025 9:42 AM CDT - 02/13/2025 11:59 PM CDT Hospital Encounter [facility] [address] [place] [address] Spenser Fry MD Discharge Disposition: Home or Self Care 01/16/2025 9:39 AM CDT - 01/16/2025 11:59 PM CDT Hospital Encounter [facility] [address] [place] [address] Spenser Fry MD Discharge Disposition: Home or [...] on file Legal 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 Gender Identity Not on file Sexual Orientation Not on file Last Filed Vital Signs Vital Sign Reading Time Taken Comments Blood Pressure 182/86 03/30/2025 10:04 AM CDT Pulse 64 03/30/2025 10:04 AM CDT Temperature 35.9 C (96.7 F) 03/30/2025 10:04 AM CDT Respiratory Rate 20 03/30/2025 10:04 AM CDT Oxygen Saturation 97% 03/30/2025 10:04 AM CDT Inhaled Oxygen Concentration - - Weight 128.8 kg (284 lb) 03/30/2025 10:04 AM CDT Height 170.2 cm (5' 7.01) 09/26/2024 8:34 AM CS T Body Mass Index 44.47 09/26/2024 8:34 AM 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 Plan of Treatment Upcoming Encounters Date Type Department Care Team (Late st Contact Info) Description 04/27/2025 10:00 AM CDT Appointment [facility] [address] [place] [phone] Spenser Fry MD [address] [place] [address] [address] [place] [address] 05/01/2025 2:40 PM CDT Office Visit [facility] - Rheumatology [address] [place] [address], [place] [address] Spenser Fry MD [address] [place] [address] [address] [place] [address] Health Maintenance Due Date Last Done Comments [...] MAMMOGRAM 06/06/2026 06/06/2024 SCREENING FOR DIABETES 11/16/2026 4, 11/17/2023, 11/16/2023, Additional history exists LIPID TESTING 11/14/2028 11/15/2023, 11/2023, 08/29/2021, Additional history exists HIV SCREENING [...] Associated Diagnosis Comments HEPATIC FUNCTION PANEL Routine 03/30/2025 10:12 AM CDT Therapeutic drug monitoring CREATININE BLOOD Routine 03/30/2025 10:1 2 AM CDT Therapeutic drug monitoring CBC W AUTO DIFFERENTIAL Routine 03/30/2025 10:12 AM CDT Therapeutic drug monitoring MAMMOGRAM Routine [...] Maintenance Results * (ABNORMAL) CBC WITH DIFFERENTIAL (03/30/2025 10:12 AM CDT) WBC 8.3 4.0 - 10.7 x10E9/L 03/30/2025 10:53 AM [facility] RBC Count 4.05 3.90 - 5.20 x10E12/L 03/30/2025 10:53 AM [facility] Hemoglobin 11.2(L) 11.9 - 15.8 g/dL 03/30/2025 10:53 AM [facility] Hematocrit 35.8 34.8 - 46.1 % 03/30/2025 10:53 AM [facility] MCV 88.4 80.0 - 98.0 fL 03/30/2025 10:53 AM [facility] MCH 27.7 26.7 - 33.6 pg 03/30/2025 10:53 AM [facility] MCHC 31.3(L) 31.7 - 36.3 g/dL 03/30/2025 10:53 AM [facility] RDW-CV 15.3(H) 11.3 - 14.8 % 03/30/2025 10:53 AM [facility] Platelet Count 200 150 - 420 x10E9/L 03/30/2025 10:53 AM [facility] MPV 10.5 7.8 - 11.4 fL 03/30/2025 10:53 AM [facility] Preliminary Absolute Neutrophil 5.97 1.60 - 7.50 x10E9/L 03/30/2025 10:53 AM [facility] Neutrophil % 71.8 41.0 - 74.0 % 03/30/2025 10:53 AM [facility] Lymphocyte % 18.0 17.0 - 47.0 % 03/30/2025 10:53 AM [facility] Monocyte % 7.6 3.0 - 11.0 % 03/30/2025 10:53 AM [facility] Eosinophil % 1.7 0.0 - 7.0 % 03/30/2025 10:53 AM [facility] Basophil % 0.5 0.0 - 1.6 % 03/30/2025 10:53 AM [facility] Immature Granulocytes % 0.4 0.0 - 1.0 % 03/30/2025 10:53 AM [facility] Neutrophil Absolute 5.97 1.60 - 7.50 x10E9/L 03/30/2025 10:53 AM [facility] Lymphocyte Absolute 1.49 1.00 - 4.40 x10E9/L 03/30/2025 10:53 AM [facility] Monocyte Absolute 0.63 0.15 - 1.00 x10E9/L 03/30/2025 10:53 AM [facility] Eosinophil Absolute 0.14 0.00 - 0.60 x10E9/L 03/30/2025 10:53 AM [facility] Basophil Absolute 0.04 0.00 - 0.13 x10E9/L 03/30/2025 10:53 AM [facility] Blood BLOOD SPECIMEN / Unknown Venipuncture / Unknown 03/30/2025 10:12 AM T 03/30/2025 10:47 AM [facility] us Spenser Fry MD LAB - HEMATOLOGY ORDERABLES F inal Result [facility] [address] [place] [address], [facility] [phone] * (ABNORMAL) HEPATIC FUNCTION PANEL (03/30/2025 10:12 AM CDT) Protein Total 6.4 6.0 - 8.3 g/dL 11:26 AM [facility] Albumin 2.9(L) 3.4 - 5.0 g/dL 03/30/2025 11:26 AM [facility] Bilirubin Total 0.3 0.2 - 1.2 mg/dL 03/13 11:26 AM [facility] Bilirubin Conjugated 0.2 0.1 - 0.5 mg/dL 03/30/2025 11:26 AM [facility] Bilirubin Unconjugated 0.1 Unconjugated Bilirubin is a calculated value: Reference ranges have not been established. mg/dL 03/30/2025 11:26 AM [facility] Alkaline Phosphatase 88 40 - 150 U/L 03/30/2025 11:26 AM [facility] ALT 14 5 - 55 U/L 03/30/2025 11:26 AM [facility] AST 19 5 - 34 U/L 03/30/2025 11:26 AM [facility] Albumin/Globulin Ratio 0.8(L) 1.1 - 2.3 03/30/2025 11:26 AM [facility] Blood BLOOD SPECIMEN / Unknown Venipuncture / Unknown 03/30/2025 10:12 AM CDT 03/30/2025 10:47 AM T us Spenser Fry MD LAB - CHEMISTRY ORDERABLES Fi nal Result [facility] [address] [place] [address], [facility] [phone] * CREATININE BLOOD (03/30/2025 10:12 AM CDT) Creatinine 0.61 0.56 - 0.96 mg/dL 03/30/2025 11:26 AM [facility] eGFR by CKD-EPI >90 >=90 mL/min/1.7 3 m2 03/30/2025 11:26 AM CDT [facility] Comment:Estimated Glomerular Filtration Rate (eGFR) calculated using the CKD-EPI Creatinine Equation (2020), per the National Kidney Foundation and [place] Society of Nephrology recommendations. Blood BLOOD SPECIMEN / Unknown Venipuncture / Unknown 03/30/2025 10:12 AM CDT 03/30/2025 10:47 AM CDT Spenser Fry MD LAB - CHEMISTRY ORDERABLES Fi nal Result Performing Organization Address City/[facility]/ZIP Co de Phone Number [facility] [address] [place] [address], [place] [phone] * MAMMOGRAM (06/06/2024 7:06 AM CDT) Anatomical Region Laterality Modality Other Historical Provider SCANNING ONLY Final Res ult * HEPATITIS [...] ORDERABLES Fi nal Result Performing Organization Address City/[facility]/ZIP Co de Phone Number [facility] [address] [place] [address], [place] [phone] * (ABNORMAL) COMPREHENSIVE METABOLIC PANEL (06/29/2022 12:13 PM CDT) BUN 32(H) 7 - 26 mg/dL 06/29/2022 1:25 PM [facility] Creatinine 0.79 0.56 - 0.96 mg/dL 06/29/2022 1:25 PM [facility] Sodium 141 136 - 145 mmol/L 06/29/2022 1:25 PM [facility] Potassium 4.3 3.5 - 4.5 mmol/L 06/29/2022 1:25 PM [facility] Chloride 104 98 - 107 mmol/L 06/29/2022 1:25 PM [facility] CO2 25 22 - 29 mmol/L 06/29/2022 1:25 PM [facility] Glucose 107 70 - 115 mg/dL 06/29/2022 1:25 PM [facility] Calcium 8.9 8.4 - 10.2 mg/dL 06/29/2022 1:25 PM [facility] Protein Total 7.0 6.0 - 8.3 g/dL 06/29/2022 1:25 PM [facility] Albumin 3.0(L) 3.4 - 5.0 g/dL 06/29/2022 1:25 PM [facility] Bilirubin Total 0.5 0.2 - 1.2 mg/dL 06/29/2022 1:25 PM [facility] Alkaline Phosphatase 135 40 - 150 U/L 06/29/2022 1:25 PM [facility] ALT 25 5 - 55 U/L 06/29/2022 1:25 PM [facility] AST 23 5 - 34 U/L 06/29/2022 1:25 PM [facility] Anion Gap 16 8 - 18 06/29/2022 1:25 PM [facility] BUN/Creatinine Ratio 41(H) 7 - 23 06/29/2022 1:25 PM [facility] Osmolality Calculated 299 270 - 300 mOsm/kg 06/29/2022 1:25 PM [facility] Albumin/Globulin Ratio 0.8(L) 1.1 - 2.3 06/29/2022 1:25 PM [facility] eGFR by CKD-EPI >90 >=90 mL/min/1.7 3 m2 06/29/2022 1:25 PM CDT [facility] Blood BLOOD SPECIMEN / Unknown Venipuncture / Unknown 06/29/2022 12:13 PM CDT 06/29/2022 12:41 PM CDT us Dodie Hidalgo MD LAB - CHEMISTRY ORDERAB LES Final Result [facility] [address] [place] [address], [facility] [phone] from Last 3 Months or Most Recently Relevant to Health Maintenance Insurance MEDICARE MEDICAID - [place] Care Teams Medical Reception Relationship Specialty Start Date End Date Durga Ford DO PCP - General Obstetrics and Gynecology 11/14/24
--- OUTSIDE RECORDS SUMMARY | 2025-04-13 03:50 | XMS_ITS | Patient Health Record ---
Author Organization [facility] [employer] [facility] Address [address] [place] [address] Care Team Providers Care Coffin Maker Name Role Phone Mylene Fang Unavailable [phone] Rosangela Zeny Unavailable [phone] Allergies No Known Allergies Reason For Referral No Information Medications Medication SIG (Take, Route, Frequency, Duration) Notes Start Date End Date Status Diphenoxylate-Atropin e 2.5-0.025 MG Oral 11/29/2023 Unknown ARIPiprazole 30 MG TAKE 1 TABLET BY MOUTH DAILY; Duration: 90 Active Multivitamin Adults Oral 11/29/2023 Unknown Fluconazole 150 MG Oral 11/29/2023 Unknown Meclizine HCl 25 MG Oral 11/29/2023 Unknown GEMTESA 75 MG TABLET *Reorder fr [facility] for eRx and Interaction Alerts* 11/29/2023 Unknown Levothyroxine Sodium 200 MCG Oral 11/29/2023 Unknown Furosemide 40 MG Oral 11/29/2023 Un known Fluticasone Propionate Diskus 50 MCG/ACT Inhalation *Reorder from [facility] for eRx and Interaction Alerts* 11/29/2023 Unknown Sertraline HCl 100 MG 2 tablet every morning Orally Once a day; Duration: 90 days Active busPIRone HCl 7.5 MG 1 tablet Oral three times a day; Duration: 90 days Active Xarelto 20 MG Oral 11/29/2023 Unkno wn Metoprolol Succinate ER 50 MG Oral 11/29/2023 Unknown Divalproex Sodium 500 MG 1 tablet Orally Once a day; Duration: 90 days Active Abilify 30 MG 1 tablet Oral Once a day; Duration: 90 days Active hydrALAZINE HCl 25 MG Oral 11/29/2023 Unknown Lisinopril 5 MG Oral 11/29/2023 Unk nown Immunizations Vaccine Route Administration Date Status Comme [...] Severe recurrent major depression without psychotic features (10117778) Major depressive disorder, recurrent severe without psychotic features (F33.2) Active confirmed Problem Generalized anxiety disorder (F41.1) Active confirmed Problem Insomnia 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 (10175627) Insomnia due to 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) Active confirmed Problem Intellectual disability (disorder) (518615942) Unspecified intellectual disabilities (F79) Active confirmed Vital Signs Heart Rate 64 /min 04/05/2025 Blood pressure diastolic 78 mm Hg 04/05/2025 Height-cm 172.72 cm 04/05/2025 Weight-kg 127.46 kg 04/05/2025 Height 68.00 in 04/05/2025 Blood pressure systolic 146 mm Hg 04/05/2025 Weight 281 lbs 04/05/2025 BMI 42.72 kg/m2 04/05/2025 Encounters Encounter Location Date Provider Diagnosis [facility] [address] [address] 05/16/2024 Mylene Fang Major depressive disorder, recurrent severe without psychotic features F33.2 ; Unspecified intellectual disabilities F79 ; Generalized anxiety disorder F41.1 and Insomnia due to other mental disorder F51.05 [facility] [address] [address] 08/15/2024 Mylene Fang Major depressive disorder, recurrent severe without psychotic features F33.2 ; Unspecified intellectual disabilities F79 ; Generalized anxiety disorder F41.1 and Insomnia due to other mental disorder F51.05 [facility] [employer] [address] [address] 11/21/2024 Mylene Fang Unspecified intellectual disabilities F79 ; Other watermelon inspector (current) drug therapy Z79.899 ; Generalized anxiety disorder F41.1 ; Major depressive disorder, recurrent severe without psychotic features F33.2 ; Insomnia due to other mental disorder F51.05 ; Encounter for screening for cardiovascular disorders Z13.6 ; Encounter for screening for depression Z13.31 and On custodial drug therapy Z79.899 [facility] [employer] [place] [address] [facility] [address] [address] 04/05/2025 Mylene Fang Unspecified intellectual disabilities F79 ; Generalized anxiety disorder F41.1 ; Major depressive disorder, recurrent severe without psychotic features F33.2 and Insomnia due to other mental disorder F51.05 [facility] [employer] [address] [address] 04/20/2024 Mylene Fang [facility] [employer] [address] [address] 04/14/2024 Zeny Adames Assessments Encounter Date Diagnosis (ICD Code) Assessment Notes Treatment Notes Treatment Clinical Notes Section Notes 04/05/2025 Unspecified intellectual disabilities (ICD-10 - F79) LABS: completed 12/202411/21/2024 Unspecified intellectual disabilities (ICD-10 - F79) 11/21/2024 Other custodial (current) drug therapy (ICD-10 - Z79.899) 08/15/2024 [...] with first generation antipsychotics) and more. 08/15/2024 Unspecified intellectual disabilities (ICD-10 - F79) 11/21/2024 Generalized anxiety disorder (ICD-10 - F41.1) 04/05/2025 Generalized anxiety disorder (ICD-10 - F41.1) LABS: completed 12/202405/16/2024 Unspecified intellectual disabilities (ICD-10 - F79) 11/21/2024 Major depressive disorder, recurrent severe without [...] with first generation antipsychotics) and more. 11/21/2024 Insomnia due to other mental disorder (ICD-10 - F51.05) 04/05/2025 Major depressive disorder, recurrent severe without psychotic [...] common with first generation antipsychotics) and more. LABS: completed 12/202405/16/2024 Generalized anxiety disorder (ICD-10 - F41.1) 08/15/2024 Generalized anxiety disorder (ICD-10 - F41.1) 08/15/2024 Insomnia due to other mental disorder (ICD-10 - F51.05) 05/16/2024 Insomnia due to other mental disorder (ICD-10 - F51.05) 11/21/2024 Encounter for screening for cardiovascular disorders (ICD-10 - Z13.6) 04/05/2025 Insomnia due to other mental disorder (ICD-10 - F51.05) LABS: completed 12/202411/21/2024 Encounter for screening for depression (ICD-10 - Z13.31) 11/21/2024 On watermelon inspector drug therapy (ICD-10 - Z79.899) 05/16/2024 Other [...] of psychotropic medications. -Crisis prevention hotline 988. 04/05/2025 Other Increase buspar to 7.5mg TID for irritability, anxiety Patient educated on all medications including potential benefits, side effects, risks. Educated on proper dosing schedule and importance of compliance. Supportive therapy provided Labs completed and reviewed -Assessment and treatment plan reviewed with patient. -Compliance with treatment plan importance discussed. -Discussed the risks/benefits of this medication -Discussed medication side effects. -Contact office if symptoms worsen. -Discussed that it can take up to 6-8 weeks to see full therapeutic effects of psychotropic medications. -Crisis prevention hotline 988. LABS: completed 12/2024 Plan Of Treatment Pending Test Test Name Order Date LIPID PANEL, STANDARD (7600) 11/21/2024 THYROID PANEL WITH TSH (7444) 11/21/2024 COMPREHENSIVE METABOLIC PANEL (97104) CBC (INCLUDES DIFF/PLT) (6399) HEMOGLOBIN A1c (496) 11/21/2024 VITAMIN B12/FOLATE, SERUM PANEL (7065) 0 11/21/2024 VITAMIN D,25-OH,TOTAL,IA (88611) 025 Next Appt Details Provider Name:Mylene russell, 06/07/2025 11:30:00 AM, [address], [facility] [address], [place], [address], Insurance Providers Payer Name Payer Address Payer Phone Subscriber Number Group Number Insured Name Patient Relationship to Insured Coverage Start Date Coverage End Date Medicare-I l Medicare [address] [place] [phone] [id number] SHAYY YOUNG Self - patient is the insured Medicaid-I l Medicaid [address] [address] [place] [address] [id number] SHAYY YOUNG Self - patient is the insured Medical (General) History Medical History History ICD Code Problems: Generalized anxiety disorder Insomnia disorder related to another men kelli disorder Intellectual disability Obesity Severe recurrent major depression Surgical History Surgery Date(Month/Year) Surgical manipulation of ankle joint (26 [id number]) Neurosurgery Other Carpal tunnel surgery (34379) Heart surgery Heart surgery 1975
[2025-04-13 04:43] LABS: Add Urine Microscopic? YES; Appearance Urine Clear (Clear); Budding Yeast Urine Present /hpf; Glucose Urine UA 3+ mg/dL (Negative); Leukocyte Esterase Ur 1+ LEU/UL (Negative); Need Manual Microscopic Reviewed; Nitrate Urine Negative (Negative); Non Pathogenic Casts 0-2; Specific Grav Ur 1.041 (1.001-1.035)
[2025-04-13] MEDS: cefTRIAXone 1 GM in SODIUM CHLORIDE 0.9% IV 50 ML 100 ML IVPB (07:04)
[2025-04-13] MEDS: PIPERACILLIN/TAZOBACTAM SOD 3.375 GM in SODIUM CHLORIDE 0.9% IV 50 ML 100 ML IVPB ×3 (08:18→20:27)
--- NOTE | 2025-04-13 08:53 | PM.CNGS ---
Assessment and Plan Assessment and plan (1) Diverticulitis of colon with perforation: Code(s): K57.20 - Diverticulitis of large intestine with perforation and abscess without bleeding Status: Acute Assessment and Plan: Patient 1st started having lower abdominal pain about 3 weeks ago. At this time a CT scan was obtained and demonstrated sigmoid diverticulitis. Patient was never placed on any antibiotics. Pain continued to worsen throughout this time, it became intolerable last night, prompting her to present to the ED. Repeat CT scan was obtained and demonstrated interval progression of acute diverticulitis with a contained perforation. No drainable fluid collection. WBC 11.0. Afebrile. Patient will be admitted to hospitalist service. We will proceed with conservative medical treatment with IV Zosyn. Continue pain control and nausea control regimens. Patient should remain NPO. We will continue to monitor with serial abdominal exams. Plan Discussed patient's case and plan of care with Dr. Nixon. History of Present Illness Consult details Consult date: 04/13/25 Reason for consult: other (Diverticulitis with perforation) Requesting physician: Juan Manuel Richardson MD Narrative: Patient is a 50-year-old female with past medical history of JAMILA and morbid obesity who we have been asked to see in surgical consultation for diverticulitis with perforation. Patient states that she has been having right lower quadrant pain for roughly 3 weeks. At the time of symptom onset, patient presented to her PCP who ordered a CT scan of the abdomen. The CT demonstrated acute sigmoid diverticulitis. Patient states that her PCP never contacted her back to discuss these results, thus she was never placed on any antibiotics. Since this time the pain has been intermittent and has continued to worsen. Yesterday around 5:00 p.m., the pain became intolerable. Patient recalls previously having lunch with her parents in the afternoon and then having a bowel movement shortly afterwards without any pain relief. She had a small dinner consisting of soup, and then had an episode of emesis. She then presented to the ED later in the evening. Upon admission to ED, a repeat CT scan was obtained and demonstrated a fluid-filled distended colon with surrounding inflammatory change. Air-fluid levels extending retrograde to the level of the distal ileum. A contained perforation was noted within the proximal sigmoid colon. No drainable fluid collection. WBC 11.0. All other labs fairly normal. Afebrile. Elevated blood pressure. Patient has never had any abdominal surgeries. Last bowel movement and last emesis were both yesterday. Patient feeling very nauseous upon interview today. Jarett levi. [facility] Past Medical History Medical History Obstructive sleep apnea Primary osteoarthritis of knees, bilateral Synovial cyst SOB (shortness of breath) on exertion Cubital tunnel syndrome on right Cubital tunnel syndrome on left Colon cancer screening Borderline diabetes Morbid obesity Rheumatoid aortitis Hyperglycemia Hypothyroidism Obesity hypoventilation syndrome Rheumatoid arthritis Surgical History Surgical History History of surgical removal of ganglion cyst S/P ORIF (open reduction internal fixation) fracture right ankle and left wrist. S/P cubital tunnel release History of dilation and curettage bilateral arms History of carpal tunnel repair Family History Family History Mother Patient's mother is in good health Hypertension Kidney failure Dementia Alzheimer disease Father Patient's father is in good health Chronic obstructive pulmonary disease Emphysema of lung Sibling Patient's sister is in good health Grandparent Diabetes mellitus Family history of hypercholesterolemia Social History Social History Social History: the patient lives with her parents and her sister and [id number] and there are 2 little children. The patient stated that her dad is a durable power transactional attorney for healthcare. The patient is a full code. She is single never been . Never had any children. 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 She isn't use any marijuana or illicit drugs no alcohol. Smoking status: Never smoker Second hand tobacco smoke exposure: No Alcohol intake: never Substance use: never Substance use type: does not use Do You Feel Safe in your Home?: Yes Lack of Transportation: No Lack of Food: Never True Current Housing: I Have Housing Concerned About Future Housing: No Difficulty Paying Gas/Electric Bills: No Difficulty Paying for Meds: No Currently Unemployed: No Education: High School Diploma/GED Difficulty w/ Childcare or Family Care: No Living arrangements: with family Occupation/Education: unemployed Gender identity (if verbalized by the patient): Female Spiritual care concerns: No Meds Home Medications and Allergies Home Medications ?Medication ?Instructions ?Recorded ?Confirmed ?Type hydroxychloroquine 200 mg tablet 200 mg PO BID 10/08/20 12/05/24 History meclizine 25 mg tablet 25 mg PO TID PRN dizziness #30 tabs 10/14/21 12/05/24 Rx divalproex 250 mg tablet,delayed 500 mg PO DAILY 12/02/22 12/05/24 History release rivaroxaban 20 mg tablet (Xarelto) 20 mg PO DAILY 03/29/23 12/05/24 History vibegron 75 mg tablet (Gemtesa) 75 mg PO DAILY 06/01/23 12/05/24 History buspirone 5 mg tablet 5 mg PO TID 06/17/23 12/05/24 History sertraline 100 mg tablet 200 mg PO DAILY 06/17/23 12/05/24 History Orencia See Rx Instructions .Route .COMPLEX 11/01/23 12/05/24 History aripiprazole 10 mg tablet 10 mg PO HS 11/01/23 12/05/24 History leflunomide 20 mg tablet 20 mg PO DAILY 11/01/23 12/05/24 History melatonin 3 mg tablet 3 mg PO HS 12/08/23 12/05/24 History dapagliflozin propanediol 10 mg 10 mg PO DAILY 06/02/24 06/02/24 History tablet (Farxiga) ferrous sulfate 325 mg (65 mg 325 mg PO DAILY 06/02/24 12/05/24 History iron) tablet furosemide 20 mg tablet 20 mg PO BID 06/02/24 12/05/24 History metoprolol succinate 50 mg 50 mg PO DAILY #90 tabs 06/09/24 12/05/24 Rx tablet,extended release 24 hr Calcium PO 12/05/24 12/05/24 History alendronate 70 mg tablet 70 mg PO WEEKLY 12/05/24 12/05/24 History levothyroxine 75 mcg capsule 75 mcg PO DAILY 12/05/24 12/05/24 History tramadol 50 mg tablet 50 mg PO Q8H PRN pain #90 tabs 12/15/24 Rx benzonatate 200 mg capsule 200 mg PO TID PRN cough #30 caps 01/05/25 Rx losartan 25 mg tablet 25 mg PO DAILY #30 tabs 01/25/25 Rx levothyroxine 200 mcg tablet 200 mcg PO DAILY #90 tabs 04/05/25 Rx Allergies Allergy/AdvReac Type Severity Reaction Status Date / Time No Known Allergies Allergy Verified 12/05/24 09:48 Vital Signs Vital Signs - 24 hr 04/13/25 02:52 04/13/25 04:27 04/13/25 06:07 Temperature 98.7 F Pulse Rate 66 66 63 Respiratory Rate 18 22 H 23 H Blood Pressure 157/78 H 164/87 H 154/91 H Pulse Oximetry 93 94 93 Oxygen Delivery Room Air Exam Const: Other: Patient feeling very nauseous and uncomfortable. Eyes: General: appearance normal, both eyes and all related structures Neck: Neck: supple and no JVD Resp: Effort & Inspection: normal respiratory effort Cardio: Rate: regular rate GI: Inspection: non-distended, Pannus present and obesity GI Palp: Yes abdominal tenderness (Right lower quadrant) and Yes Soft to palpation Auscultation: normal bowel sounds : General: Yes bladder normal to palpation Skin: General skin exam: normal color and no rashes or lesions noted Neuro: Speech: normal speech Sensory Exam: normal sensation Extrem: General: normal to inspection Psych: Mental Status: mental status grossly normal Results Labs 04/13/25 03:11 04/13/25 03:11 Labs: Abnormal lab results 04/13/25 04/13/25 Range/Units 03:11 04:24 WBC 11.0 H (4.5-10.0) K/mm3 RBC 3.93 L (4.2-5.4) M/mm3 Hgb 10.8 L (12.0-15.0) g/dL Hct 36.1 L (37.0-47.0) % MCHC 29.9 L (32-36) g/dl RDW 14.6 H (11.5-14.5) % Neut % (Auto) 82.9 H (45.5-73.1) % Lymph % (Auto) 10.0 L (18.3-44.2) % Absolute Neuts (auto) 9.1 H (1.3-6.7) K/mm3 Sodium 135 L (137-145) mmol/L Anion Gap 3 L (4-12) mmol/L Glucose 115 H (65-110) mg/dL Calcium 8.1 L (8.4-10.2) mg/dL Albumin 3.4 L (3.5-5.1) g/dL Ur Specific [place] 1.041 H (1.001-1.035) Urine Glucose (UA) 3+ H (Negative) mg/dL Leukocyte Esterase Rfl 1+ H (Negative) ZIGGY/UL Urine RBC 11-20 H (0-2) /hpf Urine WBC 11-20 H (0-3) /hpf Urine Bacteria 1+ H /hpf Urine Yeast (Budding) Present H (None) /hpf Diabetes panel 04/13/25 Range/Units 03:11 Sodium 135 L (137-145) mmol/L Potassium 3.6 (3.4-5.0) mmol/L Chloride 102 (98-107) mmol/L Carbon Dioxide 30 (22-30) mmol/L BUN 17 (7-17) mg/dL Creatinine 0.70 (0.7-1.0) mg/dL Glucose 115 H (65-110) mg/dL Calcium 8.1 L (8.4-10.2) mg/dL AST 24 (14-36) U/L ALT 15 (6-35) U/L Alkaline Phosphatase 104 (38-126) U/L Total Protein 6.8 (6.3-8.2) g/dL Albumin 3.4 L (3.5-5.1) g/dL Calcium panel 04/13/25 Range/Units 03:11 Calcium 8.1 L (8.4-10.2) mg/dL Albumin 3.4 L (3.5-5.1) g/dL Pituitary panel 04/13/25 Range/Units 03:11 Sodium 135 L (137-145) mmol/L Potassium 3.6 (3.4-5.0) mmol/L Chloride 102 (98-107) mmol/L Carbon Dioxide 30 (22-30) mmol/L BUN 17 (7-17) mg/dL Creatinine 0.70 (0.7-1.0) mg/dL Glucose 115 H (65-110) mg/dL Calcium 8.1 L (8.4-10.2) mg/dL Adrenal panel 04/13/25 Range/Units 03:11 Sodium 135 L (137-145) mmol/L Potassium 3.6 (3.4-5.0) mmol/L Chloride 102 (98-107) mmol/L Carbon Dioxide 30 (22-30) mmol/L BUN 17 (7-17) mg/dL Creatinine 0.70 (0.7-1.0) mg/dL Glucose 115 H (65-110) mg/dL Calcium 8.1 L (8.4-10.2) mg/dL Total Bilirubin 0.5 (0.2-1.3) mg/dL AST 24 (14-36) U/L ALT 15 (6-35) U/L Alkaline Phosphatase 104 (38-126) U/L Total Protein 6.8 (6.3-8.2) g/dL Albumin 3.4 L (3.5-5.1) g/dL All other labs normal.
[2025-04-13] MEDS: LACTATED RINGERS 1,000 ML 125 ML IV CONT ×2 (11:52→20:27)
[2025-04-13 12:06] LABS: Hematocrit 36.4 % (37.0-47.0); Hemoglobin 11.0 g/dL (12.0-15.0); Immature Granulocyte Percent A 0.5 % (0-0.5); Lymphocytes Absolute Auto 0.91 K/mm3 (0.9-3.2); Mean Corpuscular HGB Conc 30.2 g/dl (32-36); Mean Corpuscular Hemoglobin 27.6 pg (26-34); Mean Corpuscular Volume 91.2 fl (80-100); Nucleated Red Blood Cells Absolute Auto 0.000 K/mm3 (0.0-0.012); Nucleated Red Blood Cells Perc 0.0 % (0.0-0.2); Platelet Count Result 218 k/mm3 (150-375); Red Blood Count 3.99 M/mm3 (4.2-5.4); White Blood Count 14.5 K/mm3 (4.5-10.0)
[2025-04-13 12:26] LABS: Alanine Aminotransferase 12 U/L (6-35); Albumin Level 3.1 g/dL (3.5-5.1); Alkaline Phosphatase 99 U/L (38-126); Anion Gap 7 mmol/L (4-12); Aspartate Amino Transferase 21 U/L (14-36); Bilirubin,Total 0.6 mg/dL (0.2-1.3); Blood Urea Nitrogen 14 mg/dL (7-17); Calcium 7.9 mg/dL (8.4-10.2); Carbon Dioxide 29 mmol/L (22-30); Chloride 106 mmol/L (98-107); Estimated CRCL calculation 127 ml/min; Estimated Glomerular Filt Rate > 60; Glucose 98 mg/dL (65-110); Potassium 3.4 mmol/L (3.4-5.0); Sodium 142 mmol/L (137-145); Total Protein 6.3 g/dL (6.3-8.2)
--- NOTE | 2025-04-13 12:46 | PM.IMHP ---
H&P: HPI History of Present Illness Date/Time: 04/13/25 12:46 Chief Complaint: abd pain Narrative: Patient with history of obesity, RA, hypothyroidism, AFib on Xarelto presented to hospital because of 3 weeks abdominal pain.. Patient notes pain is severe intermittent sharp lower abdomen and periumbilical. Pain should it started 3 weeks ago. She presented to PCP and CT abdomen ordered. CT showed diverticulitis but patient did not receive any antibiotics. She continued to have worsening abdominal pain. Patient also complaining of dysuria. Patient denies any fever chills, chest pain, shortness of breath. Her last colonoscopy was in 2021 unremarkable. She presented to ER for further management. In the ER ultrasound was unremarkable except for blood pressure 157/78. Lab test showed WBC 14.5, hemoglobin 11, calcium 7.9. UA concerning for UTI. CT showed concern for acute diverticulitis with contained perforation. Surgery team was consulted and patient was admitted for further management. Treatment started with Zosyn. Hold off Xarelto. Continue with IV fluid. Will keep patient NPO. Continue with serial abdominal exam [facility] Past Medical History Medical History (Reviewed 04/13/25 @ 09: by Marion Rosen PA-C) Obstructive sleep apnea Primary osteoarthritis of knees, bilateral Synovial cyst SOB (shortness of breath) on exertion Cubital tunnel syndrome on right Cubital tunnel syndrome on left Colon cancer screening Borderline diabetes Morbid obesity Rheumatoid aortitis Hyperglycemia Hypothyroidism Obesity hypoventilation syndrome Rheumatoid arthritis Surgical History Surgical History History of surgical removal of ganglion cyst S/P ORIF (open reduction internal fixation) fracture right ankle and left wrist. S/P cubital tunnel release History of dilation and curettage bilateral arms History of carpal tunnel repair Family History Family History Mother Patient's mother is in good health Hypertension Kidney failure Dementia Alzheimer disease Father Patient's father is in good health Chronic obstructive pulmonary disease Emphysema of lung Sibling Patient's sister is in good health Grandparent Diabetes mellitus Family history of hypercholesterolemia Social History Social History Social History: the patient lives with her parents and her sister and [id number] and there are 2 little children. The patient stated that her dad is a durable power divorce attorney for healthcare. The patient is a full code. She is single never been . Never had any children. 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 She isn't use any marijuana or illicit drugs no alcohol. Smoking status: Never smoker Second hand tobacco smoke exposure: No Alcohol intake: never Substance use: never Substance use type: does not use Do You Feel Safe in your Home?: Yes Lack of Transportation: No Lack of Food: Never True Current Housing: I Have Housing Concerned About Future Housing: No Difficulty Paying Gas/Electric Bills: No Difficulty Paying for Meds: No Currently Unemployed: No Education: High School Diploma/GED Difficulty w/ Childcare or Family Care: No Living arrangements: with family Occupation/Education: unemployed Gender identity (if verbalized by the patient): Female Spiritual care concerns: No Meds Home Medications and Allergies Home Medications ?Medication ?Instructions ?Recorded ?Confirmed ?Type hydroxychloroquine 200 mg tablet 200 mg PO BID 10/08/20 04/13/25 History meclizine 25 mg tablet 25 mg PO TID PRN dizziness #30 tabs 10/14/21 04/13/25 Rx divalproex 250 mg tablet,delayed 500 mg PO DAILY 12/02/22 04/13/25 History release rivaroxaban 20 mg tablet (Xarelto) 20 mg PO DAILY 03/29/23 04/13/25 History vibegron 75 mg tablet (Gemtesa) 75 mg PO DAILY 06/01/23 04/13/25 History sertraline 100 mg tablet 200 mg PO DAILY 06/17/23 04/13/25 History Orencia See Rx Instructions .Route .COMPLEX 11/01/23 04/13/25 History leflunomide 20 mg tablet 20 mg PO DAILY 11/01/23 04/13/25 History melatonin 3 mg tablet 3 mg PO HS 12/08/23 04/13/25 History dapagliflozin propanediol 10 mg 10 mg PO DAILY 06/02/24 04/13/25 History tablet (Farxiga) ferrous sulfate 325 mg (65 mg 325 mg PO DAILY 06/02/24 04/13/25 History iron) tablet furosemide 20 mg tablet 20 mg PO BID 06/02/24 04/13/25 History metoprolol succinate 50 mg 50 mg PO DAILY #90 tabs 06/09/24 04/13/25 Rx tablet,extended release 24 hr Calcium 1,200 mg PO DAILY 12/05/24 04/13/25 History alendronate 70 mg tablet 70 mg PO WEEKLY 12/05/24 04/13/25 History levothyroxine 75 mcg capsule 75 mcg PO DAILY 12/05/24 04/13/25 History tramadol 50 mg tablet 50 mg PO Q8H PRN pain #90 tabs 12/15/24 04/13/25 Rx levothyroxine 200 mcg tablet 200 mcg PO DAILY #90 tabs 04/05/25 04/13/25 Rx aripiprazole 30 mg tablet 30 mg PO HS 04/13/25 04/13/25 History buspirone 7.5 mg tablet 7.5 mg PO TID 04/13/25 04/13/25 History lisinopril 5 mg tablet 5 mg PO DAILY 04/13/25 04/13/25 History Allergies Allergy/AdvReac Type Severity Reaction Status Date / Time No Known Allergies Allergy Verified 12/05/24 09:48 Vital Signs Vital Signs - 24 hr 04/13/25 02:52 04/13/25 04:27 04/13/25 06:07 Temperature 98.7 F Pulse Rate 66 66 63 Respiratory Rate 18 22 H 23 H Blood Pressure 157/78 H 164/87 H 154/91 H Pulse Oximetry 93 94 93 Oxygen Delivery Room Air 04/13/25 08:55 04/13/25 09:25 Temperature 96.6 F L Pulse Rate 64 67 Respiratory Rate 20 16 Blood Pressure 150/78 H 145/89 H Pulse Oximetry 99 96 Oxygen Delivery Exam Narrative: APPEARANCE: No apparent distress. Head: atraumatic. EYES: EOMI, NOSE: Atraumatic NECK: Trachea midline RESPIRATORY: No increased rate of breathing CTAB CARDIOVASCULAR: RRR, lymphedema ABDOMINAL: Physical exam limited by obesity, tenderness in the right lower quadrant without guarding or rebound MUSCULOSKELETAl: No obvious deformities NEURO: Alert. Moving 4/4 extremities SKIN:: Warm, dry. Normal color PSYCHIATRIC: Normal affect Eyes: General: appearance normal, both eyes and all related structures Neck: Neck: supple and no JVD Resp: Effort & Inspection: normal respiratory effort Cardio: Rate: regular rate GI: Inspection: non-distended, Pannus present and obesity Auscultation: normal bowel sounds : General: Yes bladder normal to palpation Bimanual exam- vagina & uterus: bladder normal to palpation Skin: General skin exam: normal color and no rashes or lesions noted Neuro: Speech: normal speech Sensory Exam: normal sensation Extrem: General: normal to inspection Psych: Mental Status: mental status grossly normal H&P: Results Labs Labs: Short CBC 04/13/25 04/13/25 Range/Units 03:11 11:58 WBC 11.0 H 14.5 H (4.5-10.0) K/mm3 Hgb 10.8 L 11.0 L (12.0-15.0) g/dL Hct 36.1 L 36.4 L (37.0-47.0) % Plt Count 239 218 (150-375) k/mm3 BMP 04/13/25 04/13/25 03:11 11:58 Sodium 135 L 142 Potassium 3.6 3.4 Chloride 102 106 Carbon Dioxide 30 29 BUN 17 14 Creatinine 0.70 0.61 L Glucose 115 H 98 Calcium 8.1 L 7.9 L Liver Function 04/13/25 04/13/25 Range/Units 03:11 11:58 Total Bilirubin 0.5 0.6 (0.2-1.3) mg/dL AST 24 21 (14-36) U/L ALT 15 12 (6-35) U/L Alkaline Phosphatase 104 99 (38-126) U/L Albumin 3.4 L 3.1 L (3.5-5.1) g/dL Urine 04/13/25 Range/Units 04:24 Urine Color Yellow (Yellow) Urine Appearance Clear (Clear) Urine pH 6.0 (5.0-9.0) Ur Specific [place] 1.041 H (1.001-1.035) Urine Protein Trace (Negative) mg/dL Urine Glucose (UA) 3+ H (Negative) mg/dL Assessment and Plan Assessment and plan (1) Diverticulitis of colon with perforation: Code(s): K57.20 - Diverticulitis of large intestine with perforation and abscess without bleeding Status: Acute (2) Abdominal pain: Code(s): R10.9 - Unspecified abdominal pain Status: Acute (3) Arthritis of left knee: Code(s): M17.12 - Unilateral primary osteoarthritis, left knee Status: Acute (4) Obesity: Code(s): E66.9 - Obesity, unspecified Status: Acute (5) Hypothyroidism: Qualifiers: Hypothyroidism type: acquired Qualified Code(s): E03.9 - Hypothyroidism, unspecified Code(s): E03.9 - Hypothyroidism, unspecified Status: Acute Plan Acute perforated diverticulitis Continue Zosyn IV fluid NPO Serial abdominal exam Hold off Xarelto Surgery team on board Dysuria, UA concerning for UTI Follow urine culture result Continue with Zosyn Hypothyroidism Levothyroxine AFib Paroxysmal Hold of Xarelto in setting of diverticulitis and may need surgery Continue with metoprolol Anxiety/depression/insomnia [employer]IST[employer] med
[2025-04-13] MEDS: CALCIUM CARBONATE (OSCAL) 500 MG TABLET 1000 MG PO (15:33)
[2025-04-13] MEDS: DIVALPROEX SODIUM DR 250 MG TABEC 500 MG PO (15:33)
[2025-04-13] MEDS: METOPROLOL SUCCINATE EXT REL 50 MG TABCR PO (15:33)
[2025-04-13] MEDS: EMPAGLIFLOZIN 10 MG TABLET PO (15:33)
[2025-04-13] MEDS: SERTRALINE HCL 50 MG TABLET 200 MG PO (15:33)
[2025-04-13] MEDS: busPIRone HCL 2.5 MG TABLET PO (18:31)
[2025-04-13] MEDS: traMADol HCL (*CRX) 50 MG TABLET PO (18:43)
[2025-04-13] MEDS: MELATONIN 3 MG TABLET PO (23:27)
[2025-04-14 00:10] VITALS: PULSE 60; RESP 15; O2SAT 93
[2025-04-14] MEDS: PIPERACILLIN/TAZOBACTAM SOD 3.375 GM in SODIUM CHLORIDE 0.9% IV 50 ML 100 ML IVPB ×4 (02:21→19:57)
[2025-04-14] MEDS: LACTATED RINGERS 1,000 ML 125 ML IV CONT (05:22)
[2025-04-14 05:53] VITALS: BP 147/63; PULSE 60; RESP 15; TEMP 36.7; O2SAT 92
[2025-04-14 06:28] LABS: Hematocrit 34.6 % (37.0-47.0); Hemoglobin 10.2 g/dL (12.0-15.0); Immature Granulocyte Percent A 0.3 % (0-0.5); Lymphocytes Absolute Auto 1.55 K/mm3 (0.9-3.2); Mean Corpuscular HGB Conc 29.5 g/dl (32-36); Mean Corpuscular Hemoglobin 27.6 pg (26-34); Mean Corpuscular Volume 93.8 fl (80-100); Nucleated Red Blood Cells Absolute Auto 0.000 K/mm3 (0.0-0.012); Nucleated Red Blood Cells Perc 0.0 % (0.0-0.2); Platelet Count Result 187 k/mm3 (150-375); Red Blood Count 3.69 M/mm3 (4.2-5.4); White Blood Count 6.7 K/mm3 (4.5-10.0)
[2025-04-14 06:50] LABS: Alanine Aminotransferase 10 U/L (6-35); Albumin Level 2.7 g/dL (3.5-5.1); Alkaline Phosphatase 94 U/L (38-126); Anion Gap 5 mmol/L (4-12); Aspartate Amino Transferase 18 U/L (14-36); Bilirubin,Total 0.8 mg/dL (0.2-1.3); Blood Urea Nitrogen 10 mg/dL (7-17); Calcium 7.7 mg/dL (8.4-10.2); Carbon Dioxide 30 mmol/L (22-30); Chloride 104 mmol/L (98-107); Estimated CRCL calculation 126 ml/min; Estimated Glomerular Filt Rate > 60; Glucose 70 mg/dL (65-110); Potassium 3.3 mmol/L (3.4-5.0); Sodium 139 mmol/L (137-145); Total Protein 5.7 g/dL (6.3-8.2)
[2025-04-14] MEDS: CALCIUM CARBONATE (OSCAL) 500 MG TABLET 1000 MG PO (09:11)
[2025-04-14] MEDS: busPIRone HCL 2.5 MG TABLET PO ×3 (09:11→17:55)
[2025-04-14] MEDS: POTASSIUM CHLORIDE INJ 40 MEQ in SODIUM CHLORIDE 0.9% IV 500 ML 130 MEQ IVPB (10:20)
--- NOTE | 2025-04-14 11:20 | PM.IMPN ---
Progress Note: A&P Assessment and Plan (1) Diverticulitis of colon with perforation: Code(s): K57.20 - Diverticulitis of large intestine with perforation and abscess without bleeding Status: Acute (2) Abdominal pain: Code(s): R10.9 - Unspecified abdominal pain Status: Acute (3) Arthritis of left knee: Code(s): M17.12 - Unilateral primary osteoarthritis, left knee Status: Acute (4) Obesity: Code(s): E66.9 - Obesity, unspecified Status: Acute (5) Hypothyroidism: Qualifiers: Hypothyroidism type: acquired Qualified Code(s): E03.9 - Hypothyroidism, unspecified Code(s): E03.9 - Hypothyroidism, unspecified Status: Acute Plan # Acute perforated diverticulitis Continue Zosyn IV fluid NPO Serial abdominal exam Hold off Xarelto Surgery team on board # Dysuria, UA concerning for UTI Follow urine culture result Continue with Zosyn # Hypothyroidism Levothyroxine # AFib Paroxysmal Hold of Xarelto in setting of diverticulitis and may need surgery Continue with metoprolol # 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 abdominal pain rated at 5/10. no nasuea, vomiting. currently npo. labs reveiwed. Review of Systems Review of Systems: All systems reviewed & are unremarkable except as noted in HPI and below Exam Narrative: APPEARANCE: No apparent distress. alert and oriented x 3 Head: atraumatic. EYES: EOMI, NOSE: Atraumatic NECK: Trachea midline RESPIRATORY: No increased rate of breathing CTAB CARDIOVASCULAR: RRR, lymphedema ABDOMINAL: tenderness in the right lower quadrant without guarding or rebound, soft, normal bs MUSCULOSKELETAl: No obvious deformities NEURO: Alert. Moving 4/4 extremities SKIN:: Warm, dry. Normal color PSYCHIATRIC: Normal affect Objective Data Vital Signs Vital Signs: Vital Signs - 24 hr 04/13/25 14:28 04/13/25 15:33 04/13/25 21:15 Temperature 97.0 F L Pulse Rate 67 68 Respiratory Rate 17 Blood Pressure 128/63 Pulse Oximetry 90 Oxygen Delivery Room Air 04/13/25 21:40 04/14/25 00:10 04/14/25 05:53 Temperature 97.4 F L 98.1 F Pulse Rate 64 60 60 Respiratory Rate 13 15 15 Blood Pressure 132/60 147/63 H Pulse Oximetry 92 93 92 Oxygen Delivery Autopap Intake/Output Intake/Output: Intake & Output 04/11/25 04/12/25 04/13/25 04/14/25 23:59 23:59 23:59 23:59 Intake Total 2750 1050 Output Total 200 200 Balance 2550 850 Meds/Results Medications: Active Medications Generic Name Dose Route Start Last Admin Trade Name Freq PRN Reason Stop Dose Admin Aripiprazole 30 mg 04/13/25 21:00 04/13/25 23:27 Aripiprazole 10 Mg Tablet PO 30 mg HS MENA Administration Buspirone HCl 5 mg 04/13/25 17:00 04/14/25 09:11 Buspirone Hcl 5 Mg Tablet PO 5 mg TID MENA Administration Buspirone HCl 2.5 mg 04/13/25 17:00 04/14/25 09:11 Buspirone Hcl 2.5 Mg Tablet PO 2.5 mg TID MENA Administration Calcium Carbonate 1,000 mg 04/13/25 13:05 04/14/25 09:11 Calcium Carbonate (Oscal) 500 Mg Tablet PO 1,000 mg DAILY MENA Administration Divalproex Sodium 500 mg 04/13/25 13:00 04/13/25 15:[address] 250 Mg Tabec PO 500 mg DAILY MENA Administration Empagliflozin 10 mg 04/13/25 13:05 04/13/25 15:33 Empagliflozin 10 Mg Tablet PO 10 mg DAILY MENA Administration Hydromorphone HCl 0.5 mg 04/13/25 08:08 04/13/25 16:14 Hydromorphone Hcl Inj (*Crx) 2 Mg/Ml Vial IV PUSH 0.5 mg Q4H PRN Administration Pain Rated 7-10 Piperacillin Sod/Tazobactam 50 mls @ 100 mls/hr 04/13/25 08:00 04/14/25 09:11 Sod 3.375 gm/ Sodium Chloride IVPB 100 mls/hr Q6H MENA Administration Lactated Ringer's 1,000 mls @ 125 mls/hr 04/13/25 08:10 04/14/25 05:22 Lr - Lactated Ringers Iv IV CONT 125 mls/hr .Q8H MENA Administration Potassium Chloride 40 meq/ 520 mls @ 130 mls/hr 04/14/25 08:09 04/14/25 10:20 Sodium Chloride IVPB 04/14/25 12:08 130 mls/hr ONCE ONE Administration Levothyroxine Sodium 75 mcg 04/14/25 10:30 Levothyroxine Sodium 75 Mcg Tablet PO DAILY@0630 MENA Levothyroxine Sodium 200 mcg 04/14/25 10:30 Levothyroxine Sodium 100 Mcg Tablet PO DAILY@0630 MENA Meclizine HCl 25 mg 04/13/25 12:43 Meclizine Hcl 25 Mg Tablet PO TID PRN dizziness Melatonin 3 mg 04/13/25 21:00 04/13/25 23:27 Melatonin 3 Mg Tablet PO 3 mg HS MENA Administration Metoprolol Succinate 50 mg 04/13/25 13:05 04/13/25 15:33 Metoprolol Succinate Ext Rel 50 Mg Tabcr PO 50 mg DAILY MENA Administration Ondansetron HCl 4 mg 04/13/25 08:08 Ondansetron Inj 4 Mg/2 Ml Vial IV PUSH Q4H PRN Nausea Sertraline HCl 200 mg 04/13/25 13:05 04/13/25 15:33 Sertraline Hcl 50 Mg Tablet PO 200 mg DAILY MENA Administration Tramadol HCl 50 mg 04/13/25 12:43 04/13/25 18:43 Tramadol Hcl (*Crx) 50 Mg Tablet PO 50 mg Q8H PRN Administration PAIN RATED 4-6 Radiology Results: ITS Impressions Abdomen/Pelvis CT 04/13/25 07:14 IMPRESSION: Interval progression of acute diverticulitis with a contained perforation. No drainable fluid collection is identified at this point for which the imaging is recommended pending patient's clinical tolerance Labs Labs: Laboratory Results - last 24 hr 04/13/25 04/14/25 11:58 05:55 WBC 14.5 H 6.7 RBC 3.99 L 3.69 L Hgb 11.0 L 10.2 L Hct 36.4 L 34.6 L MCV 91.2 93.8 MCH 27.6 27.6 MCHC 30.2 L 29.5 L RDW 14.6 H 14.6 H Plt Count 218 187 MPV 10.2 10.3 Immature Gran % (Auto) 0.5 0.3 Neut % (Auto) 88.3 H 65.5 Lymph % (Auto) 6.3 L 23.2 [place] % (Auto) 4.2 7.3 Eos % (Auto) 0.4 3.0 Baso % (Auto) 0.3 0.7 Lymph # (Auto) 0.91 1.55 [place] # (Auto) 0.6 0.5 Eos # (Auto) 0.1 0.2 Baso # (Auto) 0.0 0.1 Abs Immat Gran (auto) 0.07 H 0.02 Absolute Neuts (auto) 12.8 H 4.4 Absolute Nucleated RBC 0.000 0.000 Nucleated RBC % 0.0 0.0 Sodium 142 139 Potassium 3.4 3.3 L Chloride 106 104 Carbon Dioxide 29 30 Anion Gap 7 5 BUN 14 10 Creatinine 0.61 L 0.62 L Estim Creat Clear Calc 127 126 Estimated GFR > 60 > 60 Glucose 98 70 Calcium 7.9 L 7.7 L Total Bilirubin 0.6 0.8 AST 21 18 ALT 12 10 Alkaline Phosphatase 99 94 Total Protein 6.3 5.7 L Albumin 3.1 L 2.7 L
[2025-04-14] MEDS: SERTRALINE HCL 50 MG TABLET 200 MG PO (12:42)
[2025-04-14] MEDS: METOPROLOL SUCCINATE EXT REL 50 MG TABCR PO (12:42)
[2025-04-14] MEDS: LEVOTHYROXINE SODIUM 75 MCG TABLET PO (12:42)
[2025-04-14] MEDS: DIVALPROEX SODIUM DR 250 MG TABEC 500 MG PO (12:42)
[2025-04-14] MEDS: EMPAGLIFLOZIN 10 MG TABLET PO (12:43)
[2025-04-14] MEDS: LEVOTHYROXINE SODIUM 100 MCG TABLET 200 MCG PO (12:43)
--- NOTE | 2025-04-14 13:26 | P.PN_ITS ---
Progress Note: A&P Assessment and Plan (1) Diverticulitis of colon with perforation: Code(s): K57.20 - Diverticulitis of large intestine with perforation and abscess without bleeding Status: Acute Assessment and Plan: She seems to be responding well to non operative management with IV antibiotics. Clinical abdominal exam is better. We will go ahead and start her on some clear liquids today and see how she tolerates. White blood cell count is normalized but will continue on IV antibiotics for now. Hopefully can advance to a low-fiber diet tomorrow. Will give a additional dose of 40 meq of potassium chloride p.o. this afternoon for potassium 3.3. Subjective Date/time seen: 04/14/25 13:26 Interval history: Patient doing better today. No nausea or vomiting. No diarrhea. States her pain is much better. White blood cell count is now normalized around 6700 today. Potassium low at 3.3. She did get 40mg IV earlier today. Now that she can take p.o. I will give another 40 meq KCL p.o. this afternoon. Exam GI: Other: Abdomen is soft and nondistended. Morbidly obese. Minimal tenderness to palpation left lower quadrant suprapubic region today. Exam is better. Objective Data Vital Signs Vital Signs: Vital Signs - 24 hr 04/13/25 14:28 04/13/25 15:33 04/13/25 21:15 Temperature 36.1 C L Pulse Rate 67 68 Respiratory Rate 17 Blood Pressure 128/63 Pulse Oximetry 90 Oxygen Delivery Room Air 04/13/25 21:40 04/14/25 00:10 04/14/25 05:53 Temperature 36.3 C L 36.7 C Pulse Rate 64 60 60 Respiratory Rate 13 15 15 Blood Pressure 132/60 147/63 H Pulse Oximetry 92 93 92 Oxygen Delivery Autopap 04/14/25 08:00 Temperature Pulse Rate Respiratory Rate Blood Pressure Pulse Oximetry Oxygen Delivery Autopap Intake/Output Intake/Output: Intake & Output 04/11/25 04/12/25 04/13/25 04/14/25 23:59 23:59 23:59 23:59 Intake Total 2750 1050 Output Total 200 200 Balance 2550 850 Meds/Results Medications: Active Medications Generic Name Dose Route Start Last Admin Trade Name Freq PRN Reason Stop Dose Admin Aripiprazole 30 mg 04/13/25 21:00 04/13/25 23:27 Aripiprazole 10 Mg Tablet PO 30 mg HS MENA Administration Buspirone HCl 5 mg 04/13/25 17:00 04/14/25 12:42 Buspirone Hcl 5 Mg Tablet PO 5 mg TID MENA Administration Buspirone HCl 2.5 mg 04/13/25 17:00 04/14/25 12:42 Buspirone Hcl 2.5 Mg Tablet PO 2.5 mg TID MENA Administration Calcium Carbonate 1,000 mg 04/13/25 13:05 04/14/25 09:11 Calcium Carbonate (Oscal) 500 Mg Tablet PO 1,000 mg DAILY MENA Administration Divalproex Sodium 500 mg 04/13/25 13:00 04/14/25 12:[address] 250 Mg Tabec PO 500 mg DAILY MENA Administration Empagliflozin 10 mg 04/13/25 13:05 04/14/25 12:43 Empagliflozin 10 Mg Tablet PO 10 mg DAILY MENA Administration Hydromorphone HCl 0.5 mg 04/13/25 08:08 04/13/25 16:14 Hydromorphone Hcl Inj (*Crx) 2 Mg/Ml Vial IV PUSH 0.5 mg Q4H PRN Administration Pain Rated 7-10 Piperacillin Sod/Tazobactam 50 mls @ 100 mls/hr 04/13/25 08:00 04/14/25 09:11 Sod 3.375 gm/ Sodium Chloride IVPB 100 mls/hr Q6H MENA Administration Lactated Ringer's 1,000 mls @ 125 mls/hr 04/13/25 08:10 04/14/25 05:22 Lr - Lactated Ringers Iv IV CONT 125 mls/hr .Q8H MENA Administration Levothyroxine Sodium 75 mcg 04/14/25 10:30 04/14/25 12:42 Levothyroxine Sodium 75 Mcg Tablet PO 75 mcg DAILY@0630 MENA Administration Levothyroxine Sodium 200 mcg 04/14/25 10:30 04/14/25 12:43 Levothyroxine Sodium 100 Mcg Tablet PO 200 mcg DAILY@0630 MENA Administration Meclizine HCl 25 mg 04/13/25 12:43 Meclizine Hcl 25 Mg Tablet PO TID PRN dizziness Melatonin 3 mg 04/13/25 21:00 04/13/25 23:27 Melatonin 3 Mg Tablet PO 3 mg HS MENA Administration Metoprolol Succinate 50 mg 04/13/25 13:05 04/14/25 12:42 Metoprolol Succinate Ext Rel 50 Mg Tabcr PO 50 mg DAILY MENA Administration Ondansetron HCl 4 mg 04/13/25 08:08 Ondansetron Inj 4 Mg/2 Ml Vial IV PUSH Q4H PRN Nausea Potassium Chloride 40 meq 04/14/25 13:23 Potassium Chloride 20 Meq Er Tablet PO 04/14/25 13:24 ONCE ONE Sertraline HCl 200 mg 04/13/25 13:05 04/14/25 12:42 Sertraline Hcl 50 Mg Tablet PO 200 mg DAILY MENA Administration Tramadol HCl 50 mg 04/13/25 12:43 04/13/25 18:43 Tramadol Hcl (*Crx) 50 Mg Tablet PO 50 mg Q8H PRN Administration PAIN RATED 4-6 Radiology Results: ITS Impressions Abdomen/Pelvis CT 04/13/25 07:14 IMPRESSION: Interval progression of acute diverticulitis with a contained perforation. No drainable fluid collection is identified at this point for which the imaging is recommended pending patient's clinical tolerance Labs Labs: Laboratory Results - last 24 hr 04/14/25 05:55 WBC 6.7 RBC 3.69 L Hgb 10.2 L Hct 34.6 L MCV 93.8 MCH 27.6 MCHC 29.5 L RDW 14.6 H Plt Count 187 MPV 10.3 Immature Gran % (Auto) 0.3 Neut % (Auto) 65.5 Lymph % (Auto) 23.2 [place] % (Auto) 7.3 Eos % (Auto) 3.0 Baso % (Auto) 0.7 Lymph # (Auto) 1.55 [place] # (Auto) 0.5 Eos # (Auto) 0.2 Baso # (Auto) 0.1 Abs Immat Gran (auto) 0.02 Absolute Neuts (auto) 4.4 Absolute Nucleated RBC 0.000 Nucleated RBC % 0.0 Sodium 139 Potassium 3.3 L Chloride 104 Carbon Dioxide 30 Anion Gap 5 BUN 10 Creatinine 0.62 L Estim Creat Clear Calc 126 Estimated GFR > 60 Glucose 70 Calcium 7.7 L Total Bilirubin 0.8 AST 18 ALT 10 Alkaline Phosphatase 94 Total Protein 5.7 L Albumin 2.7 L
[2025-04-14 14:13] VITALS: BP 138/70; PULSE 65; RESP 16; TEMP 36.3; O2SAT 92
[2025-04-14] MEDS: POTASSIUM CHLORIDE 20 MEQ ER TABLET 40 MEQ PO (14:27)
[2025-04-14] MEDS: HYDROmorphone HCL INJ (*CRX) 2 MG/ML VIAL 0.5 MG IV PUSH (16:04)
[2025-04-14 19:45] VITALS: PULSE 61; RESP 20; O2SAT 94
[2025-04-14 20:52] VITALS: PULSE 61; RESP 18; O2SAT 94
[2025-04-14 21:11] VITALS: BP 150/80; PULSE 61; RESP 20; TEMP 36; O2SAT 94
[2025-04-14] MEDS: MELATONIN 3 MG TABLET PO (22:29)
[2025-04-14] MEDS: traMADol HCL (*CRX) 50 MG TABLET PO (23:07)
[2025-04-15 00:25] VITALS: RESP 26
[2025-04-15] MEDS: PIPERACILLIN/TAZOBACTAM SOD 3.375 GM in SODIUM CHLORIDE 0.9% IV 50 ML 100 ML IVPB ×4 (01:57→20:12)
[2025-04-15] MEDS: LACTATED RINGERS 1,000 ML 125 ML IV CONT ×3 (01:58→23:26)
[2025-04-15 06:00] VITALS: BP 140/89; PULSE 58; RESP 16; TEMP 36.6; O2SAT 90
[2025-04-15 06:03] LABS: Hematocrit 35.4 % (37.0-47.0); Hemoglobin 10.6 g/dL (12.0-15.0); Immature Granulocyte Percent A 0.3 % (0-0.5); Lymphocytes Absolute Auto 1.21 K/mm3 (0.9-3.2); Mean Corpuscular HGB Conc 29.9 g/dl (32-36); Mean Corpuscular Hemoglobin 27.9 pg (26-34); Mean Corpuscular Volume 93.2 fl (80-100); Nucleated Red Blood Cells Absolute Auto 0.000 K/mm3 (0.0-0.012); Nucleated Red Blood Cells Perc 0.0 % (0.0-0.2); Platelet Count Result 205 k/mm3 (150-375); Red Blood Count 3.80 M/mm3 (4.2-5.4); White Blood Count 6.6 K/mm3 (4.5-10.0)
[2025-04-15] MEDS: LEVOTHYROXINE SODIUM 75 MCG TABLET PO (06:08)
[2025-04-15] MEDS: LEVOTHYROXINE SODIUM 100 MCG TABLET 200 MCG PO (06:08)
[2025-04-15 06:21] LABS: Alanine Aminotransferase 9 U/L (6-35); Albumin Level 2.7 g/dL (3.5-5.1); Alkaline Phosphatase 98 U/L (38-126); Anion Gap 4 mmol/L (4-12); Aspartate Amino Transferase 24 U/L (14-36); Bilirubin,Total 0.5 mg/dL (0.2-1.3); Blood Urea Nitrogen 9 mg/dL (7-17); Calcium 7.7 mg/dL (8.4-10.2); Carbon Dioxide 28 mmol/L (22-30); Chloride 104 mmol/L (98-107); Estimated CRCL calculation 131 ml/min; Estimated Glomerular Filt Rate > 60; Glucose 75 mg/dL (65-110); Magnesium 1.9 mg/dL (1.6-2.3); Potassium 3.7 mmol/L (3.4-5.0); Sodium 136 mmol/L (137-145); Total Protein 5.7 g/dL (6.3-8.2)
[2025-04-15] MEDS: CALCIUM CARBONATE (OSCAL) 500 MG TABLET 1000 MG PO (08:42)
[2025-04-15] MEDS: busPIRone HCL 2.5 MG TABLET PO ×3 (08:42→18:42)
[2025-04-15 08:43] VITALS: PULSE 58
[2025-04-15] MEDS: METOPROLOL SUCCINATE EXT REL 50 MG TABCR PO (08:43)
[2025-04-15] MEDS: DIVALPROEX SODIUM DR 250 MG TABEC 500 MG PO (08:43)
[2025-04-15] MEDS: SERTRALINE HCL 50 MG TABLET 200 MG PO (08:43)
[2025-04-15] MEDS: EMPAGLIFLOZIN 10 MG TABLET PO (08:43)
[2025-04-15] MEDS: traMADol HCL (*CRX) 50 MG TABLET PO (08:50)
--- NOTE | 2025-04-15 11:18 | P.PNIM_ITS ---
Progress Note: A&P Assessment and Plan (1) Diverticulitis of colon with perforation: Code(s): K57.20 - Diverticulitis of large intestine with perforation and abscess without bleeding Status: Acute (2) Abdominal pain: Code(s): R10.9 - Unspecified abdominal pain Status: Acute (3) Arthritis of left knee: Code(s): M17.12 - Unilateral primary osteoarthritis, left knee Status: Acute (4) Obesity: Code(s): E66.9 - Obesity, unspecified Status: Acute (5) Hypothyroidism: Qualifiers: Hypothyroidism type: acquired Qualified Code(s): E03.9 - Hypothyroidism, unspecified Code(s): E03.9 - Hypothyroidism, unspecified Status: Acute Plan # Acute perforated diverticulitis Continue Zosyn IV fluid Serial abdominal exam Hold off Xarelto Surgery team on board Improving clinically. 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 Abdominal pain as well. No nausea vomiting tolerating clear. Review of Systems Review of Systems: All systems reviewed & are unremarkable except as noted in HPI and below Exam Narrative: APPEARANCE: No apparent distress. alert and oriented x 3 Head: atraumatic. EYES: EOMI, NOSE: Atraumatic NECK: Trachea midline RESPIRATORY: No increased rate of breathing CTAB CARDIOVASCULAR: RRR, lymphedema ABDOMINAL: Nontender without guarding or rebound, soft, normal bs MUSCULOSKELETAl: No obvious deformities NEURO: Alert. Moving 4/4 extremities SKIN:: Warm, dry. Normal color PSYCHIATRIC: Normal affect Objective Data Vital Signs Vital Signs: Vital Signs - 24 hr 04/14/25 14:13 04/14/25 19:45 04/14/25 20:52 Temperature 97.3 F L Pulse Rate 65 61 61 Respiratory Rate 16 20 18 Blood Pressure 138/70 Pulse Oximetry 92 94 94 Oxygen Delivery Room Air Room Air 04/14/25 21:11 04/15/25 00:25 04/15/25 06:00 Temperature 96.8 F L 97.8 F Pulse Rate 61 58 L Respiratory Rate 20 26 H 16 Blood Pressure 150/80 H 140/89 Pulse Oximetry 94 90 Oxygen Delivery CPAP 04/15/25 08:43 Temperature Pulse Rate 58 L Respiratory Rate Blood Pressure Pulse Oximetry Oxygen Delivery Intake/Output Intake/Output: Intake & Output 04/12/25 04/13/25 04/14/25 04/15/25 23:59 23:59 23:59 23:59 Intake Total 2750 2940 1311.7 Output Total 200 701 350 Balance 2550 2239 961.7 Meds/Results Medications: Active Medications Generic Name Dose Route Start Last Admin Trade Name Freq PRN Reason Stop Dose Admin Aripiprazole 30 mg 04/13/25 21:00 04/14/25 22:29 Aripiprazole 10 Mg Tablet PO 30 mg HS MENA Administration Buspirone HCl 5 mg 04/13/25 17:00 04/15/25 08:42 Buspirone Hcl 5 Mg Tablet PO 5 mg TID MENA Administration Buspirone HCl 2.5 mg 04/13/25 17:00 04/15/25 08:42 Buspirone Hcl 2.5 Mg Tablet PO 2.5 mg TID MENA Administration Calcium Carbonate 1,000 mg 04/13/25 13:05 04/15/25 08:42 Calcium Carbonate (Oscal) 500 Mg Tablet PO 1,000 mg DAILY MENA Administration Divalproex Sodium 500 mg 04/13/25 13:00 04/15/25 08:[address] 250 Mg Tabec PO 500 mg DAILY MENA Administration Empagliflozin 10 mg 04/13/25 13:05 04/15/25 08:43 Empagliflozin 10 Mg Tablet PO 10 mg DAILY MENA Administration Hydromorphone HCl 0.5 mg 04/13/25 08:08 04/14/25 16:04 Hydromorphone Hcl Inj (*Crx) 2 Mg/Ml Vial IV PUSH 0.5 mg Q4H PRN Administration Pain Rated 7-10 Piperacillin Sod/Tazobactam 50 mls @ 100 mls/hr 04/13/25 08:00 04/15/25 08:41 Sod 3.375 gm/ Sodium Chloride IVPB 100 mls/hr Q6H MENA Administration Lactated Ringer's 1,000 mls @ 125 mls/hr 04/13/25 08:10 04/15/25 08:42 Lr - Lactated Ringers Iv IV CONT 0 mls/hr .Q8H MENA Infusion Levothyroxine Sodium 75 mcg 04/14/25 10:30 04/15/25 06:08 Levothyroxine Sodium 75 Mcg Tablet PO 75 mcg DAILY@0630 MENA Administration Levothyroxine Sodium 200 mcg 04/14/25 10:30 04/15/25 06:08 Levothyroxine Sodium 100 Mcg Tablet PO 200 mcg DAILY@0630 MENA Administration Meclizine HCl 25 mg 04/13/25 12:43 Meclizine Hcl 25 Mg Tablet PO TID PRN dizziness Melatonin 3 mg 04/13/25 21:00 04/14/25 22:29 Melatonin 3 Mg Tablet PO 3 mg HS MENA Administration Metoprolol Succinate 50 mg 04/13/25 13:05 04/15/25 08:43 Metoprolol Succinate Ext Rel 50 Mg Tabcr PO 50 mg DAILY MENA Administration Ondansetron HCl 4 mg 04/13/25 08:08 Ondansetron Inj 4 Mg/2 Ml Vial IV PUSH Q4H PRN Nausea Sertraline HCl 200 mg 04/13/25 13:05 04/15/25 08:43 Sertraline Hcl 50 Mg Tablet PO 200 mg DAILY MENA Administration Tramadol HCl 50 mg 04/13/25 12:43 04/15/25 08:50 Tramadol Hcl (*Crx) 50 Mg Tablet PO 50 mg Q8H PRN Administration PAIN RATED 4-6 Radiology Results: ITS Impressions Abdomen/Pelvis CT 04/13/25 07:14 IMPRESSION: Interval progression of acute diverticulitis with a contained perforation. No drainable fluid collection is identified at this point for which the imaging is recommended pending patient's clinical tolerance Labs Labs: Laboratory Results - last 24 hr 04/15/25 05:30 WBC 6.6 RBC 3.80 L Hgb 10.6 L Hct 35.4 L MCV 93.2 MCH 27.9 MCHC 29.9 L RDW 13.8 Plt Count 205 MPV 10.4 Immature Gran % (Auto) 0.3 Neut % (Auto) 69.5 Lymph % (Auto) 18.3 [place] % (Auto) 8.7 H Eos % (Auto) 2.4 Baso % (Auto) 0.8 Lymph # (Auto) 1.21 [place] # (Auto) 0.6 Eos # (Auto) 0.2 Baso # (Auto) 0.1 Abs Immat Gran (auto) 0.02 Absolute Neuts (auto) 4.6 Absolute Nucleated RBC 0.000 Nucleated RBC % 0.0 Sodium 136 L Potassium 3.7 Chloride 104 Carbon Dioxide 28 Anion Gap 4 BUN 9 Creatinine 0.59 L Estim Creat Clear Calc 131 Estimated GFR > 60 Glucose 75 Calcium 7.7 L Magnesium 1.9 Total Bilirubin 0.5 AST 24 ALT 9 Alkaline Phosphatase 98 Total Protein 5.7 L Albumin 2.7 L
--- NOTE | 2025-04-15 13:00 | WPDPN ---
Progress Note: A&P Assessment and Plan (1) Diverticulitis of colon with perforation: Code(s): K57.20 - Diverticulitis of large intestine with perforation and abscess without bleeding Status: Acute Assessment and Plan: Patient is responding well to non operative medical management for sigmoid diverticulitis was micro perforation. No abdominal pain now. Having loose bowel movements. No fever and white blood cell count is normal. She has been tolerating a low-fiber diet. Hopefully can discharge home tomorrow on low-fiber diet and oral antibiotics for another 10 to 14 days. I did discuss with her getting a colonoscopy performed in about 4 to 6 weeks. Subjective Date/time seen: 04/15/25 13:00 Interval history: Patient feels better today. Abdominal pain. No nausea. She was advanced to a low-fiber diet today which he is tolerating well. Still having some loose bowel movements which are nonbloody. White blood cell count is normal around 6 to 7000. Exam GI: Other: Abdomen is morbidly obese but soft. No tenderness to palpation suprapubic region or left lower quadrant. Exam is benign. Objective Data Vital Signs Vital Signs: Vital Signs - 24 hr 04/14/25 14:13 04/14/25 19:45 04/14/25 20:52 Temperature 36.3 C L Pulse Rate 65 61 61 Respiratory Rate 16 20 18 Blood Pressure 138/70 Pulse Oximetry 92 94 94 Oxygen Delivery Room Air Room Air 04/14/25 21:11 04/15/25 00:25 04/15/25 06:00 Temperature 36.0 C L 36.6 C Pulse Rate 61 58 L Respiratory Rate 20 26 H 16 Blood Pressure 150/80 H 140/89 Pulse Oximetry 94 90 Oxygen Delivery CPAP 04/15/25 08:43 Temperature Pulse Rate 58 L Respiratory Rate Blood Pressure Pulse Oximetry Oxygen Delivery Intake/Output Intake/Output: Intake & Output 04/12/25 04/13/25 04/14/25 04/15/25 23:59 23:59 23:59 23:59 Intake Total 2750 2940 1361.7 Output Total 200 701 350 Balance 2550 2239 1011.7 Meds/Results Medications: Active Medications Generic Name Dose Route Start Last Admin Trade Name Freq PRN Reason Stop Dose Admin Aripiprazole 30 mg 04/13/25 21:00 04/14/25 22:29 Aripiprazole 10 Mg Tablet PO 30 mg HS MENA Administration Buspirone HCl 5 mg 04/13/25 17:00 04/15/25 08:42 Buspirone Hcl 5 Mg Tablet PO 5 mg TID MENA Administration Buspirone HCl 2.5 mg 04/13/25 17:00 04/15/25 08:42 Buspirone Hcl 2.5 Mg Tablet PO 2.5 mg TID MENA Administration Calcium Carbonate 1,000 mg 04/13/25 13:05 04/15/25 08:42 Calcium Carbonate (Oscal) 500 Mg Tablet PO 1,000 mg DAILY MENA Administration Divalproex Sodium 500 mg 04/13/25 13:00 04/15/25 08:[address] 250 Mg Tabec PO 500 mg DAILY MENA Administration Empagliflozin 10 mg 04/13/25 13:05 04/15/25 08:43 Empagliflozin 10 Mg Tablet PO 10 mg DAILY MENA Administration Ferrous Sulfate 325 mg 04/15/25 11:25 Ferrous Sulfate [address] PO 05/16/25 11:24 DAILY MENA Hydromorphone HCl 0.5 mg 04/13/25 08:08 04/14/25 16:04 Hydromorphone Hcl Inj (*Crx) 2 Mg/Ml Vial IV PUSH 0.5 mg Q4H PRN Administration Pain Rated 7-10 Hydroxychloroquine Sulfate 200 mg 04/15/25 17:00 Hydroxychloroquine Sulfate 200 Mg Tablet PO BID MENA Piperacillin Sod/Tazobactam 50 mls @ 100 mls/hr 04/13/25 08:00 04/15/25 09:11 Sod 3.375 gm/ Sodium Chloride IVPB Infused Q6H MENA Infusion Lactated Ringer's 1,000 mls @ 125 mls/hr 04/13/25 08:10 04/15/25 09:15 Lr - Lactated Ringers Iv IV CONT 125 mls/hr .Q8H MENA Infusion Leflunomide 20 mg 04/15/25 11:25 Leflunomide 20 Mg Tablet PO DAILY MENA Levothyroxine Sodium 75 mcg 04/14/25 10:30 04/15/25 06:08 Levothyroxine Sodium 75 Mcg Tablet PO 75 mcg DAILY@0630 MENA Administration Levothyroxine Sodium 200 mcg 04/14/25 10:30 04/15/25 06:08 Levothyroxine Sodium 100 Mcg Tablet PO 200 mcg DAILY@0630 [facility] Administration Meclizine HCl 25 mg 04/13/25 12:43 Meclizine Hcl 25 Mg Tablet PO TID PRN dizziness Melatonin 3 mg 04/13/25 21:00 04/14/25 22:29 Melatonin 3 Mg Tablet PO 3 mg HS MENA Administration Metoprolol Succinate 50 mg 04/13/25 13:05 04/15/25 08:43 Metoprolol Succinate Ext Rel 50 Mg Tabcr PO 50 mg DAILY MENA Administration Miscellaneous Information 0 each 04/15/25 00:01 Med Rec Order Clarification XX 05/15/25 00:00 CLARIFY [facility] Non-Formulary Medication 75 mg 04/15/25 09:00 Vibegron [Gemtesa] PO 05/15/25 08:59 DAILY [facility] Ondansetron HCl 4 mg 04/13/25 08:08 Ondansetron Inj 4 Mg/2 Ml Vial IV PUSH Q4H PRN Nausea Rivaroxaban 20 mg 04/15/25 17:00 Rivaroxaban 20 Mg Tablet PO DAILY@1700 [facility] Sertraline HCl 200 mg 04/13/25 13:05 04/15/25 08:43 Sertraline Hcl 50 Mg Tablet PO 200 mg DAILY [facility] Administration Tramadol HCl 50 mg 04/13/25 12:43 04/15/25 08:50 Tramadol Hcl (*Crx) 50 Mg Tablet PO 50 mg Q8H PRN Administration PAIN RATED 4-6 Radiology Results: ITS Impressions Abdomen/Pelvis CT 04/13/25 07:14 IMPRESSION: Interval progression of acute diverticulitis with a contained perforation. No drainable fluid collection is identified at this point for which the imaging is recommended pending patient's clinical tolerance Labs Labs: Laboratory Results - last 24 hr 04/15/25 05:30 WBC 6.6 RBC 3.80 L Hgb 10.6 L Hct 35.4 L MCV 93.2 MCH 27.9 MCHC 29.9 L RDW 13.8 Plt Count 205 MPV 10.4 Immature Gran % (Auto) 0.3 Neut % (Auto) 69.5 Lymph % (Auto) 18.3 [place] % (Auto) 8.7 H Eos % (Auto) 2.4 Baso % (Auto) 0.8 Lymph # (Auto) 1.21 [place] # (Auto) 0.6 Eos # (Auto) 0.2 Baso # (Auto) 0.1 Abs Immat Gran (auto) 0.02 Absolute Neuts (auto) 4.6 Absolute Nucleated RBC 0.000 Nucleated RBC % 0.0 Sodium 136 L Potassium 3.7 Chloride 104 Carbon Dioxide 28 Anion Gap 4 BUN 9 Creatinine 0.59 L Estim Creat Clear Calc 131 Estimated GFR > 60 Glucose 75 Calcium 7.7 L Magnesium 1.9 Total Bilirubin 0.5 AST 24 ALT 9 Alkaline Phosphatase 98 Total Protein 5.7 L Albumin 2.7 L
[2025-04-15] MEDS: LEFLUNOMIDE 20 MG TABLET PO (13:55)
[2025-04-15] MEDS: FERROUS SULFATE 325 MG TABLET DR PO (13:56)
[2025-04-15 14:23] VITALS: BP 143/81; PULSE 61; RESP 16; TEMP 36.9; O2SAT 90
[2025-04-15] MEDS: ONDANSETRON INJ 4 MG/2 ML VIAL IV PUSH (18:01)
[2025-04-15] MEDS: RIVAROXABAN 20 MG TABLET PO (18:42)
[2025-04-15] MEDS: HYDROXYCHLOROQUINE SULFATE 200 MG TABLET PO (18:42)
[2025-04-15 20:08] VITALS: PULSE 61; RESP 16; O2SAT 90
[2025-04-15 20:45] VITALS: BP 143/70; PULSE 71; RESP 20; TEMP 35.9; O2SAT 94
[2025-04-15] MEDS: MELATONIN 3 MG TABLET PO (23:25)
[2025-04-16] MEDS: PIPERACILLIN/TAZOBACTAM SOD 3.375 GM in SODIUM CHLORIDE 0.9% IV 50 ML 100 ML IVPB ×4 (01:31→21:55)
[2025-04-16 05:45] VITALS: BP 154/81; PULSE 66; RESP 20; TEMP 36.5; O2SAT 93
[2025-04-16] MEDS: LEVOTHYROXINE SODIUM 100 MCG TABLET 200 MCG PO (05:47)
[2025-04-16] MEDS: LEVOTHYROXINE SODIUM 75 MCG TABLET PO (05:47)
[2025-04-16 06:22] LABS: Hematocrit 35.4 % (37.0-47.0); Hemoglobin 10.7 g/dL (12.0-15.0); Immature Granulocyte Percent A 0.4 % (0-0.5); Lymphocytes Absolute Auto 1.17 K/mm3 (0.9-3.2); Mean Corpuscular HGB Conc 30.2 g/dl (32-36); Mean Corpuscular Hemoglobin 27.7 pg (26-34); Mean Corpuscular Volume 91.7 fl (80-100); Nucleated Red Blood Cells Absolute Auto 0.000 K/mm3 (0.0-0.012); Nucleated Red Blood Cells Perc 0.0 % (0.0-0.2); Platelet Count Result 215 k/mm3 (150-375); Red Blood Count 3.86 M/mm3 (4.2-5.4); White Blood Count 8.1 K/mm3 (4.5-10.0)
[2025-04-16 06:46] LABS: Alanine Aminotransferase 10 U/L (6-35); Albumin Level 2.8 g/dL (3.5-5.1); Alkaline Phosphatase 93 U/L (38-126); Anion Gap 4 mmol/L (4-12); Aspartate Amino Transferase 21 U/L (14-36); Bilirubin,Total 0.5 mg/dL (0.2-1.3); Blood Urea Nitrogen 6 mg/dL (7-17); Calcium 7.8 mg/dL (8.4-10.2); Carbon Dioxide 30 mmol/L (22-30); Chloride 104 mmol/L (98-107); Estimated CRCL calculation 124 ml/min; Estimated Glomerular Filt Rate > 60; Glucose 96 mg/dL (65-110); Magnesium 1.9 mg/dL (1.6-2.3); Potassium 3.7 mmol/L (3.4-5.0); Sodium 138 mmol/L (137-145); Total Protein 5.9 g/dL (6.3-8.2)
--- NOTE | 2025-04-16 07:59 | PM.IMPN ---
Progress Note: A&P Assessment and Plan (1) Diverticulitis of colon with perforation: Code(s): K57.20 - Diverticulitis of large intestine with perforation and abscess without bleeding Status: Acute (2) Abdominal pain: Code(s): R10.9 - Unspecified abdominal pain Status: Acute (3) Arthritis of left knee: Code(s): M17.12 - Unilateral primary osteoarthritis, left knee Status: Acute (4) Obesity: Code(s): E66.9 - Obesity, unspecified Status: Acute (5) Hypothyroidism: Qualifiers: Hypothyroidism type: acquired Qualified Code(s): E03.9 - Hypothyroidism, unspecified Code(s): E03.9 - Hypothyroidism, unspecified Status: Acute Plan Acute perforated diverticulitis Continue Zosyn IV fluid Serial abdominal exam Hold off Xarelto Surgery team following, appreciate recommendations Improving clinically. Advanced diet as tolerated Will resume Xarelto Nausea Eating bites, nauseated --Schedule PO Zofran BID # Dysuria, UA concerning for UTI. No dysuria currently. Is reporting abdominal pain when voiding Follow urine culture result Continue with Zosyn # Hypothyroidism Levothyroxine # AFib Paroxysmal Hold of Xarelto in setting of diverticulitis and may need surgery Continue with metoprolol # Anxiety/depression/insomnia [employer] med # DVT proph: scds, Xarelto # code status: full code Time Spent With Patient Time: 57 minutes Subjective Date/time seen: 04/16/25 07:59 Interval history: WBC normal. On Zosyn. Still nauseated, not eating much, bites Had a BM yesterday, was loose brown, no blood. No pain having a BM but does having abdominal pain when voiding, but no dysuria. Review of Systems Review of Systems: All systems reviewed & are unremarkable except as noted in HPI and below Exam Narrative: APPEARANCE: No apparent distress. alert and oriented x 3 Head: atraumatic. EYES: EOMI, NOSE: Atraumatic NECK: Trachea midline RESPIRATORY: No increased rate of breathing CTAB CARDIOVASCULAR: RRR, lymphedema ABDOMINAL: Mildly tender without guarding or rebound, soft, normal bs MUSCULOSKELETAl: No obvious deformities NEURO: Alert. Moving 4/4 extremities SKIN:: Warm, dry. Normal color PSYCHIATRIC: Normal affect Objective Data Vital Signs Vital Signs: Vital Signs - 24 hr 04/15/25 08:43 04/15/25 14:23 04/15/25 20:08 Temperature 98.5 F Pulse Rate 58 L 61 61 Respiratory Rate 16 16 Blood Pressure 143/81 H Pulse Oximetry 90 90 Oxygen Delivery CPAP 04/15/25 20:45 04/16/25 05:45 Temperature 96.6 F L 97.7 F Pulse Rate 71 66 Respiratory Rate 20 20 Blood Pressure 143/70 H 154/81 H Pulse Oximetry 94 93 Oxygen Delivery Intake/Output Intake/Output: Intake & Output 04/13/25 04/14/25 04/15/25 04/16/25 23:59 23:59 23:59 23:59 Intake Total 2750 2940 3082.9 372 Output Total 064 832 0883 1000 Balance 2550 2239 1882.9 -628 Meds/Results Medications: Active Medications Generic Name Dose Route Start Last Admin Trade Name Freq PRN Reason Stop Dose Admin Aripiprazole 30 mg 04/13/25 21:00 04/15/25 23:25 Aripiprazole 10 Mg Tablet PO 30 mg HS MENA Administration Buspirone HCl 5 mg 04/13/25 17:00 04/15/25 18:42 Buspirone Hcl 5 Mg Tablet PO 5 mg TID MENA Administration Buspirone HCl 2.5 mg 04/13/25 17:00 04/15/25 18:42 Buspirone Hcl 2.5 Mg Tablet PO 2.5 mg TID MENA Administration Calcium Carbonate 1,000 mg 04/13/25 13:05 04/15/25 08:42 Calcium Carbonate (Oscal) 500 Mg Tablet PO 1,000 mg DAILY MENA Administration Divalproex Sodium 500 mg 04/13/25 13:00 04/15/25 08:[address] 250 Mg Tabec PO 500 mg DAILY MENA Administration Empagliflozin 10 mg 04/13/25 13:05 04/15/25 08:43 Empagliflozin 10 Mg Tablet PO 10 mg DAILY MENA Administration Ferrous Sulfate 325 mg 04/15/25 11:25 04/15/25 13:56 Ferrous Sulfate [address] PO 05/16/25 11:24 325 mg DAILY MENA Administration Hydromorphone HCl 0.5 mg 04/13/25 08:08 04/14/25 16:04 Hydromorphone Hcl Inj (*Crx) 2 Mg/Ml Vial IV PUSH 0.5 mg Q4H PRN Administration Pain Rated 7-10 Hydroxychloroquine Sulfate 200 mg 04/15/25 17:00 04/15/25 18:42 Hydroxychloroquine Sulfate 200 Mg Tablet PO 200 mg BID MENA Administration Piperacillin Sod/Tazobactam 50 mls @ 100 mls/hr 04/13/25 08:00 04/16/25 02:02 Sod 3.375 gm/ Sodium Chloride IVPB Infused Q6H MENA Infusion Lactated Ringer's 1,000 mls @ 125 mls/hr 04/13/25 08:10 04/15/25 23:26 Lr - Lactated Ringers Iv IV CONT 125 mls/hr .Q8H MENA Administration Leflunomide 20 mg 04/15/25 11:25 04/15/25 13:55 Leflunomide 20 Mg Tablet PO 20 mg DAILY MENA Administration Levothyroxine Sodium 75 mcg 04/14/25 10:30 04/16/25 05:47 Levothyroxine Sodium 75 Mcg Tablet PO 75 mcg DAILY@0630 MENA Administration Levothyroxine Sodium 200 mcg 04/14/25 10:30 04/16/25 05:47 Levothyroxine Sodium 100 Mcg Tablet PO 200 mcg DAILY@0630 MENA Administration Meclizine HCl 25 mg 04/13/25 12:43 Meclizine Hcl 25 Mg Tablet PO TID PRN dizziness Melatonin 3 mg 04/13/25 21:00 04/15/25 23:25 Melatonin 3 Mg Tablet PO 3 mg HS MENA Administration Metoprolol Succinate 50 mg 04/13/25 13:05 04/15/25 08:43 Metoprolol Succinate Ext Rel 50 Mg Tabcr PO 50 mg DAILY MENA Administration Miscellaneous Information 0 each 04/15/25 00:01 Med Rec Order Clarification XX 05/15/25 00:00 CLARIFY [facility] Non-Formulary Medication 75 mg 04/15/25 09:00 Vibegron [Gemtesa] PO 05/15/25 08:59 DAILY [facility] Ondansetron HCl 4 mg 04/13/25 08:08 04/15/25 18:01 Ondansetron Inj 4 Mg/2 Ml Vial IV PUSH 4 mg Q4H PRN Administration Nausea Rivaroxaban 20 mg 04/15/25 17:00 04/15/25 18:42 Rivaroxaban 20 Mg Tablet PO 20 mg DAILY@1700 MENA Administration Sertraline HCl 200 mg 04/13/25 13:05 04/15/25 08:43 Sertraline Hcl 50 Mg Tablet PO 200 mg DAILY MENA Administration Tramadol HCl 50 mg 04/13/25 12:43 04/15/25 08:50 Tramadol Hcl (*Crx) 50 Mg Tablet PO 50 mg Q8H PRN Administration PAIN RATED 4-6 Radiology Results: ITS Impressions Abdomen/Pelvis CT 04/13/25 07:14 IMPRESSION: Interval progression of acute diverticulitis with a contained perforation. No drainable fluid collection is identified at this point for which the imaging is recommended pending patient's clinical tolerance Labs Labs: Laboratory Results - last 24 hr 04/16/25 06:07 WBC 8.1 RBC 3.86 L Hgb 10.7 L Hct 35.4 L MCV 91.7 MCH 27.7 MCHC 30.2 L RDW 14.2 Plt Count 215 MPV 10.1 Immature Gran % (Auto) 0.4 Neut % (Auto) 74.2 H Lymph % (Auto) 14.4 L [place] % (Auto) 8.4 Eos % (Auto) 2.2 Baso % (Auto) 0.4 Lymph # (Auto) 1.17 [place] # (Auto) 0.7 H Eos # (Auto) 0.2 Baso # (Auto) 0.0 Abs Immat Gran (auto) 0.03 Absolute Neuts (auto) 6.0 Absolute Nucleated RBC 0.000 Nucleated RBC % 0.0 Sodium 138 Potassium 3.7 Chloride 104 Carbon Dioxide 30 Anion Gap 4 BUN 6 L Creatinine 0.63 L Estim Creat Clear Calc 124 Estimated GFR > 60 Glucose 96 Calcium 7.8 L Magnesium 1.9 Total Bilirubin 0.5 AST 21 ALT 10 Alkaline Phosphatase 93 Total Protein 5.9 L Albumin 2.8 L Hospitalist MIPS Advance Care Plan I have confirmed that the patient's Advanced Care Plan is present, code status is documented, or surrogate decision maker is listed in patient medical record.: Yes Medication Reconciliation I have utilized all available resources to obtain, update and review the patients current medications (includes all prescriptions, OTC, herbals, cannabis, and nutritional supplements).: Yes
[2025-04-16 09:25] VITALS: PULSE 66
[2025-04-16] MEDS: METOPROLOL SUCCINATE EXT REL 50 MG TABCR PO (09:25)
[2025-04-16] MEDS: HYDROXYCHLOROQUINE SULFATE 200 MG TABLET PO ×2 (09:25→17:27)
[2025-04-16] MEDS: EMPAGLIFLOZIN 10 MG TABLET PO (09:25)
[2025-04-16] MEDS: busPIRone HCL 2.5 MG TABLET PO ×3 (09:25→17:27)
[2025-04-16] MEDS: SERTRALINE HCL 50 MG TABLET 200 MG PO (09:25)
[2025-04-16] MEDS: FERROUS SULFATE 325 MG TABLET DR PO (09:25)
[2025-04-16] MEDS: DIVALPROEX SODIUM DR 250 MG TABEC 500 MG PO (09:25)
[2025-04-16] MEDS: CALCIUM CARBONATE (OSCAL) 500 MG TABLET 1000 MG PO (09:25)
[2025-04-16] MEDS: LEFLUNOMIDE 20 MG TABLET PO (09:28)
[2025-04-16] MEDS: traMADol HCL (*CRX) 50 MG TABLET PO ×2 (11:08→21:54)
[2025-04-16] MEDS: ONDANSETRON HCL ODT 4 MG TABLET PO ×2 (12:10→17:27)
[2025-04-16 14:00] VITALS: BP 127/64; PULSE 66; RESP 18; TEMP 35.8; O2SAT 91
--- NOTE | 2025-04-16 14:21 | PM.PNGS ---
Progress Note: A&P Assessment and Plan (1) Diverticulitis of colon with perforation: Code(s): K57.20 - Diverticulitis of large intestine with perforation and abscess without bleeding Status: Acute Assessment and Plan: Patient is responding well to nonoperative medical management for sigmoid diverticulitis with microperforation. Abdominal pain and tenderness continues to improve. WBC count normal. Bowels are moving, but loose. She is surgically stable for discharge on another 10 days of oral antibiotics and a low fiber diet. F/u with Dr. Nixon in 2 weeks. We discussed with her that we would recommend getting a colonoscopy performed in about 4 to 6 weeks. Plan I have discussed the patient's case and plan of care with Dr. Nixon. Subjective Subjective Date/Time Seen: 04/16/25 14:21 Patient reports: no new complaints, feels better, pain is less, tolerating a regular diet, flatus and bowel movement Interval history: Patient feeling well today. She reports mild left lower quadrant pain this morning, but no pain at this time. She has had 2 bowel movements today. Tolerating a low-fiber diet without issues. No nausea or vomiting. No other complaints at this time. Exam Const: General: comfortable and no acute distress Orientation/consciousness: patient oriented x3 GI: Inspection: non-distended GI Palp: Yes Soft to palpation, Yes Tenderness to palpation present (GI) (mild suprapubic and RLQ tenderness, reportedly much improved), No Guarding due to palpation present (GI) and No Rebound tenderness present Auscultation: normal bowel sounds Objective Data Vital Signs Vital Signs: Vital Signs - 24 hr 04/15/25 14:23 04/15/25 20:08 04/15/25 20:45 Temperature 98.5 F 96.6 F L Pulse Rate 61 61 71 Respiratory Rate 16 16 20 Blood Pressure 143/81 H 143/70 H Pulse Oximetry 90 90 94 Oxygen Delivery CPAP 04/16/25 05:45 04/16/25 09:25 Temperature 97.7 F Pulse Rate 66 66 Respiratory Rate 20 Blood Pressure 154/81 H Pulse Oximetry 93 Oxygen Delivery Intake/Output Intake/Output: Intake & Output 04/13/25 04/14/25 04/15/25 04/16/25 23:59 23:59 23:59 23:59 Intake Total 2750 2940 3082.9 902 Output Total 395 496 5268 1000 Balance 2550 2239 1882.9 -98 Meds/Results Medications: Active Medications Generic Name Dose Route Start Last Admin Trade Name Freq PRN Reason Stop Dose Admin Aripiprazole 30 mg 04/13/25 21:00 04/15/25 23:25 Aripiprazole 10 Mg Tablet PO 30 mg HS MENA Administration Buspirone HCl 5 mg 04/13/25 17:00 04/16/25 12:10 Buspirone Hcl 5 Mg Tablet PO 5 mg TID MENA Administration Buspirone HCl 2.5 mg 04/13/25 17:00 04/16/25 12:10 Buspirone Hcl 2.5 Mg Tablet PO 2.5 mg TID MENA Administration Calcium Carbonate 1,000 mg 04/13/25 13:05 04/16/25 09:25 Calcium Carbonate (Oscal) 500 Mg Tablet PO 1,000 mg DAILY MENA Administration Divalproex Sodium 500 mg 04/13/25 13:00 04/16/25 09:[address] 250 Mg Tabec PO 500 mg DAILY MENA Administration Empagliflozin 10 mg 04/13/25 13:05 04/16/25 09:25 Empagliflozin 10 Mg Tablet PO 10 mg DAILY MENA Administration Ferrous Sulfate 325 mg 04/15/25 11:25 04/16/25 09:25 Ferrous Sulfate [address] PO 05/16/25 11:24 325 mg DAILY MENA Administration Hydromorphone HCl 0.5 mg 04/13/25 08:08 04/14/25 16:04 Hydromorphone Hcl Inj (*Crx) 2 Mg/Ml Vial IV PUSH 0.5 mg Q4H PRN Administration Pain Rated 7-10 Hydroxychloroquine Sulfate 200 mg 04/15/25 17:00 04/16/25 09:25 Hydroxychloroquine Sulfate 200 Mg Tablet PO 200 mg BID MENA Administration Piperacillin Sod/Tazobactam 50 mls @ 100 mls/hr 04/13/25 08:00 04/16/25 14:12 Sod 3.375 gm/ Sodium Chloride IVPB 100 mls/hr Q6H MENA Administration Lactated Ringer's 1,000 mls @ 125 mls/hr 04/13/25 08:10 04/15/25 23:26 Lr - Lactated Ringers Iv IV CONT 125 mls/hr .Q8H MENA Administration Leflunomide 20 mg 04/15/25 11:25 04/16/25 09:28 Leflunomide 20 Mg Tablet PO 20 mg DAILY [facility] Administration Levothyroxine Sodium 75 mcg 04/14/25 10:30 04/16/25 05:47 Levothyroxine Sodium 75 Mcg Tablet PO 75 mcg DAILY@0630 MENA Administration Levothyroxine Sodium 200 mcg 04/14/25 10:30 04/16/25 05:47 Levothyroxine Sodium 100 Mcg Tablet PO 200 mcg DAILY@0630 [facility] Administration Meclizine HCl 25 mg 04/13/25 12:43 Meclizine Hcl 25 Mg Tablet PO TID PRN dizziness Melatonin 3 mg 04/13/25 21:00 04/15/25 23:25 Melatonin 3 Mg Tablet PO 3 mg HS [facility] Administration Metoprolol Succinate 50 mg 04/13/25 13:05 04/16/25 09:25 Metoprolol Succinate Ext Rel 50 Mg Tabcr PO 50 mg DAILY [facility] Administration Miscellaneous Information 0 each 04/15/25 00:01 Med Rec Order Clarification XX 05/15/25 00:00 CLARIFY [facility] Non-Formulary Medication 75 mg 04/15/25 09:00 Vibegron [Gemtesa] PO 05/15/25 08:59 DAILY [facility] Ondansetron HCl 4 mg 04/13/25 08:08 04/15/25 18:01 Ondansetron Inj 4 Mg/2 Ml Vial IV PUSH 4 mg Q4H PRN Administration Nausea Ondansetron HCl 4 mg 04/16/25 12:00 04/16/25 12:10 Ondansetron Hcl Odt 4 Mg Tablet PO 4 mg BID [facility] Administration Rivaroxaban 20 mg 04/15/25 17:00 04/15/25 18:42 Rivaroxaban 20 Mg Tablet PO 20 mg DAILY@1700 [facility] Administration Sertraline HCl 200 mg 04/13/25 13:05 04/16/25 09:25 Sertraline Hcl 50 Mg Tablet PO 200 mg DAILY [facility] Administration Tramadol HCl 50 mg 04/13/25 12:43 04/16/25 11:08 Tramadol Hcl (*Crx) 50 Mg Tablet PO 50 mg Q8H PRN Administration PAIN RATED 4-6 Radiology Results: ITS Impressions Abdomen/Pelvis CT 04/13/25 07:14 IMPRESSION: Interval progression of acute diverticulitis with a contained perforation. No drainable fluid collection is identified at this point for which the imaging is recommended pending patient's clinical tolerance Labs Labs: Laboratory Results - last 24 hr 04/16/25 06:07 WBC 8.1 RBC 3.86 L Hgb 10.7 L Hct 35.4 L MCV 91.7 MCH 27.7 MCHC 30.2 L RDW 14.2 Plt Count 215 MPV 10.1 Immature Gran % (Auto) 0.4 Neut % (Auto) 74.2 H Lymph % (Auto) 14.4 L [place] % (Auto) 8.4 Eos % (Auto) 2.2 Baso % (Auto) 0.4 Lymph # (Auto) 1.17 [place] # (Auto) 0.7 H Eos # (Auto) 0.2 Baso # (Auto) 0.0 Abs Immat Gran (auto) 0.03 Absolute Neuts (auto) 6.0 Absolute Nucleated RBC 0.000 Nucleated RBC % 0.0 Sodium 138 Potassium 3.7 Chloride 104 Carbon Dioxide 30 Anion Gap 4 BUN 6 L Creatinine 0.63 L Estim Creat Clear Calc 124 Estimated GFR > 60 Glucose 96 Calcium 7.8 L Magnesium 1.9 Total Bilirubin 0.5 AST 21 ALT 10 Alkaline Phosphatase 93 Total Protein 5.9 L Albumin 2.8 L
--- NOTE | 2025-04-16 14:39 | P.CDI_ITS ---
CDI Query Clarification Request 1)Please clarify if UTI has been ruled in or ruled out 2)Patient with a BMI of 42.3 please provide a diagnosis to accompany this finding: * Overweight * Obesity * Morbid Obesity * Other/Unknown The medical chart reflects the following: # Dysuria, UA concerning for UTI. No dysuria currently. Is reporting abdominal pain when voiding Follow urine culture result Continue with Zosyn Urine Color Yellow Yellow ML Urine Appearance Clear Clear ML Urine pH 6.0 5.0-9.0 ML Specific Golden Ur 1.041 H 1.001-1.035 ML Urine Protein Trace Negative mg/dL ML Urine Glucose 3+ H Negative mg/dL ML Urine Ketones Negative Negative mg/dL ML Blood Urine Trace Negative ML Urine Nitrate Negative Negative ML Urine Bilirubin Negative Negative ML Urine Urobilinogen 1.0 <2.0 mg/dL ML Leukocyte Esterase Ur 1+ H Negative ZIGGY/UL ML Urine RBC 11-20 H 0-2 /hpf ML Urine WBC 11-20 H 0-3 /hpf ML Squamous Epi Ur Few Few /hpf ML Urine Bacteria 1+ H /hpf ML Urine Budding Yeast Present H None /hpf ML Non Pathogenic Casts 0-2 ML Need Manual Microscopic RFX UR CX DUE TO ABN UA R82.90 Final 04/16/25-0707 LC Greater than 2 organisms recovered, none predominant. Please submit another sample if clinically indicated. Greater than 100,000 colony forming units per mL ER documentedPatient denies fevers chest pain difficulty breathing or urinary symptoms H&P stated UA concerning for UTI. CT showed concern for acute diverticulitis with contained perforation. Surgery team was consulted and patient was admitted for further management. Treatment started with Zosyn. <Kika Villa RN - Last Filed: 04/16/25 14:43> Clarified Diagnosis Clarified Diagnosis: UTI Possible UTI, but more likely abdominal pain with urination due to diverticulitis Morbid obesity BMI 42. Complicates care <Phoebe Hess APRN - Last Filed: 04/17/25 09:34>
--- NOTE | 2025-04-16 16:54 | ECG_ITS ---
Test Date: 2025-04-16 17:07:18 Measurements Intervals [place] Rate: 73 P: 22 MD: 192 QRS: 149 QRSD: 113 T: 71 QT: 426 QTc: 471 Interpretive Statements SINUS RHYTHM RIGHT AXIS DEVIATION INCOMPLETE RIGHT BUNDLE BRANCH BLOCK BORDERLINE R WAVE PROGRESSION, ANTERIOR LEADS MINIMAL Q WAVES- INFERIOR LEADS BORDERLINE T WAVE ABNORMALITY- HIGH LATERAL LEADS BORDERLINE ECG Compared to ECG 04/13/2025 03:26:00 NO SIGNIFICANT CHANGE Electronically Signed On 04-16-2025 19:46:36 CDT by Juan Luis Cervantes D.O.
[2025-04-16] MEDS: RIVAROXABAN 20 MG TABLET PO (17:27)
[2025-04-16 17:45] LABS: Troponin I < 0.012 ng/mL (0.000-0.034)
[2025-04-16] MEDS: LACTATED RINGERS 1,000 ML 125 ML IV CONT (18:02)
[2025-04-16 20:40] VITALS: PULSE 90; RESP 20; O2SAT 98
[2025-04-16 21:05] VITALS: BP 138/66; PULSE 76; RESP 16; TEMP 36.6; O2SAT 93
[2025-04-16 21:13] LABS: Troponin I < 0.012 ng/mL (0.000-0.034)
[2025-04-16] MEDS: MELATONIN 3 MG TABLET PO (21:55)
[2025-04-16 23:19] VITALS: PULSE 70; RESP 25; O2SAT 92
[2025-04-17 00:18] LABS: Troponin I < 0.012 ng/mL (0.000-0.034)
[2025-04-17] MEDS: LACTATED RINGERS 1,000 ML 125 ML IV CONT (02:47)
[2025-04-17] MEDS: PIPERACILLIN/TAZOBACTAM SOD 3.375 GM in SODIUM CHLORIDE 0.9% IV 50 ML 100 ML IVPB ×2 (02:48→09:16)
[2025-04-17] MEDS: LEVOTHYROXINE SODIUM 75 MCG TABLET PO (05:25)
[2025-04-17] MEDS: LEVOTHYROXINE SODIUM 100 MCG TABLET 200 MCG PO (05:25)
[2025-04-17 05:45] VITALS: BP 105/62; PULSE 65; RESP 20; TEMP 36.3; O2SAT 93
--- NOTE | 2025-04-17 09:07 | P.DS_ITS ---
DS: Admitting Diagnosis Discharge Date 04/17/2025 Admitting Diagnosis Abdominal pain DS: Discharge Diagnosis Discharge Diagnosis (1) Diverticulitis of colon with perforation: Code(s): K57.20 - Diverticulitis of large intestine with perforation and abscess without bleeding Status: Acute (2) Abdominal pain: Code(s): R10.9 - Unspecified abdominal pain Status: Acute (3) Arthritis of left knee: Code(s): M17.12 - Unilateral primary osteoarthritis, left knee Status: Acute (4) Obesity: Code(s): E66.9 - Obesity, unspecified Status: Acute (5) Hypothyroidism: Qualifiers: Hypothyroidism type: acquired Qualified Code(s): E03.9 - Hypothyroidism, unspecified Code(s): E03.9 - Hypothyroidism, unspecified Status: Acute DS: Summary Hospital Course Reason for hospitalization: Copied from [facility] 04/13: Patient with history of obesity, RA, hypothyroidism, AFib on Xarelto presented to hospital because of 3 weeks abdominal pain.. Patient notes pain is severe intermittent sharp lower abdomen and periumbilical. Pain should it started 3 weeks ago. She presented to PCP and CT abdomen ordered. CT showed diverticulitis but patient did not receive any antibiotics. She continued to have worsening abdominal pain. Patient also complaining of dysuria. Patient denies any fever chills, chest pain, shortness of breath. Her last colonoscopy was in 2021 unremarkable. She presented to ER for further management. In the ER ultrasound was unremarkable except for blood pressure 157/78. Lab test showed WBC 14.5, hemoglobin 11, calcium 7.9. UA concerning for UTI. CT showed concern for acute diverticulitis with contained perforation. Surgery team was consulted and patient was admitted for further management. Treatment started with Zosyn. Hold off Xarelto. Continue with IV fluid. Will keep patient NPO. Continue with serial abdominal exam Hospital Course: Acute perforated diverticulitis Received Zosyn during admission. IV fluids. Abdominal pain improving on exam and nausea improved. Diet advanced and tolerating a diet and drinking well prior to discharge. Having BM's. Surgery followed during admission and will follow up w ith her in the office. She did not require intervention during admission. Resumed Xarelto. Tylenol/Tramadol prn for pain. Patient reported she has tramadol at home so did not require additional for home Nausea Eating bites, nauseated. Improved with scheduled zofran BID. Continued zofran prn # Dysuria, UA possible UTI. No dysuria currently. Urine culture grew multiple organisms, no predominant organism. She reported abdominal pain when voiding but more likely abdominal source than UTI Treated with Zosyn and Augmentin above # Hypothyroidism Levothyroxine # AFib Paroxysmal Hold of Xarelto in setting of diverticulitis pending surgery eval. Resumed. Continued metoprolol # Anxiety/depression/insomnia G[employer] med # DVT proph: scds, Xarelto # code status: full code Status at Discharge Cognitive/behavioral status at discharge: A&Ox4 Time Spent with Patient Time attestation: Total time spent providing and/or coordinating discharge services: Exam Narrative: General - Awake and alert. No acute distress Eyes - PERRLA, EOM intact ENT - No thrush, No erythema Neck - No noticeable or palpable swelling Lymph Nodes - No lymphadenopathy Cardiovascular - RRR no m/r/g, no JVD Lungs: Clear to auscultation, No wheezing, use of accessory muscles, no crackles Skin - Skin warm and dry, no wounds or rashes Abdomen - Normal bowel sounds, abdomen soft and mildly tender to palpation Extremities - No edema, cyanosis or clubbing Musculoskeletal - 5/5 strength, normal range of motion, no swollen or erythematous joints. Neurological ? Alert and oriented x 3, CN 2-12 grossly intact. Psych: Normal mood and affect DS: Data Data Completed and Pending Labs on day of discharge: Labs from last 24 hours 04/16/25 04/16/25 04/16/25 23:35 20:25 17:12 Troponin I < 0.012 < 0.012 < 0.012 Discharge Plan Discharge Attending physician on discharge: Phoebe Hess Consulting providers: Mani Nixon Anoushiravan; Phoebe Hess Discharging Clinician: Phoebe Hess Anticipated Discharge Date/Time: 04/17/25 09:09 Patient Disposition: Home Activity: as tolerated Diet: low fiber Discharge Instructions: * Hold lasix (furosemide) for 2 weeks, or until eating and drinking well. Weigh yourself daily. If you have increased swelling and weight gain (2-3 pounds in a day or 5-7 pounds in a week) call your PCP to restart it earlier. * Follow a low-fiber diet for 2 weeks. Then transition to a high-fiber diet if feeling well. 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 Nixon in 2 weeks. Call to make an appointment. [phone] * Call the surgeon sooner or go to the ED, if you develop worsening abdominal pain, fever, or vomiting. Patient Instructions: Antibiotic Form, Rivaroxaban (By mouth), Diverticulitis (DC), High Fiber Diet (DC), Low Fiber Diet (DC) Patient Language: Ukrainian Stand Alone Forms: General Discharge Information Follow-up/Referrals: Mani Nixon MD [Physician] - 2 Weeks Discharge Medications: New amoxicillin-pot clavulanate 875-125 mg tablet 1 tablet PO Q8H 10 Days Qty: 30 0RF metronidazole 500 mg tablet 500 mg PO Q8H 10 Days Qty: 30 0RF ondansetron 4 mg Tablet,Disintegrating 4 mg PO TID PRN (Reason: nausea and vomiting) Qty: 20 0RF Continued hydroxychloroquine 200 mg tablet 200 mg PO BID meclizine 25 mg tablet 25 mg PO TID PRN (Reason: dizziness) Qty: 30 0RF divalproex 250 mg tablet,delayed release (DR/EC) 500 mg PO DAILY Gemtesa 75 mg tablet 75 mg PO DAILY ferrous sulfate 325 mg (65 mg iron) tablet 325 mg PO DAILY dapagliflozin propanediol [Farxiga] 10 mg tablet 10 mg PO DAILY alendronate 70 mg tablet 70 mg PO WEEKLY levothyroxine 75 mcg capsule 75 mcg PO DAILY Calcium 1,200 mg 1,200 mg PO DAILY leflunomide 20 mg tablet 20 mg PO DAILY Orencia See Rx Instructions .ROUTE .COMPLEX Patient Comments: last infusion middle of March 2025 Rx Instructions: TAKES INFUSION AT CLINIC MONTHLY aripiprazole 30 mg tablet 30 mg PO HS buspirone 7.5 mg tablet 7.5 mg PO TID lisinopril 5 mg tablet 5 mg PO DAILY sertraline 100 mg tablet 200 mg PO DAILY melatonin 3 mg tablet 3 mg PO HS Xarelto 20 mg tablet 20 mg PO DAILY metoprolol succinate 50 mg tablet extended release 24 hr 50 mg PO DAILY Qty: 90 3RF tramadol 50 mg tablet 50 mg PO Q8H PRN (Reason: pain) Qty: 90 0RF levothyroxine 200 mcg tablet 200 mcg PO DAILY Qty: 90 1RF Rx Instructions: TAKE 1 TABLET BY MOUTH DAILY Held furosemide 20 mg tablet 20 mg PO BID Hold Instructions: Resume on 05/01/25. Hold until follow up with surgery. Can resume earlier if you are drinking well and have increased swelling to lower extremities Rx Instructions: 20mg in the AM and 1/2 tablet in the PM Date of admission: 04/13/25 09:38 Primary Care Provider: Arias Varela Admitting Provider: Issac Navas Attending physician on admission: Issac Navas Condition: Stable Quality VTE Prophylaxis VTE prophylaxis: pharmacologic ordered Hospitalist MIPS Heart Failure (Exclusion) Patient has history of Heart Transplant or Left Ventricular Assistive Device?: No IF YES, STOP HERE Heart Failure (Qualifier) Patient has current or prior documentation of LVEF less than or equal to 40%, or mod/servere depressed LVSF?: No IF NO, STOP HERE
[2025-04-17] MEDS: FERROUS SULFATE 325 MG TABLET DR PO (09:17)
[2025-04-17] MEDS: HYDROXYCHLOROQUINE SULFATE 200 MG TABLET PO (09:17)
[2025-04-17] MEDS: LEFLUNOMIDE 20 MG TABLET PO (09:17)
[2025-04-17] MEDS: CALCIUM CARBONATE (OSCAL) 500 MG TABLET 1000 MG PO (09:17)
[2025-04-17] MEDS: ONDANSETRON HCL ODT 4 MG TABLET PO (09:17)
[2025-04-17] MEDS: busPIRone HCL 2.5 MG TABLET PO (09:17)
[2025-04-17] MEDS: DIVALPROEX SODIUM DR 250 MG TABEC 500 MG PO (09:17)
[2025-04-17] MEDS: SERTRALINE HCL 50 MG TABLET 200 MG PO (09:17)
[2025-04-17 09:18] VITALS: PULSE 65
[2025-04-17] MEDS: METOPROLOL SUCCINATE EXT REL 50 MG TABCR PO (09:18)
[2025-04-17] MEDS: EMPAGLIFLOZIN 10 MG TABLET PO (09:30)
== END 2025-04-17 12:20 | disposition home or self-care (01) | DRG 392 ==
LOC: ANHED 08:08 → ANH3MEDSUR 08:45
PROVIDERS: General Practice; Internal Medicine; Admitting Provider Internal Medicine; Emergency Provider Emergency Medicine; PCP Internal Medicine; Visit Provider Nurse Practitioner Acute Care
DX: K57.20 Diverticulitis of large intestine with perforation and abscess without bleeding (principal); E66.2 Morbid (severe) obesity with alveolar hypoventilation; Z68.41 Body mass index [BMI] 40.0-44.9, adult; I48.0 Paroxysmal atrial fibrillation; R30.0 Dysuria; E03.9 Hypothyroidism, unspecified; M17.0 Bilateral primary osteoarthritis of knee; M06.9 Rheumatoid arthritis, unspecified; F41.9 Anxiety disorder, unspecified; F32.A Depression, unspecified; Z79.01 Long term (current) use of anticoagulants
CPT/HCPCS: 36415; 74177; 80053; 81001; 83605; 83690; 83735; 84484; 85025; 87086; 92960; 93005; 94002; 96365; 96375; 96376; 99285; A9270; G0378; J0696; J1171; J2405; J2543; J3480; J7030; J7040; J7120; Q9967